=== PATIENT | female | born 1955 | race Hispanic/Latino ===

== ENCOUNTER 2018-10-22 00:22 | Emergency (ER) | payer OTHER ==
--- OUTSIDE RECORDS SUMMARY | 2018-10-22 00:24 | XMS REPORT ---
:1955 Author Organization e[employer] Care Team Providers Name Role Phone Mei, Na Provider Role Unavailable Allergies No Known Allergies Problems Problem Type Condition Code Onset Dates Condition Status Problem Benign essential HTN I10 Active Problem Diverticulosis large intestine w/o K57.30 Active perforation or abscess w/o bleeding Problem Diabetes E11.9 Active Problem Chronic fatigue R53.82 Active Problem Exposure to TB Z20.1 Active Problem Proteinuria, unspecified R80.9 Active Problem Pericardial effusion I31.3 Active Problem Seborrheic dermatitis, unspecified L21.9 Active Problem Insomnia, unspecified type G47.00 Active Problem 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 Problem Type 2 diabetes mellitus with other E11.29 Active diabetic kidney complication Problem Ventral hernia K43.9 Active Problem Reactive depression F32.9 Active Problem Gastroesophageal reflux disease K21.9 Active without esophagitis Problem Poison kayode L23.7 Active Problem HTN (hypertension) I10 Active Problem Hyperlipidemia, mixed E78.2 Active Problem Fatty liver K76.0 Active Problem Endometrial cancer C54.1 Active Problem GERD (gastroesophageal reflux K21.9 Active disease) Medications Medication Code Code Instructions Start End Status Dosage System Date Date Triamcinolone [facility] 99881393193 0.1 % December Active 1 application Acetonide Externally 03, to affected Twice a day 2017 area Medrol [facility] 08843838176 4 MG Orally December Active as directed 2017 Results No Known Results Summary Purpose eClinicalWorks Submission
--- OUTSIDE RECORDS SUMMARY | 2018-10-22 00:25 | XMS REPORT ---
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 Problem Pericardial effusion I31.3 Active Problem Exposure to TB Z20.1 Active Problem Insomnia, unspecified type G47.00 Active Problem Endometrial cancer C54.1 Active Problem Poison kayode L23.7 Active Problem Gastroesophageal reflux disease K21.9 Active without esophagitis Problem Type 2 diabetes mellitus with other E11.29 Active diabetic kidney complication Problem GERD (gastroesophageal reflux K21.9 Active disease) Problem Benign essential HTN I10 Active Problem HTN (hypertension) I10 Active Problem Diabetes E11.9 Active Problem Fatty liver K76.0 Active Problem Ventral hernia K43.9 Active Medications No Known Medications Results No Known Results Summary Purpose eClinicalWorks Submission
--- OUTSIDE RECORDS SUMMARY | 2018-10-22 00:25 | XMS REPORT ---
:1955 Author Organization [employer] Care Team Providers Name Role Phone Mei, Na Provider Role Unavailable Allergies, Adverse Reactions, Alerts Substance Reaction Event Type Lisinopril Info Not Available Drug Allergy Iodine Info Not Available Drug Allergy Problems Problem Type Condition Code Onset Dates Condition Status Assessment Chronic fatigue R53.82 Active Assessment Insomnia, unspecified type G47.00 Active Assessment Gastroesophageal reflux disease K21.9 Active without esophagitis Assessment Exposure to TB Z20.1 Active Assessment Reactive depression F32.9 Active Problem Fatty liver K76.0 Active Assessment Hyperlipidemia, mixed E78.2 Active Problem GERD (gastroesophageal reflux K21.9 Active disease) Assessment Benign essential HTN I10 Active Problem Benign essential HTN I10 Active Problem Diverticulosis large intestine w/o K57.30 Active perforation or abscess w/o bleeding Problem Diabetes E11.9 Active Problem Chronic fatigue R53.82 Active Problem Exposure to TB Z20.1 Active Assessment Type 2 diabetes mellitus with other E11.29 Active diabetic kidney complication Problem Proteinuria, unspecified R80.9 Active Assessment Proteinuria, unspecified R80.9 Active Problem Pericardial effusion [...] Active Problem Hyperlipidemia, mixed E78.2 Active Problem Endometrial cancer C54.1 Active Medications Medication Code Code Instructions Start End Status Dosage System Date Date HydrALAZINE HCl ND 26262149053 50 MG Orally Active 1 tablet with Three times a food day Crestor ND 83516822710 10 MG Active 1 tab(s) once a day (at bedtime) orally Medrol ND 65045218344 4 MG Orally Aug 21, Active as directed 2018 Coreg ND 28397025730 25 MG Orally Active not defined Cymbalta [facility] 51400998258 30 MG Orally Active 1 capsule once a day Metformin HCl [facility] 26494439165 1000 MG Active 1 each 2 times a day orally Cymbalta [facility] 72312769964 30 MG Orally Active 1 capsule once a day Clotrimazole [facility] 01663213023 1 % Externally Active 1 application Twice a day to affected area Vitamin B12 [facility] 60373080245 1000 MCG Orally Active 1 tablet Once a day Diflucan [facility] 56762791861 150 MG Orally Active 1 tablet Prilosec [facility] 67783017737 20 MG Orally Active 1 capsule Once a day Losartan [facility] 45392719396 100 MG Orally Active 1 tablet Potassium Once a day Trazodone HCl [facility] 37712599362 50 MG Orally December 25, Active 1 tablet at Once a day 2018 bedtime as needed Invokana [facility] 22647131421 300 MG Active 1 tab(s) once a day orally Cozaar [facility] 82591086094 100 MG Active 1 each once a day orally Toupetrao RandiMayraar [facility] 65558096512 300 UNIT/ML December 25, Active 10 units Subcutaneous 2018 daily and daily titrate up by 2 units every 3 days until fasting glucose less 130 ( max of 30 units daily) Results No Known Results Summary Purpose eClinicalWorks Submission
--- OUTSIDE RECORDS SUMMARY | 2018-10-22 00:25 | XMS REPORT ---
[...] GERD (gastroesophageal reflux K21.9 Active disease) Medications No Known Medications Results No Known Results Summary Purpose eClinicalWorks Submission
--- OUTSIDE RECORDS SUMMARY | 2018-10-22 00:25 | XMS REPORT ---
:1955 Author Organization [employer]Works Care Team Providers Name Role Phone Mei, Na Provider Role Unavailable Allergies, Adverse Reactions, Alerts Substance Reaction Event Type Lisinopril Info Not Available Drug Allergy Iodine Info Not Available Drug Allergy Problems Problem Type Condition Code Onset Dates Condition Status Assessment Tinea pedis of right foot B35.3 Active Assessment Yeast vaginitis B37.3 Active Assessment Other chronic pain G89.29 Active Assessment Pain in thoracic spine M54.6 Active Assessment Chronic fatigue R53.82 Active Assessment Insomnia, unspecified type G47.00 Active Assessment Gastroesophageal reflux disease K21.9 Active without esophagitis Assessment Reactive depression F32.9 Active Assessment Hyperlipidemia, mixed E78.2 Active Problem Diabetes E11.9 Active Assessment Benign essential HTN I10 Active Problem Ventral hernia K43.9 Active Assessment Proteinuria, unspecified R80.9 Active Problem Hyperlipidemia, mixed E78.2 Active Problem Seborrheic dermatitis, unspecified L21.9 Active Problem Diverticulosis large intestine w/o K57.30 Active perforation or abscess w/o bleeding Problem Proteinuria, unspecified R80.9 Active Problem Chronic fatigue R53.82 Active Problem Reactive depression F32.9 Active Problem Other chronic pain G89.29 Active Assessment Type 2 diabetes mellitus with other E11.29 Active diabetic kidney complication Problem 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 Active [...] Active Problem HTN (hypertension) I10 Active Problem Fatty liver K76.0 Active Medications Medication Code Code Instructions Start End Status Dosage System Date Date Vitamin B12 [facility] 04024666052 1000 MCG Active 1 tablet Orally Once a day Medrol [facility] 88561340255 4 MG Orally Feb Active as directed 2017 Crestor [facility] 42147064058 10 MG Active 1 tab(s) once a day (at bedtime) orally Medrol ND 70951526030 4 MG Orally December Active as directed 2017 Cymbalta [facility] 69179813509 60 MG Orally Active 1 capsule once a day Hydrochlorothiazide ND 86225399914 25 MG Orally Nov Active 1 tablet in Once a day , the morning 2017 HydrALAZINE HCl [facility] 17117945734 50 MG Orally Active 1 tablet Three times a with food day Diflucan ND 01373702205 150 MG Orally Active 1 tablet Cymbalta [facility] 38515064879 30 MG Orally Active 1 capsule once a day Invokana [facility] 46658404838 300 MG Jan Active 1 tab(s) 20, once a day 2018 orally NovoFine Plus [facility] 99271960241 32G X 4 MM Nov Active as directed 2017 Trazodone HCl [facility] 91565911491 50 MG Orally Active 1 tablet at Once a day bedtime as needed Losartan Potassium ND 20284430951 100 MG Orally Active 1 tablet Once a day HydrALAZINE HCl [facility] 80999809188 50 MG Orally Active 1 tablet Three times a with food day Clotrimazole [facility] 41823649936 1 % Externally Active 1 Twice a day application to affected area Coreg ND 57488748232 25 MG Orally Active not defined Prilosec [facility] 88164207225 20 MG Orally Active 1 capsule Once a day Cozaar [facility] 91333003519 100 MG Active 1 each once a day orally Triamcinolone [facility] 02891494792 0.1 % December Active 1 Acetonide Externally , application Twice a day 2017 to affected area Toujeo SoloStar [facility] 18981110709 300 UNIT/ML Active 32 units and Subcutaneous increase by daily 2 units every 3 days until fbg less 120 FreeStyle Chaz [facility] 04102558059 - [place] dailyk Active as directed [place] Prilosec [facility] 93658023921 20 MG Orally Active 1 capsule Once a day Fluconazole ND 57925750756 150 MG Orally Feb Active 1 tablet one tab a week , and 2018 may repeat one tab in 1 week if no improvement Metformin HCl [facility] 98870257981 1000 MG Active 1 each 2 times a day orally FreeStyle Chaz [facility] 64855639671 - Active as directed Sensor System Amlodipine Besylate [facility] 73436888994 5 MG Orally Fe Active 1 tablet Once a day 2018 Results No Known Results Summary Purpose eClinicalWorks Submission
--- OUTSIDE RECORDS SUMMARY | 2018-10-22 00:25 | XMS REPORT ---
:1955 Author Organization eClinicalWorks Care Team Providers Name Role Phone Mei, Na Provider Role Unavailable Allergies, Adverse Reactions, Alerts Substance Reaction Event Type Lisinopril Info Not Available Drug Allergy Iodine Info Not Available Drug Allergy Problems Problem Type Condition Code Onset Dates Condition Status Assessment Tinea pedis of right foot B35.3 Active Assessment Other chronic pain G89.29 Active [...] Start End Status Dosage System Date Date Losartan Potassium [facility] 08415854346 100 MG Orally Active 1 tablet Once a day Metformin HCl [facility] 62602231303 1000 MG Active 1 each 2 times a day orally Invokana [facility] 10766038205 300 MG Active 1 tab(s) once a day orally Prilosec [facility] 52005040108 20 MG Orally Active 1 capsule Once a day FreeStyle Chaz [facility] 70650934866 - Active as directed Sensor System Diflucan [facility] 83253807104 150 MG Orally Active 1 tablet Vitamin B12 [facility] 47870483615 1000 MCG Active 1 tablet Orally Once a day NovoFine Plus [facility] 76785371879 32G X 4 MM Nov Active as directed 2017 Crestor [facility] 61731987266 10 MG Active 1 tab(s) once a day (at bedtime) orally Trazodone HCl [facility] 02028369752 50 MG Orally Active 1 tablet at Once a day bedtime as needed Toujeo SoloStar [facility] 37504126869 300 UNIT/ML Active 22 units Subcutaneous daily daily tittrate up 2 units every 3 days max of 30 units daily. Cymbalta [facility] 04555309452 30 MG Orally Active 1 capsule once a day Medrol [facility] 09870971502 4 MG Orally Aug Active as directed 2017 Coreg [facility] 46580021159 25 MG Orally Active not defined Cozaar [facility] 12614190354 100 MG Active 1 each once a day orally Hydrochlorothiazide ND 46363797343 25 MG Orally Nov Active 1 tablet in Once a day , the morning 2017 Clotrimazole [facility] 73527897813 1 % Externally Active 1 Twice a day application to affected area Medrol [facility] 33430551624 4 MG Orally December Active as directed 2017 Prilosec [facility] 15115759725 20 MG Orally Active 1 capsule Once a day Cymbalta [facility] 93664580267 30 MG Orally Active 1 capsule once a day HydrALAZINE HCl [facility] 58434275130 50 MG Orally Active 1 tablet two times a with food day FreeStyle Chaz [facility] 44747586989 - [place] daily Active as directed [place] Triamcinolone [facility] 75918738191 0.1 % December Active 1 Acetonide Externally , application Twice a day 2017 to affected area Results No Known Results Summary Purpose eClinicalWorks Submission
--- OUTSIDE RECORDS SUMMARY | 2018-10-22 00:25 | XMS REPORT ---
:1955 Author Organization eClinicalWorks Care Team Providers Name Role Phone Mei, Na Provider Role Unavailable Allergies, Adverse Reactions, Alerts Substance Reaction Event Type Lisinopril Info Not Available Drug Allergy Iodine Info Not Available Drug Allergy Problems Problem Type Condition Code Onset Dates Condition Status Assessment Insomnia, unspecified type G47.00 Active Assessment Yeast vaginitis B37.3 Active Assessment Reactive depression F32.9 Active Assessment Paronychia of great toe of right L03.031 Active foot Assessment Hyperlipidemia, mixed E78.2 Active Problem Diabetes [...] Start End Status Dosage System Date Date Cymbalta [facility] 67175192745 60 MG Orally Active 1 capsule once a day HydrALAZINE HCl ND 75189689996 50 MG Orally Active 1 tablet Three times a with food day Crestor ND 86284795462 10 MG Active 1 tab(s) once a day (at bedtime) orally Diflucan ND 89612517435 150 MG Orally Active 1 tablet Hydrochlorothiazide ND 43636774924 25 MG Orally Nov Active 1 tablet in Once a day , the morning 2017 Cymbalta [facility] 42211306422 30 MG Orally Active 1 capsule once a day Prilosec [facility] 02224161744 20 MG Orally Active 1 capsule Once a day Prilosec [facility] 96879277902 20 MG Orally Active 1 capsule Once a day Fluconazole ND 08869952471 150 MG Orally Active 1 tablet one tab a today and week may repeat one tab in 1 week if no improvement Toujeo SoloStar [facility] 69441503486 300 UNIT/ML Active 32 units and Subcutaneous increase by daily 2 units every 3 days until fbg less 120 Bactrim DS [facility] 67227815648 800-160 MG August Active 1 tablet Orally Twice , , a day 2018 2018 HydrALAZINE HCl [facility] 52668901246 50 MG Orally Active 1 tablet Three times a with food day Cozaar [facility] 84351427484 100 MG Active 1 each once a day orally Medrol [facility] 07353540634 4 MG Orally December Active as directed 2017 Invokana [facility] 30006338100 300 MG Active 1 tab(s) once a day orally Metformin HCl [facility] 67812012781 1000 MG Active 1 each 2 times a day orally Vitamin B12 ND 15677213136 1000 MCG Active 1 tablet Orally Once a day Triamcinolone ND 02979292238 0.1 % December Active 1 Acetonide Externally , application Twice a day 2017 to affected area Trazodone HCl ND 12704088362 50 MG Orally Active 1 tablet at Once a day bedtime as needed Medrol [facility] 28653974850 4 MG Orally Aug Active as directed 2017 Amlodipine Besylate ND 42381576038 10 MG Orally Active 1 tablet Once a day Clotrimazole ND 90672012980 1 % Active 1 Externally application Twice a day to affected area Coreg ND 93499751232 25 MG Orally Active not defined NovoFine Plus [facility] 15632356677 32G X 4 MM May Active as directed 2017 Losartan Potassium ND 07883250897 100 MG Orally Active 1 tablet Once a day FreeStyle Chaz [facility] 02162622056 - [place] dailyk Active as directed [place] [facility] 50548728870 - Active as directed Sensor System Results No Known Results Summary Purpose eClinicalWorks Submission
--- NOTE | 2018-10-22 01:00 | EDPHYS ---
Physician Documentation [facility] Name: Jo Hagan Age: 63 yrs Sex: Female : 1955 Arrival Date: 10/22/2018 Time: 00:24 Bed 19 Private MD: Kenyatta Mei ED Physician Jack Javier HPI: 10/22 01:03 This 63 yrs old Female presents to ER via Ambulatory with complaints of Rash, snw Allergic Reaction. 01:03 The patient's rash thought to be caused by Dermatitis Contact allergy. The rash is snw located on the left arm and left hand and right hand and palmar aspect of left forearm and dorsal aspect of left forearm and left cheek and right cheek. The rash can be described as erythematous, patchy, vesicular. Onset: The symptoms/episode began/occurred suddenly, 2 day(s) ago, and became worse and became persistent. Severity of symptoms: At their worst the symptoms were moderate in the emergency department the symptoms are unchanged. The patient has experienced similar episodes in the past. It is unknown whether or not the patient has recently seen a physician. cleaning out her gardens and mulch. Historical: - Allergies: 00:41 Iodine; ak1 - Home Meds: 00:41 carvedilol 25 mg oral tab 1 tab 2 times per day [Active]; hydralazine 50 mg Oral tab 1 ak1 tab 3 times daily [Active]; metformin 1,000 mg Oral tab 1 tab 2 times per day [Active]; Invokana 300 mg oral tab 1 tab once daily [Active]; Crestor 10 mg oral tab 1 tab once daily [Active]; amlodipine 5 mg tab 1 tab once daily [Active]; omeprazole 20 mg Oral cpDR 1 cap once daily [Active]; insulin SQ 42 units daily [Active]; - PMHx: 00:41 Diabetes - IDDM; Hypertension; ak1 - PSHx: 00:41 Hysterectomy; Tubal ligation; Cholecystectomy; Hernia repair; ak1 - Immunization history:: Adult Immunizations unknown. - Social history:: Smoking status: Patient/guardian denies using tobacco. - Ebola Screening: : No symptoms or risks identified at this time. ROS: 01:03 Constitutional: Negative for fever, chills, and weight loss, Eyes: Negative for injury, snw pain, redness, and discharge, ENT: Negative for injury, pain, and discharge, Neck: Negative for injury, pain, and swelling, Cardiovascular: Negative for chest pain, palpitations, and edema, Respiratory: Negative for shortness of breath, cough, wheezing, and pleuritic chest pain, Abdomen/GI: Negative for abdominal pain, nausea, vomiting, diarrhea, and constipation, Back: Negative for injury and pain, : Negative for injury, bleeding, discharge, and swelling, MS/Extremity: Negative for injury and deformity, Neuro: Negative for headache, weakness, numbness, tingling, and seizure, Psych: Negative for depression, anxiety, suicide ideation, homicidal ideation, and hallucinations. 01:03 Skin: Positive for rash, swelling, of the left arm and left hand and right hand and palmar aspect of left forearm and dorsal aspect of left forearm and left cheek and right cheek. Exam: : Constitutional: This is a well developed, well nourished patient who is awake, alert, snw and in no acute distress. Eyes: Pupils equal round and reactive to light, extra-ocular motions intact. Lids and lashes normal. Conjunctiva and sclera are non-icteric and not injected. Cornea within normal limits. Periorbital areas with no swelling, redness, or edema. Neck: Trachea midline, no thyromegaly or masses palpated, and no cervical lymphadenopathy. Supple, full range of motion without nuchal rigidity, or vertebral point tenderness. No Meningismus. Chest/axilla: Normal chest wall appearance and motion. Nontender with no deformity. No lesions are appreciated. Cardiovascular: Regular rate and rhythm with a normal S1 and S2. No gallops, murmurs, or rubs. Normal PMI, no JVD. No pulse deficits. Respiratory: Lungs have equal breath sounds bilaterally, clear to auscultation and percussion. No rales, rhonchi or wheezes noted. No increased work of breathing, no retractions or nasal flaring. Abdomen/GI: Soft, non-tender, with normal bowel sounds. No distension or tympany. No guarding or rebound. No evidence of tenderness throughout. Back: No spinal tenderness. No costovertebral tenderness. Full range of motion. MS/ Extremity: Pulses equal, no cyanosis. Neurovascular intact. Full, normal range of motion. Neuro: Awake and alert, GCS 15, oriented to person, place, time, and situation. Cranial nerves II-XII grossly intact. Motor strength 5/5 in all extremities. Sensory grossly intact. Cerebellar exam normal. Normal gait. 01:01 Head/face: Noted is erythema, that is moderate, of the right cheek and left cheek, swelling. 01:01 ENT: TM's: are normal, Nose: is normal, Mouth: Tongue: is swollen, mildly, no airway compromise, Voice: is normal. 01:01 Skin: Appearance: Color: normal in color, contact dermatitis, on the right hand, left hand, dorsal aspect of left forearm and palmar aspect of left forearm. Vital Signs: 00:36 BP 176 / 91; Pulse 71; Resp 16; Temp 98.1(O); Pulse Ox 97% on R/A; Weight 90.72 kg (R); ak1 Height 5 ft. 4 in. (162.56 cm) (R); Pain 5/10; 01:15 BP 156 / 74; Pulse 72; Resp 17; Pulse Ox 99% on R/A; Pain 5/10; ed1 00:36 Body Mass Index 34.33 (90.72 kg, 162.56 cm) ak1 MDM: 00:36 Patient medically screened. snw 01:02 Data reviewed: vital signs, nurses notes. Data interpreted: Pulse oximetry: on room air snw is 97 %. Interpretation: normal. Counseling: I had a detailed discussion with the patient and/or guardian regarding: the historical points, exam findings, and any diagnostic results supporting the discharge/admit diagnosis, the presence of at least one elevated blood pressure reading (>120/80) during this emergency department visit, the need for outpatient follow up, to return to the emergency department if symptoms worsen or persist or if there are any questions or concerns that arise at home. Special discussion: I have referred the patient to see his PCP for further evaluation of high blood pressure. I discussed in detail with the patient the higher chance of wound infection based on his presenting history. Based on the history and exam findings, there is no indication for further emergent testing or inpatient evaluation. I discussed with the patient/guardian the need to see the merchandising execution associate for further evaluation of the symptoms. I discussed with the patient/guardian the need to see the primary care provider for further evaluation of the symptoms. Administered Medications: 01:19 Drug: predniSONE 40 mg Route: PO; ed1 01:20 Follow up: Response: Medication administered at discharge. ed1 :19 Drug: Pepcid 20 mg Route: PO; ed1 :20 Follow up: Response: Medication administered at discharge. ed1 :20 Drug: Atarax 50 mg Route: PO; ed1 01:21 Follow up: Response: Medication administered at discharge. ed1 Disposition: 02:47 Co-signature as Attending Physician, Jack Javier MD. rn Disposition: 10/22/18 00:59 Discharged to Home. Impression: Irritant contact dermatitis. - Condition is Stable. - Discharge Instructions: Contact Dermatitis, Diabetes and Sick Day Management, Hypertension, Rehydration, Elderly. - Prescriptions for Pepcid 20 mg Oral Tablet - take 1 tablet by ORAL route every 12 hours for 10 days; 20 tablet. Zyrtec 10 mg Oral Tablet - take 1 tablet by ORAL route once daily As needed; 20 tablet. Prednisone 20 mg Oral Tablet - take 2 tablet by ORAL route once daily for 5 days; 10 tablet. - Medication Reconciliation Form, Thank You Letter, Antibiotic Education, Prescription Opioid Use form. - Follow up: Kenyatta Mei MD; When: 2 - 3 days; Reason: Recheck today's complaints, Continuance of care, Re-evaluation by your physician. Follow up: Emergency Department; When: As needed; Reason: Worsening of condition. - Problem is an acute exacerbation. - Symptoms have worsened. Signatures: Dennise Ivey, [employer]Cs[employer] Jack Javier MD MD rn Riggs, Erika, RN RN ed1 Denise Estrada RN RN ak1 Corrections: (The following items were deleted from the chart) 01: 00:59 10/22/2018 00:59 Discharged to Home. Impression: Irritant contact dermatitis. ed1 Condition is Stable. Forms are Medication Reconciliation Form, Thank You Letter, Antibiotic Education, Prescription Opioid Use. Follow up: Kenyatta Mei; When: 2 - 3 days; Reason: Recheck today's complaints, Continuance of care, Re-evaluation by your physician. Follow up: Emergency Department; When: As needed; Reason: Worsening of condition. Problem is an acute exacerbation. Symptoms have worsened. snw
--- NOTE | 2018-10-22 01:00 | ER ---
Nurse's Notes [facility] Name: Jo Hagan Age: 63 yrs Sex: Female : 1955 Arrival Date: 10/22/2018 Time: 00:24 Bed 19 Private MD: Kenyatta Mei Diagnosis: Irritant contact dermatitis Presentation: 10/22 00:28 Initial Sepsis Screen: Does the patient meet any 2 criteria? No. Patient's initial ed1 sepsis screen is negative. Does the patient have a suspected source of infection? No. Patient's initial sepsis screen is negative. 00:37 Presenting complaint: Patient states: got into poison [place] Saturday. pt c/o swelling to ak1 bilateral hands with increased pain. pt stated last time she had to have steroid "shot" for swelling. Transition of care: patient was not received from another setting of care. Onset: The symptoms/episode began/occurred 4 day(s) ago. Anaphylaxis evaluation, no signs or symptoms of anaphylaxis were noted. Onset of symptoms was October 17, 2018. Risk Assessment: Do you want to hurt yourself or someone else? Patient reports no desire to harm self or others. Care prior to arrival: None. 00:37 Method Of Arrival: Ambulatory ak1 00:37 Acuity: OLGA 4 ak1 Triage Assessment: 00:28 General: Appears in no apparent distress. Behavior is calm, cooperative. ed1 Historical: - Allergies: 00:41 Iodine; ak1 - Home Meds: 00:41 carvedilol 25 mg oral tab 1 tab 2 times per day [Active]; hydralazine 50 mg Oral tab 1 ak1 tab 3 times daily [Active]; metformin 1,000 mg Oral tab 1 tab 2 times per day [Active]; Invokana 300 mg oral tab 1 tab once daily [Active]; Crestor 10 mg oral tab 1 tab once daily [Active]; amlodipine 5 mg tab 1 tab once daily [Active]; omeprazole 20 mg Oral cpDR 1 cap once daily [Active]; insulin SQ 42 units daily [Active]; - PMHx: 00:41 Diabetes - IDDM; Hypertension; ak1 - PSHx: 00:41 Hysterectomy; Tubal ligation; Cholecystectomy; Hernia repair; ak1 - Immunization history:: Adult Immunizations unknown. - Social history:: Smoking status: Patient/guardian denies using tobacco. - Ebola Screening: : No symptoms or risks identified at this time. Screenin:28 Abuse screen: Denies threats or abuse. Denies injuries from another. Nutritional ed1 screening: No deficits noted. Tuberculosis screening: No symptoms or risk factors identified. Fall Risk None identified. Assessment: 00:28 General: Appears uncomfortable, Behavior is calm, cooperative. Pain: Complains of pain ed1 in right hand and left hand Pain currently is 5 out of 10 on a pain scale. Quality of pain is described as burning, aching, Pain began 1 day ago. Is continuous. Neuro: Level of Consciousness is awake, alert, obeys commands, Oriented to person, place, time, situation. Cardiovascular: Denies chest pain, Heart tones S1 S2 present. Respiratory: Airway is patent Respiratory effort is even, unlabored, Respiratory pattern is regular, symmetrical, Breath sounds are clear bilaterally. Denies cough, shortness of breath. GI: Abdomen is non-distended, Bowel sounds present X 4 quads. Abd is soft and non tender X 4 quads. Patient currently denies diarrhea, nausea, vomiting. : No signs and/or symptoms were reported regarding the genitourinary system. EENT: No signs and/or symptoms were reported regarding the EENT system. Derm: Skin is healthy with good turgor, Skin is dry, Skin is normal, Skin temperature is warm Rash noted that is itchy, red, on right hand, left hand, right arm and left arm Reports itching. Musculoskeletal: Circulation, motion, and sensation intact. Range of motion: intact in all extremities, Swelling present in right hand and left hand. 01:15 Reassessment: Patient appears in no apparent distress at this time. No changes from ed1 previously documented assessment. Patient and/or family updated on plan of care and expected duration. Pain level reassessed. Patient is alert, oriented x 3, equal unlabored respirations, skin warm/dry/pink. Patient states symptoms have not improved. Vital Signs: 00:36 BP 176 / 91; Pulse 71; Resp 16; Temp 98.1(O); Pulse Ox 97% on R/A; Weight 90.72 kg (R); ak1 Height 5 ft. 4 in. (162.56 cm) (R); Pain 5/10; 01:15 BP 156 / 74; Pulse 72; Resp 17; Pulse Ox 99% on R/A; Pain 5/10; ed1 00:36 Body Mass Index 34.33 (90.72 kg, 162.56 cm) ak1 ED Course: 00:24 Patient arrived in ED. am2 00:25 Kenyatta Mei MD is Private Physician. am2 00:26 Dennise Ivey FNP-C is [facility]. snw 00:26 Jack Javier MD is Attending Physician. snw 00:28 Patient has correct armband on for positive identification. Bed in low position. Call ed1 light in reach. Adult w/ patient. Pulse ox on. NIBP on. 00:38 Triage completed. ak1 00:41 Arm band placed on Patient placed in an exam room, Patient notified of wait time. ak1 00:59 Kenyatta Mei MD is Referral Physician. snw 01:16 Carmela Sullivan, RN is Primary Nurse. ed1 01:17 No provider procedures requiring assistance completed. Patient did not have IV access ed1 during this emergency room visit. Administered Medications: 01:19 Drug: predniSONE 40 mg Route: PO; ed1 01:20 Follow up: Response: Medication administered at discharge. ed1 01:19 Drug: Pepcid 20 mg Route: PO; ed1 01:20 Follow up: Response: Medication administered at discharge. ed1 01:20 Drug: Atarax 50 mg Route: PO; ed1 01:21 Follow up: Response: Medication administered at discharge. ed1 Outcome: 00:59 Discharge ordered by MD. snw 01:17 Discharged to home ambulatory, with family. ed1 01:17 Condition: good 01:17 Discharge instructions given to patient, family, Instructed on discharge instructions, follow up and referral plans. medication usage, Demonstrated understanding of instructions, follow-up care, medications, Prescriptions given X 3. 01:21 Patient left the ED. ed1 Signatures: Dennise Ivey FNP-C FNP-Csnw Carmela Sullivan, RN RN ed1 Denise Estrada RN RN ak1 Libby Armas am2
[2018-10-22] MEDS ORDERED: predniSONE 20 MG TAB ONE (01:23)
[2018-10-22] MEDS ORDERED: hydrOXYzine HCl 25 MG TAB ONE (01:23)
[2018-10-22] MEDS ORDERED: FAMOTIDINE 20 MG TAB ONE (01:23)
[2018-10-22 02:06] VITALS: BP 176/91; TEMP 98.1; O2SAT 97
== END 2018-10-22 01:21 | disposition home or self-care (01) ==
LOC: ER 00:22
DX: L24.9 Irritant contact dermatitis, unspecified cause (principal); E11.9 Type 2 diabetes mellitus without complications; I10 Essential (primary) hypertension; Z91.09 Other allergy status, other than to drugs and biological substances
CPT/HCPCS: 99283; J7512

== ENCOUNTER 2021-04-24 14:23 | Observation (INO) | payer OTHER ==
[2021-04-24 15:37] LABS: ALT/SGPT 21 U/L (12-78); AST/SGOT 18 U/L (15-37); Albumin 3.5 g/dL (3.4-5.0); Alkaline Phosphatase 76 U/L (45-117); BUN Blood Urea Nitrogen 16 mg/dL (7-18); Bicarbonate 26 mmol/L (21-32); Bilirubin Direct 0.2 mg/dL (0-0.2); Bilirubin Total 0.6 mg/dL (0.2-1.0); Glucose Level 296 mg/dL (74-106); Magnesium 2.4 mg/dL (1.8-2.4); NT PRO-BNP 216 pg/mL (<125); Potassium 3.8 mmol/L (3.5-5.1); Protein, Total 7.4 g/dL (6.4-8.2); Sodium Level 139 mmol/L (136-145); Troponin (Emerg Dept Use Only) < 0.02 ng/mL (0.0-0.045)
[2021-04-24 15:54] LABS: Absolute Lymphocytes (CBC) 1.7 K/uL (0.7-4.9); Basophils % 0.6 % (0-1.3); Hematocrit 44.3 % (36.0-45.0); Lymphocytes % 30.6 % (15.3-44.8); MPV 7.6 fL (7.6-11.3); RBC Red Blood Cell Count 5.19 M/uL (3.86-4.86)
[2021-04-24 16:00] LABS: Protime INR 0.97
--- NOTE | 2021-04-24 16:27 | RAD REPORT ---
EXAM DESCRIPTION: [facility] Single View04/24/2021 3:26 pm CLINICAL HISTORY: Chest pain COMPARISON: 2015 FINDINGS: The lungs appear clear of acute infiltrate. The heart is normal size IMPRESSION: No acute abnormalities displayed
--- NOTE | 2021-04-24 17:07 | EDPHYS ---
Physician Documentation [facility] Name: Jo Hagan Age: 66 yrs Sex: Female : 1955 Arrival Date: 04/24/2021 Time: 14:26 Bed 7 Private MD: ED Physician Eb Guillaume HPI: 04/24 15:30 This 66 yrs old Female presents to ER via Ambulatory with complaints of chest jm pain. 15:30 The patient or guardian reports chest pain that is located primarily in the substernal [facility] area. Onset: gradually, 1 week(s) ago. The pain radiates to left back. Associated signs and symptoms: Pertinent negatives: cough, shortness of breath. The chest pain is described as a pressure. Duration: The patient or guardian reports multiple episodes, that wax and wane. Modifying factors: The symptoms are alleviated by nothing. the symptoms are aggravated by nothing. Historical: - Allergies: 14:33 Iodine; aa5 - Home Meds: 19:53 losartan 100 mg oral tab 1 tab once daily [Active]; metformin 1,000 mg Oral tab 1 tab 2 df1 times per day [Active]; rosuvastatin 10 mg oral cpSP 1 cap once daily [Active]; omeprazole 20 mg Oral cpDR 1 cap once daily [Active]; Invokana 300 mg Oral tab 1 tab once daily [Active]; hydralazine 50 mg Oral tab 1 tab 3 times daily [Active]; - PMHx: 14:33 Diabetes - IDDM; Hypertension; aa5 19:53 gerd; TIA; df1 - PSHx: 14:33 hysterectomy; Cholecystectomy; hernia; aa5 - Immunization history:: Client reports having NOT received the Covid vaccine. - Social history:: Smoking status: Patient denies any tobacco usage or history of. ROS: 16:01 Constitutional: Negative for fever, chills, and weight loss. jmm 16:01 Respiratory: Negative for shortness of breath, cough, wheezing, and pleuritic chest pain. 16:01 Cardiovascular: Positive for chest pain. 16:01 All other systems are negative. Exam: 16:01 Constitutional: This is a well developed, well nourished patient who is awake, alert, jmm and in no acute distress. Head/Face: atraumatic. Eyes: EOMI, no conjunctival erythema appreciated ENT: Moist Mucus Membranes Neck: Trachea midline, Supple Chest/axilla: Normal chest wall appearance and motion. Cardiovascular: Regular rate and rhythm. No edema appreciated Respiratory: Normal respirations, no respiratory distress appreciated Abdomen/GI: Non distended, soft Back: Normal ROM Skin: General appearance color normal MS/ Extremity: Moves all extremities, no obvious deformities appreciated, no edema noted to the lower extremities Neuro: Awake and alert, normal gait Psych: Behavior is normal, Mood is normal, Patient is cooperative and pleasant Vital Signs: 14:32 BP 164 / 95; Pulse 91; Resp 16 S; Temp 97.3(TE); Pulse Ox 98% on R/A; Weight 72.57 kg aa5 (R); Height 5 ft. 4 in. (162.56 cm) (R); 14:59 BP 178 / 75; Pulse 85; Resp 17; Pulse Ox 97% ; bp 16:00 BP 168 / 86; Pulse 78; Resp 16; Pulse Ox 98% ; bp 17:00 BP 159 / 76; Pulse 77; Resp 16; Pulse Ox 97% ; bp 19:37 BP 146 / 91; Pulse 75; Resp 18; Pulse Ox 98% on R/A; df1 14:32 Body Mass Index 27.46 (72.57 kg, 162.56 cm) aa5 MDM: 15:28 Patient medically screened. tania 17:06 Data reviewed: vital signs, nurses notes. Counseling: I had a detailed discussion with tania the patient and/or guardian regarding: the historical points, exam findings, and any diagnostic results supporting the discharge/admit diagnosis, lab results, radiology results, the need for further work-up and treatment in the hospital. 04/24 14:49 Order name: Basic Metabolic Panel bp 04/24 14:49 Order name: CBC with Diff; Complete Time: 16:13 bp 04/24 14:49 Order name: LFT's bp 04/24 14:49 Order name: Magnesium bp 04/24 14:49 Order name: NT PRO-BNP; Complete Time: 15:58 bp 04/24 14:49 Order name: PT-INR; Complete Time: 16:13 bp 04/24 14:49 Order name: Troponin (emerg Dept Use Only); Complete Time: 15:58 bp 04/24 14:50 Order name: Basic Metabolic Panel; Complete Time: 15:58 EDMS 04/24 14:50 Order name: Liver (Hepatic) Function; Complete Time: 15:58 EDMS 04/24 14:50 Order name: Magnesium; Complete Time: 15:58 EDMS 04/24 17:57 Order name: COVID-19 (Coronavirus) Document "Date of Onset" if Symptomatic [facility] 04/24 18:25 Order name: CORONAVIRUS EDMS 04/24 19:28 Order name: SARS-COV-2 RT PCR; Complete Time: 19:34 EDMS 04/24 14:49 Order name: XRAY Chest (1 view); Complete Time: 16:33 bp 04/24 14:49 Order name: EKG; Complete Time: 14:50 bp 04/24 14:49 Order name: Cardiac monitoring; Complete Time: 14:57 bp 04/24 14:49 Order name: EKG - Nurse/Tech; Complete Time: 14:57 bp 04/24 14:49 Order name: IV Saline Lock; Complete Time: 14:57 bp 04/24 14:49 Order name: Labs collected and sent; Complete Time: 14:58 bp 04/24 14:49 Order name: O2 Per Protocol; Complete Time: 14:58 bp 04/24 14:49 Order name: O2 Sat Monitoring; Complete Time: 14:57 bp Administered Medications: 17:30 Drug: Aspirin Chewable Tablet 324 mg Route: PO; bp 17:41 Follow up: Response: No adverse reaction bp Disposition: 04/25 08:55 Co-signature as Attending Physician, Eb Guillaume MD I agree with the assessment and sp3 plan of care. Disposition Summary: 04/24/21 17:07 Hospitalization Ordered Hospitalization Status: Observation [facility] Provider: Alex Joseph Location: Telemetry/MedSurg (observation) [facility] Condition: Stable [facility] Problem: new jmm Symptoms: are unchanged [facility] Bed/Room Type: Standard [facility] Room Assignment: 206(04/24/21 19:44) mw Diagnosis - Chest pain, unspecified m Forms: - Medication Reconciliation Form m - SBAR form jmm Signatures: Dispatcher [employer] EDMS Jess Fishman RN RN Jayesh Watson PA PA Kiara Mukherjee RN RN aa5 Charlie Avila RN RN bp Eb Guillaume MD MD sp3 Elizabeth Tapia df1 Corrections: (The following items were deleted from the chart) 04/24 19:44 17:07 tania klein
--- NOTE | 2021-04-24 17:07 | ER ---
Nurse's Notes [facility] Name: Jo Hagan Age: 66 yrs Sex: Female : 1955 Arrival Date: 04/24/2021 Time: 14:26 Bed 7 Private MD: Diagnosis: Chest pain, unspecified Presentation: 04/24 14:32 Chief complaint: Patient states: chest pain radiating to left upper back and left side aa5 of neck that began 1 week ago, pt reports pain feels like "pressure". Pt denies denies nausea/vomiting, denies SOB. Pt reports headache. Coronavirus screen: headache. Ebola Screen: No symptoms or risks identified at this time. Onset of symptoms was March 2021. 14:32 Method Of Arrival: Ambulatory aa5 14:32 Acuity: OLGA 3 aa5 14:32 Initial Sepsis Screen: Does the patient meet any 2 criteria? HR > 90 bpm. Does the aa5 patient have a suspected source of infection? No. Patient's initial sepsis screen is negative. Risk Assessment: Do you want to hurt yourself or someone else? Patient reports no desire to harm self or others. Triage Assessment: 14:40 General: Appears in no apparent distress. uncomfortable, Behavior is cooperative, bp appropriate for age, anxious. Pain: Complains of pain in chest. EENT: No deficits noted. Neuro: No deficits noted. Cardiovascular: Reports chest pain, since 2 WEEKS AGO. Respiratory: No deficits noted. GI: No signs and/or symptoms were reported involving the gastrointestinal system. : No signs and/or symptoms were reported regarding the genitourinary system. Derm: No deficits noted. Musculoskeletal: No deficits noted. Historical: - Allergies: 14:33 Iodine; aa5 - Home Meds: 19:53 losartan 100 mg oral tab 1 tab once daily [Active]; metformin 1,000 mg Oral tab 1 tab 2 df1 times per day [Active]; rosuvastatin 10 mg oral cpSP 1 cap once daily [Active]; omeprazole 20 mg Oral cpDR 1 cap once daily [Active]; Invokana 300 mg Oral tab 1 tab once daily [Active]; hydralazine 50 mg Oral tab 1 tab 3 times daily [Active]; - PMHx: 14:33 Diabetes - IDDM; Hypertension; aa5 19:53 gerd; TIA; df1 - PSHx: 14:33 hysterectomy; Cholecystectomy; hernia; aa5 - Immunization history:: Client reports having NOT received the Covid vaccine. - Social history:: Smoking status: Patient denies any tobacco usage or history of. Screenin:40 Abuse screen: Denies threats or abuse. Denies injuries from another. Nutritional bp screening: No deficits noted. Tuberculosis screening: No symptoms or risk factors identified. Fall Risk None identified. Assessment: 14:40 General: SEE TRIAGE NOTE. bp 16:15 Reassessment: No changes from previously documented assessment. Patient and/or family bp updated on plan of care and expected duration. Pain level reassessed. ALL CURRENT ORDERS COMPLETED. 17:18 Reassessment: No changes from previously documented assessment. Patient and/or family bp updated on plan of care and expected duration. Pain level reassessed. ADMIT INITIATED FOR CHEST PAIN. 19:58 Pain: Pain began gradually. df1 19:59 Pain: Pain radiates to left low back and left mid back. df1 Vital Signs: 14:32 BP 164 / 95; Pulse 91; Resp 16 S; Temp 97.3(TE); Pulse Ox 98% on R/A; Weight 72.57 kg aa5 (R); Height 5 ft. 4 in. (162.56 cm) (R); 14:59 BP 178 / 75; Pulse 85; Resp 17; Pulse Ox 97% ; bp 16:00 BP 168 / 86; Pulse 78; Resp 16; Pulse Ox 98% ; bp 17:00 BP 159 / 76; Pulse 77; Resp 16; Pulse Ox 97% ; bp 19:37 BP 146 / 91; Pulse 75; Resp 18; Pulse Ox 98% on R/A; df1 14:32 Body Mass Index 27.46 (72.57 kg, 162.56 cm) aa5 ED Course: 14:26 Patient arrived in ED. as 14:32 Arm band placed on. aa5 14:33 Triage completed. aa5 14:40 Patient has correct armband on for positive identification. Bed in low position. Call bp light in reach. Side rails up X2. monitoring and evaluation advisor on. Pulse ox on. NIBP on. 14:47 Charlie Avila, RN is Primary Nurse. bp 14:58 Magnesium Sent. bp 14:58 LFT's Sent. bp 14:58 Basic Metabolic Panel Sent. bp 14:58 Inserted saline lock: 20 gauge in right antecubital area, using aseptic technique. bp Blood collected. 15:02 Eb Guillaume MD is Attending Physician. sp3 15:04 EKG done, by ED staff, reviewed by Eb Guillaume MD. em1 15:16 Jayesh Ashton PA is PHCP. jmm 15:26 XRAY Chest (1 view) In Process Unspecified. EDMS 17:06 Alex Joseph DO is Hospitalizing Provider. jmm 19:10 CORONAVIRUS Sent. df1 19:37 COVID-19 (Coronavirus) Document "Date of Onset" if Symptomatic Sent. df1 19:58 No provider procedures requiring assistance completed. Patient maintains SpO2 df1 saturation greater than 95% on room air. 20:03 Patient admitted, IV remains in place. df1 Administered Medications: 17:30 Drug: Aspirin Chewable Tablet 324 mg Route: PO; bp 17:41 Follow up: Response: No adverse reaction bp Outcome: 17:07 Decision to Hospitalize by Provider. jmm 20:03 Admitted to Tele accompanied by tech. df1 20:03 Condition: stable 20:03 Instructed on the need for admit. 20:43 Patient left the ED. df1 Signatures: Dispatcher [employer] EDMS Jayesh Ashton PA PA jmm Martinez, Amelia as Martinez, Eric em1 Kiara Wooten, RN RN aa5 Charlie Avila, AJITH RN bp Eb Guillaume MD MD sp3 Elizabeth Tapia df1
--- NOTE | 2021-04-24 17:34 | P.HP ---
Certification for Inpatient Patient admitted to: Observation With expected LOS: >2 Midnights Patient will require the following post-hospital care: None Practitioner: I am a practitioner with admitting privileges, knowledge of patient current condition, hospital course, and medical plan of care. Services: Services provided to patient in accordance with Admission requirements found in Title 42 Section 412.3 of the Code of Federal Regulations Patient History Date of Service: 04/24/21 Primary Care Provider: Dr Mei Reason for admission: Atypical Chest Pain History of Present Illness: Ameenat Single View04/24/2021 3:26 pm CLINICAL HISTORY: Chest pain COMPARISON: 2016 FINDINGS: The lungs appear clear of acute infiltrate. The heart is normal size IMPRESSION: No acute abnormalities displayed Chemistry and hematology are both negative. BNP is 216, troponin is less than 0.02. The patient has been having discomfort for approximately 7 days. The first 5 days were tolerable, but the last 2 days have not been so tolerable. While the pain is described as chest pain on the left side, the pain actually runs from the back of her neck down across and over her shoulder, down her left rib cage and into her left hip. The pain is worsened movement (and is reproducible) and is described as sharp lasting approximately 5 minutes each episode. The episodes of pain occur at least once every 1/2 hour and interfere with her sleep. She states she feels pressure in both her back and her neck. Patient has no pain at this time but rates the pain at 5/10 when she experiences it Allergies Iodinated Contrast Media [Iodinated Contrast Media - IV Dye] Allergy (Unverified 09/24/16 15:38) Unknown iodine Allergy (Unverified 09/24/16 15:38) Unknown Home Medications: Canagliflozin [Invokana] 300 mg PO DAILY 09/24/16 Hydralazine [Apresoline] 25 mg PO BID 09/24/16 Losartan Potassium 100 mg PO DAILY 09/24/16 Metformin HCl [Glucophage] 1,000 mg PO BID 09/24/16 Omeprazole 20 mg PO DAILY 09/24/16 carvediloL [Coreg] 25 mg PO BID 09/24/16 - Past Medical/Surgical History Diabetic: Yes -: HTN -: Diabetes type 2 -: Uterine CA -: Cholecystectomy -: Hysterectomy -: Hernia Surgery Psychosocial/ Personal History: Disabled Pt lives at home with family - Family History Father -: Other (see notes) (High Cholesterol) Mother -: Cancer (Lung CA) Brother -: Hypertension, Diabetes Sister -: Hypertension, Diabetes, Other (see notes) (thyroid dz) - Social History Smoking Status: Never smoker Alcohol use: No CD- Drugs: No Caffeine use: Yes Place of Residence: Home Review of Systems 10-point ROS is otherwise unremarkable General: As per HPI, Unremarkable Eyes: Unremarkable ENT: Other (Allergy like symptoms (itching throat, mucous in throat)) Respiratory: Unremarkable Cardiovascular: Chest Pain (Non cardiac) Gastrointestinal: Diarrhea (IBS?), Constipation Genitourinary: Unremarkable Musculoskeletal: Pedal edema Integumentary: Unremarkable Neurological: Unremarkable Lymphatics: Unremarkable Physical Examination - Physical Exam General: Alert, In no apparent distress, Oriented x3, Cooperative HEENT: Atraumatic, Normocephalic Neck: Supple, JVD not distended Respiratory: Clear to auscultation bilaterally, Normal air movement Cardiovascular: No edema, Regular rate/rhythm, Normal S1 S2 Capillary refill: <2 Seconds Gastrointestinal: Soft and benign, Non-distended Musculoskeletal: No clubbing, No swelling, No contractures Integumentary: No rashes, No breakdown, No significant lesion Neurological: Normal speech, Normal tone, Sensation intact External genitalia: Deferred Rectal: Deferred - Studies Laboratory Data (last 24 hrs) 04/24/21 15:00: PT 11.1, INR 0.97 04/24/21 15:00: WBC 5.60, Hgb 15.0, Hct 44.3, Plt Count 233 04/24/21 15:00: Sodium 139, Potassium 3.8, BUN 16, Creatinine 0.70, Glucose 296 H, Magnesium 2.4, Total Bilirubin 0.6, AST 18, ALT 21, Alkaline Phosphatase 76 Assessment and Plan - Plan Assessment: Atypical Chest Pain Diabetes HTN Plan: Atypical Chest Pain: Monitor, O2 if necessary, Cardiac consult, Cardiac labs, Pain medication Diabetes: Continue diabetic medications. Hemoglobin A1C, encourage monitoring her sugar HTN: Continue home medications. DVT PPX: Lovenox 40mg Subcutaneous Code status: Full Code Discharge Plan: Home Plan to discharge in: 24 Hours - Advance Directives Does patient have a Living Will: No Does patient have a Durable POA for Healthcare: No - Code Status/Comfort Care Code Status Assessed: Yes Code Status: Full Code Critical Care: No Time Spent Managing Pts Care (In Minutes): 70
[2021-04-24] MEDS ORDERED: ASPIRIN 81 MG CHEWABLE TABLET ONE (18:04)
[2021-04-24] MEDS ORDERED: NA CHLORIDE 0.9% 1,000 ML IV SCH (21:28)
[2021-04-24] MEDS ORDERED: TRAMADOL HCL 50 MG TAB PO PRN (21:28)
[2021-04-24] MEDS ORDERED: ONDANSETRON 4 MG/2 ML VIAL IV PRN (21:28)
[2021-04-24] MEDS ORDERED: ACETAMINOPHEN 500 MG TAB PO PRN (21:28)
[2021-04-24] MEDS ORDERED: ROSUVASTATIN 10 MG TAB PO SCH (21:28)
[2021-04-24 21:38] VITALS: BMI 28.8
[2021-04-24] MEDS: HYDRALAZINE HCL 25 MG TABLET PO SCH (22:33)
[2021-04-24] MEDS: INSULIN -REGULAR HUMAN 50 UNIT/0.5 ML ML SQ SCH (22:35)
[2021-04-24 23:22] LABS: Troponin I < 0.02 ng/mL (0.0-0.045)
[2021-04-25 04:14] LABS: Urine Appearance CLEAR (Clear); Urine Bilirubin NEGATIVE (Negative); Urine Blood NEGATIVE (Negative); Urine Color YELLOW (Yellow); Urine Glucose 3+ (Negative); Urine Protein NEGATIVE (Negative); Urine Specific Gravity >=1.030 (1.005-1.030); Urine Urobilinogen 0.2 mg/dL (0.2-1.0)
[2021-04-25 04:18] LABS: Urine Microscopic Reflex NO UMIC
[2021-04-25 06:02] LABS: Absolute Lymphocytes (CBC) 1.7 K/uL (0.7-4.9); Basophils % 0.8 % (0-1.3); Hematocrit 43.2 % (36.0-45.0); Lymphocytes % 31.9 % (15.3-44.8); MPV 7.1 fL (7.6-11.3); RBC Red Blood Cell Count 5.08 M/uL (3.86-4.86)
[2021-04-25 06:15] LABS: ALT/SGPT 19 U/L (12-78); AST/SGOT 17 U/L (15-37); Albumin 3.1 g/dL (3.4-5.0); Alkaline Phosphatase 65 U/L (45-117); BUN Blood Urea Nitrogen 17 mg/dL (7-18); Bicarbonate 27 mmol/L (21-32); Bilirubin Total 0.6 mg/dL (0.2-1.0); Glucose Level 167 mg/dL (74-106); HDL Cholesterol 40 mg/dL (40-60); LDL Cholesterol, Calculated 54 (<130); Magnesium 2.4 mg/dL (1.8-2.4); NT PRO-BNP 237 pg/mL (<125); Potassium 3.5 mmol/L (3.5-5.1); Protein, Total 6.6 g/dL (6.4-8.2); Sodium Level 143 mmol/L (136-145)
--- NOTE | 2021-04-25 06:27 | P.DS ---
Admission Date: 04/24/21 Discharge Date: 04/25/21 Primary Care Provider: Dr. Mei Disposition: ROUTINE DISCHARGE Discharge Condition: GOOD Reason for Admission: Atypical Chest Pain Consultations: Cardiology-Dr. Garcia Procedures: COVID: Negative CXR: COMPARISON: 2016 FINDINGS: The lungs appear clear of acute infiltrate. The heart is normal size IMPRESSION: No acute abnormalities displayed Medical Problem List: Atypical Chest Pain Diabetes mellitus type 2 Hypertension Hyperlipidemia GERD Brief History of Present Illness: 66-year-old female with history of diabetes mellitus type 2, hypertension presented with chest pain. Chest pain mainly to the left side. It radiated to the neck and shoulder. It was worse with movement and reproducible. Patient came to the ER for further evaluation. Patient admitted for o bservation. Hospital Course: Patient presented with chest pain. Patient with history of diabetes, hypertension, hyperlipidemia and GERD. Patient was hospitalized for further evaluation. Patient seen and evaluated by cardiology. No intervention was required at this time. Echocardiogram obtained. Cardiac enzymes unremarkable. No further chest pain noted. At discharge she is without significant chest pain. Blood pressures were mildly elevated. Additional medication carvedilol was added. At discharge patient will continue with carvedilol 3.125 mg 1 pill twice daily, hydralazine 50 mg 1 pill 3 times a day, losartan 100 mg daily and Crestor 10 mg daily. Recommend follow-up with cardiology in 1 to 2 weeks to follow-up his hospitalization. Patient can have outpatient cardiac stress test due to her risk factors with cardiology. Recommend follow-up with PCP within 1 week to further monitor her care. Patient with hypertension. As mentioned above blood pressures were elevated. Additional medication carvedilol was added. At discharge she will continue with carvedilol 3.125 mg 1 pill twice daily, hydralazine 50 mg 1 pill 3 times a day, and losartan 100 mg daily. Recommend to monitor blood pressure daily. Recommend to maintain blood pressure less than 130/80. Further adjustment in medication can be done by her PCP. Patient with hyperlipidemia. At discharge patient will continue with Crestor 10 mg daily. LDL well controlled. Patient with diabetes mellitus type 2. This appears well controlled. Hemoglobin A1c pending at discharge. Recommend to maintain blood sugars less than 140 fasting and less than 200 after meals. Patient will continue with her medications including Invokana 300 mg daily and Metformin 1000 mg 1 pill twice daily. Recommend to follow-up with her PCP to further monitor her care. Recommend to recheck hemoglobin A1c every 3 to 6 months to monitor her progress. Patient with GERD. At discharge patient will continue with Prilosec 20 mg daily. Vital Signs/Physical Exam: Temp Pulse Resp BP Pulse Ox 97.6 F 87 16 149/77 H 96 04/25/21 04:00 04/25/21 04:00 04/25/21 04:00 04/25/21 04:00 04/25/21 04:00 General: Alert, In no apparent distress, Oriented x3, Cooperative HEENT: Atraumatic Neck: Supple Respiratory: Clear to auscultation bilaterally, Normal air movement Cardiovascular: Normal pulses, Regular rate/rhythm Gastrointestinal: Normal bowel sounds, Soft and benign, Non-distended, No ascites, No tenderness, No masses, No rebound, No guarding Musculoskeletal: No erythema, No tenderness, No warmth Integumentary: No tenderness/swelling Neurological: Normal speech, Normal strength at 5/5 x4 extr, Normal tone Laboratory Data at Discharge: WBC 5.30 K/uL (4.3-10.9) 04/25/21 05:45 Hgb 14.8 g/dL (12.0-15.0) 04/25/21 05:45 Hct 43.2 % (36.0-45.0) 04/25/21 05:45 Plt Count 235 K/uL (152-406) 04/25/21 05:45 PT 11.1 SECONDS (9.5-12.5) 04/24/21 15:00 INR 0.97 04/24/21 15:00 Sodium 143 mmol/L (136-145) 04/25/21 05:45 Potassium 3.5 mmol/L (3.5-5.1) 04/25/21 05:45 BUN 17 mg/dL (7-18) 04/25/21 05:45 Creatinine 0.61 mg/dL (0.55-1.3) 04/25/21 05:45 Glucose 167 mg/dL (74-106) H 04/25/21 05:45 Magnesium 2.4 mg/dL (1.8-2.4) 04/25/21 05:45 Total Bilirubin 0.6 mg/dL (0.2-1.0) 04/25/21 05:45 AST 17 U/L (15-37) 04/25/21 05:45 ALT 19 U/L (12-78) 04/25/21 05:45 Alkaline Phosphatase 65 U/L (45-117) 04/25/21 05:45 Troponin I < 0.02 ng/mL (0.0-0.045) 04/25/21 05:45 Triglycerides 156 mg/dL (<150) H 04/25/21 05:45 Cholesterol 125 mg/dL (<200) 04/25/21 05:45 HDL Cholesterol 40 mg/dL (40-60) 04/25/21 05:45 Cholesterol/HDL Ratio 3.13 04/25/21 05:45 Home Medications: Canagliflozin [Invokana] 300 mg PO DAILY 09/24/16 Hydralazine [Apresoline*] 50 mg PO TID 09/24/16 Losartan Potassium 100 mg PO DAILY 09/24/16 Metformin HCl [Glucophage] 1,000 mg PO BID 09/24/16 Omeprazole 20 mg PO DAILY 09/24/16 Rosuvastatin [Crestor*] 10 mg PO BEDTIME 04/24/21 carvediloL [Coreg*] 3.125 mg PO BID 6AM 6PM #60 tab 04/25/21 New Medications: carvediloL [Coreg*] 3.125 mg PO BID 6AM 6PM #60 tab Physician Discharge Instructions: Patient presented with chest pain. Patient with history of diabetes, hypertension, hyperlipidemia and GERD. Patient was hospitalized for further evaluation. Patient seen and evaluated by cardiology. No intervention was required at this time. Echocardiogram obtained. Cardiac enzymes unremarkable. No further chest pain noted. At discharge she is without significant chest pain. Blood pressures were mildly elevated. Additional medication carvedilol was added. At discharge patient will continue with carvedilol 3.125 mg 1 pill twice daily, hydralazine 50 mg 1 pill 3 times a day, losartan 100 mg daily and Crestor 10 mg daily. Recommend follow-up with cardiology in 1 to 2 weeks to fo llow-up his hospitalization. Patient can have outpatient cardiac stress test due to her risk factors with cardiology. Recommend follow-up with PCP within 1 week to further monitor her care. Patient with hypertension. As mentioned above blood pressures were elevated. Additional medication carvedilol was added. At discharge she will continue with carvedilol 3.125 mg 1 pill twice daily, hydralazine 50 mg 1 pill 3 times a day, and losartan 100 mg daily. Recommend to monitor blood pressure daily. Recommend to maintain blood pressure less than 130/80. Further adjustment in medication can be done by her PCP. Patient with hyperlipidemia. At discharge patient will continue with Crestor 10 mg daily. LDL well controlled. Patient with diabetes mellitus type 2. This appears well controlled. Hemoglobin A1c pending at discharge. Recommend to maintain blood sugars less than 140 fasting and less than 200 after meals. Patient will continue with her medications including Invokana 300 mg daily and Metformin 1000 mg 1 pill twice daily. Recommend to follow-up with her PCP to further monitor her care. Recommend to recheck hemoglobin A1c every 3 to 6 months to monitor her progress. Patient with GERD. At discharge patient will continue with Prilosec 20 mg daily. Diet: ADA Activity: Ad alethea Followup: Kenyatta Mei DO [Primary Care Provider] - Time spent managing pt's care (in minutes): 55
[2021-04-25] MEDS ORDERED: PANTOPRAZOLE 40MG TABLET PO SCH (06:30)
[2021-04-25] MEDS: INSULIN -REGULAR HUMAN 50 UNIT/0.5 ML ML SQ SCH (07:30)
[2021-04-25] MEDS ORDERED: METFORMIN HCL 500 MG TAB PO SCH (08:00)
[2021-04-25 09:00] VITALS: BP 127/56; TEMP 97.1
[2021-04-25] MEDS ORDERED: ENOXAPARIN 40 MG/0.4 ML SQ SCH (09:00)
[2021-04-25] MEDS: HYDRALAZINE HCL 25 MG TABLET PO SCH ×2 (09:00→10:06)
[2021-04-25] MEDS ORDERED: LOSARTAN POTASSIUM 50 MG TABLET PO SCH (09:00)
[2021-04-25 11:38] VITALS: O2SAT 97
--- NOTE | 2021-04-25 12:13 | EKG ---
Test Date: 2021-04-25 Test Time: 09:38:50 Appeals Board Referee: MONSTER MEASUREMENT RESULTS: Intervals: Rate: 84 NE: 156 QRSD: 80 QT: 392 QTc: 463 [place]: P: 38 NE: 156 QRS: 10 T: 106 INTERPRETIVE STATEMENTS: Normal sinus rhythm Possible Anterior infarct, age undetermined Abnormal ECG Compared to ECG 04/24/2021 15:02:53 Myocardial infarct finding now present T-wave abnormality no longer present Electronically Signed On 04-25-21 12:12:03 CDT by Benito Garcia
--- NOTE | 2021-04-25 12:15 | EKG ---
Test Date: 2021-04-24 Test Time: 15:02:53 Security Incident Handler: FABIANO MEASUREMENT RESULTS: Intervals: Rate: 84 DC: 154 QRSD: 78 QT: 386 QTc: 456 [place]: P: 45 DC: 154 QRS: 23 T: 16 INTERPRETIVE STATEMENTS: Normal sinus rhythm Nonspecific T wave abnormality Abnormal ECG Compared to ECG 10/21/2015 17:08:05 T-wave abnormality now present Electronically Signed On 04-25-21 12:12:57 CDT by Benito Garcia
[2021-04-25] MEDS ORDERED: carvediloL 3.125 MG TAB PO SCH (18:00)
== END 2021-04-25 10:38 | disposition home or self-care (01) ==
LOC: ER 14:23 → ERHOLD 17:10 → 2ND 20:00
PROVIDERS: ADMIT Family Medicine; ATTEND Family Medicine
DX: R07.89 Other chest pain (principal); I10 Essential (primary) hypertension; E11.9 Type 2 diabetes mellitus without complications; E78.5 Hyperlipidemia, unspecified; K21.9 Gastro-esophageal reflux disease without esophagitis; Z20.822 Contact with and (suspected) exposure to COVID-19; Z91.041 Radiographic dye allergy status; Z86.73 Personal history of transient ischemic attack (TIA), and cerebral infarction without residual deficits; Z85.42 Personal history of malignant neoplasm of other parts of uterus; Z90.710 Acquired absence of both cervix and uterus; Z90.49 Acquired absence of other specified parts of digestive tract; Z82.49 Family history of ischemic heart disease and other diseases of the circulatory system; Z83.3 Family history of diabetes mellitus; Z80.1 Family history of malignant neoplasm of trachea, bronchus and lung
CPT/HCPCS: 93005 ×2; 85025 ×2; 80048; 36415; 83735 ×2; 85610; 80061; 82947 ×2; 80076; 84443; 81003; 83036; 84484 ×3; 84439; 80053; 83880 ×2; 71045; 94760 ×2; 99285; U0003; J1650; J7030; G0378 ×3

== ENCOUNTER 2022-05-14 14:27 | Emergency (ER) | payer OTHER ==
--- OUTSIDE RECORDS SUMMARY | 2022-05-14 14:42 | XMS REPORT | Continuity of Care Document ---
:1955 Author Organization [facility] t Address [address] [place] [address] [address] [place] [address] Care Team Providers Name Role Phone Mei, Kenyatta Johns Attending Clinician Unavailable Payers Payer Name Policy Type Policy Number Effective Date Expiration Date S ource HUMANA C1 [id number] Common [facility] HUMANA C[id number] [facility] HUMANA C[address] [id number] [facility] HUMANA C1 [id number] [facility] Problems Condition Condition Condition Status Onset Resolution Last Treating Co mments Source Name Details Category Date Date Treatment Clinician Date Fatty Fatty Problem Active Common liver liver [facility] Hypertensi HTN Problem Active Commo n on (hypertens Spirit ion) [facility] Essential Benign Problem Active Common hypertensi essential Spi rit on HTN [facility] Gastroesop GERD Problem Active Commo n hageal (gastroeso Spirit reflux phageal - [facility] disease reflux St disease) [facility] Mixed Hyperlipid Problem Active Commo n hyperlipid emia, Spirit emia mixed [facility] Ventral Ventral Problem Active Common hernia hernia [facility] Diabetes Diabetes Problem Active Commo n mellitus Spirit without - [facility] complicati [facility] Gastroesop Gastroesop Problem Active C ommon hageal hageal Spirit reflux reflux - [facility] disease disease [facility]ophag[facility] dical [facility] Seborrheic Seborrheic Problem Active C ommon dermatitis dermatitis Sp deepthi , - [facility]I unspecifie [facility] Reactive Reactive Problem Active Commo n depression depression Sp deepthi [facility] Diabetic Secondary Problem Active Comm on polyneurop diabetes Spir it athy with - [facility] peripheral [facility] [id number] Insomnia, Problem Active Com mon unspecifie Spirit d type [facility] [id number] Exposure Problem Active Comm on to TB Spirit [facility] Candidal Yeast Problem Active Common vulvovagin vaginitis Spi rit itis - [facility] Diverticul Diverticul Problem Active C ommon ar disease osis large Sp deepthi of colon intestine - [facility] w/o [facility] Medical abscess Center w/o bleeding Primary Endometria Problem Active Comm on malignant l cancer Spiri t neoplasm - [facility] Palpit[facility] Palpitatio Problem Active C ommon ns ns Spirit [facility] Pericardia Pericardia Problem Active C ommon l effusion l effusion Sp deepthi [facility] [id number] 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[facility] mellitus [facility] with other [facility] kidney Medical complicati Center on Poison kayode Poison kayode Problem Active C ommon [facility] Chronic Chronic Problem Active Common fatigue fatigue [facility] syndrome [facility] [id number] Proteinuri Problem Active Com mon a, Spirit unspecifie - [facility] Chronic Other Problem Active Common pain chronic [facility] pain [facility] [id number] Uncontroll Problem Active Co mmon ed type 2 Spirit diabetes - [facility] mellitus [facility] hyperglyce [facility] Allergies, Adverse Reactions, Alerts Allergy Allergy Status Severity Reaction(s) Onset Inactive Treating Comm ents Source Name Type Date Date Clinician lisinopr lisinopr Active Unknown Commo n il il [facility] 463 Drug Active Unknown Common allergy [facility] Social History Social Habit Start Date Stop Date Quantity Comments Source History of Tobacco Use Co mmon [facility] Sex Assigned At Com mon [facility] Smoking Status Start Date Stop Date Source Never Smoker Common [facility] Medications Ordered Filled Start Stop Current Ordering Indication Dosage Frequency Signature Comments Components Source Medication Medication Date Date Medication? Clinician (SIG) Name Name Rody Fine 2021- No 1{table TID valACYclov r HCl 1 GM r HCl 1 GM 6-03 06-13 t} ir HCl 1 00:00: 00:00 GM 00 :00 Rody Fine 2021- No 1{table TID radamesACYclov r HCl 1 GM r HCl 1 GM 6-03 06-13 t} ir HCl 1 00:00: 00:00 GM 00 :00 Gabapentin Gabapentin No 1{capsu TID Gabapentin 300 MG 300 MG 07-12 le} 300 MG 00:00: 00 Gabapentin Gabapentin No TID Gabapentin 300 MG 300 MG 07-12 300 MG 00:00: 00 Benzonatate Benzonatate 2020-07- No 1{capsu Benzonatat 100 MG 100 MG 08-01 le_as_n e 100 MG 00:00: 00:00 eeded} 00 :00 Benzonatate Benzonatate 2020-07- No 1{capsu Benzonatat 100 MG 100 MG 08-01 le_as_n e 100 MG 00:00: 00:00 eeded} 00 :00 predniSONE predniSONE 2020-07- No QD predniSONE 10 MG 10 MG 08-01 10 MG 00:00: 00:00 00 :00 predniSONE predniSONE 2020-07- No QD predniSONE 10 MG 10 MG 08-01 10 MG 00:00: 00:00 00 :00 Azithromyci Azithromyci 2020-07- No QD Azithromyc n 250 MG n 250 MG 08-01 in 250 MG 00:00: 00:00 00 :00 Azithromyci Azithromyci 2020-07- No QD Azithromyc n 250 MG n 250 MG 08-01 in 250 MG 00:00: 00:00 00 :00 Triamcinolo Triamcinolo 0 No 1{appli BID Triamcinol ne ne 10-04 cation_ one Acetonide Acetonide 00:00: to_affe Acetonide 0.1 % 0.1 % 00 cted_ar 0.1 % ea} Triamcinolo Triamcinolo 2020-0 No 1{appli BID Triamcinol ne ne 4-06 cation_ one Acetonide Acetonide 00:00: to_affe Acetonide 0.1 % 0.1 % 00 cted_ar 0.1 % ea} Triamcinolo Triamcinolo 2020-0 No 1{appli BID Triamcinol ne ne 4-06 cation_ one Acetonide Acetonide 00:00: to_affe Acetonide 0.1 % 0.1 % 00 cted_ar 0.1 % ea} Triamcinolo Triamcinolo 2020-0 No 1{appli BID Triamcinol ne ne 4-06 cation_ one Acetonide Acetonide 00:00: to_affe Acetonide 0.1 % 0.1 % 00 cted_ar 0.1 % ea} Triamcinolo Triamcinolo 2020-0 No 1{appli BID Triamcinol ne ne 4-06 cation_ one Acetonide Acetonide 00:00: to_affe Acetonide 0.1 % 0.1 % 00 cted_ar 0.1 % ea} Triamcinolo Triamcinolo 2020-0 No 1{appli BID Triamcinol ne ne 4-06 cation_ one Acetonide Acetonide 00:00: to_affe Acetonide 0.1 % 0.1 % 00 cted_ar 0.1 % ea} Triamcinolo Triamcinolo 2020-0 No 1{appli BID Triamcinol ne ne 4-06 cation_ one Acetonide Acetonide 00:00: to_affe Acetonide 0.1 % 0.1 % 00 cted_ar 0.1 % ea} Triamcinolo Triamcinolo 2020-0 No 1{appli BID Triamcinol ne ne 4-06 cation_ one Acetonide Acetonide 00:00: to_affe Acetonide 0.1 % 0.1 % 00 cted_ar 0.1 % ea} Victoza Victoza 2018-0 2019- No Na Mei inject 1.8 Common 7-12 10-10 mg Spirit 00:00: 00:00 - [facility] 00 :00 [facility] Fluconazole Fluconazole 2018- Yes Na Mei 1 tablet Common 2-21 today and Spirit 00:00: may repeat - [facility]I one tab in St 1 week [facility] t Hydrochloro Hydrochloro 2017-07 Yes Na Mei 1 tablet Common thiazide thiazide 1-21 in the Spiri t 00:00: morning - [facility] 00 [facility] hydroCHLORO hydroCHLORO 2017-07 No 1{table QD hydroCHLOR thiazide 25 thiazide 25 1-21 t_in_th Othiazide MG MG 00:00: e_morni 25 MG 00 ng} hydroCHLORO hydroCHLORO 2017-07 No 1{table QD hydroCHLOR thiazide 25 thiazide 25 1-21 t_in_th Othiazide MG MG 00:00: e_morni 25 MG 00 ng} hydroCHLORO hydroCHLORO 2017-07 No 1{table QD hydroCHLOR thiazide 25 thiazide 25 1-21 t_in_th Othiazide MG MG 00:00: e_morni 25 MG 00 ng} hydroCHLORO hydroCHLORO 2017-07 No 1{table QD hydroCHLOR thiazide 25 thiazide 25 1-21 t_in_th Othiazide MG MG 00:00: e_morni 25 MG 00 ng} hydroCHLORO hydroCHLORO 2018 No 1{table QD hydroCHLOR thiazide 25 thiazide 25 1-21 t_in_th Othiazide MG MG 00:00: e_morni 25 MG 00 ng} hydroCHLORO hydroCHLORO 2018 No 1{table QD hydroCHLOR thiazide 25 thiazide 25 1-21 t_in_th Othiazide MG MG 00:00: e_morni 25 MG 00 ng} hydroCHLORO hydroCHLORO 2017-07 No 1{table QD hydroCHLOR thiazide 25 thiazide 25 1-21 t_in_th Othiazide MG MG 00:00: e_morni 25 MG 00 ng} hydroCHLORO hydroCHLORO 2018 No 1{table QD hydroCHLOR thiazide 25 thiazide 25 1-21 t_in_th Othiazide MG MG 00:00: e_morni 25 MG 00 ng} NovoFine NovoFine 2017-07 Yes Na Mei as Co mmon Plus Plus 1-06 directed Spirit 00:00: - [facility] NovoFine NovoFine 2017-07 No NovoFine Plus 32G X Plus 32G X 1-06 Plus 32G X 4 MM 4 MM 00:00: 4 MM 00 NovoFine NovoFine 2017- No NovoFine Plus 32G X Plus 32G X 1-06 Plus 32G X 4 MM 4 MM 00:00: 4 MM 00 NovoFine NovoFine 2017-1 No NovoFine Plus 32G X Plus 32G X 1-06 Plus 32G X 4 MM 4 MM 00:00: 4 MM 00 NovoFine NovoFine 2017- No NovoFine Plus 32G X Plus 32G X 1-06 Plus 32G X 4 MM 4 MM 00:00: 4 MM 00 NovoFine NovoFine 2017- No NovoFine Plus 32G X Plus 32G X 1-06 Plus 32G X 4 MM 4 MM 00:00: 4 MM 00 NovoFine NovoFine 2017- No NovoFine Plus 32G X Plus 32G X 1-06 Plus 32G X 4 MM 4 MM 00:00: 4 MM 00 NovoFine NovoFine 2017- No NovoFine Plus 32G X Plus 32G X 1-06 Plus 32G X 4 MM 4 MM 00:00: 4 MM 00 NovoFine NovoFine 2017-07 No NovoFine Plus 32G X Plus 32G X 1-06 Plus 32G X 4 MM 4 MM 00:00: 4 MM 00 Medrol Medrol 2017-0 Yes Kenyatta Mei as Common 12-31 directed Spirit 00:00: - [facility] 00 [facility] 2017-0 Yes Kenyatta Mei 1 Common ne ne 12-31 applicatio Spirit Acetonide Acetonide 00:00: n to - C HI 00 affected [facility] 2017-0 No 1{appli BID Triamcinol ne ne 12-31 cation_ one Acetonide Acetonide 00:00: to_affe Acetonide 0.1 % 0.1 % 00 cted_ar 0.1 % ea} Medrol 4 MG Medrol 4 MG 2017-0 No Medrol 4 - MG 00:00: 00 [facility] 2018-0 No 1{appli BID Triamcinol ne ne 12-31 cation_ one Acetonide Acetonide 00:00: to_affe Acetonide 0.1 % 0.1 % 00 cted_ar 0.1 % ea} Triamcinolo Triamcinolo 2018-0 No 1{appli BID Triamcinol ne ne 7- cation_ one Acetonide Acetonide 00:00: to_affe Acetonide 0.1 % 0.1 % 00 cted_ar 0.1 % ea} Medrol 4 MG Medrol 4 MG 2018-0 No Medrol 4 7-03 MG 00:00: 00 Triamcinolo Triamcinolo 2018-0 No 1{appli BID Triamcinol ne ne 7- cation_ one Acetonide Acetonide 00:00: to_affe Acetonide 0.1 % 0.1 % 00 cted_ar 0.1 % ea} Medrol 4 MG Medrol 4 MG 2017-0 No Medrol 4 7-03 MG 00:00: 00 Medrol 4 MG Medrol 4 MG 2017-0 No Medrol 4 7-03 MG 00:00: 00 Triamcinolo Triamcinolo 2018-0 No 1{appli BID Triamcinol ne ne 7- cation_ one Acetonide Acetonide 00:00: to_affe Acetonide 0.1 % 0.1 % 00 cted_ar 0.1 % ea} Medrol 4 MG Medrol 4 MG 2017-0 No Medrol 4 7-03 MG 00:00: 00 Triamcinolo Triamcinolo 2018-0 No 1{appli BID Triamcinol ne ne 7- cation_ one Acetonide Acetonide 00:00: to_affe Acetonide 0.1 % 0.1 % 00 cted_ar 0.1 % ea} Medrol 4 MG Medrol 4 MG 2017-0 No Medrol 4 7-03 MG 00:00: 00 Triamcinolo Triamcinolo 2018-0 No 1{appli BID Triamcinol ne ne 7- cation_ one Acetonide Acetonide 00:00: to_affe Acetonide 0.1 % 0.1 % 00 cted_ar 0.1 % ea} Medrol 4 MG Medrol 4 MG 2017-0 No Medrol 4 7-03 MG 00:00: 00 Triamcinolo Triamcinolo 2018-0 No 1{appli BID Triamcinol ne ne 7-03 cation_ one Acetonide Acetonide 00:00: to_affe Acetonide 0.1 % 0.1 % 00 cted_ar 0.1 % ea} Medrol 4 MG Medrol 4 MG No Medrol 4 7-03 MG 00:00: 00 Trazodone Trazodone Yes Na Mei 1 tablet Common HCl HCl 6-27 at bedtime Spirit 00:00: as needed - [facility] 00 [facility] Toujeo Toujeo Yes Na Mei 32 units Co mmon SoloStar SoloStar 6 and Spirit 00:00: increase - [facility] [address] [facility] until [facility] 120 [facility] No 40mg Common (Triamcinol (Triamcinol 2-21 S pirit one) one) 00:00: - [facility]I 00 [facility] Kenalog Kenalog No 40mg Common (Triamcinol (Triamcinol 2-21 S pirit one) one) 00:00: - [facility]I 00 [facility] Crestor Crestor Yes Na Mei 1 tab(s) Co mmon once a day Spirit (at - CHI bedtime) [facility] Coreg Coreg Yes Na Mei not Common defined Spirit [facility] Metformin Metformin Yes Na Mei 1 each 2 Common HCl HCl times a Spirit day orally - [facility] Yes Na Mei 1 capsule Common Spirit [facility] Clotrimazol Clotrimazol Yes Na Mei 1 Common e e applicatio Spirit n to - [facility] affected [facility] Vitamin B12 Vitamin B12 Yes Na Mei 1 tablet Common [facility] - [facility] Diflucan Diflucan Yes Na Mei 1 tablet Common [facility] - [facility] Cozaar Cozaar Yes Na Mei 1 each Common once a day Spirit orally - [facility] FreeStyle FreeStyle Yes Na Mei as Co mmon Chaz Chaz directed Spirit Sensor Sensor - [facility] System System [facility] FreeStyle FreeStyle Yes Na Mei as Co mmon Chaz Chaz directed Spirit [place] [facility] Cymbalta Cymbalta Yes Na Mei 1 capsule Common [facility] Amlodipine Amlodipine Yes Na Mei 1 tablet Common Besylate Besylate [facility] HydrALAZINE HydrALAZINE Yes Na Mei 1 tablet Common HCl HCl with food [facility] Prilosec Prilosec Yes Na Mei 1 capsule Common [facility] Omeprazole Omeprazole Yes Na Mei TAKE 1 Common CAPSULE BY [facility] EVERY DAY [facility] Amlodipine Amlodipine Yes Na Mei 1 tablet Common Besylate Besylate [facility] Losartan Losartan Yes Na Mei 1 tablet Common Potassium Potassium Spiri [facility] Omeprazole Omeprazole No QD Omeprazole 20 MG 20 MG 20 MG Cymbalta 30 Cymbalta 30 No 1{capsu QD Cymbalta MG MG le} 30 MG Victoza 18 Victoza 18 No QD Victoza 18 MG/3ML MG/3ML MG/3ML metroNIDAZO metroNIDAZO No 1{table TID metroNIDAZ LE 500 MG LE 500 MG t} OLE 500 MG FreeStyle FreeStyle No FreeStyle Chaz Chaz Chaz Sensor Sensor Sensor System - System - System - FreeStyle FreeStyle No FreeStyle Chaz Chaz Chaz [place] - Nystatin Nystatin No Nystatin Fluconazole Fluconazole No 1{table Fluconazol 150 MG 150 MG t} e 150 MG Cymbalta 60 Cymbalta 60 No Cymbalta MG MG 60 MG Medrol 4 MG Medrol 4 MG No Medrol 4 MG Fluconazole Fluconazole No Fluconazol 150 MG 150 MG e 150 MG Invokana Invokana No Invokana 300 MG 300 MG 300 MG amLODIPine amLODIPine No 1{table QD amLODIPine Besylate 10 Besylate 10 t} Besylate MG MG 10 MG metFORMIN metFORMIN No metFORMIN HCl 1000 MG HCl 1000 MG HCl 1000 MG PriLOSEC 20 PriLOSEC 20 No 1{capsu QD PriLOSEC MG MG le} 20 MG Cozaar 100 Cozaar 100 No Cozaar 100 MG MG MG Toujeo Toujeo No QD Toujeo SoloStar SoloStar SoloStar 300 UNIT/ML 300 UNIT/ML 300 UNIT/ML Diflucan Diflucan No 1{table Diflucan 150 MG 150 MG t} 150 MG Coreg 25 MG Coreg 25 MG No Coreg 25 MG hydrALAZINE hydrALAZINE No 1{table TID hydrALAZIN HCl 50 MG HCl 50 MG t_with_ E HCl 50 food} MG Vitamin B12 Vitamin B12 No 1{table QD Vitamin 1000 MCG 1000 MCG t} B12 1000 MCG Toujeo Toujeo No QD Toujeo SoloStar SoloStar SoloStar 300 UNIT/ML 300 UNIT/ML 300 UNIT/ML amLODIPine amLODIPine No 1{table QD amLODIPine Besylate 5 Besylate 5 t} Besylate 5 MG MG MG hydrALAZINE hydrALAZINE No hydrALAZIN HCl 50 MG HCl 50 MG E HCl 50 MG Carvedilol Carvedilol No Carvedilol Clotrimazol Clotrimazol No 1{appli BID Clotrimazo e 1 % e 1 % cation_ le 1 % to_affe cted_ar ea} Cymbalta 60 Cymbalta 60 No 1{capsu QD Cymbalta MG MG le} 60 MG Rosuvastati Rosuvastati No 1{table QD Rosuvastat n Calcium n Calcium t} in Calcium 10 MG 10 MG 10 MG traZODone traZODone No traZODone HCl 50 MG HCl 50 MG HCl 50 MG Losartan Losartan No 1{table QD Losartan Potassium Potassium t} Potassium 100 MG 100 MG 100 MG Crestor 10 Crestor 10 No Crestor 10 MG MG MG Omeprazole Omeprazole No QD Omeprazole 20 MG 20 MG 20 MG Cymbalta 30 Cymbalta 30 No 1{capsu QD Cymbalta MG MG le} 30 MG Victoza 18 Victoza 18 No QD Victoza 18 MG/3ML MG/3ML MG/3ML metroNIDAZO metroNIDAZO No 1{table TID metroNIDAZ LE 500 MG LE 500 MG t} OLE 500 MG FreeStyle FreeStyle No FreeStyle Chaz Chaz Chaz Sensor Sensor Sensor System - System - System - FreeStyle FreeStyle No FreeStyle Chaz Chaz Chaz [place] - Nystatin Nystatin No Nystatin Fluconazole Fluconazole No 1{table Fluconazol 150 MG 150 MG t} e 150 MG FreeStyle FreeStyle No FreeStyle Chaz Chaz Chaz [place] - [place] - Fluconazole Fluconazole No Fluconazol 150 MG 150 MG e 150 MG Cymbalta 60 Cymbalta 60 No Cymbalta MG MG 60 MG Toujeo Toujeo No QD Toujeo SoloStar SoloStar SoloStar 300 UNIT/ML 300 UNIT/ML 300 UNIT/ML traZODone traZODone No traZODone HCl 50 MG HCl 50 MG HCl 50 MG metroNIDAZO metroNIDAZO No 1{table TID metroNIDAZ LE 500 MG LE 500 MG t} OLE 500 MG Diflucan Diflucan No 1{table Diflucan 150 MG 150 MG t} 150 MG Omeprazole Omeprazole No QD Omeprazole 20 MG 20 MG 20 MG Nystatin Nystatin No Nystatin Vitamin B12 Vitamin B12 No 1{table QD Vitamin 1000 MCG 1000 MCG t} B12 1000 MCG Fluconazole Fluconazole No 1{table Fluconazol 150 MG 150 MG t} e 150 MG Medrol 4 MG Medrol 4 MG No Medrol 4 MG PriLOSEC 20 PriLOSEC 20 No 1{capsu QD PriLOSEC MG MG le} 20 MG FreeStyle FreeStyle No FreeStyle Chaz Chaz Chaz Sensor Sensor Sensor System - System - System - Carvedilol Carvedilol No Carvedilol hydrALAZINE hydrALAZINE No 1{table TID hydrALAZIN HCl 50 MG HCl 50 MG t_with_ E HCl 50 food} MG Rosuvastati Rosuvastati No 1{table QD Rosuvastat n Calcium n Calcium t} in Calcium 10 MG 10 MG 10 MG Losartan Losartan No 1{table QD Losartan Potassium Potassium t} Potassium 100 MG 100 MG 100 MG amLODIPine amLODIPine No 1{table QD amLODIPine Besylate 10 Besylate 10 t} Besylate MG MG 10 MG metFORMIN metFORMIN No metFORMIN HCl 1000 MG HCl 1000 MG HCl 1000 MG amLODIPine amLODIPine No 1{table QD amLODIPine Besylate 5 Besylate 5 t} Besylate 5 MG MG MG Coreg 25 MG Coreg 25 MG No Coreg 25 MG hydrALAZINE hydrALAZINE No hydrALAZIN HCl 50 MG HCl 50 MG E HCl 50 MG Cymbalta 30 Cymbalta 30 No 1{capsu QD Cymbalta MG MG le} 30 MG Cozaar 100 Cozaar 100 No Cozaar 100 MG MG MG Crestor 10 Crestor 10 No Crestor 10 MG MG MG Victoza 18 Victoza 18 No QD Victoza 18 MG/3ML MG/3ML MG/3ML Invokana Invokana No Invokana 300 MG 300 MG 300 MG Toupetrao Toupetrao No QD T[place]una SoloStar SoloStar SoloStar 300 UNIT/ML 300 UNIT/ML 300 UNIT/ML Cymbalta 60 Cymbalta 60 No 1{capsu QD Cymbalta MG MG le} 60 MG Clotrimazol Clotrimazol No 1{appli BID Clotrimazo e 1 % e 1 % cation_ le 1 % to_affe cted_ar ea} FreeStyle FreeStyle No FreeStyle Chaz Chaz Chaz [place] - Fluconazole Fluconazole No Fluconazol 150 MG 150 MG e 150 MG Cymbalta 60 Cymbalta 60 No Cymbalta MG MG 60 MG Touluna Toluna No QD [place] SoloStar SoloStar SoloStar 300 UNIT/ML 300 UNIT/ML 300 UNIT/ML traZODone traZODone No traZODone HCl 50 MG HCl 50 MG HCl 50 MG metroNIDAZO metroNIDAZO No 1{table TID metroNIDAZ LE 500 MG LE 500 MG t} OLE 500 MG Diflucan Diflucan No 1{table Diflucan 150 MG 150 MG t} 150 MG Omeprazole Omeprazole No QD Omeprazole 20 MG 20 MG 20 MG Nystatin Nystatin No Nystatin Vitamin B12 Vitamin B12 No 1{table QD Vitamin 1000 MCG 1000 MCG t} B12 1000 MCG Fluconazole Fluconazole No 1{table Fluconazol 150 MG 150 MG t} e 150 MG Medrol 4 MG Medrol 4 MG No Medrol 4 MG PriLOSEC 20 PriLOSEC 20 No 1{capsu QD PriLOSEC MG MG le} 20 MG FreeStyle FreeStyle No FreeStyle Chaz Chaz Chaz Sensor Sensor Sensor System - System - System - Carvedilol Carvedilol No Carvedilol hydrALAZINE hydrALAZINE No 1{table TID hydrALAZIN HCl 50 MG HCl 50 MG t_with_ E HCl 50 food} MG Rosuvastati Rosuvastati No 1{table QD Rosuvastat n Calcium n Calcium t} in Calcium 10 MG 10 MG 10 MG Losartan Losartan No 1{table QD Losartan Potassium Potassium t} Potassium 100 MG 100 MG 100 MG amLODIPine amLODIPine No 1{table QD amLODIPine Besylate 10 Besylate 10 t} Besylate MG MG 10 MG metFORMIN metFORMIN No metFORMIN HCl 1000 MG HCl 1000 MG HCl 1000 MG amLODIPine amLODIPine No 1{table QD amLODIPine Besylate 5 Besylate 5 t} Besylate 5 MG MG MG Coreg 25 MG Coreg 25 MG No Coreg 25 MG hydrALAZINE hydrALAZINE No hydrALAZIN HCl 50 MG HCl 50 MG E HCl 50 MG Cymbalta 30 Cymbalta 30 No 1{capsu QD Cymbalta MG MG le} 30 MG Cozaar 100 Cozaar 100 No Cozaar 100 MG MG MG Crestor 10 Crestor 10 No Crestor 10 MG MG MG Victoza 18 Victoza 18 No QD Victoza 18 MG/3ML MG/3ML MG/3ML Invokana Invokana No Invokana 300 MG 300 MG 300 MG Toujeo Toujeo No QD Toujeo SoloStar SoloStar SoloStar 300 UNIT/ML 300 UNIT/ML 300 UNIT/ML Cymbalta 60 Cymbalta 60 No 1{capsu QD Cymbalta MG MG le} 60 MG Clotrimazol Clotrimazol No 1{appli BID Clotrimazo e 1 % e 1 % cation_ le 1 % to_affe cted_ar ea} Nystatin Nystatin No Nystatin Clotrimazol Clotrimazol No 1{appli BID Clotrimazo e 1 % e 1 % cation_ le 1 % to_affe cted_ar ea} amLODIPine amLODIPine No 1{table QD amLODIPine Besylate 10 Besylate 10 t} Besylate MG MG 10 MG PriLOSEC 20 PriLOSEC 20 No 1{capsu QD PriLOSEC MG MG le} 20 MG Fluconazole Fluconazole No Fluconazol 150 MG 150 MG e 150 MG Invokana Invokana No Invokana 300 MG 300 MG 300 MG Diflucan Diflucan No 1{table Diflucan 150 MG 150 MG t} 150 MG FreeStyle FreeStyle No FreeStyle Chaz Chaz Chaz [place] - amLODIPine amLODIPine No 1{table QD amLODIPine Besylate 5 Besylate 5 t} Besylate 5 MG MG MG Cozaar 100 Cozaar 100 No Cozaar 100 MG MG MG Cymbalta 60 Cymbalta 60 No 1{capsu QD Cymbalta MG MG le} 60 MG Vitamin B12 Vitamin B12 No 1{table QD Vitamin 1000 MCG 1000 MCG t} B12 1000 MCG Toujeo Toujeo No QD Toujeo SoloStar SoloStar SoloStar 300 UNIT/ML 300 UNIT/ML 300 UNIT/ML Coreg 25 MG Coreg 25 MG No Coreg 25 MG metFORMIN metFORMIN No metFORMIN HCl 1000 MG HCl 1000 MG HCl 1000 MG Medrol 4 MG Medrol 4 MG No Medrol 4 MG Carvedilol Carvedilol No Carvedilol Fluconazole Fluconazole No 1{table Fluconazol 150 MG 150 MG t} e 150 MG Cymbalta 60 Cymbalta 60 No Cymbalta MG MG 60 MG Rosuvastati Rosuvastati No 1{table QD Rosuvastat n Calcium n Calcium t} in Calcium 10 MG 10 MG 10 MG metroNIDAZO metroNIDAZO No 1{table TID metroNIDAZ LE 500 MG LE 500 MG t} OLE 500 MG Losartan Losartan No 1{table QD Losartan Potassium Potassium t} Potassium 100 MG 100 MG 100 MG hydrALAZINE hydrALAZINE No 1{table TID hydrALAZIN HCl 50 MG HCl 50 MG t_with_ E HCl 50 food} MG Crestor 10 Crestor 10 No Crestor 10 MG MG MG Toujeo Toujeo No QD Toujeo SoloStar SoloStar SoloStar 300 UNIT/ML 300 UNIT/ML 300 UNIT/ML Victoza 18 Victoza 18 No QD Victoza 18 MG/3ML MG/3ML MG/3ML Omeprazole Omeprazole No QD Omeprazole 20 MG 20 MG 20 MG hydrALAZINE hydrALAZINE No hydrALAZIN HCl 50 MG HCl 50 MG E HCl 50 MG FreeStyle FreeStyle No FreeStyle Chaz Chaz Chaz Sensor Sensor Sensor System - System - System - traZODone traZODone No traZODone HCl 50 MG HCl 50 MG HCl 50 MG Cymbalta 30 Cymbalta 30 No 1{capsu QD Cymbalta MG MG le} 30 MG Nystatin Nystatin No Nystatin PriLOSEC 20 PriLOSEC 20 No 1{capsu QD PriLOSEC MG MG le} 20 MG hydrALAZINE hydrALAZINE No 1{table TID hydrALAZIN HCl 50 MG HCl 50 MG t_with_ E HCl 50 food} MG Crestor 10 Crestor 10 No Crestor 10 MG MG MG FreeStyle FreeStyle No FreeStyle Chaz Chaz Chaz [place] - amLODIPine amLODIPine No 1{table QD amLODIPine Besylate 5 Besylate 5 t} Besylate 5 MG MG MG Cozaar 100 Cozaar 100 No Cozaar 100 MG MG MG Clotrimazol Clotrimazol No 1{appli BID Clotrimazo e 1 % e 1 % cation_ le 1 % to_affe cted_ar ea} amLODIPine amLODIPine No 1{table QD amLODIPine Besylate 10 Besylate 10 t} Besylate MG MG 10 MG Coreg 25 MG Coreg 25 MG No Coreg 25 MG metFORMIN metFORMIN No metFORMIN HCl 1000 MG HCl 1000 MG HCl 1000 MG Fluconazole Fluconazole No Fluconazol 150 MG 150 MG e 150 MG Invokana Invokana No Invokana 300 MG 300 MG 300 MG Diflucan Diflucan No 1{table Diflucan 150 MG 150 MG t} 150 MG Cymbalta 60 Cymbalta 60 No 1{capsu QD Cymbalta MG MG le} 60 MG Vitamin B12 Vitamin B12 No 1{table QD Vitamin 1000 MCG 1000 MCG t} B12 1000 MCG Medrol 4 MG Medrol 4 MG No Medrol 4 MG Carvedilol Carvedilol No Carvedilol Fluconazole Fluconazole No 1{table Fluconazol 150 MG 150 MG t} e 150 MG Cymbalta 60 Cymbalta 60 No Cymbalta MG MG 60 MG Losartan Losartan No 1{table QD Losartan Potassium Potassium t} Potassium 100 MG 100 MG 100 MG Rosuvastati Rosuvastati No 1{table QD Rosuvastat n Calcium n Calcium t} in Calcium 10 MG 10 MG 10 MG metroNIDAZO metroNIDAZO No 1{table TID metroNIDAZ LE 500 MG LE 500 MG t} OLE 500 MG Toujeo Toujeo No QD Toujeo SoloStar SoloStar SoloStar 300 UNIT/ML 300 UNIT/ML 300 UNIT/ML Toujeo Toujeo No QD Toujeo SoloStar SoloStar SoloStar 300 UNIT/ML 300 UNIT/ML 300 UNIT/ML Victoza 18 Victoza 18 No QD Victoza 18 MG/3ML MG/3ML MG/3ML Omeprazole Omeprazole No QD Omeprazole 20 MG 20 MG 20 MG hydrALAZINE hydrALAZINE No hydrALAZIN HCl 50 MG HCl 50 MG E HCl 50 MG FreeStyle FreeStyle No FreeStyle Chaz Chaz Chaz Sensor Sensor Sensor System - System - System - traZODone traZODone No traZODone HCl 50 MG HCl 50 MG HCl 50 MG Cymbalta 30 Cymbalta 30 No 1{capsu QD Cymbalta MG MG le} 30 MG Clotrimazol Clotrimazol No 1{appli BID Clotrimazo e 1 % e 1 % cation_ le 1 % to_affe cted_ar ea} Fluconazole Fluconazole No 1{table Fluconazol 150 MG 150 MG t} e 150 MG Medrol 4 MG Medrol 4 MG No Medrol 4 MG Omeprazole Omeprazole No Omeprazole 20 MG 20 MG 20 MG Vitamin B12 Vitamin B12 No 1{table QD Vitamin 1000 MCG 1000 MCG t} B12 1000 MCG FreeStyle FreeStyle No FreeStyle Chaz Chaz Chaz Sensor Sensor Sensor System - System - System - Carvedilol Carvedilol No Carvedilol Cymbalta 30 Cymbalta 30 No 1{capsu QD Cymbalta MG MG le} 30 MG amLODIPine amLODIPine No 1{table QD amLODIPine Besylate 5 Besylate 5 t} Besylate 5 MG MG MG hydrALAZINE hydrALAZINE No hydrALAZIN HCl 50 MG HCl 50 MG E HCl 50 MG Cymbalta 60 Cymbalta 60 No Cymbalta MG MG 60 MG metroNIDAZO metroNIDAZO No 1{table TID metroNIDAZ LE 500 MG LE 500 MG t} OLE 500 MG Fluconazole Fluconazole No Fluconazol 150 MG 150 MG e 150 MG Victoza 18 Victoza 18 No QD Victoza 18 MG/3ML MG/3ML MG/3ML Invokana Invokana No Invokana 300 MG 300 MG 300 MG traZODone traZODone No traZODone HCl 50 MG HCl 50 MG HCl 50 MG Losartan Losartan No 1{table QD Losartan Potassium Potassium t} Potassium 100 MG 100 MG 100 MG Coreg 25 MG Coreg 25 MG No Coreg 25 MG Rosuvastati Rosuvastati No Rosuvastat n Calcium n Calcium in Calcium 10 MG 10 MG 10 MG Cozaar 100 Cozaar 100 No Cozaar 100 MG MG MG Gabapentin Gabapentin No TID Gabapentin 300 MG 300 MG 300 MG metFORMIN metFORMIN No metFORMIN HCl 1000 MG HCl 1000 MG HCl 1000 MG Diflucan Diflucan No 1{table Diflucan 150 MG 150 MG t} 150 MG FreeStyle FreeStyle No FreeStyle Chaz Chaz Chaz [place] - Broken Arrow - [place] - Nystatin Nystatin No Nystatin Toujeo Toujeo No QD Toujeo SoloStar SoloStar SoloStar 300 UNIT/ML 300 UNIT/ML 300 UNIT/ML DULoxetine DULoxetine No DULoxetine HCl 60 MG HCl 60 MG HCl 60 MG amLODIPine amLODIPine No 1{table QD amLODIPine Besylate 10 Besylate 10 t} Besylate MG MG 10 MG Crestor 10 Crestor 10 No Crestor 10 MG MG MG Toujeo Toujeo No QD Toujeo SoloStar SoloStar SoloStar 300 UNIT/ML 300 UNIT/ML 300 UNIT/ML PriLOSEC 20 PriLOSEC 20 No 1{capsu QD PriLOSEC MG MG le} 20 MG Clotrimazol Clotrimazol No 1{appli BID Clotrimazo e 1 % e 1 % cation_ le 1 % to_affe cted_ar ea} Fluconazole Fluconazole No 1{table Fluconazol 150 MG 150 MG t} e 150 MG Medrol 4 MG Medrol 4 MG No Medrol 4 MG Omeprazole Omeprazole No Omeprazole 20 MG 20 MG 20 MG Vitamin B12 Vitamin B12 No 1{table QD Vitamin 1000 MCG 1000 MCG t} B12 1000 MCG FreeStyle FreeStyle No FreeStyle Chaz Chaz Chaz Sensor Sensor Sensor System - System - System - Carvedilol Carvedilol No Carvedilol Cymbalta 30 Cymbalta 30 No 1{capsu QD Cymbalta MG MG le} 30 MG amLODIPine amLODIPine No 1{table QD amLODIPine Besylate 5 Besylate 5 t} Besylate 5 MG MG MG hydrALAZINE hydrALAZINE No hydrALAZIN HCl 50 MG HCl 50 MG E HCl 50 MG Cymbalta 60 Cymbalta 60 No Cymbalta MG MG 60 MG metroNIDAZO metroNIDAZO No 1{table TID metroNIDAZ LE 500 MG LE 500 MG t} OLE 500 MG Fluconazole Fluconazole No Fluconazol 150 MG 150 MG e 150 MG Victoza 18 Victoza 18 No QD Victoza 18 MG/3ML MG/3ML MG/3ML Invokana Invokana No Invokana 300 MG 300 MG 300 MG traZODone traZODone No traZODone HCl 50 MG HCl 50 MG HCl 50 MG Losartan Losartan No 1{table QD Losartan Potassium Potassium t} Potassium 100 MG 100 MG 100 MG Coreg 25 MG Coreg 25 MG No Coreg 25 MG Rosuvastati Rosuvastati No Rosuvastat n Calcium n Calcium in Calcium 10 MG 10 MG 10 MG Cozaar 100 Cozaar 100 No Cozaar 100 MG MG MG Gabapentin Gabapentin No TID Gabapentin 300 MG 300 MG 300 MG metFORMIN metFORMIN No metFORMIN HCl 1000 MG HCl 1000 MG HCl 1000 MG Diflucan Diflucan No 1{table Diflucan 150 MG 150 MG t} 150 MG FreeStyle FreeStyle No FreeStyle Chaz Chaz Chaz [place] - [place] - [place] - Nystatin Nystatin No Nystatin Toujeo Toujeo No QD Toujeo SoloStar SoloStar SoloStar 300 UNIT/ML 300 UNIT/ML 300 UNIT/ML DULoxetine DULoxetine No DULoxetine HCl 60 MG HCl 60 MG HCl 60 MG amLODIPine amLODIPine No 1{table QD amLODIPine Besylate 10 Besylate 10 t} Besylate MG MG 10 MG Crestor 10 Crestor 10 No Crestor 10 MG MG MG Toujeo Toujeo No QD Toujeo SoloStar SoloStar SoloStar 300 UNIT/ML 300 UNIT/ML 300 UNIT/ML PriLOSEC 20 PriLOSEC 20 No 1{capsu QD PriLOSEC MG MG le} 20 MG Cymbalta 60 Cymbalta 60 No Cymbalta MG MG 60 MG Medrol 4 MG Medrol 4 MG No Medrol 4 MG Fluconazole Fluconazole No Fluconazol 150 MG 150 MG e 150 MG Invokana Invokana No Invokana 300 MG 300 MG 300 MG amLODIPine amLODIPine No 1{table QD amLODIPine Besylate 10 Besylate 10 t} Besylate MG MG 10 MG metFORMIN metFORMIN No metFORMIN HCl 1000 MG HCl 1000 MG HCl 1000 MG PriLOSEC 20 PriLOSEC 20 No 1{capsu QD PriLOSEC MG MG le} 20 MG Cozaar 100 Cozaar 100 No Cozaar 100 MG MG MG Toujeo Toujeo No QD Toujeo SoloStar SoloStar SoloStar 300 UNIT/ML 300 UNIT/ML 300 UNIT/ML Diflucan Diflucan No 1{table Diflucan 150 MG 150 MG t} 150 MG Coreg 25 MG Coreg 25 MG No Coreg 25 MG hydrALAZINE hydrALAZINE No 1{table TID hydrALAZIN HCl 50 MG HCl 50 MG t_with_ E HCl 50 food} MG Vitamin B12 Vitamin B12 No 1{table QD Vitamin 1000 MCG 1000 MCG t} B12 1000 MCG Toujeo Toujeo No QD Toujeo SoloStar SoloStar SoloStar 300 UNIT/ML 300 UNIT/ML 300 UNIT/ML amLODIPine amLODIPine No 1{table QD amLODIPine Besylate 5 Besylate 5 t} Besylate 5 MG MG MG hydrALAZINE hydrALAZINE No hydrALAZIN HCl 50 MG HCl 50 MG E HCl 50 MG Carvedilol Carvedilol No Carvedilol Clotrimazol Clotrimazol No 1{appli BID Clotrimazo e 1 % e 1 % cation_ le 1 % to_affe cted_ar ea} Cymbalta 60 Cymbalta 60 No 1{capsu QD Cymbalta MG MG le} 60 MG Rosuvastati Rosuvastati No 1{table QD Rosuvastat n Calcium n Calcium t} in Calcium 10 MG 10 MG 10 MG traZODone traZODone No traZODone HCl 50 MG HCl 50 MG HCl 50 MG Losartan Losartan No 1{table QD Losartan Potassium Potassium t} Potassium 100 MG 100 MG 100 MG Crestor 10 Crestor 10 No Crestor 10 MG MG MG Invokana Invokana 2019- No Na Mei 1 tab(s) Common - once a day [facility] 00:00 orally - CHI :00 [facility] Vital Signs Vital Name Observation Time Observation Value Comments Source height 2021-05-15 14:40:00 63.00 [in_i] [facility] weight 2021-05-15 14:40:00 167.8 [lb_av] [facility] temperature 2021-05-15 14:40:00 97.5 [degF] [facility] bmi 2021-05-15 14:40:00 29.72 kg/m2 [facility] oximetry 2021-05-15 14:40:00 97 % [facility] respiratory rate 2021-05-15 14:40:00 18 /min Comm on [facility] blood pressure 2021-05-15 14:40:00 137 mm[Hg] [facility] systolic [facility] blood pressure 2021-05-15 14:40:00 69 mm[Hg] [facility] diastolic [facility] Procedures This patient has no known procedures. Encounters Start End Encounter Admission Attending Care Care Encounter Source Date/Time Date/Time Type Type Clinicians Facility Department ID 2022-02-06 Outpatient Mei, Na STLMLC STLMLC [id number] 2 Common 13:39:00 [id number] [facility] 2021-07-26 Outpatient Emi, Na STLMLC STLMLC [id number] 2 Common 14:26:18 [id number] [facility] 2021-07-26 Outpatient Mei, Na STLMLC STLMLC [id number] 2 Common 13:23:02 [id number] [facility] 2021-07-26 Outpatient Mei, Na STLMLC STLMLC [id number] 2 Common 12:59:06 [id number] [facility] 2021-07-26 Outpatient Mei, Na STLMLC STLMLC [id number] 2 Common 12:47:29 [id number] [facility] 2021-07-26 Outpatient Mei, Na STLMLC STLMLC [id number] 2 Common 12:43:47 [id number] [facility] 2021-07-26 Outpatient Mei, Na STLMLC STLMLC [id number] 2 Common 12:43:08 [id number] [facility] 2021-07-26 Outpatient Mei, Na STLMLC STLMLC [id number] 2 Common 12:39:17 [id number] [facility] 2021-07-26 Outpatient Mei, Na STLMLC STLMLC [id number] 2 Common 12:12:21 [id number] [facility] 2021-07-26 Outpatient Mei, Na STLMLC STLMLC [id number] 2 Common 12:11:22 [id number] [facility] 2021-07-26 Outpatient Mei, Na STLMLC STLMLC [id number] 2 Common 12:10:21 [id number] [facility] 2021-07-26 Outpatient Mei, Na STLMLC STLMLC [id number] 2 Common 12:04:30 [id number] [facility] 2021-07-26 Outpatient Mei, Na STLMLC STLMLC [id number] 2 Common 12:03:17 [id number] [facility] 2021-07-26 Outpatient Mei, Na STLMLC STLMLC [id number] 2 Common 12:02:43 [id number] [facility] 2021-07-26 Outpatient Mei, Na STLMLC STLMLC [id number] 2 Common 11:24:44 [id number] [facility] 2021-07-26 Outpatient Mei, Na STLMLC STLMLC [id number] 2 Common 11:16:55 [id number] [facility] 2021-12-01 2021-12-01 OFFICE STLMLC STLMLC [id number] Co mmon 00:00:00 00:00:00 VISIT EST Spir it PT LEVEL 3 [facility] 2021-12-01 2021-12-01 (TEL) STLMLC STLMLC [id number] Co mmon 00:00:00 00:00:00 [facility] 2021-08-032021-08-03 (TEL) STLMLC STLMLC [id number] Co mmon 00:00:00 00:00:00 [facility] 2021-07-12 2021-07-12 OFFICE STLMLC STLMLC [id number] Co mmon 00:00:00 00:00:00 VISIT [facility] PT - CHI LEVEL 4 [facility] 2021-05-31 2021-05-31 OFFICE STLMLC STLMLC [id number] Co mmon 00:00:00 00:00:00 VISIT EST Spir it PT LEVEL 3 - [facility] 2021-05-31 2021-05-31 (TEL) STLMLC STLMLC [id number] Co mmon 00:00:00 00:00:00 [facility] 2021-05-30 2021-05-30 (TEL) STLMLC STLMLC [id number] Co mmon 00:00:00 00:00:00 [facility] 2021-05-15 2021-05-15 OFFICE STLMLC STLMLC [id number] Co mmon 00:00:00 00:00:00 VISIT [facility] PT - CHI LEVEL 4 [facility] 2020-09-23 2020-09-23 Outpatient STLMLC STLMLC [id number] Common 00:00:00 00:00:00 [facility] 2020-09-21 2020-09-21 Outpatient STLMLC STLMLC [id number] Common 00:00:00 00:00:00 [facility] 2020-07-26 2020-07-26 Outpatient STLMLC STLMLC [id number] Common 00:00:00 00:00:00 [facility] 2020-05-12 2020-05-12 Outpatient STLMLC STLMLC [id number] Common 00:00:00 00:00:00 [facility] 2020-05-10 2020-05-10 Outpatient STLMLC STLMLC [id number] Common 00:00:00 00:00:00 [facility] 2019-10-05 2019-10-05 [facility] [id number] Common 15:20:00 15:20:[address] [facility] 2019-01-09 2019-01-09 [facility] [id number] Common 15:40:00 15:40:[address] [facility] 2019-01-05 2019-01-05 [facility] [id number] Common 10:55:00 10:55:00 t Specialty/U Sp deepthi Specialty rology [facility] /Urology Clinic [facility] 2019-01-05 2019-01-05 [facility] [id number] Common 10:30:00 10:30:00 t Specialty/U Sp deepthi Specialty rology - [facility] /Urology Clinic [facility] 2018-10-14 2018-10-14 [facility] [id number] Common 16:02:00 16:02:[address] [facility] 2018-10-10 2018-10-10 [facility] [id number] Common 16:03:00 16:03:[address] [facility] 2018-09-18 2018-09-18 [facility] [id number] Common 10:00:00 10:00:[address] [facility] 2018-08-21 2018-08-21 [facility] [id number] Common 09:15:00 09:15:[address] [facility] 2018-05-21 2018-05-21 [facility] [id number] Common 10:15:00 10:15:[address] [facility] 2017-12-31 2017-12-31 [facility] [id number] Common 12:04:00 12:04:[address] [facility] 2017-12-30 2017-12-30 [facility] [id number] Common 14:08:00 14:08:[address] [facility] 2017-12-25 2017-12-25 [facility] [id number] Common 14:30:00 14:30:00 [employer] [facility] Results Test Description Test Time Test Comments Results Result Comments Source SARS-COV 2 Antigen SARS-COV 2 Antigen
--- NOTE | 2022-05-14 15:38 | RAD REPORT ---
EXAM DESCRIPTION: CT - Head C Spine Cap Wo Con - 05/14/2022 3:20 pm CLINICAL HISTORY: Trauma, head and neck injury. Chest, abdomen and pelvis pain. fall COMPARISON: No comparisons TECHNIQUE: CT head without contrast. CT cervical spine without contrast with coronal and sagittal reformatted images. CT chest, abdomen and pelvis without contrast with coronal and sagittal reformatted images of the [facility] ne. All CT scans are performed using dose optimization technique as appropriate and may include automated exposure control or mA/KV adjustment according to patient size. FINDINGS: CT HEAD WITHOUT CONTRAST: No intracranial hemorrhage, hydrocephalus or extra-axial fluid collection. No areas of brain edema o r midline shift. Mild to moderate polypoid mucosal thickening inferior left maxillary antrum. The paranasal sinuses an d mastoids are otherwise clear. The calvarium is intact. CT CERVICAL SPINE WITHOUT CONTRAST: No fracture or subluxation. The prevertebral soft tissues are normal in thickness. CT CHEST, ABDOMEN, PELVIS WITHOUT CONTRAST: NOTE: Lack of contrast is a significant limitation in the assessment of trauma related findings. Spec ifically, solid organ, vascular and bowel evaluation is significantly limited. The lungs are clear.No pneumothorax or pericardial/pleural fluid. No evidence of intra-abdominal visceral injury, free fluid or free air is seen within the above detai led limitations. Large midline lower abdominal ventral hernia containing unobstructed bowel. No pelvic hematoma or mass. No acute fracture demonstrated. IMPRESSION: Negative for acute traumatic findings within the above detailed limitations.
--- NOTE | 2022-05-14 15:44 | RAD REPORT ---
EXAM DESCRIPTION: RAD - Knee Left 3 View - 05/14/2022 3:38 pm CLINICAL HISTORY: PAIN COMPARISON: No comparisons FINDINGS: Diffuse osteopenia is seen. Tricompartmental osteoarthritis is present. No acute fracture evident. Small joint effusion suprapatellar region.
--- NOTE | 2022-05-14 15:45 | RAD REPORT ---
EXAM DESCRIPTION: RAD - Knee Right 3 View - 05/14/2022 3:37 pm CLINICAL HISTORY: PAIN COMPARISON: No comparisons FINDINGS: Mild osteopenia. Significant tricompartmental osteoarthritis, greatest the medial compartm ent. No acute fracture. A small suprapatellar joint effusion.
[2022-05-14] MEDS ORDERED: NA CHLORIDE 0.9% 500 ML ONE (16:09)
[2022-05-14 16:33] LABS: Urine Blood Negative (Negative); Urine Glucose 3+ (Negative); Urine Protein Negative (Negative); Urine Specific Gravity <=1.005 (1.005-1.030)
[2022-05-14 16:38] LABS: Absolute Lymphocytes (CBC) 2.6 K/uL (0.7-4.9); Hematocrit 41.6 % (36.0-45.0); Lymphocytes % 30.3 % (15.3-44.8); MPV 7.5 fL (7.6-11.3)
[2022-05-14 16:53] LABS: Potassium 3.9 mmol/L (3.5-5.1)
[2022-05-14 17:03] LABS: Urine Mucus Slight /HPF (None Seen); Urine RBC <5 /HPF (None Seen)
--- NOTE | 2022-05-14 17:07 | EDPHYS ---
Physician Documentation [facility] Name: Jo Hagan Age: 67 yrs Sex: Female : 1955 Arrival Date: 05/14/2022 Time: 14:31 Bed 17 Private MD: ED Physician Jack Javier HPI: 05/14 16:01 This 67 yrs old Female presents to ER via Ambulatory with complaints of Fall rn Injury, Head Injury Without LOC-Adult. 16:01 Details of fall: The patient fell from an upright position, while walking. Onset: The rn symptoms/episode began/occurred just prior to arrival. Associated injuries: The patient sustained injury to the head, neck injury, knees. Severity of symptoms: At their worst the symptoms were mild, in the emergency department the symptoms are unchanged. The patient has experienced similar episodes in the past. The patient has not recently seen a physician. Pt reports weeks to months of intermittent dizzy spells, fell today, not sure how she fell, no LOC, face/head hit concrete. No recent illness. Reports dizziness worse after hitting her head. No vomiting. No focal weakness. No seizure. Remembers all events. Does not take blood thinners. . Historical: - Allergies: 14:37 Iodine; ld1 - PMHx: 14:37 TIA; Hypertension; GERD; Diabetes - IDDM; ld1 - PSHx: 14:37 Cholecystectomy; hernia; hysterectomy; ld1 - Immunization history:: Adult Immunizations up to date, Client reports receiving the 2nd dose of the Covid vaccine. - Social history:: Smoking status: Patient denies any tobacco usage or history of. Patient/guardian denies using alcohol. - Immunization history: Last tetanus immunization: unknown. - Family history:: not pertinent. - Hospitalizations: : No recent hospitalization is reported. ROS: 16:01 Constitutional: Negative for fever, chills, and weight loss, Eyes: Negative for injury, rn pain, redness, and discharge, ENT: + facial bruising Neck: Negative for injury, pain, and swelling, Cardiovascular: Negative for chest pain, palpitations, and edema, Respiratory: Negative for shortness of breath, cough, wheezing, and pleuritic chest pain, Abdomen/GI: Negative for abdominal pain, nausea, vomiting, diarrhea, and constipation, Back: Negative for injury and pain, MS/Extremity: + pain to both knees Skin: Negative for injury, rash, and discoloration, Neuro: + headache and dizziness Exam: 16:01 Constitutional: This is a well developed, well nourished patient who is awake, alert, rn and in no acute distress. Head/Face: + left cheek and periorbital areas with slight ecchymosis Eyes: Pupils equal round and reactive to light, extra-ocular motions intact. Neck: NO midline cervical tenderness Cardiovascular: Regular rate and rhythm. No pulse deficits. Respiratory: No increased work of breathing, no retractions or nasal flaring. Abdomen/GI: Soft, non-tender Back: No spinal tenderness. No costovertebral tenderness. Full range of motion. Skin: Warm, dry MS/ Extremity: Pulses equal, no cyanosis. Neuro: Awake and alert, GCS 15, oriented to person, place, time, and situation. Cranial nerves II-XII grossly intact. Motor strength 4/5 in all extremities. Sensory grossly intact. Cerebellar exam normal Vital Signs: 14:37 BP 201 / 102; Pulse 84; Resp 18; Temp 97.7(O); Pulse Ox 97% on R/A; Weight 76.66 kg; ld1 Height 5 ft. 6 in. (167.64 cm); Pain 8/10; 15:46 BP 185 / 99; Pulse 82; Resp 18; Pulse Ox 97% on R/A; db 16:30 BP 194 / 93; Pulse 77; Resp 18; Pulse Ox 96% on R/A; db 14:37 Body Mass Index 27.28 (76.66 kg, 167.64 cm) ld1 Daniele Coma Score: 16:38 Eye Response: spontaneous(4). Verbal Response: oriented(5). Motor Response: obeys db commands(6). Total: 15. Trauma Score (Adult): 16:38 Eye Response: spontaneous(1); Verbal Response: oriented(1); Motor Response: obeys db commands(2); Systolic BP: > 89 mm Hg(4); Respiratory Rate: 10 to 29 per min(4); [place] Score: 15; Trauma Score: 12 MDM: 14:50 Patient medically screened. rn 17:05 Differential diagnosis: closed head injury, contusion, fracture, multiple trauma, rn sprain, strain. Data reviewed: vital signs, nurses notes, lab test result(s), radiologic studies, and as a result, I will discharge patient. Counseling: I had a detailed discussion with the patient and/or guardian regarding: the historical points, exam findings, and any diagnostic results supporting the discharge/admit diagnosis, lab results, radiology results, the need for outpatient follow up, to return to the emergency department if symptoms worsen or persist or if there are any questions or concerns that arise at home. Response to treatment: the patient's symptoms have mildly improved after treatment, and as a result, I will discharge patient. Special discussion: I discussed with the patient/guardian in detail that at this point there is no indication for admission to the hospital. It is understood, however, that if the symptoms persist or worsen the patient needs to return immediately for re-evaluation. Based on the history and exam findings, there is no indication for further emergent testing or inpatient evaluation. I discussed with the patient/guardian the need to see the primary care provider for further evaluation of the symptoms. 05/14 15:00 Order name: CBC with Diff; Complete Time: 16:45 rn 05/14 15:00 Order name: Basic Metabolic Panel; Complete Time: 17:05 rn 05/14 15:00 Order name: XRAY Knee RIGHT 3 view; Complete Time: 15:50 rn 05/14 15:00 Order name: Urine Microscopic Only; Complete Time: 17:05 rn 05/14 16:33 Order name: Urine Dipstick-Ancillary; Complete Time: 16:45 EDMS 05/14 15:00 Order name: XRAY Knee LEFT 3 view; Complete Time: 15:50 rn 05/14 15:00 Order name: IV Start; Complete Time: 16:35 rn 05/14 15:00 Order name: Urine Dipstick-Ancillary (obtain specimen); Complete Time: 16:35 rn 05/14 15:00 Order name: CT Traumagram (Head C Spine CAP wo con); Complete Time: 15:50 rn Administered Medications: 16:28 Drug: NS 0.9% 500 ml Route: IV; Rate: bolus; Site: right antecubital; db Disposition Summary: 05/14/22 17:06 Discharge Ordered Location: Home rn Problem: new rn Symptoms: have improved rn Condition: Stable rn Diagnosis - Contusion of unspecified part of head, initial encounter rn - Hyperglycemia, unspecified rn - Dehydration rn - Contusion of left knee rn - Contusion of right knee rn - Dizziness and giddiness rn Followup: rn - With: Private Physician - When: As needed - Reason: Recheck today's complaints, Re-evaluation by your physician Discharge Instructions: - Discharge Summary Sheet rn - Contusion rn - Dehydration, Elderly rn - Hyperglycemia rn - Blood Glucose Monitoring, Adult rn Forms: - Medication Reconciliation Form rn - Thank You Letter rn - Antibiotic financial intern - Prescription Opioid Use rn Signatures: Dispatcher [employer] EDMS Jack Javier MD MD rn Dibbern, Lauren RN RN ld1 Marcy Raymundo RN RN db Corrections: (The following items were deleted from the chart) 15:10 15:04 Head C Spine CAP W Con+CT.RAD.BRZ ordered. EDNE EDMS
--- NOTE | 2022-05-14 17:07 | ER ---
Nurse's Notes [facility] Name: Jo Hagan Age: 67 yrs Sex: Female : 1955 Arrival Date: 05/14/2022 Time: 14:31 Bed 17 Private MD: Diagnosis: Contusion of unspecified part of head, initial encounter;Hyperglycemia, unspecified;Dehydration;Contusion of left knee;Contusion of right knee;Dizziness and giddiness Presentation: 05/14 14:37 Chief complaint: Patient states: Pt reports feeling dizzy, fell and hit left side of ld1 face on ground 2 hours ago. C/O pain to left side of face. Reports "it is harder to walk now, I am dizzy and weak." Denies LOC. Pt is not on blood thinners. Coronavirus screen: At this time, the client does not indicate any symptoms associated with coronavirus-19. Ebola Screen: No symptoms or risks identified at this time. Initial Sepsis Screen: Does the patient meet any 2 criteria? No. Patient's initial sepsis screen is negative. Does the patient have a suspected source of infection? No. Patient's initial sepsis screen is negative. Risk Assessment: Do you want to hurt yourself or someone else? Patient reports no desire to harm self or others. Onset of symptoms was May 14, 2022. 14:37 Method Of Arrival: Ambulatory ld1 14:37 Acuity: OLGA 3 ld1 16:38 Care prior to arrival: None. Mechanism of Injury: Fall ground level fall. Trauma event db details: Injury occurred in the [facility]. Triage Assessment: 14:37 General: Appears in no apparent distress. comfortable, Behavior is calm, cooperative, ld1 appropriate for age. Pain: Complains of pain in face Pain does not radiate. Pain currently is 8 out of 10 on a pain scale. Quality of pain is described as throbbing, Pain began suddenly, Is continuous. EENT: No signs and/or symptoms were reported regarding the EENT system. Neuro: Level of Consciousness is awake, alert, obeys commands, Oriented to person, place, time, situation. Neuro: Reports dizziness, headache. Cardiovascular: Capillary refill < 3 seconds Patient's skin is warm and dry. Respiratory: Airway is patent Respiratory effort is even, unlabored. GI:. GI: Abdomen is flat, non-distended. : No signs and/or symptoms were reported regarding the genitourinary system. Derm: No signs and/or symptoms reported regarding the dermatologic system. Musculoskeletal: No signs and/or symptoms reported regarding the musculoskeletal system. Trauma Activation: Not Applicable Physician: ED Physician; Name: ; Notified At: ; Arrived At: Physician: General Surgeon; Name: ; Notified At: ; Arrived At: Physician: Radiology; Name: ; Notified At: ; Arrived At: Physician: Respiratory; Name: ; Notified At: ; Arrived At: Physician: Lab; Name: ; Notified At: ; Arrived At: Historical: - Allergies: 14:37 Iodine; ld1 - PMHx: 14:37 TIA; Hypertension; GERD; Diabetes - IDDM; ld1 - PSHx: 14:37 Cholecystectomy; hernia; hysterectomy; ld1 - Immunization history:: Adult Immunizations up to date, Client reports receiving the 2nd dose of the Covid vaccine. - Social history:: Smoking status: Patient denies any tobacco usage or history of. Patient/guardian denies using alcohol. - Immunization history: Last tetanus immunization: unknown. - Family history:: not pertinent. - Hospitalizations: : No recent hospitalization is reported. Screenin:38 Abuse screen: Denies threats or abuse. Denies injuries from another. Tuberculosis db screening: No symptoms or risk factors identified. Fall risk. 16:41 Nutritional screening: No deficits noted. Fall Risk Fall in past 12 months (25 points). db No secondary diagnosis (0 pts). IV access (20 points). Ambulatory Aid- None/Bed Rest/Nurse Assist (0 pts). Gait- Normal/Bed Rest/Wheelchair (0 pts) Mental Status- Oriented to own ability (0 pts). Total Magallon Fall Scale indicates Low Risk Score (25-44 pts). Fall prevention measures have been instituted. Side Rails Up X 2 Family Present and informed to notify staff if they need to leave bedside. Primary Survey: 16:38 NO uncontrolled hemorrhage observed. Breathing/Chest: Spontaneous respiratory effort, db equal unlabored respirations, breath sounds clear bilaterally, regular pattern, symmetrical chest rise and fall. Respiratory effort: spontaneous, unlabored, Breath sounds: clear, bilaterally. Respiratory pattern: regular, Chest inspection: symmetrical rise and fall of the chest. Circulation: No external hemorrhage present. Regular and strong central pulse, skin warm/dry/normal color. Circulation: Skin color: pink. Disability Disability Pupils are equal, round, reactive to light and accommodation. Exposure/Environment: A warming method has been applied: A warm blanket has been provided to the patient. Reassessment Breathing: Spontaneous respiratory effort, equal unlabored respirations, breath sounds clear bilaterally, regular pattern with symmetrical chest rise and fall. Respiratory effort Spontaneous Unlabored Breath sounds Clear Respiratory pattern Regular Chest inspection Symmetrical Circulation: No external hemorrhage noted. Regular and strong central pulse, skin warm/dry/normal color. Disability: Pupils Pupils are equal, round, reactive to light and accomodation. Alert. Assessment: 16:35 Reassessment: Patient appears in no apparent distress at this time. patient complains db of dizziness prior to fall. 16:38 General: Appears in no apparent distress. comfortable, Behavior is calm, cooperative, db appropriate for age, quiet. Neuro: No deficits noted. Level of Consciousness is awake, alert, obeys commands, Oriented to person, place, time, situation, Appropriate for age Speech is normal, Facial symmetry appears normal, Reports dizziness. 16:41 Reassessment: Patient appears in no apparent distress at this time. No changes from db previously documented assessment. Patient and/or family updated on plan of care and expected duration. Pain level reassessed. Patient is alert, oriented x 3, equal unlabored respirations, skin warm/dry/pink. Vital Signs: 14:37 BP 201 / 102; Pulse 84; Resp 18; Temp 97.7(O); Pulse Ox 97% on R/A; Weight 76.66 kg; ld1 Height 5 ft. 6 in. (167.64 cm); Pain 8/10; 15:46 BP 185 / 99; Pulse 82; Resp 18; Pulse Ox 97% on R/A; db 16:30 BP 194 / 93; Pulse 77; Resp 18; Pulse Ox 96% on R/A; db 14:37 Body Mass Index 27.28 (76.66 kg, 167.64 cm) ld1 Allred Coma Score: 16:38 Eye Response: spontaneous(4). Verbal Response: oriented(5). Motor Response: obeys db commands(6). Total: 15. Trauma Score (Adult): 16:38 Eye Response: spontaneous(1); Verbal Response: oriented(1); Motor Response: obeys db commands(2); Systolic BP: > 89 mm Hg(4); Respiratory Rate: 10 to 29 per min(4); Daniele Score: 15; Trauma Score: 12 ED Course: 14:31 Patient arrived in ED. rg4 14:37 Arm band placed on right wrist. ld1 14:41 Triage completed. ld1 14:50 Jack Javier MD is Attending Physician. rn 15:21 CT Traumagram (Head C Spine CAP wo con) In Process Unspecified. EDMS 15:33 XRAY Knee RIGHT 3 view In Process Unspecified. EDMS 15:33 XRAY Knee LEFT 3 view In Process Unspecified. EDMS 15:52 Marcy Raymundo, RN is Primary Nurse. db 16:25 Inserted saline lock: 20 gauge in right antecubital area, using aseptic technique. db Blood collected. 16:38 Patient has correct armband on for positive identification. Bed in low position. Call db light in reach. Side rails up X 1. 16:38 Patient maintains SpO2 saturation greater than 95% on room air. db Administered Medications: 16:28 Drug: NS 0.9% 500 ml Route: IV; Rate: bolus; Site: right antecubital; db Intake: 16:38 PO: 0ml; Total: 0ml. db Outcome: 17:06 Discharge ordered by . rn 19:58 Patient left the ED. [id number] Signatures: Dispatcher [employer] EDMS Jack Javier MD MD rn Garcia, Rubi rg4 Fausto Morales RN RN jb4 Michaela Silva RN RN ld1 Marcy Raymundo, AJITH RN db Corrections: (The following items were deleted from the chart) 14:43 14:37 Chief complaint: Patient states: Walk trying to feed dogs, slipped due to water ld1 on floor - hit left side of face on ground. C/O pain to left side of face. Reports "it is harder to walk now, I am dizzy and weak." Denies LOC. ld1 14:46 14:37 Chief complaint: Patient states: Pt reports feeling dizzy, fell and hit left side ld1 of face on ground. C/O pain to left side of face. Reports "it is harder to walk now, I am dizzy and weak." Denies LOC. Pt is on blood thinners - refill was out - has not taken blood thinners for three weeks. ld1 14:46 14:37 Acuity: OLGA 2 ld1 ld1 14:54 14:37 Chief complaint: Patient states: Pt reports feeling dizzy, fell and hit left side ld1 of face on ground. C/O pain to left side of face. Reports "it is harder to walk now, I am dizzy and weak." Denies LOC. Pt is not on blood thinners. ld1
[2022-05-15 01:09] VITALS: TEMP 97.7
[2022-05-15 01:20] VITALS: BP 194/93; O2SAT 96
--- NOTE | 2022-05-15 08:21 | EKG ---
Test Date: 2022-05-14 Test Time: 16:18:49 Cat Hooker: SID MEASUREMENT RESULTS: Intervals: Rate: 79 CT: 156 QRSD: 84 QT: 390 QTc: 447 [place]: P: 38 CT: 156 QRS: 12 T: 88 INTERPRETIVE STATEMENTS: Normal sinus rhythm Nonspecific T wave abnormality Abnormal ECG Compared to ECG 04/25/2021 09:38:50 T-wave abnormality now present Myocardial infarct finding no longer present Electronically Signed On 05-15-22 08:19:46 FIELD TRAINING MANAGER by Benito Garcia
== END 2022-05-14 19:58 | disposition home or self-care (01) ==
LOC: ER 14:27
DX: S00.83XA Contusion of other part of head, initial encounter (principal); S80.02XA Contusion of left knee, initial encounter; S80.01XA Contusion of right knee, initial encounter; E86.0 Dehydration; E11.65 Type 2 diabetes mellitus with hyperglycemia; R42 Dizziness and giddiness; I10 Essential (primary) hypertension; Z91.048 Other nonmedicinal substance allergy status
CPT/HCPCS: 93005; 85025; 80048; 36415; 70450; 71250; 72125; 73562 ×2; 99284; J7040; 81003; 81015

== ENCOUNTER 2023-05-16 18:03 | Inpatient (IN) | payer OTHER ==
--- OUTSIDE RECORDS SUMMARY | 2023-05-16 18:10 | XMS REPORT | Continuity of Care Document ---
:1955 Author Organization [facility] t Address [address] [facility]. [address] [place] [address] Care Team Providers Name Role Phone TASHA MACIEL Primary Care Physician Unavailable Kenyatta Mei Attending Clinician Unavailable FRANCOIS VANN Attending Clinician Unavailable FRANCOIS VANN Attending Clinician Unavailable ALISSON WINN Attending Clinician Unavailable ALISSON WINN Attending Clinician Unavailable PRIETO ZIMMERMAN Attending Clinician Unavailable MARILIN ALVARADO Attending Clinician Unavailable MARILIN ALVARADO Attending Clinician Unavailable STEVE YIN Attending Clinician Unavailable [email or web address] Attending Clinician Unavailable Prieto Zimmerman MD Attending Clinician Doctor Unassigned, [place] Attending Clinician Unavailable ERWIN BIRMINGHAM Attending Clinician Unavailable Erwin [place] MD Attending Clinician [email or web address] Admitting Clinician Unavailable ALISSON WINN Admitting Clinician Unavailable ERWIN BIRMINGHAM Admitting Clinician Unavailable Payers Payer Name Policy Type Policy Number Effective Date Expiration Date Rachael NICHOLSON PLS [id number] 2019 [place] 00:00:00 [place] [id number] 2014 [place] 00:[place]:00 HUMANA C1 [id number] [facility] HUMANA C1 [id number] [facility] HUMANA C1 [id number] [facility] HUMANA C1 [id number] [facility] Problems Condition Condition Condition Status Onset Resolution Last Treating Co mments Source Name Details Category Date Date Treatment Clinician Date Routine Routine Disease Active Univers gynecologi gynecologi 11-18 it y of asad asad 00:00: [place] examinatio examinatio 00 Me dical n n Branch Bilateral Bilateral Disease Active Uni vers lower lower 11-18 ity of quadrant quadrant 00:00: [place] abdominal abdominal 00 Medi asad mass mass Branch History of History of Disease Active U nivers endometria endometria 11-18 it y of l cancer l cancer 00:00: [place] [facility] S/P S/P Disease Active Univers hysterecto hysterecto 11-18 it y of my my 00:00: Medical Branch BMI BMI Disease Active Univers 30.0-30.9, 30.0-30.9, 5- it y of adult adult 00:00: [place] [facility] Other Other Disease Active Univers screening screening 10-07 [place] of mammogram mammogram [place] Endometria Endometria Disease Active U nivers l cancer l cancer 03-26 ity of 00:00: [place] [facility] Type II or Type II or Disease Active U nivers unspecifie unspecifie 11-20 it y of d type d type 00:00: [place] diabetes diabetes 00 Medica l mellitus mellitus Branch with other with other specified specified manifestat manifestat ions, not ions, not stated as stated as uncontroll uncontroll ed ed Essential Essential Disease Active Overview: Univers hypertensi hypertensi 5-23 Formattin ity of on on 00:00: g of this 00 note Medical might be Branch different from the original. ICD10 Diagnosis Term Hot Punch [employer] Utility Fatty Fatty Problem Common liver liver [facility] Hypertensi HTN Problem Commo n on (hypertens Spirit ion) - [facility] Gastroesop GERD Problem Commo n hageal (gastroeso Spirit reflux phageal - [facility]I disease reflux St disease) [facility] Mixed Hyperlipid Problem Commo n hyperlipid emia, Spirit emia mixed [facility] Ventral Ventral Problem Common hernia hernia [facility] Diabetes Diabetes Problem Commo n mellitus DMII Spirit without without - CHI complicati complicati St on ons [facility] Gastroesop Gastroesop Problem C ommon hageal hageal Spirit reflux reflux - [facility]I disease disease [facility] esophag[facility]ophagiti [facility] Seborrheic Seborrheic Problem C ommon dermatitis dermatitis Sp deepthi , - CHI unspecifie [facility] Reactive Reactive Problem Commo n depression depression Sp deepthi - [facility] Diabetic Secondary Problem Comm on polyneurop diabetes Spir it athy with - [facility] peripheral neuropathy [facility] [id number] Insomnia, Problem Com mon unspecifie Spirit d type - [facility] [id number] Exposure Problem Comm on to TB Spirit [facility] Candidal +5th digit Problem Com mon vulvovagin eff [facility] itis 03/31/22*Ye - CHI ast vaginitis [facility] Diverticul Diverticul Problem C ommon ar disease osis large Sp deepthi of colon intestine - CHI w/o perforatio [facility] or Medical abscess Center w/o bleeding Primary Endometria Problem Comm on malignant l cancer Spiri t [facility] Palpitatio Palpitatio Problem C ommon ns ns Spirit [facility] Pericardia +5th digit Problem C ommon l effusion eff Spirit 03/31/22*Pe - [facility]I ricardial [facility] (noninflam Medica l matory) [place] [id number] Type 2 Problem Common diabetes Spirit mellitus - [facility] with other diabetic [facility] kidney Medical complicati Center on Poison kayode Poison kayode Problem C ommon Spirit - [facility] Chronic Chronic Problem Common fatigue fatigue Spirit syndrome - [facility] [id number] Proteinuri Problem Com mon a, Spirit unspecifie - [facility] d [facility] Chronic Other Problem Common pain chronic [facility] pain - [facility] [id number] Uncontroll Problem Co mmon ed type 2 Spirit diabetes - [facility] mellitus [facility] hyperglyce [facility] Allergies, Adverse Reactions, Alerts Allergy Allergy Status Severity Reaction(s) Onset Inactive Treating Comm ents Source Name Type Date Date Clinician Iodine Propensi Active Rash 2013-07 Univers And ty to 0-17 ity of Iodide adverse 00:00: [place] Containi reaction 00 Medica l ng s to Branch Products drug Gadolini Propensi Active Hives 2013-07 Univer s um-Conta ty to 0-17 ity of ining adverse 00:00: [place] Contrast reaction 00 Medica l Media s Branch IODINE Drug Active Low Rash 2013-07 Univers AND Class 0-17 ity of IODIDE 00:00: [place] CONTAINI 00 Medical NG Branch PRODUCTS GADOLINI Drug Active Low Hives 2013-07 Univers UM-CONTA Class 0-17 ity of INING 00:00: [place] CONTRAST 00 Medical MEDIA Branch 463 Drug Active Unknown Common allergy [facility] 8102 Drug Active Unknown Common allergy [facility] Social History Social Habit Start Date Stop Date Quantity Comments Source Gender identity Universit y [facility] Sexual orientation Univer sity [facility] History of Tobacco Common Spirit - Use [facility] Alcohol intake 2023-04-09 2023-04-09 Current University of 00:00:00 00:00:00 non-drinker of [facility] [place] [facility] alcohol [place] (finding) History of Social 2023-04-09 2023-04-09 Univers ity of function 00:00:00 00:00:00 [facility] Exposure to 2022-12-15 2022-12-25 Not sure University SARS-CoV-2 (event) 00:00:00 15:44:00 [facility] Sex [birth year] Universit y of 00:00:00 00:00:00 [facility] Smoking Status Start Date Stop Date Source Never smoked tobacco [facility] Medications Ordered Filled Start Stop Current Ordering Indication Dosage Frequency Signature Comments Components Source Medication Medication Date Date Medication? Clinician (SIG) Name Name metFORMIN 2022-0 Yes 1000mg Take 1 Univ ers (GLUCOPHAGE 5-18 tablet by ity of ) 1,000 mg 09:54: [place] 30 (two) Medical times Branch daily with meals. omeprazole 2022-0 Yes 20mg Take 1 Unive rs (PRILOSEC) 5-18 capsule by ity of 20 mg 09:54: mouth [place] capsule 30 daily. Medical Branch carvedilol 2022-0 Yes 25mg Take 1 Unive rs (COREG) 25 5-18 tablet by ity of mg tablet 09:54: mouth 2 [place] 30 (two) Medical times Branch daily with meals. hydralAZINE 2022-0 Yes 100mg Take 2 Uni vers (APRESOLINE 5-18 tablets by it y of ) 50 mg 09:54: mouth 2 [place] tablet 30 (two) Medical times Branch daily. canaglifloz 2022-0 Yes Take by Uni vers in 100 mg 5-18 mouth. ity of tablet 09:54: [place] 30 Medical Branch metoclopram 2022-0 Yes 10mg Take 1 Univ ers mathew HCl 10 5-18 tablet by ity of mg tablet 09:54: [place] 30 needed. Medical Branch glimepiride 2022-0 Yes 4mg Take 1 Univ ers (AMARYL) 4 5-18 tablet by ity of mg tablet 09:54: mouth 2 [place] 30 (two) Medical times Branch daily. metFORMIN 2022-0 Yes 1000mg Take 1 Univ ers (GLUCOPHAGE 5-18 tablet by ity of ) 1,000 mg 09:54: mouth [place] 30 (two) Medical times Branch daily with meals. omeprazole 2022-0 Yes 20mg Take 1 Unive rs (PRILOSEC) 5-18 capsule by ity of 20 mg 09:54: mouth [place] capsule 30 daily. Medical Branch carvedilol 2022-0 Yes 25mg Take 1 Unive rs (COREG) 25 5-18 tablet by ity of mg tablet 09:54: mouth 2 [place] 30 (two) Medical times Branch daily with meals. hydralAZINE 2023-0 Yes 100mg Take 2 Uni vers (APRESOLINE 5-18 tablets by it y of ) 50 mg 09:54: mouth 2 [place] tablet 30 (two) Medical times Branch daily. canaglifloz 2023-0 Yes Take by Uni vers in 100 mg 5-18 mouth. ity of tablet 09:54: [place] 30 Medical Branch metoclopram 2023-0 Yes 10mg Take 1 Univ ers matehw HCl 10 5-18 tablet by ity of mg tablet 09:54: mouth [place] 30 needed. Medical Branch glimepiride 2023-0 Yes 4mg Take 1 Univ ers (AMARYL) 4 5-18 tablet by ity of mg tablet 09:54: mouth 2 [place] 30 (two) Medical times Branch daily. metFORMIN 2023-0 Yes 1000mg Take 1 Univ ers (GLUCOPHAGE 5-18 tablet by ity of ) 1,000 mg 09:54: mouth 2 [place] 30 (two) Medical times Branch daily with meals. omeprazole 2023-0 Yes 20mg Take 1 Unive rs (PRILOSEC) 5-18 capsule by ity of 20 mg 09:54: mouth [place] capsule 30 daily. Medical Branch carvedilol 2023-0 Yes 25mg Take 1 Unive rs (COREG) 25 5-18 tablet by ity of mg tablet 09:54: mouth 2 [place] 30 (two) Medical times Branch daily with meals. hydralAZINE 2023-0 Yes 100mg Take 2 Uni vers (APRESOLINE 5-18 tablets by it y of ) 50 mg 09:54: mouth 2 [place] tablet 30 (two) Medical times Branch daily. canaglifloz 2023-0 Yes Take by Uni vers in 100 mg 5-18 mouth. ity of tablet 09:54: [place] 30 Medical Branch metoclopram 2023-0 Yes 10mg Take 1 Univ ers mathew HCl 10 5-18 tablet by ity of mg tablet 09:54: mouth [place] 30 needed. Medical Branch glimepiride 2023-0 Yes 4mg Take 1 Univ ers (AMARYL) 4 5-18 tablet by ity of mg tablet 09:54: mouth 2 [place] 30 (two) Medical times Branch daily. metFORMIN 2023-0 Yes 1000mg Take 1 Univ ers (GLUCOPHAGE 5-18 tablet by ity of ) 1,000 mg 09:54: mouth 2 [place] 30 (two) Medical times Branch daily with meals. omeprazole 2023-0 Yes 20mg Take 1 Unive rs (PRILOSEC) 5-18 capsule by ity of 20 mg 09:54: mouth [place] capsule 30 daily. Medical Branch carvedilol 2023-0 Yes 25mg Take 1 Unive rs (COREG) 25 5-18 tablet by ity of mg tablet 09:54: mouth 2 [place] 30 (two) Medical times Branch daily with meals. hydralAZINE 2023-0 Yes 100mg Take 2 Uni vers (APRESOLINE 5-18 tablets by it y of ) 50 mg 09:54: mouth 2 [place] tablet 30 (two) Medical times Branch daily. canaglifloz 2023-0 Yes Take by Uni vers in 100 mg 5-18 mouth. ity of tablet 09:54: [place] 30 Medical Branch metoclopram 2023-0 Yes 10mg Take 1 Univ ers mathew HCl 10 5-18 tablet by ity of mg tablet 09:54: mouth [place] 30 needed. Medical Branch glimepiride 2023-0 Yes 4mg Take 1 Univ ers (AMARYL) 4 5-18 tablet by ity of mg tablet 09:54: mouth 2 [place] 30 (two) Medical times Branch daily. metFORMIN 2023-0 Yes 1000mg Take 1 Univ ers (GLUCOPHAGE 5-18 tablet by ity of ) 1,000 mg 09:54: mouth 2 [place] 30 (two) Medical times Branch daily with meals. omeprazole 2023-0 Yes 20mg Take 1 Unive rs (PRILOSEC) 5-18 capsule by ity of 20 mg 09:54: mouth [place] capsule 30 daily. Medical Branch carvedilol 2023-0 Yes 25mg Take 1 Unive rs (COREG) 25 5-18 tablet by ity of mg tablet 09:54: mouth 2 [place] 30 (two) Medical times Branch daily with meals. hydralAZINE 2023-0 Yes 100mg Take 2 Uni vers (APRESOLINE 5-18 tablets by it y of ) 50 mg 09:54: mouth 2 [place] tablet 30 (two) Medical times Branch daily. canaglifloz 2023-0 Yes Take by Uni vers in 100 mg 5-18 mouth. ity of tablet 09:54: [place] 30 Medical Branch metoclopram 2023-0 Yes 10mg Take 1 Univ ers mathew HCl 10 5-18 tablet by ity of mg tablet 09:54: mouth as [place] 30 needed. Medical Branch glimepiride 2023-0 Yes 4mg Take 1 Univ ers (AMARYL) 4 5-18 tablet by ity of mg tablet 09:54: mouth 2 [place] 30 (two) Medical times Branch daily. metFORMIN 2023-0 Yes 1000mg Take 1 Univ ers (GLUCOPHAGE 5-18 tablet by ity of ) 1,000 mg 09:54: mouth 2 [place] tablet 30 (two) Medical times Branch daily with meals. omeprazole 2023-0 Yes 20mg Take 1 Unive rs (PRILOSEC) 5-18 capsule by ity of 20 mg 09:54: mouth [place] capsule 30 daily. Medical Branch carvedilol 2023-0 Yes 25mg Take 1 Unive rs (COREG) 25 5-18 tablet by ity of mg tablet 09:54: mouth 2 [place] 30 (two) Medical times Branch daily with meals. hydralAZINE 2023-0 Yes 100mg Take 2 Uni vers (APRESOLINE 5-18 tablets by it y of ) 50 mg 09:54: mouth 2 [place] tablet 30 (two) Medical times Branch daily. canaglifloz 2023-0 Yes Take by Uni vers in 100 mg 5-18 mouth. ity of tablet 09:54: [place] 30 Medical Branch metoclopram 2023-0 Yes 10mg Take 1 Univ ers mathew HCl 10 5-18 tablet by ity of mg tablet 09:54: mouth as [place] 30 needed. Medical Branch glimepiride 2023-0 Yes 4mg Take 1 Univ ers (AMARYL) 4 5-18 tablet by ity of mg tablet 09:54: mouth 2 [place] 30 (two) Medical times Branch daily. metFORMIN 2023-0 Yes 1000mg Take 1 Univ ers (GLUCOPHAGE 5-18 tablet by ity of ) 1,000 mg 09:54: mouth 2 [place] tablet 30 (two) Medical times Branch daily with meals. omeprazole 2023-0 Yes 20mg Take 1 Unive rs (PRILOSEC) 5-18 capsule by ity of 20 mg 09:54: mouth [place] capsule 30 daily. Medical Branch carvedilol 2023-0 Yes 25mg Take 1 Unive rs (COREG) 25 5-18 tablet by ity of mg tablet 09:54: mouth 2 [place] 30 (two) Medical times Branch daily with meals. hydralAZINE 2023-0 Yes 100mg Take 2 Uni vers (APRESOLINE 5-18 tablets by it y of ) 50 mg 09:54: mouth 2 [place] tablet 30 (two) Medical times Branch daily. canaglifloz 2023-0 Yes Take by Uni vers in 100 mg 5-18 mouth. ity of tablet 09:54: 30 Medical Branch metoclopram 2023-0 Yes 10mg Take 1 Univ ers mathew HCl 10 5-18 tablet by ity of mg tablet 09:54: mouth as [place] 30 needed. Medical Branch glimepiride 2023-0 Yes 4mg Take 1 Univ ers (AMARYL) 4 5-18 tablet by ity of mg tablet 09:54: mouth 2 [place] 30 (two) Medical times Branch daily. metFORMIN 2023-0 Yes 1000mg Take 1 Univ ers (GLUCOPHAGE 5-18 tablet by ity of ) 1,000 mg 09:54: mouth 2 [place] tablet 30 (two) Medical times Branch daily with meals. omeprazole 2023-0 Yes 20mg Take 1 Unive rs (PRILOSEC) 5-18 capsule by ity of 20 mg 09:54: mouth [place] capsule 30 daily. Medical Branch carvedilol 2023-0 Yes 25mg Take 1 Unive rs (COREG) 25 5-18 tablet by ity of mg tablet 09:54: mouth 2 [place] 30 (two) Medical times Branch daily with meals. hydralAZINE 2023-0 Yes 100mg Take 2 Uni vers (APRESOLINE 5-18 tablets by it y of ) 50 mg 09:54: mouth 2 [place] tablet 30 (two) Medical times Branch daily. canaglifloz 2023-0 Yes Take by Uni vers in 100 mg 5-18 mouth. ity of tablet 09:54: 30 Medical Branch metoclopram 2023-0 Yes 10mg Take 1 Univ ers mathew HCl 10 5-18 tablet by ity of mg tablet 09:54: mouth as [place] 30 needed. Medical Branch glimepiride 2023-0 Yes 4mg Take 1 Univ ers (AMARYL) 4 5-18 tablet by ity of mg tablet 09:54: mouth 2 [place] 30 (two) Medical times Branch daily. metFORMIN 2023-0 Yes 1000mg Take 1 Univ ers (GLUCOPHAGE 5-18 tablet by ity of ) 1,000 mg 09:54: mouth 2 [place] tablet 30 (two) Medical times Branch daily with meals. omeprazole 2023-0 Yes 20mg Take 1 Unive rs (PRILOSEC) 5-18 capsule by ity of 20 mg 09:54: mouth [place] capsule 30 daily. Medical Branch carvedilol 2023-0 Yes 25mg Take 1 Unive rs (COREG) 25 5-18 tablet by ity of mg tablet 09:54: mouth 2 [place] 30 (two) Medical times Branch daily with meals. hydralAZINE 2023-0 Yes 100mg Take 2 Uni vers (APRESOLINE 5-18 tablets by it y of ) 50 mg 09:54: mouth 2 [place] tablet 30 (two) Medical times Branch daily. canaglifloz 2023-0 Yes Take by Uni vers in 100 mg 5-18 mouth. ity of tablet 09:54: [place] 30 Medical Branch metoclopram 2023-0 Yes 10mg Take 1 Univ ers mathew HCl 10 5-18 tablet by ity of mg tablet 09:54: mouth as [place] 30 needed. Medical Branch glimepiride 2023-0 Yes 4mg Take 1 Univ ers (AMARYL) 4 5-18 tablet by ity of mg tablet 09:54: mouth 2 [place] 30 (two) Medical times Branch daily. metFORMIN 2023-0 Yes 1000mg Take 1 Univ ers (GLUCOPHAGE 5-18 tablet by ity of ) 1,000 mg 09:54: mouth 2 [place] tablet 30 (two) Medical times Branch daily with meals. omeprazole 2023-0 Yes 20mg Take 1 Unive rs (PRILOSEC) 5-18 capsule by ity of 20 mg 09:54: mouth [place] capsule 30 daily. Medical Branch carvedilol 2023-0 Yes 25mg Take 1 Unive rs (COREG) 25 5-18 tablet by ity of mg tablet 09:54: mouth 2 [place] 30 (two) Medical times Branch daily with meals. hydralAZINE 2023-0 Yes 100mg Take 2 Uni vers (APRESOLINE 5-18 tablets by it y of ) 50 mg 09:54: mouth 2 [place] tablet 30 (two) Medical times Branch daily. canaglifloz 2023-0 Yes Take by Uni vers in 100 mg 5-18 mouth. ity of tablet 09:54: [place] 30 Medical Branch metoclopram 2023-0 Yes 10mg Take 1 Univ ers mathew HCl 10 5-18 tablet by ity of mg tablet 09:54: mouth as [place] 30 needed. Medical Branch glimepiride 2023-0 Yes 4mg Take 1 Univ ers (AMARYL) 4 5-18 tablet by ity of mg tablet 09:54: mouth 2 [place] 30 (two) Medical times Branch daily. metFORMIN 2023-0 Yes 1000mg Take 1 Univ ers (GLUCOPHAGE 5-18 tablet by ity of ) 1,000 mg 09:54: mouth 2 [place] tablet 30 (two) Medical times Branch daily with meals. omeprazole 2023-0 Yes 20mg Take 1 Unive rs (PRILOSEC) 5-18 capsule by ity of 20 mg 09:54: mouth [place] capsule 30 daily. Medical Branch carvedilol 2023-0 Yes 25mg Take 1 Unive rs (COREG) 25 5-18 tablet by ity of mg tablet 09:54: mouth 2 [place] 30 (two) Medical times Branch daily with meals. hydralAZINE 2023-0 Yes 100mg Take 2 Uni vers (APRESOLINE 5-18 tablets by it y of ) 50 mg 09:54: mouth 2 [place] tablet 30 (two) Medical times Branch daily. canaglifloz 2023-0 Yes Take by Uni vers in 100 mg 5-18 mouth. ity of tablet 09:54: [place] 30 Medical Branch metoclopram 2023-0 Yes 10mg Take 1 Univ ers mathew HCl 10 5-18 tablet by ity of mg tablet 09:54: mouth as [place] 30 needed. Medical Branch glimepiride 2023-0 Yes 4mg Take 1 Univ ers (AMARYL) 4 5-18 tablet by ity of mg tablet 09:54: mouth 2 [place] 30 (two) Medical times Branch daily. metFORMIN 2023-0 Yes 1000mg Take 1 Univ ers (GLUCOPHAGE 5-18 tablet by ity of ) 1,000 mg 09:54: mouth 2 [place] tablet 30 (two) Medical times Branch daily with meals. omeprazole 2023-0 Yes 20mg Take 1 Unive rs (PRILOSEC) 5-18 capsule by ity of 20 mg 09:54: mouth [place] capsule 30 daily. Medical Branch carvedilol 2023-0 Yes 25mg Take 1 Unive rs (COREG) 25 5-18 tablet by ity of mg tablet 09:54: mouth 2 [place] 30 (two) Medical times Branch daily with meals. hydralAZINE 2023-0 Yes 100mg Take 2 Uni vers (APRESOLINE 5-18 tablets by it y of ) 50 mg 09:54: mouth 2 [place] tablet 30 (two) Medical times Branch daily. canaglifloz 2023-0 Yes Take by Uni vers in 100 mg 5-18 mouth. ity of tablet 09:54: [place] 30 Medical Branch metoclopram 2023-0 Yes 10mg Take 1 Univ ers mathew HCl 10 5-18 tablet by ity of mg tablet 09:54: mouth as [place] 30 needed. Medical Branch glimepiride 2023-0 Yes 4mg Take 1 Univ ers (AMARYL) 4 5-18 tablet by ity of mg tablet 09:54: mouth 2 [place] 30 (two) Medical times Branch daily. metFORMIN 2023-0 Yes 1000mg Take 1 Univ ers (GLUCOPHAGE 5-18 tablet by ity of ) 1,000 mg 09:54: mouth 2 [place] tablet 30 (two) Medical times Branch daily with meals. omeprazole 2023-0 Yes 20mg Take 1 Unive rs (PRILOSEC) 5-18 capsule by ity of 20 mg 09:54: mouth [place] capsule 30 daily. Medical Branch carvedilol 2023-0 Yes 25mg Take 1 Unive rs (COREG) 25 5-18 tablet by ity of mg tablet 09:54: mouth 2 [place] 30 (two) Medical times Branch daily with meals. hydralAZINE 2023-0 Yes 100mg Take 2 Uni vers (APRESOLINE 5-18 tablets by it y of ) 50 mg 09:54: mouth 2 [place] tablet 30 (two) Medical times Branch daily. canaglifloz 2023-0 Yes Take by Uni vers in 100 mg 5-18 mouth. ity of tablet 09:54: 30 Medical Branch metoclopram 2023-0 Yes 10mg Take 1 Univ ers mathew HCl 10 5-18 tablet by ity of mg tablet 09:54: mouth as [place] 30 needed. Medical Branch glimepiride 2023-0 Yes 4mg Take 1 Univ ers (AMARYL) 4 5-18 tablet by ity of mg tablet 09:54: mouth 2 [place] 30 (two) Medical times Branch daily. metFORMIN 2022-0 Yes 1000mg Take 1 Univ ers (GLUCOPHAGE 5-18 tablet by ity of ) 1,000 mg 09:54: mouth 2 [place] tablet 30 (two) Medical times Branch daily with meals. omeprazole 2022-0 Yes 20mg Take 1 Unive rs (PRILOSEC) 5-18 capsule by ity of 20 mg 09:54: mouth [place] capsule 30 daily. Medical Branch carvedilol 2022-0 Yes 25mg Take 1 Unive rs (COREG) 25 5-18 tablet by ity of mg tablet 09:54: mouth 2 [place] 30 (two) Medical times Branch daily with meals. hydralAZINE 2022-0 Yes 100mg Take 2 Uni vers (APRESOLINE 5-18 tablets by it y of ) 50 mg 09:54: mouth 2 [place] tablet 30 (two) Medical times Branch daily. canaglifloz 2022-0 Yes Take by Uni vers in 100 mg 5-18 mouth. ity of tablet 09:54: [place] 30 Medical Branch metoclopram 2022-0 Yes 10mg Take 1 Univ ers mathew HCl 10 5-18 tablet by ity of mg tablet 09:54: mouth as [place] 30 needed. Medical Branch glimepiride 2022-0 Yes 4mg Take 1 Univ ers (AMARYL) 4 5-18 tablet by ity of mg tablet 09:54: mouth 2 [place] 30 (two) Medical times Branch daily. amLODIPine 2022-0 Yes TAKE 1 Unive rs 10 mg 5-09 TABLET BY ity of tablet 00:00: MOUTH [place] 00 EVERY DAY Medical FOR 90 Branch DAYS. FARXIGA 10 2022-0 Yes TAKE 1 Unive rs mg tablet 5-09 TABLET BY ity o f 00:00: MOUTH [place] 00 EVERY DAY Medical FOR 90 Branch DAYS. losartan 2022-0 Yes TAKE 1 Univers 100 mg 5-09 TABLET BY ity of tablet 00:00: MOUTH [place] 00 EVERY DAY Medical FOR 90 Branch DAYS. rosuvastati 2022-0 Yes TAKE 1 Univ ers n 10 mg 5-09 TABLET BY ity of tablet 00:00: MOUTH [place] 00 EVERY DAY Medical AT BEDTIME Branch FOR 90 DAYS. TOUJEO 2022-0 Yes INJECT 62 Univer s SOLOSTAR 5-09 UNITS AND ity of U-300 00:00: INCREASE [place] INSULIN 300 00 BY 2 UNITS Me dical unit/mL EVERY 3 Branch (1.5 mL) DAYS UNTIL InPn FASTING BLOOD SUGAR IS LESS 120 MAX 80 UNITS DAILY SUBCUTANEO US amLODIPine Yes TAKE 1 Unive rs 10 mg 5-09 TABLET BY ity of tablet 00:00: MOUTH [place] 00 EVERY DAY Medical FOR 90 Branch DAYS. FARXIGA 10 Yes TAKE 1 Unive rs mg tablet 5-09 TABLET BY ity o f 00:00: MOUTH [place] 00 EVERY DAY Medical FOR 90 Branch DAYS. losartan Yes TAKE 1 Univers 100 mg 5-09 TABLET BY ity of tablet 00:00: MOUTH [place] 00 EVERY DAY Medical FOR 90 Branch DAYS. rosuvastati Yes TAKE 1 Univ ers n 10 mg 5-09 TABLET BY ity of tablet 00:00: MOUTH [place] 00 EVERY DAY Medical AT BEDTIME Branch FOR 90 DAYS. TOUJEO Yes INJECT 62 Univer s SOLOSTAR 5-09 UNITS AND ity of U-300 00:00: INCREASE [place] INSULIN 300 00 BY 2 UNITS Me dical unit/mL EVERY 3 Branch (1.5 mL) DAYS UNTIL InPn FASTING BLOOD SUGAR IS LESS 120 MAX 80 UNITS DAILY [facility] amLODIPine Yes TAKE 1 Unive rs 10 mg 5-09 TABLET BY ity of tablet 00:00: MOUTH [place] 00 EVERY DAY Medical FOR 90 Branch DAYS. FARXIGA 10 Yes TAKE 1 Unive rs mg tablet 5-09 TABLET BY ity o f 00:00: MOUTH [place] 00 EVERY DAY Medical FOR 90 Branch DAYS. losartan Yes TAKE 1 Univers 100 mg 5-09 TABLET BY ity of tablet 00:00: MOUTH [place] 00 EVERY DAY Medical FOR 90 Branch DAYS. rosuvastati Yes TAKE 1 Univ ers n 10 mg 5-09 TABLET BY ity of tablet 00:00: MOUTH [place] 00 EVERY DAY Medical AT BEDTIME Branch FOR 90 DAYS. TOUJEO Yes INJECT 62 Univer s SOLOSTAR 5-09 UNITS AND ity of U-300 00:00: INCREASE [place] INSULIN 300 00 BY 2 UNITS Me dical unit/mL EVERY 3 Branch (1.5 mL) DAYS UNTIL InPn FASTING BLOOD SUGAR IS LESS 120 MAX 80 UNITS DAILY SUBCUTANEO US amLODIPine Yes TAKE 1 Unive rs 10 mg 5-09 TABLET BY ity of tablet 00:00: MOUTH [place] 00 EVERY DAY Medical FOR 90 Branch DAYS. FARXIGA 10 Yes TAKE 1 Unive rs mg tablet 5-09 TABLET BY ity o f 00:00: MOUTH [place] 00 EVERY DAY Medical FOR 90 Branch DAYS. losartan Yes TAKE 1 [facility] 100 mg 5-09 TABLET BY ity of tablet 00:00: MOUTH [place] 00 EVERY DAY Medical FOR 90 Branch DAYS. rosuvastati Yes TAKE 1 Univ ers n 10 mg 5-09 TABLET BY ity of tablet 00:00: MOUTH [place] 00 EVERY DAY Medical AT BEDTIME Branch FOR 90 DAYS. TOUJEO Yes INJECT 62 Univer s SOLOSTAR 5-09 UNITS AND ity of U-300 00:00: INCREASE [place] INSULIN 300 00 BY 2 UNITS Me dical unit/mL EVERY 3 Branch (1.5 mL) DAYS UNTIL InPn FASTING BLOOD SUGAR IS LESS 120 MAX 80 UNITS DAILY SUBCUTANEO US amLODIPine Yes TAKE 1 Unive rs 10 mg 5-09 TABLET BY ity of tablet 00:00: MOUTH [place] 00 EVERY DAY Medical FOR 90 Branch DAYS. FARXIGA 10 Yes TAKE 1 Unive rs mg tablet 5-09 TABLET BY ity o f 00:00: MOUTH [place] 00 EVERY DAY Medical FOR 90 Branch DAYS. losartan Yes TAKE 1 [facility] 100 mg 5-09 TABLET BY ity of tablet 00:00: MOUTH [place] 00 EVERY DAY Medical FOR 90 Branch DAYS. rosuvastati Yes TAKE 1 Univ ers n 10 mg 5-09 TABLET BY ity of tablet 00:00: MOUTH [place] 00 EVERY DAY Medical AT BEDTIME Branch FOR 90 DAYS. TOUJEO Yes INJECT 62 Univer s SOLOSTAR 5-09 UNITS AND ity of U-300 00:00: INCREASE [place] INSULIN 300 00 BY 2 UNITS Me dical unit/mL EVERY 3 Branch (1.5 mL) DAYS UNTIL InPn FASTING BLOOD SUGAR IS LESS 120 MAX 80 UNITS DAILY SUBCUTANEO US amLODIPine Yes TAKE 1 Unive rs 10 mg 5-09 TABLET BY ity of tablet 00:00: MOUTH [place] 00 EVERY DAY Medical FOR 90 Branch DAYS. FARXIGA 10 Yes TAKE 1 Unive rs mg tablet 5-09 TABLET BY ity o f 00:00: MOUTH [place] 00 EVERY DAY Medical FOR 90 Branch DAYS. losartan Yes TAKE 1 [facility] 100 mg 5-09 TABLET BY ity of tablet 00:00: MOUTH [place] 00 EVERY DAY Medical FOR 90 Branch DAYS. rosuvastati Yes TAKE 1 Univ ers n 10 mg 5-09 TABLET BY ity of tablet 00:00: MOUTH [place] 00 EVERY DAY Medical AT BEDTIME Branch FOR 90 DAYS. TOUJEO Yes INJECT 62 Univer s SOLOSTAR 5-09 UNITS AND ity of U-300 00:00: INCREASE [place] INSULIN 300 00 BY 2 UNITS Me dical unit/mL EVERY 3 Branch (1.5 mL) DAYS UNTIL InPn FASTING BLOOD SUGAR IS LESS 120 MAX 80 UNITS DAILY SUBCUTANEO US amLODIPine Yes TAKE 1 Unive rs 10 mg 5-09 TABLET BY ity of tablet 00:00: MOUTH [place] 00 EVERY DAY Medical FOR 90 Branch DAYS. FARXIGA 10 Yes TAKE 1 Unive rs mg tablet 5-09 TABLET BY ity o f 00:00: MOUTH [place] 00 EVERY DAY Medical FOR 90 Branch DAYS. losartan Yes TAKE 1 [facility] 100 mg 5-09 TABLET BY ity of tablet 00:00: MOUTH [place] 00 EVERY DAY Medical FOR 90 Branch DAYS. rosuvastati Yes TAKE 1 Univ ers n 10 mg 5-09 TABLET BY ity of tablet 00:00: MOUTH [place] 00 EVERY DAY Medical AT BEDTIME Branch FOR 90 DAYS. TOUJEO Yes INJECT 62 Univer s SOLOSTAR 5-09 UNITS AND ity of U-300 00:00: INCREASE [place] INSULIN 300 00 BY 2 UNITS Me dical unit/mL EVERY 3 Branch (1.5 mL) DAYS UNTIL InPn FASTING BLOOD SUGAR IS LESS 120 MAX 80 UNITS DAILY SUBCUTANEO US amLODIPine Yes TAKE 1 Unive rs 10 mg 5-09 TABLET BY ity of tablet 00:00: MOUTH [place] 00 EVERY DAY Medical FOR 90 Branch DAYS. FARXIGA 10 Yes TAKE 1 Unive rs mg tablet 5-09 TABLET BY ity o f 00:00: MOUTH [place] 00 EVERY DAY Medical FOR 90 Branch DAYS. losartan Yes TAKE 1 [facility] 100 mg 5-09 TABLET BY ity of tablet 00:00: MOUTH [place] 00 EVERY DAY Medical FOR 90 Branch DAYS. rosuvastati Yes TAKE 1 Univ ers n 10 mg 5-09 TABLET BY ity of tablet 00:00: MOUTH [place] 00 EVERY DAY Medical AT BEDTIME Branch FOR 90 DAYS. TOUJEO Yes INJECT 62 Univer s SOLOSTAR 5-09 UNITS AND ity of U-300 00:00: INCREASE [place] INSULIN 300 00 BY 2 UNITS Me dical unit/mL EVERY 3 Branch (1.5 mL) DAYS UNTIL InPn FASTING BLOOD SUGAR IS LESS 120 MAX 80 UNITS DAILY SUBCUTANEO US amLODIPine Yes TAKE 1 Unive rs 10 mg 5-09 TABLET BY ity of tablet 00:00: MOUTH [place] 00 EVERY DAY Medical FOR 90 Branch DAYS. FARXIGA 10 Yes TAKE 1 Unive rs mg tablet 5-09 TABLET BY ity o f 00:00: MOUTH [place] 00 EVERY DAY Medical FOR 90 Branch DAYS. losartan Yes TAKE 1 [facility] 100 mg 5-09 TABLET BY ity of tablet 00:00: MOUTH [place] 00 EVERY DAY Medical FOR 90 Branch DAYS. rosuvastati Yes TAKE 1 Univ ers n 10 mg 5-09 TABLET BY ity of tablet 00:00: MOUTH [place] 00 EVERY DAY Medical AT BEDTIME Branch FOR 90 DAYS. TOUJEO Yes INJECT 62 Univer s SOLOSTAR 5-09 UNITS AND ity of U-300 00:00: INCREASE [place] INSULIN 300 00 BY 2 UNITS Me dical unit/mL EVERY 3 Branch (1.5 mL) DAYS UNTIL InPn FASTING BLOOD SUGAR IS LESS 120 MAX 80 UNITS DAILY SUBCUTANEO US amLODIPine Yes TAKE 1 Unive rs 10 mg 5-09 TABLET BY ity of tablet 00:00: MOUTH [place] 00 EVERY DAY Medical FOR 90 Branch DAYS. FARXIGA 10 Yes TAKE 1 Unive rs mg tablet 5-09 TABLET BY ity o f 00:00: MOUTH [place] 00 EVERY DAY Medical FOR 90 Branch DAYS. losartan Yes TAKE 1 [facility] 100 mg 5-09 TABLET BY ity of tablet 00:00: MOUTH [place] 00 EVERY DAY Medical FOR 90 Branch DAYS. rosuvastati Yes TAKE 1 Univ ers n 10 mg 5-09 TABLET BY ity of tablet 00:00: MOUTH [place] 00 EVERY DAY Medical AT BEDTIME Branch FOR 90 DAYS. TOUJEO Yes INJECT 62 Univer s SOLOSTAR 5-09 UNITS AND ity of U-300 00:00: INCREASE [place] INSULIN 300 00 BY 2 UNITS Me dical unit/mL EVERY 3 Branch (1.5 mL) DAYS UNTIL InPn FASTING BLOOD SUGAR IS LESS 120 MAX 80 UNITS DAILY SUBCUTANEO US amLODIPine Yes TAKE 1 Unive rs 10 mg 5-09 TABLET BY ity of tablet 00:00: MOUTH [place] 00 EVERY DAY Medical FOR 90 Branch DAYS. FARXIGA 10 Yes TAKE 1 Unive rs mg tablet 5-09 TABLET BY ity o f 00:00: MOUTH [place] 00 EVERY DAY Medical FOR 90 Branch DAYS. losartan Yes TAKE 1 [facility] 100 mg 5-09 TABLET BY ity of tablet 00:00: MOUTH [place] 00 EVERY DAY Medical FOR 90 Branch DAYS. rosuvastati Yes TAKE 1 Univ ers n 10 mg 5-09 TABLET BY ity of tablet 00:00: MOUTH [place] 00 EVERY DAY Medical AT BEDTIME Branch FOR 90 DAYS. TOUJEO Yes INJECT 62 Univer s SOLOSTAR 5-09 UNITS AND ity of U-300 00:00: INCREASE [place] INSULIN 300 00 BY 2 UNITS Me dical unit/mL EVERY 3 Branch (1.5 mL) DAYS UNTIL InPn FASTING BLOOD SUGAR IS LESS 120 MAX 80 UNITS DAILY SUBCUTANEO US amLODIPine Yes TAKE 1 Unive rs 10 mg 5-09 TABLET BY ity of tablet 00:00: MOUTH [place] 00 EVERY DAY Medical FOR 90 Branch DAYS. FARXIGA 10 Yes TAKE 1 Unive rs mg tablet 5-09 TABLET BY ity o f 00:00: MOUTH [place] 00 EVERY DAY Medical FOR 90 Branch DAYS. losartan Yes TAKE 1 [facility] 100 mg 5-09 TABLET BY ity of tablet 00:00: MOUTH [place] 00 EVERY DAY Medical FOR 90 Branch DAYS. rosuvastati Yes TAKE 1 Univ ers n 10 mg 5-09 TABLET BY ity of tablet 00:00: MOUTH [place] 00 [facility] TOUJEO Yes INJECT 62 Univer s SOLOSTAR 5-09 UNITS AND ity of U-300 00:00: INCREASE [place] INSULIN 300 00 BY 2 UNITS Me dical unit/mL EVERY 3 Branch (1.5 mL) DAYS UNTIL InPn FASTING BLOOD SUGAR IS LESS 120 MAX 80 UNITS DAILY SUBCUTANEO US amLODIPine Yes TAKE 1 Unive rs 10 mg 5-09 TABLET BY ity of tablet 00:00: MOUTH [place] 00 EVERY DAY Medical FOR 90 Branch DAYS. FARXIGA 10 Yes TAKE 1 Unive rs mg tablet 5-09 TABLET BY ity o f 00:00: MOUTH [place] 00 EVERY DAY Medical FOR 90 Branch DAYS. losartan Yes TAKE 1 [facility] 100 mg 5-09 TABLET BY ity of tablet 00:00: MOUTH [place] 00 EVERY DAY Medical FOR 90 Branch DAYS. rosuvastati Yes TAKE 1 Univ ers n 10 mg 5-09 TABLET BY ity of tablet 00:00: MOUTH [place] 00 EVERY DAY Medical AT [facility] FOR 90 DAYS. TOUJEO Yes INJECT 62 Univer s SOLOSTAR 5-09 UNITS AND ity of U-300 00:00: INCREASE [place] INSULIN 300 00 BY 2 UNITS Me dical unit/mL EVERY 3 Branch (1.5 mL) DAYS UNTIL InPn FASTING BLOOD SUGAR IS LESS 120 MAX 80 UNITS DAILY [facility] valACYclovi valACYclovi 2021- No 1{table TID valACYclov r HCl 1 GM r HCl 1 GM 12-01-13 t} ir HCl 1 00:00: 00:00 GM 00 :00 valACYclovi valACYclovi 2021- No 1{table TID valACYclov r HCl 1 GM r HCl 1 GM 6-13 t} ir HCl 1 00:00: 00:00 GM 00 :00 Gabapentin Gabapentin No 1{capsu TID Gabapentin 300 MG 300 MG 1-12 le} 300 MG 00:00: 00 Gabapentin Gabapentin No TID Gabapentin 300 MG 300 MG 1-12 300 MG 00:00: 00 Benzonatate Benzonatate 2020-07- No 1{capsu Benzonatat 100 MG 100 MG 2-01 12-31 le_as_n e 100 MG 00:00: 00:00 eeded} [...] MG 00:00: 00:00 00 :00 Triamcinolo Triamcinolo 2020-0 No 1{appli BID Triamcinol [...] 00 cted_ar 0.1 % ea} Victoza Victoza 0 2019- No [facility] inject 1.8 Common 7-12 10-10 mg Spirit 00:00: 00:00 - [facility] 00 :00 [facility] Fluconazole Fluconazole 2018-0 Yes Na Mei 1 tablet Common - today and Spirit 00:00: may repeat - [facility] 00 one tab in 1 week [facility] no [facility] t Hydrochloro Hydrochloro 2017-07 Yes Na Mei 1 tablet Common thiazide thiazide 1-21 in the Spiri t 00:00: morning - [facility] hydroCHLORO hydroCHLORO 2017-07 No 1{table QD hydroCHLOR [...] Plus 1-06 directed Spirit 00:00: - [facility] 00 [facility] NovoFine NovoFine 2017-07 No NovoFine Plus 32G [...] 4 MM 4 MM 00:00: 4 MM NovoFine NovoFine 2017-07 No NovoFine Plus 32G X Plus 32G X 1-06 Plus 32G X 4 MM 4 MM 00:00: 4 MM 00 Medrol Medrol Yes Na [facility]i as Common 12-31 directed Spirit 00:00: - [facility] 00 [facility] Tricinolo Yes Na [facility]i 1 Common ne ne 12-31 applicatio Spirit Acetonide Acetonide 00:00: n to - C [place] 00 affected [facility] T[facility] No 1{appli BID Triamcinol ne ne 12-31 cation_ one Acetonide Acetonide 00:00: to_affe Acetonide 0.1 % 0.1 % 00 cted_ar 0.1 % ea} Medrol 4 MG Medrol 4 MG No Medrol 4 7-03 MG 00:00: [facility] T[facility] No 1{appli BID Triamcinol ne ne 12-31 cation_ one Acetonide Acetonide 00:00: to_affe Acetonide 0.1 % 0.1 % 00 cted_ar 0.1 % ea} Triamcinolo Tricinolo No 1{appli BID Triamcinol ne ne 12-31 cation_ one Acetonide Acetonide 00:00: to_affe Acetonide 0.1 % 0.1 % 00 cted_ar 0.1 % ea} Medrol 4 MG Medrol 4 MG No Medrol 4 7-03 MG 00:00: [facility] T[facility] No 1{appli BID Triamcinol ne ne 12-31 cation_ one Acetonide Acetonide 00:00: to_affe Acetonide 0.1 % 0.1 % 00 cted_ar 0.1 % ea} Medrol 4 MG Medrol 4 MG No Medrol 4 7-03 MG 00:00: 00 Medrol 4 MG Medrol 4 MG No Medrol 4 7-03 MG 00:00: 00 Triamcinolo Tricinolo No 1{appli BID Triamcinol ne ne 12-31 cation_ one Acetonide Acetonide 00:00: to_affe Acetonide 0.1 % 0.1 % 00 cted_ar 0.1 % ea} Medrol 4 MG Medrol 4 MG 2017- No Medrol 4 7-03 MG 00:00: 00 Triamcinolo Triamcinolo No 1{appli BID Triamcinol ne ne 7- cation_ one Acetonide Acetonide 00:00: to_affe Acetonide 0.1 % 0.1 % 00 cted_ar 0.1 % ea} Medrol 4 MG Medrol 4 MG No Medrol 4 7-03 MG 00:00: 00 Triamcinolo Triamcinolo No 1{appli BID Triamcinol ne ne 7- cation_ one Acetonide Acetonide 00:00: to_affe Acetonide 0.1 % 0.1 % 00 cted_ar 0.1 % ea} Medrol 4 MG Medrol 4 MG No Medrol 4 7-03 MG 00:00: 00 Triamcinolo Triamcinolo No 1{appli BID Triamcinol ne ne 7- cation_ one Acetonide Acetonide 00:00: to_affe Acetonide 0.1 % 0.1 % 00 cted_ar 0.1 % ea} Medrol 4 MG Medrol 4 MG No Medrol 4 7-03 MG 00:00: 00 Triamcinolo Triamcinolo No 1{appli BID Triamcinol ne ne 7-03 cation_ one Acetonide Acetonide 00:00: to_affe Acetonide 0.1 % 0.1 % 00 cted_ar 0.1 % ea} Triamcinolo Triamcinolo No 1{appli BID Triamcinol ne ne 7- cation_ one Acetonide Acetonide 00:00: to_affe Acetonide 0.1 % 0.1 % 00 cted_ar 0.1 % ea} Medrol 4 MG Medrol 4 MG No Medrol 4 7-03 MG 00:00: 00 Triamcinolo Triamcinolo No 1{appli BID Triamcinol ne ne 7-03 cation_ one Acetonide Acetonide 00:00: to_affe Acetonide 0.1 % 0.1 % 00 cted_ar 0.1 % ea} Medrol 4 MG Medrol 4 MG No Medrol 4 7-03 MG 00:00: 00 Medrol 4 MG Medrol 4 MG No Medrol 4 7-03 MG 00:00: 00 Trazodone Trazodone Yes Na Mei 1 tablet Common HCl HCl 12-25 at bedtime Spirit 00:00: as needed - [facility] 00 [facility] Toujeo Toujeo Yes Na [facility]i 32 units Co mmon [facility]Star SoloStar 12-25 and Spirit 00:00: increase - [facility] [address] [facility] until [facility] 120 [place] No 40mg Common (Triamcinol (Triamcinol 2-21 S pirit one) one) 00:00: - [facility] 00 [facility] Igor No 40mg Common (Triamcinol (Triamcinol 2-21 S pirit one) one) 00:00: - [facility] 00 [facility] Igor No 40mg Common (Triamcinol (Triamcinol 2-21 S pirit one) one) 00:00: - [facility] 00 [facility] [place] 0 No 40mg Common (Triamcinol (Triamcinol 2-21 S pirit one) one) 00:00: - [facility] 00 [facility] [place] No 40mg Common (Triamcinol (Triamcinol 2-21 S pirit one) one) 00:00: - CHI [facility] glimepiride Yes 4mg Take 4 mg U nivers (AMARYL) 4 4-09 by mouth 2 ity of mg tablet 13:36: (two) [place] 11 times Medical daily. Branch metFORMIN Yes 1000mg Take 1,000 Univers (GLUCOPHAGE 4-09 mg by ity of ) 1,000 mg 13:36: mouth 2 [place] tablet 11 (two) Medical times Branch daily with meals. omeprazole Yes 20mg Take 20 mg U nivers (PRILOSEC) 4-09 by mouth ity o f 20 mg 13:36: daily. [place] capsule 11 Medical Branch hydralAZINE Yes 100mg Take 100 U nivers (APRESOLINE -09 mg by ity of ) 50 mg 13:36: mouth 2 [place] tablet 11 (two) Medical times Branch daily. metoclopram Yes 10mg Take 10 mg Univers mathew HCl 10-07 by mouth ity of (REGLAN) 10 13:36: as needed. [place] mg tablet 11 Medical Branch carvedilol Yes 25mg Take 25 mg U nivers (COREG) 25 10-07 by mouth 2 ity of mg tablet 13:32: (two) [place] 20 times Medical daily with Branch meals. canaglifloz Yes Take by Uni vers in 10-07 mouth. ity of (INVOKANA) 13:32: [place] 100 mg Tab 20 Medical Branch acetaminoph 2013-07 Yes [id number] 1{tbl} Take 1 Tab Univers en-codeine 2-16 by mouth ity o f (TYLENOL-CO 00:00: every 6 Asif as DEINE #3) 00 (six) Medical 300-30 mg hours as Branch tablet needed for Pain (scale 4-6). acetaminoph 2013-07 Yes [id number] 1{tbl} Take 1 Tab Univers en-codeine 2-16 by mouth ity o f (TYLENOL-CO 00:00: every 6 [place] as DEINE #3) 00 (six) Medical 300-30 mg hours as Branch tablet needed for Pain (scale 4-6). acetaminoph 2013-07 Yes [id number] 1{tbl} Take 1 Tab Univers en-codeine 2-16 by mouth ity o f (TYLENOL-CO 00:00: every 6 [place] as DEINE #3) 00 (six) Medical 300-30 mg hours as Branch tablet needed for Pain (scale 4-6). acetaminoph 2013-07 Yes [id number] 1{tbl} Take 1 Tab Univers en-codeine 2-16 by mouth ity o f (TYLENOL-CO 00:00: every 6 Asif as DEINE #3) 00 (six) Medical 300-30 mg hours as Branch tablet needed for Pain (scale 4-6). acetaminoph 2013-07 Yes [id number] 1{tbl} Take 1 Tab Univers en-codeine 2-16 by mouth ity o f (TYLENOL-CO 00:00: every 6 Asif as DEINE #3) 00 (six) Medical 300-30 mg hours as Branch tablet needed for Pain (scale 4-6). [facility] Yes [id number] 1{tbl} Take 1 Tab Univers en-codeine 2-16 by mouth ity o f (TYLENOL-CO 00:00: every 6 Asif as DEINE #3) 00 (six) Medical 300-30 mg hours as Branch tablet needed for Pain (scale 4-6). [facility] 2013-07 Yes [id number] 1{tbl} Take 1 Tab Univers en-codeine 2-16 by mouth ity o f (TYLENOL-CO 00:00: every 6 Asif as DEINE #3) 00 (six) Medical 300-30 mg hours as Branch tablet needed for Pain (scale 4-6). acetamino 2013-07 Yes [id number] 1{tbl} Take 1 Tab Univers en-codeine 2-16 by mouth ity o f (TYLENOL-CO 00:00: every 6 Asif as DEINE #3) 00 (six) Medical 300-30 mg hours as Branch tablet needed for Pain (scale 4-6). [facility]07 Yes [id number] 1{tbl} Take 1 Tab Univers en-codeine 2-16 by mouth ity o f (TYLENOL-CO 00:00: every 6 Asif as DEINE #3) 00 (six) Medical 300-30 mg hours as Branch tablet needed for Pain (scale 4-6). [facility]07 Yes [id number] 1{tbl} Take 1 Tab Univers en-codeine 2-16 by mouth ity o f (TYLENOL-CO 00:00: every 6 Asif as DEINE #3) 00 (six) Medical 300-30 mg hours as Branch tablet needed for Pain (scale 4-6). [facility] 2013[facility]07 Yes [id number] 1{tbl} Take 1 Tab Univers en-codeine 2-16 by mouth ity o f (TYLENOL-CO 00:00: every 6 Asif as DEINE #3) 00 (six) Medical 300-30 mg hours as Branch tablet needed for Pain (scale 4-6). acetamino 2013-07 Yes [id number] 1{tbl} Take 1 Tab Univers en-codeine 2-16 by mouth ity o f (TYLENOL-CO 00:00: every 6 Asif as DEINE #3) 00 (six) Medical 300-30 mg hours as Branch tablet needed for Pain (scale 4-6). acetaminoph 2013-07 Yes [id number] 1{tbl} Take 1 Tab Univers en-codeine 2-16 by mouth ity o f (TYLENOL-CO 00:00: every 6 As[place] as DEINE #3) 00 (six) Medical 300-30 mg hours as Branch tablet needed for Pain (scale 4-6). acetaminoph 2013-07 Yes [id number] 1{tbl} Take 1 Tab Univers en-codeine 2-16 by mouth ity o f (TYLENOL-CO 00:00: every 6 Asif as DEINE #3) 00 (six) Medical 300-30 mg hours as Branch tablet needed for Pain (scale 4-6). acetaminoph 2013-07 Yes [id number] 1{tbl} Take 1 Tab Univers en-codeine 2-16 by mouth ity o f (TYLENOL-CO 00:00: every 6 Asif as DEINE #3) 00 (six) Medical 300-30 mg hours as Branch tablet needed for Pain (scale 4-6). naproxen 2013-07 Yes 500mg Take 1 Tab Un keiko (NAPROSYN) 2-12 by mouth 2 ity of 500 mg 00:00: (two) [place] tablet 00 times Medical daily with Branch meals. naproxen 2013-07 Yes 500mg Take 1 Tab Un keiko (NAPROSYN) 2-12 by mouth 2 ity of 500 mg 00:00: (two) [place] tablet 00 times Medical daily with Branch meals. naproxen 2013-07 Yes 500mg Take 1 Tab Un keiko (NAPROSYN) 2-12 by mouth 2 ity of 500 mg 00:00: (two) [place] tablet 00 times Medical daily with Branch meals. naproxen 2013-07 Yes 500mg Take 1 Tab Un keiko (NAPROSYN) 2-12 by mouth 2 ity of 500 mg 00:00: (two) [place] tablet 00 times Medical daily with Branch meals. naproxen 2013-07 Yes 500mg Take 1 Tab Un keiko (NAPROSYN) 2-12 by mouth 2 ity of 500 mg 00:00: (two) [place] tablet 00 times Medical daily with Branch meals. naproxen 2013-07 Yes 500mg Take 1 Tab Un [place] (NAPROSYN) 2-12 by mouth 2 ity of 500 mg 00:00: (two) [place] tablet 00 times Medical daily with Branch meals. naproxen 2013-07 Yes 500mg Take 1 Tab Un keiko (NAPROSYN) 2-12 by mouth 2 ity of 500 mg 00:00: (two) [place] tablet 00 times Medical daily with Branch meals. naproxen 2013-07 Yes 500mg Take 1 Tab Un [place] (NAPROSYN) 2-12 by mouth 2 ity of 500 mg 00:00: (two) [place] tablet 00 times Medical daily with Branch meals. naproxen 2013-07 Yes 500mg Take 1 Tab Un keiko (NAPROSYN) 2-12 by mouth 2 ity of 500 mg 00:00: (two) [place] tablet 00 times Medical daily with Branch meals. naproxen 2013-07 Yes 500mg Take 1 Tab Un [facility] (NAPROSYN) 2-12 by mouth 2 ity of 500 mg 00:00: (two) [place] tablet 00 times Medical daily with Branch meals. naproxen 2013-07 Yes 500mg Take 1 Tab Un [facility] (NAPROSYN) 2-12 by mouth 2 ity of 500 mg 00:00: (two) [place] tablet 00 times Medical daily with Branch meals. naproxen 2013-07 Yes 500mg Take 1 Tab Un keiko (NAPROSYN) 2-12 by mouth 2 ity of 500 mg 00:00: (two) [place] tablet 00 times Medical daily with Branch meals. naproxen 2013-07 Yes 500mg Take 1 Tab Un keiko (NAPROSYN) 2-12 by mouth 2 ity of 500 mg 00:00: (two) [place] tablet 00 times Medical daily with Branch meals. naproxen 2013-07 Yes 500mg Take 1 Tab Un keiko (NAPROSYN) 2-12 by mouth 2 ity of 500 mg 00:00: (two) [place] tablet 00 times Medical daily with Branch meals. naproxen 2013-07 Yes 500mg Take 1 Tab Un keiko (NAPROSYN) 2-12 by mouth 2 ity of 500 mg 00:00: (two) [place] tablet 00 times Medical daily with Branch meals. NASONEX 50 Yes Univers mcg/actuati 9-18 ity of on nasal 00:00: [place] spray 00 Medical Branch LYRICA 50 0 Yes 50mg Take 1 Univer s mg capsule 9-18 capsule by ity of 00:00: mouth 2 [place] 00 (two) Medical times Branch daily as needed. NASONEX 50 Yes Univers mcg/actuati 9-18 ity of on nasal 00:00: [place] spray 00 Medical Branch LYRICA 50 0 Yes 50mg Take 1 Univer s mg capsule 9-18 capsule by ity of 00:00: mouth 2 [place] 00 (two) Medical times Branch daily as needed. NASONEX 50 Yes Univers mcg/actuati 9-18 ity of on nasal 00:00: [place] spray 00 Medical Branch LYRICA 50 0 Yes 50mg Take 1 Univer s mg capsule 9-18 capsule by ity of 00:00: mouth 2 [place] (two) Medical times Branch daily as needed. NASONEX 50 Yes Univers mcg/actuati 9-18 ity of on nasal 00:00: [place] spray 00 Medical Branch LYRICA 50 Yes 50mg Take 1 Univer s mg capsule 9-18 capsule by ity of 00:00: mouth 2 [place] (two) Medical times Branch daily as needed. NASONEX 50 Yes Univers mcg/actuati 9-18 ity of on nasal 00:00: [place] spray 00 Medical Branch LYRICA 50 0 Yes 50mg Take 1 Univer s mg capsule 9-18 capsule by ity of 00:00: mouth 2 [place] 00 (two) Medical times Branch daily as needed. NASONEX 50 Yes Univers mcg/actuati 9-18 ity of on nasal 00:00: [place] spray 00 Medical Branch LYRICA 50 0 Yes 50mg Take 1 Univer s mg capsule 9-18 capsule by ity of 00:00: mouth 2 [place] 00 (two) Medical times Branch daily as needed. NASONEX 50 Yes Univers mcg/actuati 9-18 ity of on nasal 00:00: [place] spray 00 Medical Branch LYRICA 50 0 Yes 50mg Take 1 Univer s mg capsule 9-18 capsule by ity of 00:00: mouth 2 [place] 00 (two) Medical times Branch daily as needed. NASONEX 50 Yes Univers mcg/actuati 9-18 ity of on nasal 00:00: [place] spray 00 Medical Branch NASONEX 50 Yes Univers mcg/actuati 9-18 ity of on nasal 00:00: [place] spray 00 Medical Branch LYRICA 50 0 Yes 50mg Take 50 mg Un keiko mg capsule 9-18 by mouth 2 ity of 00:00: (two) [place] 00 times Medical daily as Branch needed. LYRICA 50 Yes 50mg Take 1 Univer s mg capsule 9-18 capsule by ity of 00:00: mouth 2 [place] 00 (two) Medical times Branch daily as needed. NASONEX 50 Yes Univers mcg/actuati 9-18 ity of on nasal 00:00: [place] spray 00 Medical Branch LYRICA 50 0 Yes 50mg Take 1 Univer s mg capsule 9-18 capsule by ity of 00:00: mouth 2 [place] (two) Medical times Branch daily as needed. NASONEX 50 Yes Univers mcg/actuati 9-18 ity of on nasal 00:00: [place] spray 00 Medical Branch LYRICA 50 0 Yes 50mg Take 1 Univer s mg capsule 9-18 capsule by ity of 00:00: mouth 2 [place] 00 (two) Medical times Branch daily as needed. NASONEX 50 Yes Univers mcg/actuati 9-18 ity of on nasal 00:00: [place] spray 00 Medical Branch LYRICA 50 0 Yes 50mg Take 1 Univer s mg capsule 9-18 capsule by ity of 00:00: mouth 2 [place] 00 (two) Medical times Branch daily as needed. NASONEX 50 Yes Univers mcg/actuati 9-18 ity of on nasal 00:00: [place] spray 00 Medical Branch LYRICA 50 0 Yes 50mg Take 1 Univer s mg capsule 9-18 capsule by ity of 00:00: mouth 2 [place] 00 (two) Medical times Branch daily as needed. NASONEX 50 Yes Univers mcg/actuati 9-18 ity of on nasal 00:00: [place] spray 00 Medical Branch LYRICA 50 0 Yes 50mg Take 1 Univer s mg capsule 9-18 capsule by ity of 00:00: mouth 2 [place] 00 (two) Medical times Branch daily as needed. NASONEX 50 Yes Univers mcg/actuati 18 ity of on nasal 00:00: [place] spray 00 Medical Branch LYRICA 50 Yes 50mg Take 1 Univer s mg capsule 03-18 capsule by ity of 00:00: mouth 2 [place] (two) Medical times Branch daily as needed. Crestor Crestor Yes Na Mei 1 tab(s) Co mmon once a day Spirit (at - [facility] bedtime) [facility] Coreg Coreg Yes Na Mei not Common defined Spirit [facility] Metformin Metformin Yes Na Mei 1 each 2 Common HCl HCl times a Spirit day orally - [facility] Yes Na Mei 1 capsule Common [facility] Clotrimazol Clotrimazol Yes Na Mei 1 Common e e applicatio Spirit n to - [facility] affected [facility] Vitamin B12 Vitamin B12 Yes Na Mei 1 tablet Common [facility] Diflucan Diflucan Yes Na Mei 1 tablet Common [facility] Cozaar Cozaar Yes Na Mei 1 each Common once a day Spirit orally [facility] FreeStyle FreeStyle Yes Na Mei as Co mmon Chaz Chaz directed [facility] Sensor Sensor - [facility] System System [facility] FreeStyle FreeStyle Yes Na Mei as Co mmon Chaz Chaz directed [facility] Hazlet Hazlet [facility] [place] [facility] Yes Na Mei 1 capsule Common [facility] Amlodipine Amlodipine Yes Na Mei 1 tablet Common Besylate Besylate [facility] HydrALAZINE HydrALAZINE Yes Na Mei 1 tablet Common HCl HCl with food [facility] Prilosec Prilosec Yes Na Mei 1 capsule Common [facility] Omeprazole Omeprazole Yes Na Mei TAKE 1 Common CAPSULE BY Spirit MOUTH - [facility] EVERY DAY [facility] Amlodipine Amlodipine Yes Na Mei 1 tablet Common Besylate Besylate [facility] Losartan Losartan Yes Na Mei 1 tablet Common Potassium Potassium Spiri t - [facility] Omeprazole Omeprazole No QD Omeprazole 20 MG [...] FreeStyle FreeStyle No FreeStyle Chaz Chaz Chaz [place] - Nystatin Nystatin No Nystatin Fluconazole Fluconazole [...] FreeStyle FreeStyle No FreeStyle Chaz Chaz [place]az [place] - Nystatin Nystatin No Nystatin Fluconazole Fluconazole No 1{table Fluconazol 150 MG 150 MG t} e 150 MG FreeStyle FreeStyle No FreeStyle Chaz Chaz Chaz [place] - Fluconazole Fluconazole No Fluconazol 150 MG [...] FreeStyle FreeStyle No FreeStyle Chaz Chaz [place]az [place] - Fluconazole Fluconazole No Fluconazol 150 MG [...] FreeStyle FreeStyle No FreeStyle Chaz Chaz Chaz [place] - amLODIPine amLODIPine No 1{table QD amLODIPine [...] FreeStyle FreeStyle No FreeStyle Chaz Chaz Chaz [place] - amLODIPine amLODIPine No 1{table QD amLODIPine [...] FreeStyle FreeStyle No FreeStyle Chaz Chaz Chaz [place] - Nystatin Nystatin No Nystatin Toujeo Toujeo [...] FreeStyle FreeStyle No FreeStyle Chaz Chaz Chaz [place] - Nystatin Nystatin No Nystatin Toujeo Toujeo [...] QD PriLOSEC MG MG le} 20 MG Victoza 18 Victoza 18 No QD Victoza 18 MG/3ML MG/3ML MG/3ML Fluconazole Fluconazole No 1{table Fluconazol 150 MG 150 MG t} e 150 MG Omeprazole Omeprazole No QD Omeprazole 20 MG 20 MG 20 MG FreeStyle FreeStyle No FreeStyle Chaz Chaz Chaz Sensor Sensor Sensor System - System - System - Vitamin B12 Vitamin B12 No 1{table QD Vitamin 1000 MCG 1000 MCG t} B12 1000 MCG Cymbalta 60 Cymbalta 60 No Cymbalta MG MG 60 MG Invokana Invokana No QD Invokana 300 MG 300 MG 300 MG metroNIDAZO metroNIDAZO No 1{table TID metroNIDAZ LE 500 MG LE 500 MG t} OLE 500 MG traZODone traZODone No traZODone HCl 50 MG HCl 50 MG HCl 50 MG FreeStyle FreeStyle No FreeStyle Chaz Chaz Chaz [place] - valACYclovi valACYclovi No valACYclov r HCl 1 GM r HCl 1 GM ir HCl 1 GM Cymbalta 30 Cymbalta 30 No 1{capsu QD Cymbalta MG MG le} 30 MG Toujeo Toujeo No QD Toujeo SoloStar SoloStar SoloStar 300 UNIT/ML 300 UNIT/ML 300 UNIT/ML metFORMIN metFORMIN No metFORMIN HCl 1000 MG HCl 1000 MG HCl 1000 MG hydrALAZINE hydrALAZINE No hydrALAZIN HCl 50 MG HCl 50 MG E HCl 50 MG Losartan Losartan No 1{table QD Losartan Potassium Potassium t} Potassium 100 MG 100 MG 100 MG Fluconazole Fluconazole No Fluconazol 150 MG 150 MG e 150 MG Coreg 25 MG Coreg 25 MG No 1{table BID Coreg 25 t_with_ MG food} Rosuvastati Rosuvastati No Rosuvastat n Calcium n Calcium in Calcium 10 MG 10 MG 10 MG Clotrimazol Clotrimazol No 1{appli BID Clotrimazo e 1 % e 1 % cation_ le 1 % to_affe cted_ar ea} Diflucan Diflucan No 1{table Diflucan 150 MG 150 MG t} 150 MG DULoxetine DULoxetine No DULoxetine HCl 60 MG HCl 60 MG HCl 60 MG Nystatin Nystatin No Nystatin Medrol 4 MG Medrol 4 MG No Medrol 4 MG amLODIPine amLODIPine No 1{table QD amLODIPine Besylate 5 Besylate 5 t} Besylate 5 MG MG MG Cozaar 100 Cozaar 100 No Cozaar 100 MG MG MG amLODIPine amLODIPine No 1{table QD amLODIPine Besylate 10 Besylate 10 t} Besylate MG MG 10 MG Crestor 10 Crestor 10 No Crestor 10 MG MG MG Gabapentin Gabapentin No Gabapentin 300 MG 300 MG 300 MG Toujeo Toujeo No QD Toujeo SoloStar SoloStar SoloStar 300 UNIT/ML 300 UNIT/ML 300 UNIT/ML PriLOSEC 20 PriLOSEC 20 No 1{capsu QD PriLOSEC MG MG le} 20 MG metroNIDAZO metroNIDAZO No 1{table TID metroNIDAZ LE 500 MG LE 500 MG t} OLE 500 MG Toujeo Toujeo No QD Toujeo SoloStar SoloStar SoloStar 300 UNIT/ML 300 UNIT/ML 300 UNIT/ML Coreg 25 MG Coreg 25 MG No 1{table BID Coreg 25 t_with_ MG food} hydrALAZINE hydrALAZINE No 1{table TID hydrALAZIN HCl 50 MG HCl 50 MG t_with_ E HCl 50 food} MG Cymbalta 60 Cymbalta 60 No 1{capsu QD Cymbalta MG MG le} 60 MG traZODone traZODone No traZODone HCl 50 MG HCl 50 MG HCl 50 MG Crestor 10 Crestor 10 No Crestor 10 MG MG MG metFORMIN metFORMIN No metFORMIN HCl 1000 MG HCl 1000 MG HCl 1000 MG Fluconazole Fluconazole No Fluconazol 150 MG 150 MG e 150 MG FreeStyle FreeStyle No FreeStyle Chaz Chaz Chaz [place] - Invokana Invokana No Invokana 300 MG 300 MG 300 MG Cymbalta 60 Cymbalta 60 No Cymbalta MG MG 60 MG amLODIPine amLODIPine No 1{table QD amLODIPine Besylate 10 Besylate 10 t} Besylate MG MG 10 MG Diflucan Diflucan No 1{table Diflucan 150 MG 150 MG t} 150 MG Omeprazole Omeprazole No QD Omeprazole 20 MG 20 MG 20 MG Cymbalta 30 Cymbalta 30 No 1{capsu QD Cymbalta MG MG le} 30 MG Vitamin B12 Vitamin B12 No 1{table QD Vitamin 1000 MCG 1000 MCG t} B12 1000 MCG Invokana Invokana No QD Invokana 300 MG 300 MG 300 MG Clotrimazol Clotrimazol No 1{appli BID Clotrimazo e 1 % e 1 % cation_ le 1 % to_affe cted_ar ea} PriLOSEC 20 PriLOSEC 20 No 1{capsu QD PriLOSEC MG MG le} 20 MG metFORMIN metFORMIN No metFORMIN HCl 1000 MG HCl 1000 MG HCl 1000 MG Losartan Losartan No 1{table QD Losartan Potassium Potassium t} Potassium 100 MG 100 MG 100 MG Cozaar 100 Cozaar 100 No Cozaar 100 MG MG MG hydrALAZINE hydrALAZINE No hydrALAZIN HCl 50 MG HCl 50 MG E HCl 50 MG amLODIPine amLODIPine No 1{table QD amLODIPine Besylate 5 Besylate 5 t} Besylate 5 MG MG MG Nystatin Nystatin No Nystatin FreeStyle FreeStyle No FreeStyle Chaz Chaz Chaz Sensor Sensor Sensor System - System - System - DULoxetine DULoxetine No DULoxetine HCl 60 MG HCl 60 MG HCl 60 MG Fluconazole Fluconazole No 1{table Fluconazol 150 MG 150 MG t} e 150 MG Victoza 18 Victoza 18 No QD Victoza 18 MG/3ML MG/3ML MG/3ML Rosuvastati Rosuvastati No Rosuvastat n Calcium n Calcium in Calcium 10 MG 10 MG 10 MG Toujeo Toujeo No QD Toujeo SoloStar SoloStar SoloStar 300 UNIT/ML 300 UNIT/ML 300 UNIT/ML Gabapentin Gabapentin No Gabapentin 300 MG 300 MG 300 MG valACYclovi valACYclovi No valACYclov r HCl 1 GM r HCl 1 GM ir HCl 1 GM Medrol 4 MG Medrol 4 MG No Medrol 4 MG metroNIDAZO metroNIDAZO No 1{table TID metroNIDAZ LE 500 MG LE 500 MG t} OLE 500 MG Toujeo Toujeo No QD Toujeo SoloStar SoloStar SoloStar 300 UNIT/ML 300 UNIT/ML 300 UNIT/ML Omeprazole Omeprazole No QD Omeprazole 20 MG 20 MG 20 MG hydrALAZINE hydrALAZINE No 1{table TID hydrALAZIN HCl 50 MG HCl 50 MG t_with_ E HCl 50 food} MG Cymbalta 60 Cymbalta 60 No 1{capsu QD Cymbalta MG MG le} 60 MG traZODone traZODone No traZODone HCl 50 MG HCl 50 MG HCl 50 MG Crestor 10 Crestor 10 No Crestor 10 MG MG MG metFORMIN metFORMIN No metFORMIN HCl 1000 MG HCl 1000 MG HCl 1000 MG Fluconazole Fluconazole No Fluconazol 150 MG 150 MG e 150 MG FreeStyle FreeStyle No FreeStyle Chaz Chaz Chaz [place] - Invokana Invokana No Invokana 300 MG 300 MG 300 MG Invokana Invokana No QD Invokana 300 MG 300 MG 300 MG amLODIPine amLODIPine No 1{table QD amLODIPine Besylate 10 Besylate 10 t} Besylate MG MG 10 MG Diflucan Diflucan No 1{table Diflucan 150 MG 150 MG t} 150 MG Cymbalta 60 Cymbalta 60 No Cymbalta MG MG 60 MG Gabapentin Gabapentin No Gabapentin 300 MG 300 MG 300 MG Vitamin B12 Vitamin B12 No 1{table QD Vitamin 1000 MCG 1000 MCG t} B12 1000 MCG Cymbalta 30 Cymbalta 30 No 1{capsu QD Cymbalta MG MG le} 30 MG Clotrimazol Clotrimazol No 1{appli BID Clotrimazo e 1 % e 1 % cation_ le 1 % to_affe cted_ar ea} PriLOSEC 20 PriLOSEC 20 No 1{capsu QD PriLOSEC MG MG le} 20 MG metFORMIN metFORMIN No metFORMIN HCl 1000 MG HCl 1000 MG HCl 1000 MG Losartan Losartan No 1{table QD Losartan Potassium Potassium t} Potassium 100 MG 100 MG 100 MG Cozaar 100 Cozaar 100 No Cozaar 100 MG MG MG hydrALAZINE hydrALAZINE No hydrALAZIN HCl 50 MG HCl 50 MG E HCl 50 MG amLODIPine amLODIPine No 1{table QD amLODIPine Besylate 5 Besylate 5 t} Besylate 5 MG MG MG Nystatin Nystatin No Nystatin FreeStyle FreeStyle No FreeStyle Chaz Chaz Chaz Sensor Sensor Sensor System - System - System - DULoxetine DULoxetine No DULoxetine HCl 60 MG HCl 60 MG HCl 60 MG Fluconazole Fluconazole No 1{table Fluconazol 150 MG 150 MG t} e 150 MG Victoza 18 Victoza 18 No QD Victoza 18 MG/3ML MG/3ML MG/3ML Rosuvastati Rosuvastati No Rosuvastat n Calcium n Calcium in Calcium 10 MG 10 MG 10 MG Toujeo Toujeo No QD Toujeo SoloStar SoloStar SoloStar 300 UNIT/ML 300 UNIT/ML 300 UNIT/ML Coreg 25 MG Coreg 25 MG No 1{table BID Coreg 25 t_with_ MG food} valACYclovi valACYclovi No valACYclov r HCl 1 GM r HCl 1 GM ir HCl 1 GM Medrol 4 MG Medrol 4 MG No Medrol 4 MG Cymbalta 60 Cymbalta 60 No Cymbalta [...] 2019- No Na Mei 1 tab(s) Common -20 once a day Spirit 00:00 orally - CHI :00 [facility] Vital Signs Vital Name Observation Time Observation Value Comments Source Systolic blood 2023-04-09 16:27:00 121 mm[Hg] Univer [facility]ity [facility] Diastolic blood 2023-04-09 16:27:00 71 mm[Hg] Unive rsity of pressure [facility] Heart rate 2023-04-09 16:27:00 69 /min [facility] Body temperature 2023-04-09 16:27:00 36.39 Hailey Univ ers[facility] Respiratory rate 2023-04-09 16:27:00 16 /min Univ [facility] Body height 2023-04-09 16:27:00 162.6 cm [facility] Body weight 2023-04-09 16:27:00 76.658 kg [facility] BMI 2023-04-09 16:27:00 29.01 kg/m2 [facility] Oxygen saturation in 2023-04-09 16:27:00 98 /min University of Arterial blood by [facility] Pulse oximetry Branch Systolic blood 2022-12-25 20:56:00 134 mm[Hg] Univer sity of pressure [facility] Diastolic blood 2022-12-25 20:56:00 73 mm[Hg] Unive rsity of pressure [facility] Heart rate 2022-12-25 20:56:00 98 /min [facility] Body temperature 2022-12-25 20:56:00 36.11 Hailey [facility] Respiratory rate 2022-12-25 20:56:00 20 /min Univ [facility] Body height 2022-12-25 20:56:00 152.4 cm [facility] Body weight 2022-12-25 20:56:00 78.926 kg [facility] BMI 2022-12-25 20:56:00 33.98 kg/m2 [facility] Oxygen saturation in 2022-12-25 20:56:00 97 /min University of Arterial blood by [facility] Pulse oximetry Branch Systolic blood 2022-12-20 19:23:00 158 mm[Hg] Univer sity of [facility] Diastolic blood 2022-12-20 19:23:00 84 mm[Hg] Unive rsity of pressure [facility] Heart rate 2022-12-20 19:23:00 87 /min Universi ty of [facility] Body temperature 2022-12-20 19:18:00 36.39 Hailey Univ ersity of [facility] Branch Respiratory rate 2022-12-20 19:18:00 18 /min Univ ersity of [facility] Body height 2022-12-20 19:18:00 160 cm [facility] [place] [facility] [place] Body weight 2022-12-20 19:18:00 79.742 kg [facility] [place] [facility] [place] BMI 2022-12-20 19:18:00 31.14 kg/m2 Universi ty of [facility] Oxygen saturation in 2022-12-20 19:18:00 97 /min [facility] Arterial blood by [facility] Pulse oximetry Branch Systolic blood 2022-11-15 14:53:00 148 mm[Hg] Univer sity of [facility] Diastolic blood 2022-11-15 14:53:00 73 mm[Hg] [facility] Heart rate 2022-11-15 14:53:00 87 /min Universi ty of [facility] Respiratory rate 2022-11-15 14:53:00 18 /min Univ ersity of [facility] Body height 2022-11-15 14:53:00 160 cm [facility] [place] Body weight 2022-11-15 14:53:00 78.926 kg [facility] [place] BMI 2022-11-15 14:53:00 30.82 kg/m2 [facility]i [facility] of [facility] height 2022-06-12 15:20:00 63.00 [in_i] Common [facility] weight 2022-06-12 15:20:00 162.8 [lb_av] Common [facility] temperature 2022-06-12 15:20:00 96.8 [degF] Common [facility] bmi 2022-06-12 15:20:00 28.84 kg/m2 [facility] oximetry 2022-06-12 15:20:00 97 % [facility] respiratory rate 2022-06-12 15:20:00 18 /min Comm on [facility] blood pressure 2022-06-12 15:20:00 134 mm[Hg] Common [facility] - systolic [facility] blood pressure 2022-06-12 15:20:00 72 mm[Hg] [facility] - diastolic [facility] height 2021-05-15 14:40:00 63.00 [in_i] [facility] weight 2021-05-15 14:40:00 167.8 [lb_av] [facility] temperature 2021-05-15 14:40:00 97.5 [degF] [facility] bmi 2021-05-15 14:40:00 29.72 kg/m2 [facility] oximetry 2021-05-15 14:40:00 97 % [facility] respiratory rate 2021-05-15 14:40:00 18 /min Comm on [facility] blood pressure 2021-05-15 14:40:00 137 mm[Hg] Common [facility] - systolic [facility] blood pressure 2021-05-15 14:40:00 69 mm[Hg] [facility] diastolic [facility] Procedures Procedure Date / Time Performed Performing Clinician [facility] e EXTERNAL PROVIDER 2023-01-25 05:01:00 Doctor Unassigned, No [facility] RECORDS Name Medical Branch ASSIGNMENT OF BENEFITS 2023-01-15 19:24:56 Doctor Unassigned, No [facility] Branch CONSENT/REFUSAL FOR 2023-01-15 19:24:30 Doctor Unassigned, No [facility] DIAGNOSIS AND [facility] [place] TREATMENT CT ABDOMEN PELVIS WO 2022-12-24 17:04:53 Erwin [place] [facility] CONTRAST Medical Branch US ABDOMEN LIMITED 2022-11-20 18:37:09 Alisson Winn [facility] [place] ASSIGNMENT OF BENEFITS 2022-11-15 14:26:38 Doctor Unassigned, No [facility] Name Medical Branch REFERRAL- 2022-10-29 05:01:00 Doctor Unassigned, No [facility] REQUEST/RESPONSE Name Medical Branch Encounters Start End Encounter Admission Attending Care Care Encounter Source Date/Time Date/Time Type Type Clinicians Facility Department ID 2022-06-08 Outpatient Mei, Na STLMLC STLMLC [id number] 2 Common 09:15:00 [id number] [facility] 2022-05-22 Outpatient Mei, Na STLMLC STLMLC [id number] 2 Common 09:49:01 [facility] 2022-02-06 Outpatient Mei, Na STLMLC STLMLC [id number] 2 Common 13:39:00 [id number] [facility] 2021-07-26 Outpatient Mei, Na STLMLC STLMLC [id number] 2 Common 14:26:18 [id number] [facility] 2021-07-26 Outpatient Mei, Na STLMLC STLMLC [id number] 2 Common 13:23:02 [id number] [facility] 2021-07-26 Outpatient Mei, Na STLMLC STLMLC [id number] 2 Common 12:59:06 [id number] [facility] 2021-07-26 Outpatient Mei, Na STLMLC STLMLC [id number] 2 Common 12:47:29 [id number] [facility] 2021-07-26 Outpatient Mei, Na STLMLC STLMLC [id number] 2 Common 12:43:47 [id number] [facility] 2021-07-26 Outpatient Mei, Na STLMLC STLMLC [id number] 2 Common 12:43:08 [id number] [facility] 2021-07-26 Outpatient Mei, Na STLMLC STLMLC [id number] 2 Common 12:39:17 [id number] [facility] 2021-07-26 Outpatient Mei, Na STLMLC STLMLC [id number] 2 Common 12:12:21 [id number] [facility] 2021-07-26 Outpatient Mei, Na STLMLC STLMLC [id number] 2 Common 12:11:22 [id number] [facility] 2021-07-26 Outpatient Mei, Na STLMLC STLMLC [id number] 2 Common 12:10:21 [id number] [facility] 2021-07-26 Outpatient Mei, Na STLMLC STLMLC [id number] 2 Common 12:04:30 [id number] [facility] 2021-07-26 Outpatient Mei, Na STLMLC STLMLC [id number] 2 Common 12:03:17 [id number] [facility] 2021-07-26 Outpatient Mei, Na STLMLC STLMLC [id number] 2 Common 12:02:43 [id number] [facility] 2021-07-26 Outpatient Mei, Na STLMLC STLMLC [id number] 2 Common 11:24:44 [id number] [facility] 2021-07-26 Outpatient Mei, Na STLMLC STLMLC [id number] 2 Common 11:16:55 [id number] [facility] 2023-11-21 2023-11-21 Outpatient R FRANCOIS VANN [facility] U TMB [id number] Univers 09:30:00 09:30:00 EDWAR FRANCOIS [facility] 2023-11-18 2023-11-18 Outpatient R ALISSON WINN [facility] B [id number] Univers 13:00:00 13:00:00 ALISSON WINN [facility] 2023-07-16 2023-07-16 Outpatient PRIETO RAY [facility] [id number] Univers 11:15:00 11:15:00 [facility] 2023-04-27 2023-04-27 Outpatient [id number] PRIV PRIV [id number] [facility] 00:00:00 00:00:00 Natalie [id number] [facility] al 2023-04-23 2023-04-23 Outpatient PRIETO RAY [facility] [id number] Univers 16:00:00 16:00:00 [facility] 2023-04-09 2023-04-09 Office Prieto Zimmerman [facility] [id number] Univers 11:30:00 11:45:00 Visit HEALTH [id number] [id number] [id number] [address] OFFICE BUILDING 2023-04-09 2023-04-09 Outpatient R PRIETO ZIMMERMAN [facility] [id number] Univers 11:30:00 11:30:00 ity of [facility] 2023-01-25 2023-01-25 Orders Doctor SCOTT [id number] Univers 00:00:00 00:00:00 Only Unassigned, MAURISIO [id number] ity of [place] [facility] [id number] [place] [id number] [place] [address] Branch 2023-01-15 2023-01-15 Outpatient R TATUMKELLIEKRISTAN [facility] B [id number] Univers 14:24:29 23:59:00 ALISSON WINN ity [facility] 2023-01-15 2023-01-15 [facility] [id number] Univers 14:24:29 23:59:00 Encounter Alisson WEEKSMARIA M [id number] ity of [place] [id number] [facility] [id number] [place] [address] Branch 2022-12-25 2022-12-25 Outpatient R ELSIEPRIETO [facility] [id number] Univers 16:00:00 16:54:14 ity of [facility] 2022-12-25 2022-12-25 Office Prieto Zimmerman [facility] [id number] Univers 16:00:00 16:54:14 Visit HEALTH [id number] it y of [place] [id number] [facility] [place] [id number] [address] OFFICE BUILDING 2022-12-24 2022-12-24 Outpatient R SHAHRIAR [facility] [id number] Univers 11:38:40 23:59:00 ERWIN ity [facility] 2022-12-24 2022-12-24 [facility] [id number] Univers 11:38:40 23:59:00 Encounter Erwin GRAF [id number] [id number] [facility] [id number] [facility] 801 Branch 2022-12-20 2022-12-20 Outpatient R [facility] [id number] Univers 14:30:00 15:10:00 ERWIN bullocky [facility] 2022-12-20 2022-12-20 Office [facility] [id number] Univers 14:30:00 15:10:00 Visit Erwin GRAF [id number] i [id number] [id number] Tx dical [facility] 188 [facility] 2022-11-21 2022-11-21 [facility] 1.2.840.11 [id number] Univers 00:00:00 00:00:00 Kelliekristan LANDRY [id number] it y [id number] [id number] [facility] 134 Branch 2022-11-20 2022-11-20 [facility] [id number] Univers 13:02:13 23:59:00 Encounter Kelliekristan Tien COTA 350.1.13.10 ity of [facility] [id number] [place] [id number] [facility] [address] [place] 2022-11-20 2022-11-20 Outpatient R ALISSON WINN [facility] B [id number] Univers 13:02:13 23:59:00 ALISSON WINN [facility] 2022-11-15 2022-11-15 Outpatient R ALISSON WINN [facility] B [id number] Univers 09:00:00 10:18:23 ALISSON WINN [facility] 2022-11-15 2022-11-15 Office [facility] 1.2.840.114 [id number] Univers 09:00:00 10:18:23 Visit Alisson LANDRY 350.1.13.10 it [id number] [id number] [facility] 134 Branch 2022-11-15 2022-11-15 Orders Doctor SCOTT [id number] Univers 00:00:00 00:00:00 Only Unassigned, MAURISIO 350.1.13.10 ity of [place] [facility] [id number] [facility] 009 Branch 2022-10-29 2022-10-29 Orders Doctor SCOTT [id number] Univers 00:00:00 00:00:00 Only Unassigned, MAURISIO 350.1.13.10 ity of [place] [facility] [id number] [facility] 009 Branch 2022-07-20 2022-07-20 (TEL) STLMLC STLMLC [id number] Co mmon 00:00:00 00:00:00 [facility] 2022-06-12 2022-06-12 OFFICE STLMLC STLMLC [id number] Co mmon 00:00:00 00:00:00 VISIT Spirit ESTAB PT - CHI LEVEL 4 [facility] 2022-05-15 2022-05-15 (TEL) STLMLC STLMLC [id number] Co mmon 00:00:00 00:00:00 [facility] 2021-12-01 2021-12-01 OFFICE STLMLC STLMLC [id number] Co mmon 00:00:00 00:00:00 VISIT EST Spir it PT LEVEL 3 - CHI [facility] 2021-12-01 2021-12-01 (TEL) STLMLC STLMLC [id number] Co mmon 00:00:00 00:00:00 [facility] 2021-08-03 2021-08-03 (TEL) STLMLC STLMLC [id number] Co mmon 00:00:00 00:00:00 [facility] 2021-07-12 2021-07-12 OFFICE STLMLC STLMLC [id number] Co mmon 00:00:00 00:00:00 VISIT Willi ESTAB PT - CHI LEVEL 4 [facility] 2021-05-31 2021-05-31 OFFICE STLMLC STLMLC [id number] Co mmon 00:00:00 00:00:00 VISIT EST Spir it PT LEVEL 3 - [facility] 2021-05-31 2021-05-31 (TEL) STLMLC STLMLC [id number] Co mmon 00:00:00 00:00:00 [facility] 2021-05-30 2021-05-30 (TEL) STLMLC STLMLC [id number] Co mmon 00:00:00 00:00:00 [facility] 2021-05-15 2021-05-15 OFFICE STLMLC STLMLC [id number] Co mmon 00:00:00 00:00:00 VISIT Willi ESTAB PT - CHI LEVEL 4 [facility] 2020-09-23 2020-09-23 Outpatient STLMLC STLMLC [id number] Common 00:00:00 00:00:00 [facility] 2020-09-21 2020-09-21 Outpatient STLMLC STLMLC [id number] Common 00:00:00 00:00:00 [facility] 2020-07-26 2020-07-26 Outpatient STLMLC STLMLC [id number] Common 00:00:00 00:00:00 [facility] 2020-05-12 2020-05-12 Outpatient STLMLC STLMLC [id number] Common 00:00:00 00:00:00 [facility] 2020-05-10 2020-05-10 Outpatient STLMLC STLMLC [id number] Common 00:00:00 00:00:00 [facility] 2019-10-05 2019-10-05 [facility] [id number] Common 15:20:00 15:20:00 [facility] it Drive [facility] 2019-01-09 2019-01-09 [facility] [id number] Common 15:40:00 15:40:[address] Sp[address] [facility] 2019-01-05 2019-01-05 [facility] [id number] Common 10:55:00 10:55:00 t Specialty/U Sp deepthi Specialty rology [facility] 2019-01-05 2019-01-05 [facility] [id number] Common 10:30:00 10:30:00 t Specialty/U Sp deepthi Specialty rology [facility] 2018-10-14 2018-10-14 [facility] [id number] Common 16:02:00 16:02:[address] Sp[address] [facility] 2018-10-10 2018-10-10 [facility] [id number] Common 16:03:00 16:03:[address] Sp[address] [facility] 2018-09-18 2018-09-18 [facility] [id number] Common 10:00:00 10:00:[address] Sp[address] [facility] 2018-08-21 2018-08-21 [facility] [id number] Common 09:15:00 09:15:[address] [facility] 2018-05-21 2018-05-21 Out[facility] [id number] Common 10:15:00 10:15:[address] [facility] 2017-12-31 2017-12-31 [facility] [id number] Common 12:04:00 12:04:[address] [facility] 2017-12-30 2017-12-30 [facility] [id number] Common 14:08:00 14:08:[address] [facility] 2017-12-25 2017-12-25 [facility] [id number] Common 14:30:00 14:30:00 t [employer] [facility] [employer] [facility] Results Test Description Test Time Test Comments Results Result Comments Source SARS-COV 2 Antigen SARS-COV 2 Antigen
[2023-05-16 19:00] LABS: Lymphocytes % 11.1 % (15.3-44.8); MPV 7.1 fL (7.6-11.3); Platelets 283 thou/uL (152-406); RBC Red Blood Cell Count 5.75 M/uL (3.86-4.86)
[2023-05-16] MEDS ORDERED: NA CHLORIDE 0.9% 1,000 ML ONE ×2 (19:00→21:11)
[2023-05-16] MEDS ORDERED: ONDANSETRON 4 MG/2 ML VIAL ONE ×2 (19:00→21:11)
[2023-05-16] MEDS ORDERED: MAGNES/ALUMIN/SIMET 30ML UCUP ONE (19:00)
[2023-05-16 19:14] LABS: Specific Gravity 1.028 (1.005-1.030); Urine Bacteria <20 /HPF (<20); Urine Bilirubin NEGATIVE (Negative); Urine Blood Trace (Negative); Urine Clarity Clear (Clear); Urine Color Light-Yellow (Yellow); Urine Glucose 4+ (Over) (Negative); Urine Mucus Slight /HPF (None Seen); Urine Protein 1+ (Negative); Urine Urobilinogen Normal (Normal); Urine pH 5.5 (5.0-7.0)
[2023-05-16 19:24] LABS: Albumin 3.9 g/dL (3.4-5.0); Bilirubin Total 0.9 mg/dL (0.2-1.0); Potassium 3.5 mEq/L (3.5-5.1); Protein, Total 8.4 g/dL (6.4-8.2)
[2023-05-16 19:37] LABS: Troponin High Sensitivity 775.6 pg/mL (<58.9)
--- NOTE | 2023-05-16 20:11 | RAD REPORT ---
EXAM DESCRIPTION: CT - Abdomen Pelvis Wo Contrast - 05/16/2023 7:19 pm CLINICAL HISTORY: ABD PAIN COMPARISON: 01/16/2019 and 08/29/2017 CTs of the abdomen and pelvis TECHNIQUE: Thin cut axial CT imaging of the abdomen and pelvis was performed without IV contrast. Mu ltiplanar reformats were generated and reviewed. All CT scans are performed using dose optimization technique as appropriate and may include automated exposure control or mA/KV adjustment according to patient size. FINDINGS: No suspicious findings in the lung bases. The liver, spleen, adrenal glands, and pancreas show no suspicious findings. Gallbladder was surgical ly removed. Symmetric renal contour, without suspicious parenchymal findings within limits of noncontrast techniq ue. Stable density cortical lesions, largest at the right interpolar to lower pole region measuring 2 .4 cm. No evidence of radiopaque calculi or hydroureteronephrosis. No dilated bowel loops or bowel wall thickening. No free air, free fluid or inflammatory stranding. L arge lower abdominal ventral hernia containing nondistended small bowel. No suspicious mass or bulky lymphadenopathy. The urinary bladder is without significant finding. No suspicious bony findings. IMPRESSION: No acute intra-abdominal process. Stable findings as above
[2023-05-16 20:12] LABS: Arterial Blood Carboxyhemoglob 1.3 % (0-1.5); Blood Gas Oxyhemoglobin 71.1 % (94-97); Blood O2 Saturation 73.5 % (92-98.5)
--- NOTE | 2023-05-16 20:45 | EDPHYS ---
Physician Documentation [facility] Name: Jo Hagan Age: 68 yrs Sex: Female : 1955 Arrival Date: 05/16/2023 Time: 18:03 Bed 6 Private MD: ED Physician Ben Barron HPI: 05/16 21:56 This 68 yrs old Female presents to ER via Wheelchair with complaints of rt Vomiting. 21:56 Patient presents to the ED with nausea, vomiting for the past 3 days. Patient has not rt been able to keep anything down by mouth. Does report a burning sensation to the throat, chest which he associates with the acid. Denies any abdominal pain. She does states that she has a known ventral hernia, was getting evaluated for that out of town. Denies other acute complaints, symptoms are moderate severity, no other aggravating elevating factors.. Historical: - Allergies: 18:25 Iodine; ph - PMHx: 18:25 Diabetes - IDDM; GERD; Hypertension; TIA; ph - PSHx: 18:25 Cholecystectomy; hernia; hysterectomy; ph - Immunization history:: Adult Immunizations unknown. - Social history:: Smoking status: Patient denies any tobacco usage or history of. - Family history:: not pertinent. ROS: 21:56 Constitutional: Negative for fever, chills, and weight loss, Respiratory: Negative for rt shortness of breath, cough, wheezing, and pleuritic chest pain, : Negative for injury, bleeding, discharge, and swelling, MS/Extremity: Negative for injury and deformity, Skin: Negative for injury, rash, and discoloration, Neuro: Negative for headache, weakness, numbness, tingling, and seizure, Psych: Negative for depression, anxiety, suicide ideation, homicidal ideation, and hallucinations, 21:56 Cardiovascular: Positive for chest pain, Negative for edema, 21:56 Abdomen/GI: Positive for nausea and vomiting, Negative for abdominal pain, Exam: 21:56 Constitutional: This is a well developed, well nourished patient who is awake, alert, rt and in no acute distress. Head/Face: Normocephalic, atraumatic. Chest/axilla: Normal chest wall appearance and motion. Nontender with no deformity. No lesions are appreciated. Cardiovascular: Regular rate and rhythm with a normal S1 and S2. No gallops, murmurs, or rubs. Normal PMI, no JVD. No pulse deficits. Respiratory: Lungs have equal breath sounds bilaterally, clear to auscultation and percussion. No rales, rhonchi or wheezes noted. No increased work of breathing, no retractions or nasal flaring. Skin: Warm, dry with normal turgor. Normal color with no rashes, no lesions, and no evidence of cellulitis. MS/ Extremity: Pulses equal, no cyanosis. Neurovascular intact. Full, normal range of motion. Neuro: Awake and alert, GCS 15, oriented to person, place, time, and situation. Cranial nerves II-XII grossly intact. Motor strength 5/5 in all extremities. Sensory grossly intact. Cerebellar exam normal. Normal gait. Psych: Awake, alert, with orientation to person, place and time. Behavior, mood, and affect are within normal limits. 21:56 ECG was reviewed by the Attending Physician. 21:56 Abdomen/GI: Large reducible ventral hernia present, no abdominal tenderness or distention, Vital Signs: 18:22 BP 174 / 99; Pulse 105; Resp 18; Temp 97.5; Pulse Ox 100% on R/A; Weight 74.84 kg; ph Height 5 ft. 3 in. ; 18:22 ph 20:13 BP 107 / 59; Pulse 107; Resp 17; Pulse Ox 99% ; nj1 20:54 BP 156 / 75; Pulse 111; Resp 18; Pulse Ox 100% ; nj1 22:30 BP 132 / 71; Pulse 111; Resp 19; Pulse Ox 98% ; jw7 18:22 Body Mass Index 29.23 (74.84 kg, 160.02 cm) ph 18:22 has not kept down BP meds ph MDM: 18:31 Patient medically screened. rt 21:56 Differential diagnosis: Bowel obstruction, gastroenteritis, nausea, vomiting, acute rt coronary syndrome. Data reviewed: vital signs, nurses notes, lab test result(s), EKG, radiologic studies. Consideration of Admission/Observation Patient was admitted/placed on observation. Management of patient was discussed with the following: Hospitalist: Agrees to admit. I considered the following discharge prescriptions or medication management in the emergency department Medications were administered in the Emergency Department. See MAR. Independent interpretation of the following test(s) in the Emergency Department CT Scan: My interpretation is Hernia seen on interpretation of CT scan images. Care significantly affected by the following chronic conditions: Diabetes, Hypertension. Counseling: I had a detailed discussion with the patient and/or guardian regarding the historical points, exam findings, and any diagnostic results supporting the discharge/admit diagnosis, lab results, radiology results, the need for further work-up and treatment in the hospital. Response to treatment: the patient's symptoms have markedly improved after treatment. 05/16 18:39 Order name: CBC with Diff; Complete Time: 19:38 rt 05/16 18:39 Order name: CMP; Complete Time: 19:38 rt 05/16 18:39 Order name: Lipase; Complete Time: 19:38 rt 05/16 18:39 Order name: Urinalysis w/ reflexes; Complete Time: 19:38 rt 05/16 18:39 Order name: Troponin High Sensitivity; Complete Time: 19:38 rt 05/16 19:39 Order name: ABG: vbg only rt 05/16 21:48 Order name: CBC with Automated Diff EDMS 05/16 21:48 Order name: CBC with Automated Diff EDWI 05/16 21:48 Order name: Comprehensive Metabolic Panel EDMS 05/16 21:48 Order name: Comprehensive Metabolic Panel EDMS 05/16 21:48 Order name: Hemoglobin A1c EDMS 05/16 21:48 Order name: Hemoglobin A1c EDWI 05/16 21:48 Order name: Lipid Profile EDMS 05/16 21:48 Order name: Lipid Profile EDMS 05/16 21:48 Order name: Magnesium EDMS 05/16 21:48 Order name: Magnesium EDMS 05/16 21:48 Order name: NT PRO-BNP EDMS 05/16 21:48 Order name: NT PRO-BNP EDMS 05/16 21:48 Order name: Phosphorus EDMS 05/16 21:48 Order name: Phosphorus EDMS 05/16 21:48 Order name: Protime (+INR) EDMS 05/16 21:48 Order name: Protime (+INR) EDMS 05/16 21:48 Order name: PTT, Activated Partial Thromb EDMS 05/16 21:48 Order name: PTT, Activated Partial Thromb EDMS 05/16 21:48 Order name: Troponin High Sensitivity EDMS 05/16 21:48 Order name: Troponin High Sensitivity EDMS 05/16 21:48 Order name: Troponin High Sensitivity EDMS 05/16 19:19 Order name: Abdomen ; Complete Time: 20:22 EDMS 05/16 21:48 Order name: Echo with Doppler EDMS 05/16 21:48 Order name: Echo with Doppler EDWI 05/16 18:39 Order name: EKG; Complete Time: 18:40 rt 05/16 21:48 Order name: CONS Physician Consult EDWI 05/16 18:39 Order name: IV Saline Lock; Complete Time: 18:50 rt 05/16 18:39 Order name: Labs collected and sent; Complete Time: 18:50 rt 05/16 18:39 Order name: EKG - Nurse/Tech; Complete Time: 18:50 rt EC:56 Rate is 104 beats/min. Rhythm is regular, Normal Sinus Rhythm with No ectopy. QRS [place] rt is Normal. MT interval is normal. QRS interval is normal. QT interval is normal. No Q waves. T waves are Normal. No ST changes noted. Administered Medications: 18:50 Drug: NS 0.9% IV 1000 ml IV at 1 bolus Per protocol; 1000 mL bolus Route: IV; Rate: 1 nj1 bolus; Site: right antecubital; 20:14 Follow up: IV Status: Completed infusion; IV Intake: 1000ml nj1 18:51 Drug: Ondansetron IVP 4 mg IVP once; over 2 minutes Route: IVP; Site: right antecubital;nj1 20:14 Follow up: Response: No adverse reaction; Nausea is decreased nj1 18:52 Drug: Alum-Mag Hydroxide-Simeth PO Suspension (200 mg-200 mg-20 mg/5 mL) 30 ml PO once nj1 Route: PO; 20:14 Follow up: Response: No adverse reaction nj1 20:52 Drug: Aspirin PO 325 mg PO once Route: PO; nj1 21:01 Follow up: Response: No adverse reaction nj1 21:00 Drug: Ondansetron IVP 4 mg IVP once; over 2 minutes Route: IVP; Site: right antecubital;nj1 21:25 Follow up: Response: No adverse reaction; Nausea unchanged nj1 21:00 Drug: NS 0.9% IV 1000 ml IV at 1 bolus Per protocol; 1000 mL bolus Route: IV; Rate: 1 nj1 bolus; Site: right antecubital; 23:13 Follow up: Response: No adverse reaction; IV Status: Completed infusion; IV Intake: jw7 1000ml 21:25 Drug: metoCLOPramide IVP 10 mg IVP once; over 1 to 2 minutes Route: IVP; Site: right nj1 antecubital; 23:13 Follow up: Response: No adverse reaction; Marked relief of symptoms jw7 Disposition Summary: 05/16/23 20:45 Hospitalization Ordered Notes: Hospitalization Status: Inpatient Admission rt Provider: aSl Andrews rt Location: Telemetry/[facility] (Inpatient) rt Condition: Stable rt Problem: new rt Symptoms: have improved rt Bed/Room Type: Standard rt Room Assignment: 405(05/16/23 21:50) jr12 Diagnosis - Subsequent non-ST elevation (NSTEMI) myocardial infarction rt Forms: - Medication Reconciliation Form rt - SBAR form rt - Leadership Thank You Letter rt Critical care time excluding procedures: 21:56 Critical care time: Bedside Care: 30 minutes, Consultation: 5 minutes. Total time: 35 rt minutes Signatures: Dispatcher [employer] EDPerla Ibrahim, RN RN Ben Barron MD MD rt Yamilex Ag RN RN nj1 Nancy Madera jr12 Cecy Benton RN jw7 Corrections: (The following items were deleted from the chart) 19:19 18:40 Abdomen Pelvis W Con+CT.RAD.BRZ ordered. EDWI EDMS 21:50 20:45 rt jr12
--- NOTE | 2023-05-16 20:45 | ER ---
Nurse's Notes [facility] Name: Jo Hagan Age: 68 yrs Sex: Female : 1955 Arrival Date: 05/16/2023 Time: 18:03 Bed 6 Private MD: Diagnosis: Subsequent non-ST elevation (NSTEMI) myocardial infarction Presentation: 05/16 18:22 Chief complaint: Patient's son or daughter states: Daughter reports that she just got ph home from visiting the [place], has had N/V x 2 days, also reports generalized abdominal pain and pain in throat d/t vomiting, also c/o dizziness, denies fever or diarrhea. Coronavirus screen: Vaccine status: Patient reports receiving the 2nd dose of the covid vaccine. Ebola Screen: No symptoms or risks identified at this time. Initial Sepsis Screen: Does the patient meet any 2 criteria? No. Patient's initial sepsis screen is negative. Does the patient have a suspected source of infection? No. Patient's initial sepsis screen is negative. Risk Assessment: Do you want to hurt yourself or someone else? Patient reports no desire to harm self or others. Onset of symptoms was May 16, 2023. 18:22 Method Of Arrival: Wheelchair ph 18:22 Acuity: OLGA 3 ph Historical: - Allergies: 18:25 Iodine; ph - PMHx: 18:25 Diabetes - IDDM; GERD; Hypertension; TIA; ph - PSHx: 18:25 Cholecystectomy; hernia; hysterectomy; ph - Immunization history:: Adult Immunizations unknown. - Social history:: Smoking status: Patient denies any tobacco usage or history of. - Family history:: not pertinent. Screenin:56 [facility] ED Fall Risk Assessment (Adult) Score/Fall Risk Level 0 - 2 = Low Risk nj1 Oriented to surroundings, Maintained a safe environment, Hourly rounding (assess needs \T\ fall precautionary measures) done. Abuse screen: Denies threats or abuse. Denies injuries from another. Nutritional screening: No deficits noted. Tuberculosis screening: No symptoms or risk factors identified. Assessment: 18:50 General: Appears in no apparent distress. uncomfortable, Behavior is calm, cooperative, nj1 appropriate for age. Pain: Complains of pain in abdomen Quality of pain is described as burning. Neuro: Level of Consciousness is awake, alert, obeys commands, Oriented to person, place, time, situation. Cardiovascular: Patient's skin is warm and dry. Respiratory: Airway is patent Respiratory effort is even, unlabored. GI: Reports nausea, vomiting, Abdominal pain Patient currently denies diarrhea. 20:10 Reassessment: Patient appears in no apparent distress at this time. Patient and/or nj1 family updated on plan of care and expected duration. Pain level reassessed. Patient is alert, oriented x 3, equal unlabored respirations, skin warm/dry/pink. Patient states symptoms have improved. 20:54 Reassessment: Patient appears in no apparent distress at this time. Patient and/or nj1 family updated on plan of care and expected duration. Pain level reassessed. Patient is alert, oriented x 3, equal unlabored respirations, skin warm/dry/pink. Patient denies pain at this time. GI: Reports nausea. 22:00 Reassessment: Patient appears in no apparent distress at this time. Patient and/or jw7 family updated on plan of care and expected duration. Pain level reassessed. Patient is alert, oriented x 3, equal unlabored respirations, skin warm/dry/pink. Patient states symptoms have improved. 23:02 Reassessment: Patient appears in no apparent distress at this time. No changes from [facility] previously documented assessment. Patient and/or family updated on plan of care and expected duration. Pain level reassessed. Patient is alert, oriented x 3, equal unlabored respirations, skin warm/dry/pink. 23:10 General: Report given to AJITH Alcantara. jw7 Vital Signs: 18:22 BP 174 / 99; Pulse 105; Resp 18; Temp 97.5; Pulse Ox 100% on R/A; Weight 74.84 kg; ph Height 5 ft. 3 in. ; 18:22 ph 20:13 BP 107 / 59; Pulse 107; Resp 17; Pulse Ox 99% ; nj1 20:54 BP 156 / 75; Pulse 111; Resp 18; Pulse Ox 100% ; nj1 22:30 BP 132 / 71; Pulse 111; Resp 19; Pulse Ox 98% ; jw7 18:22 Body Mass Index 29.23 (74.84 kg, 160.02 cm) ph 18:22 has not kept down BP meds ph ED Course: 18:06 Patient arrived in ED. mg5 18:19 Ben Barron MD is Attending Physician. rt 18:25 Triage completed. ph 18:25 Arm band placed on Patient placed in an exam room. ph 18:33 Yamilex Ag, AJITH is Primary Nurse. nj1 18:50 Troponin High Sensitivity Sent. bc6 18:50 CBC with Diff Sent. bc6 18:50 CMP Sent. bc6 18:50 Lipase Sent. bc6 18:50 Urinalysis w/ reflexes Sent. bc6 18:51 Inserted saline lock: 20 gauge in right antecubital area, using aseptic technique. bc6 Blood collected. 18:58 Patient has correct armband on for positive identification. Bed in low position. Call nj1 light in reach. Adult w/ patient. Provided Education on: call light, fall precautions. 19:19 Abdomen In Process Unspecified. EDMS 20:44 Sal Andrews MD is Hospitalizing Provider. rt 23:10 No provider procedures requiring assistance completed. Patient admitted, IV remains in jw7 place. Administered Medications: 18:50 Drug: NS 0.9% IV 1000 ml IV at 1 bolus Per protocol; 1000 mL bolus Route: IV; Rate: 1 nj1 bolus; Site: right antecubital; 20:14 Follow up: IV Status: Completed infusion; IV Intake: 1000ml nj1 18:51 Drug: Ondansetron IVP 4 mg IVP once; over 2 minutes Route: IVP; Site: right antecubital;nj1 20:14 Follow up: Response: No adverse reaction; Nausea is decreased nj1 18:52 Drug: Alum-Mag Hydroxide-Simeth PO Suspension (200 mg-200 mg-20 mg/5 mL) 30 ml PO once nj1 Route: PO; 20:14 Follow up: Response: No adverse reaction nj1 20:52 Drug: Aspirin PO 325 mg PO once Route: PO; nj1 21:01 Follow up: Response: No adverse reaction nj1 21:00 Drug: Ondansetron IVP 4 mg IVP once; over 2 minutes Route: IVP; Site: right antecubital;nj1 21:25 Follow up: Response: No adverse reaction; Nausea unchanged nj1 21:00 Drug: NS 0.9% IV 1000 ml IV at 1 bolus Per protocol; 1000 mL bolus Route: IV; Rate: 1 nj1 bolus; Site: right antecubital; 23:13 Follow up: Response: No adverse reaction; IV Status: Completed infusion; IV Intake: jw7 1000ml 21:25 Drug: metoCLOPramide IVP 10 mg IVP once; over 1 to 2 minutes Route: IVP; Site: right nj1 antecubital; 23:13 Follow up: Response: No adverse reaction; Marked relief of symptoms jw7 Medication: 23:11 VIS not applicable for this client. jw7 Intake: 20:14 IV: 1000ml; Total: 1000ml. nj1 23:13 IV: 1000ml; Total: 2000ml. jw7 Outcome: 20:45 Decision to Hospitalize by Provider. rt 23:10 Admitted to Tele accompanied by nurse, via wheelchair, room 407, Report called to lydia Alcantara RN 23:10 Condition: stable 23:10 Instructed on the need for admit, Demonstrated understanding of instructions, 23:14 Patient left the ED. jw7 Signatures: Dispatcher [employer] EDPerla Ibrahim RN RN Cecy Benton RN RN jw7 Ben Barron MD MD rt Anamaria Mohan 6 Yamilex Ag RN RN nj1 Pema Villegas mg5 Corrections: (The following items were deleted from the chart) 23:04 23:03 BP 132 / 71; Pulse 111bpm; Resp 19bpm; Pulse Ox 98%; jw7 jwSarah Beth
[2023-05-16] MEDS ORDERED: ASPIRIN 325 MG TAB ONE (21:04)
[2023-05-16] MEDS ORDERED: METOCLOPRAMIDE 10 MG/2mL INJ ONE (21:37)
[2023-05-16] MEDS ORDERED: METOPROLOL TARTRATE 5 MG/5 ML INJ IV PRN (21:40)
[2023-05-16] MEDS ORDERED: ACETAMINOPHEN 500 MG TAB PO PRN (21:40)
--- NOTE | 2023-05-16 21:40 | P.HP ---
Certification for Inpatient Patient admitted to: Inpatient With expected LOS: >2 Midnights Patient will require the following post-hospital care: None Practitioner: I am a practitioner with admitting privileges, knowledge of patient current condition, hospital course, and medical plan of care. Services: Services provided to patient in accordance with Admission requirements found in Title 42 Section 412.3 of the Code of Federal Regulations Patient History Date of Service: 05/16/23 Reason for admission: Intractable nausea and vomiting History of Present Illness: Patient is a 68-year-old female who presents to the emergency room with intractable nausea and vomiting. She patient has history of diabetes and hyperlipidemia. According to the family her A1c has been significantly elevated. She has been a diabetic for over 10 years. She has been in pretty good health. She had ovarian cancer and had a hysterectomy with oophorectomy. She is also had an umbilical hernia that was repaired but it pushed out again. She occasionally has some discomfort there but today she is not having any issues. She recently went to [place] where she was given some medications for nausea. Patient had a CT of the abdomen and pelvis which did not reveal any acute findings. Patient recently started Ozempic. She takes it once a week. She is on 0.25 mg. Thus only new medicine she recently started. She is coming to the emergency room because she was unable to get control of her nausea and vomiting. Patient initial troponin is elevated in the 700s. Patient will be admitted to the hospital for further evaluation. Allergies Iodinated Contrast Media [Iodinated Contrast Media - IV Dye] Allergy (Unverified 09/24/16 15:38) Unknown iodine Allergy (Unverified 09/24/16 15:38) Unknown Home Medications: Canagliflozin [Invokana] 300 mg PO DAILY 09/24/16 Hydralazine [Apresoline*] 50 mg PO TID 09/24/16 Losartan Potassium 100 mg PO DAILY 09/24/16 Metformin HCl [Glucophage] 1,000 mg PO BID 09/24/16 Omeprazole 20 mg PO DAILY 09/24/16 Rosuvastatin [Crestor*] 10 mg PO BEDTIME 04/24/21 carvediloL [Coreg*] 3.125 mg PO BID 6AM 6PM #60 tab 04/25/21 - Past Medical/Surgical History Diabetic: Yes -: HTN -: Diabetes type 2 -: Uterine CA -: Cholecystectomy -: Hysterectomy -: Hernia Surgery Psychosocial/ Personal History: Disabled Pt lives at home with family - Family History Father Medical History: Other (see notes) Mother Medical History: Cancer Brother Medical History: Hypertension, Diabetes Sister Medical History: Hypertension, Diabetes, Other (see notes) - Social History Smoking Status: Former smoker Alcohol use: No CD- Drugs: No Caffeine use: No Review of Systems 10-point ROS is otherwise unremarkable Physical Examination - Vital Signs Temperature: 98 F Blood Pressure: 160/80 Pulse: 80 Respirations: 18 Pulse Ox (%): 98 - Physical Exam General: Alert, In no apparent distress, Oriented x3 HEENT: Atraumatic, PERRLA, Mucous membr. moist/pink, EOMI, Sclerae nonicteric Neck: Supple, 2+ carotid pulse no bruit, No LAD, Without JVD or thyroid abnormality Respiratory: Clear to auscultation bilaterally, Normal air movement Cardiovascular: Regular rate/rhythm, Normal S1 S2 Gastrointestinal: Hypoactive, Soft and benign, Non-distended, No tenderness Musculoskeletal: No tenderness Integumentary: No rashes Neurological: Normal gait, Normal speech, Normal strength at 5/5 x4 extr, Normal tone, Sensation intact, Cranial nerves 3-12 intact, Normal affect Lymphatics: No axilla or inguinal lymphadenopathy - Studies Laboratory Data (last 24 hrs) 05/16/23 05/16/23 18:45 18:45 WBC 9.20 Hgb 16.7 H Hct 50.0 H Plt Count 283 Sodium 133 L Potassium 3.5 BUN 40 H Creatinine 1.14 H Glucose 275 H Total Bilirubin 0.9 AST 16 ALT 23 Alkaline Phosphatase 77 Lipase 40 Assessment & Plan - Problems (Diagnosis) (1) Intractable vomiting with nausea Current Visit: Yes Status: Acute (2) Diabetes Current Visit: Yes Status: Acute (3) Gastroparesis Current Visit: Yes Status: Acute (4) Hyperlipidemia Current Visit: Yes Status: Acute (5) NSTEMI (non-ST elevated myocardial infarction) Current Visit: Yes Status: Acute - Plan Plan: 1. Intractable nausea and vomiting; continue with IV fluids and antiemetics. Most likely related to gastroparesis which may be exacerbated with Ozempic. Patient will be given Reglan. Will check lipase and LFTs. If patient's symptoms are persistent we will get surgery consultation. Otherwise, we will continue monitoring closely and will treat with IV fluids and antiemetics. 2. Non-STEMI; troponin is greater than 700. Patient denies any chest pain at this point. No acute EKG findings noted. We will do an echocardiogram and cardiology consultation with serial troponins. Continue with anticoagulation, antiplatelet therapy, statin therapy, and strict blood pressure and heart rate control 3. History of diabetes; patient's been a diabetic for greater than 10 years. Patient probably has multiple comorbidities related to her diabetes which have not completely presented themselves. She may have a component of gastroparesis that she has had some nausea and vomiting for on and off for a while. We will start her on Reglan x1. We will see how she does with that. I will probably need to hold off on Ozempic for the time being. Her A1c is elevated and she will need tighter blood sugar control going forward 4. Hypertension; patient not able to keep her oral antihypertensives down. We will go ahead and do IV antihypertensives for the time being. We will probably do a beta-carson for heart rate will tolerate it in the setting of a non-STEMI 5. GI DVT prophylaxis Discharge Plan: Home Plan to discharge in: Greater than 2 days - Advance Directives Does patient have a Living Will: No Does patient have a Durable POA for Healthcare: No - Code Status/Comfort Care Code Status Assessed: Yes Code Status: Full Code Critical Care: No Time Spent Managing PTS Care (In Minutes): 45
[2023-05-16] MEDS ORDERED: ENOXAPARIN 80 MG/0.8 ML SQ SCH (22:00)
[2023-05-17] MEDS: NA CHLORIDE 0.9% 1,000 ML IV SCH ×2 (00:19→12:04)
[2023-05-17 03:36] LABS: Protime INR 1.03
[2023-05-17 04:11] LABS: Absolute Lymphocytes (CBC) 1.1 K/uL (0.7-4.9); Hematocrit 43.2 % (36.0-45.0); Lymphocytes % 12.6 % (15.3-44.8); MCV 86.5 fL (80-100); MPV 7.3 fL (7.6-11.3); Platelets 245 thou/uL (152-406); RBC Red Blood Cell Count 4.99 M/uL (3.86-4.86)
[2023-05-17 04:56] LABS: Albumin 3.2 g/dL (3.4-5.0); Bilirubin Total 0.7 mg/dL (0.2-1.0); Magnesium 2.7 mg/dL (1.6-2.4); Phosphorus 2.1 mg/dL (2.5-4.9); Potassium 3.3 mEq/L (3.5-5.1); Protein, Total 6.7 g/dL (6.4-8.2)
[2023-05-17] MEDS: ASPIRIN EC 81 MG TAB PO SCH (08:31)
[2023-05-17] MEDS: POTASS/SODIUM PHOSPHATE 1 PKT POWD.PACK PO SCH ×3 (08:31→09:53)
[2023-05-17] MEDS: METOPROLOL TAR 50 MG TAB PO SCH ×2 (08:31→19:33)
[2023-05-17] MEDS: ONDANSETRON 4 MG/2 ML VIAL IV PRN (08:44)
[2023-05-17] MEDS ORDERED: POTASSIUM CL SA 10 MEQ TAB PO ONE (09:00)
[2023-05-17] MEDS ORDERED: HYDRALAZINE HCL 20 MG/ML VIAL IV ONE (10:21)
[2023-05-17] MEDS ORDERED: ENALAPRILAT 1.25 MG/ML VIAL IV ONE ×2 (10:59→12:00)
[2023-05-17] MEDS: METOCLOPRAMIDE 10 MG/2mL INJ IV PRN ×2 (13:31→19:35)
--- NOTE | 2023-05-17 14:24 | EKG ---
Test Date: 2023-05-16 Test Time: 18:52:48 Hydraulic Bull Riveter Operator: RITA MEASUREMENT RESULTS: Intervals: Rate: 104 FL: 158 QRSD: 82 QT: 352 QTc: 462 [place]: P: 51 FL: 158 QRS: 42 T: 44 INTERPRETIVE STATEMENTS: Sinus tachycardia Otherwise normal ECG Compared to ECG 05/14/2022 16:18:49 Sinus rhythm no longer present T-wave abnormality no longer present Electronically Signed On 05-17-23 14:22:08 TRAVEL ASSISTANT by Bandar Johnson
[2023-05-17] MEDS: HYDRALAZINE HCL 20 MG/ML VIAL IV PRN (19:32)
[2023-05-17] MEDS: ATORVASTATIN 80 MG TAB PO SCH (19:33)
[2023-05-18] MEDS: NA CHLORIDE 0.9% 1,000 ML IV SCH ×3 (01:27→19:56)
[2023-05-18 06:40] LABS: Magnesium 2.3 mg/dL (1.6-2.4); Potassium 3.8 mEq/L (3.5-5.1)
[2023-05-18 06:45] LABS: Phosphorus 1.5 mg/dL (2.5-4.9)
[2023-05-18] MEDS ORDERED: POTASSIUM CL SA 10 MEQ TAB PO ONE (07:02)
[2023-05-18 07:32] VITALS: BMI 29.2
[2023-05-18] MEDS ORDERED: POTASS/SODIUM PHOSPHATE 1 PKT POWD.PACK PO SCH (08:00)
[2023-05-18] MEDS: POTASS/SODIUM PHOSPHATE 1 PKT POWD.PACK PO SCH ×2 (09:46→09:47)
[2023-05-18] MEDS: METOCLOPRAMIDE 10 MG/2mL INJ IV PRN ×2 (09:46→19:55)
[2023-05-18] MEDS: METOPROLOL TAR 50 MG TAB PO SCH ×2 (09:47→19:51)
[2023-05-18] MEDS: ASPIRIN EC 81 MG TAB PO SCH (09:47)
[2023-05-18] MEDS: HYDRALAZINE HCL 20 MG/ML VIAL IV PRN ×2 (13:05→19:50)
[2023-05-18] MEDS: ATORVASTATIN 80 MG TAB PO SCH (19:51)
[2023-05-19 06:46] LABS: Magnesium 2.2 mg/dL (1.6-2.4); Potassium 3.6 mEq/L (3.5-5.1)
[2023-05-19 06:54] LABS: Phosphorus 1.4 mg/dL (2.5-4.9)
[2023-05-19] MEDS ORDERED: POTASS/SODIUM PHOSPHATE 1 PKT POWD.PACK PO SCH (08:00)
[2023-05-19] MEDS ORDERED: POTASSIUM PHOS IN 0.9 % NACL 15 MMOL/250 ML BAG IV ONE (09:00)
[2023-05-19] MEDS ORDERED: POTASSIUM CL SA 10 MEQ TAB PO ONE (09:00)
[2023-05-19] MEDS: ASPIRIN EC 81 MG TAB PO SCH (09:07)
[2023-05-19] MEDS: METOCLOPRAMIDE 10 MG/2mL INJ IV PRN ×2 (09:07→20:42)
[2023-05-19] MEDS: METOPROLOL TAR 50 MG TAB PO SCH ×2 (09:07→20:43)
[2023-05-19] MEDS: HYDRALAZINE HCL 20 MG/ML VIAL IV PRN (14:07)
[2023-05-19] MEDS: NA CHLORIDE 0.9% 1,000 ML IV SCH (15:57)
[2023-05-19] MEDS: ATORVASTATIN 80 MG TAB PO SCH (20:42)
[2023-05-20] MEDS: ONDANSETRON 4 MG/2 ML VIAL IV PRN ×2 (01:45→19:59)
--- NOTE | 2023-05-20 02:57 | P.PN ---
Subjective Date of Service: 05/17/23 Subjective: Improving Patient's clinical symptoms are improving. Patient's nausea and vomiting has improved. However, she still nauseated. Spoke with cardiology and possible cardiac catheterization or stress test once her nausea and vomiting has improved. Review of Systems 10-point ROS is otherwise unremarkable Physical Examination - Vital Signs Temperature: 97.5 F Blood Pressure: 151/74 Pulse: 86 Respirations: 16 Pulse Ox (%): 99 - Physical Exam General: Alert, In no apparent distress, Oriented x3 HEENT: Atraumatic, PERRLA, EOMI Neck: Supple, JVD not distended Respiratory: Clear to auscultation bilaterally, Normal air movement Cardiovascular: Regular rate/rhythm, Normal S1 S2, Systolic murmur Gastrointestinal: Normal bowel sounds, Soft and benign, Non-distended, No tenderness Musculoskeletal: No clubbing, No swelling, No tenderness Neurological: Sensation intact, Cranial nerves 3-12 intact - Studies Medications List Reviewed: Yes Assessment & Plan - Problems (Diagnosis) (1) Intractable vomiting with nausea Current Visit: Yes Status: Acute (2) Diabetes Current Visit: Yes Status: Acute (3) Gastroparesis Current Visit: Yes Status: Acute (4) Hyperlipidemia Current Visit: Yes Status: Acute (5) NSTEMI (non-ST elevated myocardial infarction) Current Visit: Yes Status: Acute - Plan Plan: 1. Intractable nausea and vomiting; continue with IV fluids and antiemetics. Most likely related to gastroparesis which may be exacerbated with Ozempic. Patient will be given Reglan. Will check lipase and LFTs. If patient's symptoms are persistent we will get surgery consultation. Otherwise, we will continue monitoring closely and will treat with IV fluids and antiemetics. Patient clinical symptoms have improved. We will start her on a clear liquid diet and advance as tolerated point. 2. Non-STEMI; troponin is greater than 700. Patient denies any chest pain at this point. No acute EKG findings noted. We will do an echocardiogram and cardiology consultation with serial troponins. Continue with anticoagulation, antiplatelet therapy, statin therapy, and strict blood pressure and heart rate control. Appreciate cardiology recommendation. Stress test versus cardiac catheterization on Saturday. 3. History of diabetes; patient's been a diabetic for greater than 10 years. Patient probably has multiple comorbidities related to her diabetes which have not completely presented themselves. She may have a component of gastroparesis that she has had some nausea and vomiting for on and off for a while. We will start her on Reglan x1. We will see how she does with that. I will probably need to hold off on Ozempic for the time being. Her A1c is elevated and she will need tighter blood sugar control going forward. Blood sugars are stable. 4. Hypertension; patient not able to keep her oral antihypertensives down. We will go ahead and do IV antihypertensives for the time being. We will probably do a beta-carson for heart rate will tolerate it in the setting of a non-STEMI. Blood pressure stable. 5. GI DVT prophylaxis Discharge Plan: Home Plan to discharge in: Greater than 2 days - Advance Directives Does patient have a Living Will: No Does patient have a Durable POA for Healthcare: No - Code Status/Comfort Care Code Status: Full Code Critical Care: No Time Spent Managing PTS Care (In Minutes): 35
--- NOTE | 2023-05-20 03:03 | P.PN ---
Date of Service: 05/18/23 Subjective Patient is doing well with no new complaints. Nausea vomiting have improved. We started on clear liquid diet and patient is tolerating some of it. No nausea or vomiting. Chest pain is nonexistent. Gastroparesis/nausea vomiting symptoms improved. Will DC Ozempic going forward. Continue with strict blood sugar control. Review of Systems 10-point ROS is otherwise unremarkable Physical Examination - Vital Signs Reviewed - Physical Exam General: Alert, In no apparent distress, Oriented x3 Respiratory: Clear to auscultation bilaterally, Normal air movement Cardiovascular: Regular rate/rhythm, Normal S1 S2, Systolic murmur Gastrointestinal: Normal bowel sounds, Soft and benign, Non-distended, No tenderness Musculoskeletal: No clubbing, No swelling, No tenderness Neurological: No focal deficits - Studies Medications List Reviewed: Yes Assessment & Plan - Problems (Diagnosis) (1) Intractable vomiting with nausea Current Visit: Yes Status: Acute (2) Diabetes Current Visit: Yes Status: Acute (3) Gastroparesis Current Visit: Yes Status: Acute (4) Hyperlipidemia Current Visit: Yes Status: Acute (5) NSTEMI (non-ST elevated myocardial infarction) Current Visit: Yes Status: Acute - Plan Plan: 1. Intractable nausea and vomiting; continue with IV fluids and antiemetics. Advance diet as tolerated. N.p.o. after midnight for cardiac catheterization. 2. Non-STEMI; troponin is decreasing. Cardiac work-up pending. Patient to get cardiac catheterization or stress test. Appreciate cardiology consultation. 3. History of diabetes; patient's been a diabetic for greater than 10 years. Patient probably has multiple comorbidities related to her diabetes which have not completely presented themselves. She may have a component of gastroparesis that she has had some nausea and vomiting for on and off for a while. We will start her on Reglan x1. We will see how she does with that. I will probably need to hold off on Ozempic for the time being. Her A1c is elevated and she will need tighter blood sugar control going forward. Blood sugars are stable. 4. Hypertension; patient not able to keep her oral antihypertensives down. We will go ahead and do IV antihypertensives for the time being. We will probably do a beta-carson for heart rate will tolerate it in the setting of a non-STEMI. Blood pressure stable. 5. GI DVT prophylaxis Discharge Plan: Home Plan to discharge in: Greater than 2 days - Advance Directives Does patient have a Living Will: No Does patient have a Durable POA for Healthcare: No - Code Status/Comfort Care Code Status: Full Code Critical Care: No Time Spent Managing PTS Care (In Minutes): 35
--- NOTE | 2023-05-20 03:05 | P.PN ---
Date of Service: 05/19/23 Subjective Patient is doing well and advancing diet from full liquid soft cardiac diet. Planning for stress test versus cardiac catheterization in a.m. Review of Systems 10-point ROS is otherwise unremarkable Physical Examination - Vital Signs Reviewed - Physical Exam General: Alert, In no apparent distress, Oriented x3 Respiratory: Clear to auscultation bilaterally, Normal air movement Cardiovascular: Regular rate/rhythm, Normal S1 S2, Systolic murmur Gastrointestinal: Normal bowel sounds, Soft and benign, Non-distended, No tenderness Musculoskeletal: No clubbing, No swelling, No tenderness Neurological: No focal deficits Assessment & Plan - Problems (Diagnosis) (1) Intractable vomiting with nausea Current Visit: Yes Status: Acute (2) Diabetes Current Visit: Yes Status: Acute (3) Gastroparesis Current Visit: Yes Status: Acute (4) Hyperlipidemia Current Visit: Yes Status: Acute (5) NSTEMI (non-ST elevated myocardial infarction) Current Visit: Yes Status: Acute - Plan Continue with plan of care as mentioned below: 1. Intractable nausea and vomiting; continue with IV fluids and antiemetics. Advance diet as tolerated. N.p.o. after midnight for cardiac catheterization.vs stress test 2. Non-STEMI; troponin is decreasing. Cardiac work-up pending. Patient to get cardiac catheterization or stress test. Awaiting cardiology's recommendation. Appreciate cardiology consultation. 3. History of diabetes; patient's been a diabetic for greater than 10 years. Patient probably has multiple comorbidities related to her diabetes which have not completely presented themselves. She may have a component of gastroparesis that she has had some nausea and vomiting for on and off for a while. We will start her on Reglan x1. We will see how she does with that. I will probably need to hold off on Ozempic for the time being. Her A1c is elevated and she will need tighter blood sugar control going forward. Blood sugars are stable. 4. Hypertension; patient not able to keep her oral antihypertensives down. We will go ahead and do IV antihypertensives for the time being. We will probably do a beta-carson for heart rate will tolerate it in the setting of a non-STEMI. Blood pressure stable. 5. GI DVT prophylaxis Discharge Plan: Home Plan to discharge in: Greater than 2 days - Advance Directives Does patient have a Living Will: No Does patient have a Durable POA for Healthcare: No - Code Status/Comfort Care Code Status: Full Code Critical Care: No Time Spent Managing PTS Care (In Minutes): 35
[2023-05-20] MEDS: NA CHLORIDE 0.9% 1,000 ML IV SCH ×2 (05:36→19:58)
[2023-05-20 06:32] LABS: Hematocrit 44.1 % (36.0-45.0); Lymphocytes % 34.1 % (15.3-44.8); MCV 85.8 fL (80-100); MPV 7.4 fL (7.6-11.3); Platelets 196 thou/uL (152-406); RBC Red Blood Cell Count 5.14 M/uL (3.86-4.86)
[2023-05-20 06:43] LABS: Potassium 3.3 mEq/L (3.5-5.1)
--- NOTE | 2023-05-20 06:55 | ECHO ---
HEIGHT: 5 ft 3 in WEIGHT: 165 lb 0 oz DATE OF STUDY: 05/17/[address]: Sal Andrews MD 2-DIMENSIONAL: YES M.MODE: YES DOPPLER: YES COLOR FLOW: YES TDS: PORTABLE: YES DEFINITY: BUBBLE STUDY: DIAGNOSIS: CONGESTIVE HEART FAILURE CARDIAC HISTORY: CATHERIZATION: NO SURGERY: NO PROSTHETIC VALVE: NO PACEMAKER: NO MEASUREMENTS (cm) DIASTOLIC (NORMALS) SYSTOLIC (NORMALS) IVSd 1.1 (0.6-1.2) LA Diam 2.4 (1.9-4.0) LVEF 55% LVIDd 4.5 (3.5-5.7) LVIDs 3.4 (2.0-3.5) %FS 25% LVPWd 1.1 (0.6-1.2) Ao Diam 2.7 (2.0-3.7) 2 DIMENSIONAL ASSESSMENT: RIGHT ATRIUM: NORMAL LEFT ATRIUM: NORMAL RIGHT VENTRICLE: NORMAL LEFT VENTRICLE: NORMAL TRICUSPID VALVE: NORMAL MITRAL VALVE: 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 POOR WINDOWS AND STUDY 2. LEFT VENTRICULAR EJECTION FRACTION IS NORMAL 55-60% 3. SEVERE DISASTOLIC DYSFUNCTION 4. MODERATE CONCENTRIC LEFT VENTRICULAR HYPERTROPHY 5. MODERATE MITRAL ANNULAR CALCIFICATION WITH MILD MITRAL REGURGITATION TECHNOLOGIST: CALVIN RICE
[2023-05-20 07:06] LABS: Phosphorus 1.4 mg/dL (2.5-4.9)
[2023-05-20 07:07] LABS: Troponin High Sensitivity 254.7 pg/mL (<58.9)
[2023-05-20] MEDS: POTASS/SODIUM PHOSPHATE 1 PKT POWD.PACK PO SCH ×2 (09:00→10:00)
[2023-05-20] MEDS ORDERED: POTASSIUM PHOS IN 0.9 % NACL 15 MMOL/250 ML BAG IV ONE ×2 (09:00→17:30)
--- NOTE | 2023-05-20 09:55 | P.PN ---
Subjective Date of Service: 05/20/23 Chief Complaint: Intractable nausea and vomiting Subjective: No new changes, Improving Physical Examination - Vital Signs Temperature: 98.8 F Blood Pressure: 143/75 Pulse: 80 Respirations: 16 Pulse Ox (%): 96 - Physical Exam General: Alert, Oriented x3 HEENT: Atraumatic, Normocephalic Neck: Supple Respiratory: Normal air movement Cardiovascular: Regular rate/rhythm, Normal S1 S2 Gastrointestinal: Soft and benign Musculoskeletal: No swelling - Studies Medications List Reviewed: Yes Assessment And Plan - Plan Assessment & Plan - Problems (Diagnosis) (1) Intractable vomiting with nausea Current Visit: Yes Status: Acute (2) Diabetes Current Visit: Yes Status: Acute (3) Gastroparesis Current Visit: Yes Status: Acute (4) Hyperlipidemia Current Visit: Yes Status: Acute (5) NSTEMI (non-ST elevated myocardial infarction) Current Visit: Yes Status: Acute - Plan Continue with plan of care as mentioned below: 1. Intractable nausea and vomiting; continue with IV fluids and antiemetics. Advance diet as tolerated. 2. Non-STEMI; troponin is decreasing. Cardiac work-up pending. Patient to get cardiac catheterization or stress test today. Awaiting cardiology's recommendation post work up. 3. History of diabetes; patient's been a diabetic for greater than 10 years. No new development. Ozempic recommended to be on hold secondary to suspected gastroparesis/gastric slowing. We will follow symptomatology closely. 4. Hypertension; has a significant blood pressure control issues secondary to issues with vomiting and nausea. Continue with same management of blood pressure by monitoring vitals per unit protocol. We will continue oral antihypertensive medication and adjust as needed to achieve goal blood pressure of less than 130/80 mmHg. 5. GI DVT prophylaxis Discharge Plan: Home Plan to discharge in: next 24-48hrs. - Advance Directives Does patient have a Living Will: No Does patient have a Durable POA for Healthcare: No - Code Status/Comfort Care Code Status: Full Code Critical Care: No Time Spent Managing PTS Care (In Minutes): 30
[2023-05-20] MEDS ORDERED: HEPA 1000U/500MLS 2,000 UNIT/1,000 ML BAG IV ONE (10:33)
[2023-05-20] MEDS ORDERED: LIDOCAINE 1% 20 ML MDV ONE (10:33)
[2023-05-20] MEDS: ASPIRIN EC 81 MG TAB PO SCH (10:56)
[2023-05-20] MEDS: METOPROLOL TAR 50 MG TAB PO SCH ×2 (10:56→20:00)
[2023-05-20] MEDS ORDERED: MIDAZOLAM HCL 2 MG/2 ML INJ ONE (11:56)
[2023-05-20] MEDS ORDERED: HEPARIN 5000 UNIT/ML 1 ML VIAL ONE (11:56)
[2023-05-20] MEDS ORDERED: FENTANYL CITR 100 MCG/2 ML ONE (11:56)
[2023-05-20] MEDS ORDERED: NITROGLYCERIN/D5W 50 MG/250 ML BTL IV ONE (11:57)
[2023-05-20] MEDS ORDERED: VERAPAMIL HCL 10 MG/4 ML VIAL IV ONE (11:57)
[2023-05-20] MEDS ORDERED: HEPARIN 10,000 UNIT/10 ML VIAL IV ONE (11:57)
[2023-05-20] MEDS ORDERED: METHYLPREDNISOLONE 125 MG INJ ONE (11:58)
[2023-05-20] MEDS ORDERED: DIPHENHYDRAMINE 50 MG/ML VIAL ONE (11:58)
[2023-05-20] MEDS ORDERED: POTASSIUM CL SA 10 MEQ TAB PO ONE (12:00)
[2023-05-20] MEDS ORDERED: CLOPIDOGREL 75 MG TABLET ONE (12:42)
[2023-05-20] MEDS ORDERED: TICAGRELOR 90 MG TABLET PO ONE (12:43)
[2023-05-20] MEDS ORDERED: ASPIRIN 325 MG TAB ONE (12:43)
[2023-05-20] MEDS ORDERED: CLOPIDOGREL 75 MG TABLET PO ONE (12:45)
[2023-05-20] MEDS ORDERED: FAMOTIDINE 20 MG TAB ONE (12:48)
[2023-05-20] MEDS: HYDRALAZINE HCL 20 MG/ML VIAL IV PRN ×2 (13:57→21:25)
[2023-05-20] MEDS ORDERED: HYDRALAZINE HCL 20 MG/ML VIAL ONE (14:07)
[2023-05-20] MEDS ORDERED: POTASS/SODIUM PHOSPHATE 1 PKT POWD.PACK PO SCH (18:00)
[2023-05-20] MEDS: ATORVASTATIN 80 MG TAB PO SCH (20:00)
[2023-05-21 05:17] VITALS: O2SAT 96
[2023-05-21] MEDS: ASPIRIN EC 81 MG TAB PO SCH (08:07)
[2023-05-21] MEDS: METOPROLOL TAR 50 MG TAB PO SCH (08:08)
[2023-05-21] MEDS ORDERED: CLOPIDOGREL 75 MG TABLET PO SCH (09:00)
[2023-05-21 09:50] LABS: Potassium 3.5 mEq/L (3.5-5.1)
[2023-05-21] MEDS ORDERED: POTASSIUM CL SA 10 MEQ TAB PO ONE (10:12)
[2023-05-21] MEDS: NA CHLORIDE 0.9% 1,000 ML IV SCH (10:23)
[2023-05-21] MEDS: ONDANSETRON 4 MG/2 ML VIAL IV PRN ×2 (10:25→15:55)
--- NOTE | 2023-05-21 16:55 | P.PN ---
Subjective Date of Service: 05/21/23 Chief Complaint: Intractable nausea and vomiting Subjective: No new changes, Improving Physical Examination - Vital Signs Temperature: 97.7 F Blood Pressure: 128/63 Pulse: 74 Respirations: 16 Pulse Ox (%): 97 - Physical Exam General: Alert HEENT: Atraumatic, Normocephalic Neck: Supple Respiratory: Normal air movement Cardiovascular: Regular rate/rhythm, Normal S1 S2 Gastrointestinal: Soft and benign Musculoskeletal: No swelling - Studies Medications List Reviewed: Yes Assessment And Plan - Plan Assessment & Plan - Problems (Diagnosis) (1) Intractable vomiting with nausea Current Visit: Yes Status: Acute (2) Diabetes Current Visit: Yes Status: Acute (3) Gastroparesis Current Visit: Yes Status: Acute (4) Hyperlipidemia Current Visit: Yes Status: Acute (5) NSTEMI (non-ST elevated myocardial infarction) Current Visit: Yes Status: Acute - Plan Continue with plan of care as mentioned below: 1. Intractable nausea and vomiting; continue with IV fluids and antiemetics. Advance diet as tolerated. 2. Non-STEMI; troponin is decreasing. Cardiac work-up pending. Patient had cardiac catheterization Awaiting cardiology's recommendation post work up. 3. History of diabetes; patient's been a diabetic for greater than 10 years. No new development. Ozempic recommended to be on hold secondary to suspected gastroparesis/gastric slowing. We will follow symptomatology closely. 4. Hypertension; has a significant blood pressure control issues secondary to issues with vomiting and nausea. Continue with same management of blood pressure by monitoring vitals per unit protocol. We will continue oral antihypertensive medication and adjust as needed to achieve goal blood pressure of less than 130/80 mmHg. 5. GI DVT prophylaxis Discharge Plan: Home Plan to discharge in: next 24-48hrs. - Advance Directives Does patient have a Living Will: No Does patient have a Durable POA for Healthcare: No - Code Status/Comfort Care Code Status: Full Code Critical Care: No Time Spent Managing PTS Care (In Minutes): 30
--- NOTE | 2023-05-21 17:12 | P.DS ---
Admission Date: 05/16/23 Discharge Date: 05/21/23 Disposition: ROUTINE DISCHARGE Discharge Condition: GOOD Reason for Admission: Intractable nausea and vomiting Consultations: Cardiology, pulmonary physician. Brief History of Present Illness: Patient is a 68-year-old female who presents to the emergency room with intractable nausea and vomiting. She patient has history of diabetes and hyperlipidemia. According to the family her A1c has been significantly elevated. She has been a diabetic for over 10 years. She has been in pretty good health. She had ovarian cancer and had a hysterectomy with oophorectomy. She is also had an umbilical hernia that was repaired but it pushed out again. She occasionally has some discomfort there but today she is not having any issues. She recently went to [place] where she was given some medications for nausea. Patient had a CT of the abdomen and pelvis which did not reveal any acute findings. Patient recently started Ozempic. She takes it once a week. She is on 0.25 mg. Thus only new medicine she recently started. She is coming to the emergency room because she was unable to get control of her nausea and vomiting. Patient initial troponin is elevated in the 700s. Patient will be admitted to the hospital for further evaluation. Hospital Course: On initial evaluation but patient was found to have NSTEMI and also issues with suspected gastroenteritis. She was put on PPI therapy started empiric antibiotic therapy and pain control medication. She continues to have symptomatic issues and cardiology evaluated patient and was deemed she was deemed to be in need of left heart cath. She had a left heart cath with right coronary artery stent placement. She stabilized postprocedure and was deemed stable for discharge to continue dual antiplatelet therapy of Plavix and aspirin and to follow-up with hospitality ambassador in 2 weeks for post cardiac cath care. Vital Signs/Physical Exam: Temp Pulse Resp BP Pulse Ox 97.7 F 74 16 128/63 97 05/21/23 16:55 05/21/23 16:55 05/21/23 16:55 05/21/23 16:55 05/21/23 16:55 General: Alert, Oriented x3 HEENT: Atraumatic, Normocephalic Respiratory: Normal air movement Cardiovascular: Regular rate/rhythm, Normal S1 S2 Gastrointestinal: Soft and benign Musculoskeletal: No swelling Integumentary: No breakdown Neurological: Normal speech, Normal strength at 5/5 x4 extr Laboratory Data at Discharge: WBC 5.80 thou/uL (4.3-10.9) 05/20/23 05:49 Hgb 15.5 g/dL (12.0-15.0) H 05/20/23 05:49 Hct 44.1 % (36.0-45.0) 05/20/23 05:49 Plt Count 196 thou/uL (152-406) 05/20/23 05:49 PT 11.3 SECONDS (9.5-12.5) 05/17/23 03:01 INR 1.03 05/17/23 03:01 APTT 38.1 SECONDS (24.3-36.9) H 05/17/23 03:01 Sodium 133 mEq/L (136-145) L 05/21/23 09:14 Potassium 3.5 mEq/L (3.5-5.1) 05/21/23 09:14 BUN 22 mg/dL (7-18) H 05/21/23 09:14 Creatinine 0.71 mg/dL (0.55-1.02) 05/21/23 09:14 Glucose 194 mg/dL (74-106) H 05/21/23 09:14 Phosphorus 1.4 mg/dL (2.5-4.9) L* 05/20/23 05:49 Magnesium 2.2 mg/dL (1.6-2.4) 05/19/23 05:50 Total Bilirubin 0.7 mg/dL (0.2-1.0) 05/17/23 03:01 AST 14 U/L (15-37) L 05/17/23 03:01 ALT 19 U/L (13-56) 05/17/23 03:01 Alkaline Phosphatase 60 U/L (45-117) D 05/17/23 03:01 Triglycerides 97 mg/dL (<150) 05/17/23 03:01 Cholesterol 132 mg/dL (<200) 05/17/23 03:01 HDL Cholesterol 52 mg/dL (40-60) 05/17/23 03:01 Cholesterol/HDL Ratio 2.54 05/17/23 03:01 Lipase 40 U/L (13-75) 05/16/23 18:45 Home Medications: Canagliflozin [Invokana] 300 mg PO DAILY 09/24/16 Losartan Potassium 100 mg PO DAILY 09/24/16 Metformin HCl [Glucophage] 1,000 mg PO BID 09/24/16 Omeprazole 20 mg PO DAILY 09/24/16 Rosuvastatin [Crestor*] 10 mg PO BEDTIME 04/24/21 Amlodipine [Norvasc*] 10 mg PO DAILY 05/17/23 Dapagliflozin Propanediol [Farxiga] 10 mg PO DAILY 05/17/23 Semaglutide [Ozempic] 0.25 mg SQ SEECOM 05/17/23 carvediloL [Coreg*] 25 mg PO BID 05/17/23 Diet: ADA Followup: Tiffanie Duarte NP [Primary Care Provider] - Bandar Johnson MD [ACTIVE - CAN ADMIT] -
[2023-05-21 17:18] VITALS: BP 186/82; TEMP 97
== END 2023-05-21 18:01 | disposition home or self-care (01) | DRG 73 ==
LOC: ER 18:03 → 4TH 21:52
PROVIDERS: ADMIT Hospitalist; ATTEND Internal Medicine Nephrology
DX: E11.43 Type 2 diabetes mellitus with diabetic autonomic (poly)neuropathy (principal); I21.4 Non-ST elevation (NSTEMI) myocardial infarction; K31.84 Gastroparesis; I10 Essential (primary) hypertension; E78.5 Hyperlipidemia, unspecified; K42.9 Umbilical hernia without obstruction or gangrene; K21.9 Gastro-esophageal reflux disease without esophagitis; T50.995A Adverse effect of other drugs, medicaments and biological substances, initial encounter; Z86.73 Personal history of transient ischemic attack (TIA), and cerebral infarction without residual deficits; Z90.49 Acquired absence of other specified parts of digestive tract; Z79.02 Long term (current) use of antithrombotics/antiplatelets; Z85.43 Personal history of malignant neoplasm of ovary; Z79.84 Long term (current) use of oral hypoglycemic drugs; Z90.710 Acquired absence of both cervix and uterus; Z91.041 Radiographic dye allergy status; Z79.899 Other long term (current) drug therapy; Z91.048 Other nonmedicinal substance allergy status; Z87.891 Personal history of nicotine dependence
CPT/HCPCS: 36415; 74176; 76937; 80048; 80053; 80061; 81001; 82805; 82947; 83036; 83690; 83735; 83880; 84100; 84484; 85025; 85347; 85610; 85730; 93005; 93306; 93458; 96361; 96374; 96375; 99285; C1725; C1893; C9600; J0360; J1200; J1644; J2001; J2250; J2405; J2765; J2930; J3010; J7030; Q9967

== ENCOUNTER 2023-08-16 13:30 | Day surgery (SDC) | payer OTHER ==
[2023-08-13 12:34] LABS: Absolute Lymphocytes (CBC) 1.6 K/uL (0.7-4.9); Hematocrit 44.7 % (36.0-45.0); Lymphocytes % 28.9 % (15.3-44.8); MPV 7.3 fL (7.6-11.3); Platelets 221 thou/uL (152-406); RBC Red Blood Cell Count 5.26 M/uL (3.86-4.86)
[2023-08-13 12:39] LABS: Protime INR 1.06
--- NOTE | 2023-08-13 13:12 | RAD REPORT ---
EXAM DESCRIPTION: RAD - Chest Pa And Lat (2 Views) - 08/13/2023 12:45 pm CLINICAL HISTORY: pre op L heart cath, abd angio hypertension COMPARISON: Chest Single View dated 04/24/2021; Chest Pa And Lat (2 Views) dated 04/16/2016; Chest S david View dated 10/21/2015; CHEST SINGLE VIEW dated 06/01/2015 TECHNIQUE: PA and lateral views of the chest were obtained. FINDINGS: The lungs are clear. Heart size is normal and central vasculature is within normal limits. No pleural effusion or pneumothorax seen. No acute bony finding noted. IMPRESSION: No acute cardiopulmonary process.
--- NOTE | 2023-08-15 14:45 | EKG ---
Test Date: 2023-08-13 Test Time: 13:13:26 Junior Automation Engineer: DENNIS MEASUREMENT RESULTS: Intervals: Rate: 79 [place]: 164 QRSD: 74 QT: 386 QTc: 442 [place]: P: 69 [place]: 164 QRS: 22 T: 47 INTERPRETIVE STATEMENTS: Normal sinus rhythm Nonspecific T wave abnormality Abnormal ECG Compared to ECG 05/16/2023 18:52:48 T-wave abnormality now present Sinus tachycardia no longer present Electronically Signed On 08-15-23 14:41:54 AN/SYQ 13 NAV/C2 OPERATOR by Bandar Johnson
[2023-08-16] MEDS ORDERED: NA CHLORIDE 0.9% 500 ML ONE (13:34)
[2023-08-16] MEDS ORDERED: ATROPINE SULF 1 MG/10 ML SYR IV ONE (13:52)
[2023-08-16] MEDS ORDERED: HEPA 1000U/500MLS 2,000 UNIT/1,000 ML BAG IV ONE (13:52)
[2023-08-16] MEDS ORDERED: FENTANYL CITR 100 MCG/2 ML ONE (13:52)
[2023-08-16] MEDS ORDERED: LIDOCAINE 1% 20 ML MDV ONE (13:52)
[2023-08-16] MEDS ORDERED: HEPARIN 5000 UNIT/ML 1 ML VIAL ONE (13:52)
[2023-08-16] MEDS ORDERED: MIDAZOLAM HCL 2 MG/2 ML INJ ONE (13:52)
[2023-08-16] MEDS ORDERED: VERAPAMIL HCL 10 MG/4 ML VIAL IV ONE (13:52)
[2023-08-16] MEDS ORDERED: CLOPIDOGREL 75 MG TABLET ONE (13:53)
[2023-08-16] MEDS ORDERED: ASPIRIN 325 MG TAB ONE (13:53)
[2023-08-16] MEDS ORDERED: TICAGRELOR 90 MG TABLET PO ONE (13:53)
[2023-08-16] MEDS ORDERED: HEPARIN 10,000 UNIT/10 ML VIAL IV ONE (13:53)
[2023-08-16 13:56] VITALS: BP 172/88; TEMP 97.8; O2SAT 98
[2023-08-16] MEDS ORDERED: METHYLPREDNISOLONE 125 MG INJ ONE (14:11)
[2023-08-16] MEDS ORDERED: DIPHENHYDRAMINE 50 MG/ML VIAL ONE (14:11)
== END 2023-08-16 14:52 | disposition home or self-care (01) ==
LOC: CCL 13:30
PROVIDERS: ATTEND Internal Medicine
DX: I25.10 Atherosclerotic heart disease of native coronary artery without angina pectoris (principal); I70.223 Atherosclerosis of native arteries of extremities with rest pain, bilateral legs; Z53.8 Procedure and treatment not carried out for other reasons
CPT/HCPCS: 93005 ×2; 85025; 80048; 36415; 83721; 85610; 82947; 85730; 71046; J2001; J7040; J0461; J1200; J1644; J2250; J2930; J3010

== ENCOUNTER 2023-10-25 12:00 | Emergency (ER) | payer OTHER ==
--- OUTSIDE RECORDS SUMMARY | 2023-10-25 12:05 | XMS REPORT | Continuity of Care Document ---
Author Name Unknown Address [address] [facility] [place] [address] [facility] Address [address] [facility] [address] [place] [address] Care Team Providers Care Legal Intern Name Role Phone Tiffanie Duarte Primary Care Physician [phone] SAL OBRIEN Attending Clinician Kenyatta Hutchinson Attending Clinician CAROLINE Olvera Attending Clinician FRANCOIS Camejo Attending Clinician FRANCOIS Lo Attending Clinician HARIS Barragan Attending Clinician HARIS Fontanez Attending Clinician Jennifer de leon Pob, [facility] Main Attending Clinician Unavailabl e Nwajei AGPCNP, Caroline Attending Clinician [phone] DMITRIYKESHAWN SOUSAN Attending Clinician Unavailable SEEMA ZIMMERMAN Attending Clinician Unavailable Terri Guillaume RPH Attending Clinician Unavail able Doctor Unassigned, [place] Attending Clinician U navailable MARILIN ALVARADO Attending Clinician Unavailable MARILIN ALVARADO Attending Clinician Unavailable Odilon MOSLEYRebapatricia Attending Clinician [phone] MARZENA ROJO Attending Clinician Unavailable [email or web address] Attending Clinician UnavailSeema Callahan MD Attending Clinician [phone] OLIVIA BIRMINGHAM Attending Clinician Unavailable Olivia Birmingham MD Attending Clinician [phone] SAL OBRIEN Admitting Clinician Unavailab mati [email or web address]_S Admitting Clinician UnavailHARIS Genao Admitting Clinician Unavaila OLIVIA Walker Admitting Clinician Unavailable Payers Payer Name Policy Type Policy Number Effective Date Expirati on Date Source [facility] [id number] 2019 00:00:00 [place] [id number] 2014 00:00:00 HUMANA C1 [id number] [facility] HUMANA C1 [id number] [facility] HUMANA C1 [id number] [facility] HUMANA C1 [id number] [facility] Problems Condition Name Condition Details Condition Category Status Onset Date Resolution Date Last Treatment Date Treating Clinician Comments Source Candidal vulvovagin itis Candidal vulvovagin itis Disease Active 2022-07 00:00: 00 [facility] Chronic fatigue syndrome Chronic fatigue syndrome Disease Active 2022-07 00:00: 00 [facility] Chronic pain Chronic pain Disease Active 2022-07 00:00: 00 [facility] Diabetic polyneurop athy Diabetic polyneurop athy Disease Active 2022-07 00:00: 00 [facility] Diverticul ar disease of colon Diverticul ar disease of colon Disease Active 2022-07 00:00: 00 [facility] Exposure to TB Exposure to TB Disease Active 2022-07 00:00: 00 [facility] Fatty liver Fatty liver Disease Active 2022-07 00:00: 00 [facility] Insomnia, unspecifie d type Insomnia, unspecifie d type Disease Active 2022-07 00:00: 00 [facility] Mixed hyperlipid emia Mixed hyperlipid emia Disease Active 2022-07 00:00: 00 [facility] Palpitatio ns Palpitatio ns Disease Active 2022-07 00:00: 00 [facility] Pericardia l effusion Pericardia l effusion Disease Active 2022-07 00:00: 00 [facility] Poison kayode Poison kayode Disease Active 2022-07 00:00: 00 [facility] Proteinuri a, unspecifie d Proteinuri a, unspecifie d Disease Active 2022-07 00:00: 00 [facility] Reactive depression Reactive depression Disease Active 2022-07 00:00: 00 [facility] Seborrheic dermatitis Seborrheic dermatitis Disease Active 2022-07 00:00: 00 [facility] Combined 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 d cataract of both eyes Combined 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 d cataract of both eyes Disease Active 2022-07 00:00: 00 [facility] Optic neuropathy Optic neuropathy Disease Active 2022-07 00:00: 00 [facility] Gastroesop hageal reflux disease without esophagiti s Gastroesop hageal reflux disease without esophagiti s Disease Active 2022-07 00:00: 00 [facility] Uncontroll ed type 2 diabetes mellitus with hyperglyce jairo Uncontroll ed type 2 diabetes mellitus with hyperglyce jairo Disease Active 2022-07 00:00: 00 [facility] Ventral hernia Ventral hernia Disease Active 2022-07 00:00: [address] [facility] [address] elevation (STEMI) myocardial infarction of unspecifie d site ST elevation (STEMI) myocardial infarction of unspecifie d site Disease Active 2022-07 00:00: 00 [facility] Dyslipidem ia Dyslipidem ia Disease Active 2022-07 00:00: 00 [facility] Routine gynecologi asad examinatio n Routine gynecologi asad examinatio n Disease Active 11-18 00:00: 00 [facility] Bilateral lower quadrant abdominal mass Bilateral lower quadrant abdominal mass Disease Active 11-18 00:00: 00 [facility] History of endometria l cancer History of endometria l cancer Disease Active 11-18 00:00: 00 [facility] S/P hysterecto my S/P hysterecto my Disease Active 11-18 00:00: 00 [facility] BMI 30.0-30.9, adult BMI 30.0-30.9, adult Disease Active 11-18 00:00: 00 [facility] Other screening mammogram Other screening mammogram Disease Active 10-07 00:00: 00 [facility] Endometria l cancer Endometria l cancer Disease Active 03-26 00:00: 00 [facility] Primary malignant neoplasm of endometriu m Primary malignant neoplasm of endometriu m Disease Active 03-26 00:00: 00 [facility] Type II or unspecifie d type diabetes mellitus with other specified manifestat ions, not stated as uncontroll ed Type II or unspecifie d type diabetes mellitus with other specified manifestat ions, not stated as uncontroll ed Disease Active 11-20 00:00: 00 [facility] Essential hypertensi on Essential hypertensi on Disease Active 11-20 00:00: 00 Overview: Formattin g of this note might be different from the original. 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 ICD10 Diagnosis Term Diabetes Territory Manager Utility [facility] Gastroesop hageal reflux disease GERD (gastroeso phageal reflux disease) Problem [facility] Diabetes mellitus without complicati on Diabetes DMII without complicati ons Problem [facility] Diverticul ar disease of colon Diverticul osis large intestine w/o perforatio n or abscess w/o bleeding Problem [facility] Poison kayode Poison kayode Problem [facility] Allergies, Adverse Reactions, Alerts Allergy Name Allergy Type Status Severity Reaction(s) Onset Date Inactive Date Treating Clinician Comments Source LISINOPR IL DRUG INGREDI Active Hives 07-11 00:00: 00 [facility] Iodine And Iodide Containi ng Products Propensi ty to adverse reaction s to drug Active Rash 2013-07 00:00: 00 [facility] Gadolini um-Conta ining Contrast Media Propensi ty to adverse reaction s Active Hives 2013-07 00:00: 00 [facility] IODINE AND IODIDE CONTAINI NG PRODUCTS Drug Class Active Low Rash 2013-07 00:00: 00 [facility] GADOLINI UM-CONTA INING CONTRAST MEDIA Drug Class Active Low Hives 2013-07 00:00: 00 [facility] 463 Drug allergy Active Unknown [facility] lisinopr il lisinopr il Active Unknown [facility] Social History Social Habit Start Date Stop Date Quantity Comments Source History of Tobacco Use [facility] Gender identity [facility] Sexual orientation [facility] Alcohol intake 2023-09-27 00:00:00 2023-09-27 00:00:00 Current non-drinker of alcohol (finding) [facility] History of Social function 2023-09-27 00:00:00 2023-09-27 00:00:00 [facility] Exposure to SARS-CoV-2 (event) 2022-12-15 00:00:00 2022-12-25 15:44:00 Not sure [facility] Sex Assigned At 1955 00:00:00 1955 00:00:00 [facility] Smoking Status Start Date Stop Date Source Never smoked tobacco [facility] Medications Ordered Medication Name Filled Medication Name Start Date Stop Date Current Medication? Ordering Clinician Indication Dosage Frequency Signature (SIG) Comments Components Source gabapentin 300 mg capsule 09-26 15:42: 40 09-26 00:00 :00 No TAKE 2 CAPSULES BY MOUTH 3 TIMES DAILY NEEDED FOR NERVE PAIN (SHINGLES) FOR 30 DAY(S) for 30 [facility] valACYclovi r 1 gram tablet 09-26 15:41: 31 09-26 00:00 :00 No TAKE 1 TABLET BY MOUTH THREE TIMES A DAY FOR 10 DAY(S) for 10 [facility] traZODone 50 mg tablet 09-26 15:41: 31 09-26 00:00 :00 No TAKE 1 TABLET AT BEDTIME NEEDED ONCE A DAY for 30 [facility] clopidogreL 75 mg tablet 09-26 15:30: 33 Yes 75mg Take 1 tablet by mouth daily. [facility] semaglutide (OZEMPIC) 1 mg/dose (4 mg/3 mL) PnIj 09-26 00:00: 00 Yes [id number] 1mg inject 1 mg under the skin weekly. [facility] flash glucose scanning reader (FREESTYLE EMERSON 2 READER MISC) 07-11 16:04: 08 Yes as directed SC dailyk for 365 days [facility] amLODIPine 5 mg tablet 07-11 16:00: 00 Yes 1 tablet Orally Once a day for 90 [facility] carvedilol (COREG) 25 mg tablet 07-11 16:00: 00 Yes 25mg Take 1 tablet by mouth 2 (two) times daily with meals. [facility] hydralAZINE (APRESOLINE ) 50 mg tablet 07-11 16:00: 00 Yes 100mg Take 2 tablets by mouth 2 (two) times daily. [facility] Vitamin B-12 1,000 mcg tablet 07-11 16:00: 00 Yes 1 tablet Orally Once a day [facility] DULoxetine (CYMBALTA) 30 mg capsule 07-11 16:00: 00 Yes 30mg 1 capsule. [facility] DULoxetine (CYMBALTA) 60 mg capsule 07-11 16:00: 00 Yes 60mg 1 capsule. [facility] gabapentin 300 mg capsule 07-11 16:00: 00 Yes TAKE 2 CAPSULES BY MOUTH 3 TIMES DAILY NEEDED FOR NERVE PAIN (SHINGLES) FOR 30 DAY(S) for 30 [facility] omeprazole 20 mg capsule 07-11 16:00: 00 Yes TAKE 1 CAPSULE BY MOUTH EVERY DAY FOR 30 DAYS. [facility] rosuvastati n 10 mg tablet 07-11 16:00: 00 Yes TAKE 1 TABLET BY MOUTH EVERY DAY AT BEDTIME FOR 90 DAYS. [facility] traZODone 50 mg tablet 07-11 16:00: 00 Yes TAKE 1 TABLET AT BEDTIME NEEDED ONCE A DAY for 30 [facility] valACYclovi r 1 gram tablet 07-11 16:00: 00 Yes TAKE 1 TABLET BY MOUTH THREE TIMES A DAY FOR 10 DAY(S) for 10 [facility] amLODIPine 10 mg tablet 07-11 16:00: 00 Yes amlodipine 10 mg tablet Take 1 tablet every day by oral route for 90 days. [facility] amLODIPine 5 mg tablet 07-11 16:00: 00 Yes 1 tablet Orally Once a day for 90 [facility] hydralAZINE (APRESOLINE ) 50 mg tablet 07-11 16:00: 00 Yes 100mg Take 2 tablets by mouth 2 (two) times daily. [facility] DULoxetine (CYMBALTA) 60 mg capsule 07-11 16:00: 00 Yes 60mg 1 capsule. [facility] gabapentin 300 mg capsule 07-11 16:00: 00 Yes TAKE 2 CAPSULES BY MOUTH 3 TIMES DAILY NEEDED FOR NERVE PAIN (SHINGLES) FOR 30 DAY(S) for 30 [facility] omeprazole 20 mg capsule 07-11 16:00: 00 Yes TAKE 1 CAPSULE BY MOUTH EVERY DAY FOR 30 DAYS. [facility] rosuvastati n 10 mg tablet 07-11 16:00: 00 Yes TAKE 1 TABLET BY MOUTH EVERY DAY AT BEDTIME FOR 90 DAYS. [facility] traZODone 50 mg tablet 07-11 16:00: 00 Yes TAKE 1 TABLET AT BEDTIME NEEDED ONCE A DAY for 30 [facility] valACYclovi r 1 gram tablet 07-11 16:00: 00 Yes TAKE 1 TABLET BY MOUTH THREE TIMES A DAY FOR 10 DAY(S) for 10 [facility] amLODIPine 10 mg tablet 07-11 16:00: 00 Yes amlodipine 10 mg tablet Take 1 tablet every day by oral route for 90 days. [facility] amLODIPine 5 mg tablet 07-11 16:00: 00 Yes 1 tablet Orally Once a day for 90 [facility] DULoxetine (CYMBALTA) 60 mg capsule 07-11 16:00: 00 Yes 60mg 1 capsule. [facility] omeprazole 20 mg capsule 07-11 16:00: 00 Yes TAKE 1 CAPSULE BY MOUTH EVERY DAY FOR 30 DAYS. [facility] rosuvastati n 10 mg tablet 07-11 16:00: 00 Yes TAKE 1 TABLET BY MOUTH EVERY DAY AT BEDTIME FOR 90 DAYS. [facility] amLODIPine 10 mg tablet 07-11 16:00: 00 Yes amlodipine 10 mg tablet Take 1 tablet every day by oral route for 90 days. [facility] amLODIPine 5 mg tablet 07-11 16:00: 00 Yes 1 tablet Orally Once a day for 90 [facility] DULoxetine (CYMBALTA) 60 mg capsule 07-11 16:00: 00 Yes 60mg 1 capsule. [facility] omeprazole 20 mg capsule 07-11 16:00: 00 Yes TAKE 1 CAPSULE BY MOUTH EVERY DAY FOR 30 DAYS. [facility] rosuvastati n 10 mg tablet 07-11 16:00: 00 Yes TAKE 1 TABLET BY MOUTH EVERY DAY AT BEDTIME FOR 90 DAYS. [facility] amLODIPine 10 mg tablet 07-11 16:00: 00 Yes amlodipine 10 mg tablet Take 1 tablet every day by oral route for 90 days. [facility] amLODIPine 5 mg tablet 07-11 16:00: 00 Yes 1 tablet Orally Once a day for 90 [facility] omeprazole 20 mg capsule 07-11 16:00: 00 Yes TAKE 1 CAPSULE BY MOUTH EVERY DAY FOR 30 DAYS. [facility] rosuvastati n 10 mg tablet 07-11 16:00: 00 Yes TAKE 1 TABLET BY MOUTH EVERY DAY AT BEDTIME FOR 90 DAYS. [facility] clopidogreL 75 mg tablet 07-11 15:50: 13 Yes 75mg Take 1 tablet by mouth daily. [facility] liraglutide (VICTOZA 2-MARIELENA) 0.6 mg/0.1 mL (18 mg/3 mL) injection 07-02 15:01: 02 07-02 00:00 :00 No inject 1.8 mg Subcutaneo us once a day for 30 [facility] dapaglifloz in propanediol (FARXIGA) 10 mg tablet 07-02 15:00: 43 07-02 00:00 :00 No Farxiga 10 mg tablet Take 1 tablet every day by oral route for 90 days. [facility] dapaglifloz in propanediol (FARXIGA) 10 mg tablet 07-02 00:00: 00 Yes [id number] 10mg Take 1 tablet by mouth daily. [facility] metFORMIN 1,000 mg tablet 07-02 00:00: 00 Yes [id number] 1000mg Take 1 tablet by mouth 2 (two) times daily with meals. [facility] metFORMIN 1,000 mg tablet 07-02 00:00: 00 Yes [id number] 1000mg Take 1 tablet by mouth 2 (two) times daily with meals. [facility] metFORMIN 1,000 mg tablet 07-02 00:00: 00 Yes [id number] 1000mg Take 1 tablet by mouth 2 (two) times daily with meals. [facility] metFORMIN 1,000 mg tablet 07-02 00:00: 00 Yes [id number] 1000mg Take 1 tablet by mouth 2 (two) times daily with meals. [facility] metFORMIN 1,000 mg tablet 07-02 00:00: 00 Yes [id number] 1000mg Take 1 tablet by mouth 2 (two) times daily with meals. [facility] flash glucose scanning reader (FREESTYLE EMERSON 2 READER MIS) 2022-07 13:15: 38 Yes as directed SC dailyk for 365 days [facility] Vitamin B-12 1,000 mcg tablet 2022-07 13:15: 38 Yes 1 tablet Orally Once a day [facility] DULoxetine (CYMBALTA) 30 mg capsule 2022-07 13:15: 38 Yes 30mg 1 capsule. [facility] fluconazole 150 mg tablet 2022-07 13:15: 38 Yes 1 tablet Orally [facility] fluconazole 150 mg tablet 2022-07 13:15: 38 Yes 1 tablet today and may repeat one tab in 1 week if no improvemen t Orally one tab a week for 1 day(s) [facility] fluconazole (DIFLUCAN) 150 mg tablet 2022-07 13:15: 38 Yes 1 tablet Orally [facility] gabapentin 300 mg capsule 2022-07 13:15: 38 Yes TAKE 2 CAPSULES BY MOUTH 3 TIMES DAILY NEEDED FOR NERVE PAIN (SHINGLES) FOR 30 DAY(S) for 30 [facility] insulin glargine U-300 conc (TOUJEO SOLOSTAR U-300 INSULIN) 300 unit/mL (1.5 mL) InPn 2022-07 13:15: 38 Yes 62 units and increase by 2 units every 3 days until fbg less 120 max 80 units daily Subcutaneo us daily for 90 days [facility] lir[facility] (VICTOZA 2-MARIELENA) 0.6 mg/0.1 mL (18 mg/3 mL) injection 2022-07 13:15: 38 Yes inject 1.8 mg Subcutaneo us once a day for 30 [facility] methylPREDN ISolone (MEDROL, MARIELENA,) 4 mg tablets 2022-07 13:15: 38 Yes as directed with food Orally for 5 days [facility] metroNIDAZO LE 500 mg tablet 2022-07 13:15: 38 Yes 1 tablet Orally Three times a day [facility] omeprazole 20 mg capsule 2022-07 13:15: 38 Yes TAKE 1 CAPSULE BY MOUTH EVERY DAY FOR 30 DAYS. [facility] rosuvastati n 10 mg tablet 2022-07 13:15: 38 Yes TAKE 1 TABLET BY MOUTH EVERY DAY AT BEDTIME FOR 90 DAYS. [facility] traZODone 50 mg tablet 2022-07 13:15: 38 Yes TAKE 1 TABLET AT BEDTIME NEEDED ONCE A DAY for 30 [facility] amLODIPine 5 mg tablet 2022-07 13:15: 38 Yes 1 tablet Orally Once a day for 90 [facility] dapaglifloz in propanediol (FARXIGA) 10 mg tablet 2022-07 13:15: 38 Yes Farxiga 10 mg tablet Take 1 tablet every day by oral route for 90 days. [facility] fluconazole 150 mg tablet 2022-07 13:15: 38 Yes 1 tablet Orally [facility] fluconazole 150 mg tablet 2022-07 13:15: 38 Yes 1 tablet today and may repeat one tab in 1 week if no improvemen t Orally one tab a week for 1 day(s) [facility] fluconazole (DIFLUCAN) 150 mg tablet 2022-07 13:15: 38 Yes 1 tablet Orally [facility] insulin glargine U-300 conc (TOUJEO SOLOSTAR U-300 INSULIN) 300 unit/mL (1.5 mL) In 2022-07 13:15: 38 Yes 62 units and increase by 2 units every 3 days until fbg less 120 max 80 units daily Subcutaneo us daily for 90 days [facility] liraglutide (VICTOZA 2-MARIELENA) 0.6 mg/0.1 mL (18 mg/3 mL) injection 2022-07 13:15: 38 Yes inject 1.8 mg Subcutaneo us once a day for 30 [facility] metroNIDAZO LE 500 mg tablet 2022-07 13:15: 38 Yes 1 tablet Orally Three times a day [facility] traZODone 50 mg tablet 2022-07 13:15: 38 Yes TAKE 1 TABLET AT BEDTIME NEEDED ONCE A DAY for 30 [facility] insulin glargine U-300 conc (TOUJEO SOLOSTAR U-300 INSULIN) 300 unit/mL (1.5 mL) In 2022-07 13:15: 38 Yes 62 units and increase by 2 units every 3 days until fbg less 120 max 80 units daily Subcutaneo us daily for 90 days [facility] liraglutide (VICTOZA 2-MARIELENA) 0.6 mg/0.1 mL (18 mg/3 mL) injection 2022-07 13:15: 38 Yes inject 1.8 mg Subcutaneo us once a day for 30 [facility] metroNIDAZO LE 500 mg tablet 2022-07 13:15: 38 Yes 1 tablet Orally Three times a day [facility] traZODone 50 mg tablet 2022-07 13:15: 38 Yes TAKE 1 TABLET AT BEDTIME NEEDED ONCE A DAY for 30 [facility] insulin glargine U-300 conc (TOUJEO SOLOSTAR U-300 INSULIN) 300 unit/mL (1.5 mL) [facility] 2022-07 13:15: 38 Yes 62 units and increase by 2 units every 3 days until fbg less 120 max 80 units daily Subcutaneo us daily for 90 days [facility] liraglutide (VICTOZA 2-MARIELENA) 0.6 mg/0.1 mL (18 mg/3 mL) injection 2022-07 13:15: 38 Yes inject 1.8 mg Subcutaneo us once a day for 30 [facility] metroNIDAZO LE 500 mg tablet 2022-07 13:15: 38 Yes 1 tablet Orally Three times a day [facility] insulin glargine U-300 conc (TOUJEO SOLOSTAR U-300 INSULIN) 300 unit/mL (1.5 mL) [facility] 2022-07 13:15: 38 Yes 62 units and increase by 2 units every 3 days until fbg less 120 max 80 units daily Subcutaneo us daily for 90 days [facility] metroNIDAZO LE 500 mg tablet 2022-07 13:15: 38 Yes 1 tablet Orally Three times a day [facility] moxifloxaci n (VIGAMOX) 0.5 % ophthalmic drops 2022-07 00:00: 00 Yes [id number] 1[drp] Place 1 Drop in right eye 4 (four) times daily. To start after cataract surgery [facility] ketorolac 0.5 % ophthalmic solution 2022-07 00:00: 00 Yes [id number] 1[drp] Place 1 Drop in right eye 4 (four) times daily. To start after cataract surgery [facility] prednisoLON E acetate 1 % ophthalmic suspension drops 2022-07 00:00: 00 Yes [id number] 1[drp] Place 1 Drop in right eye 4 (four) times daily. To start after cataract surgery [facility] canaglifloz in 100 mg tablet 2022-07 15:20: 32 05-31 00:00 :00 No Take by mouth. [facility] metoclopram mathew HCl 10 mg tablet 2022-07 14:28: 39 05-31 00:00 :00 No 10mg Take 1 tablet by mouth as needed. [facility] glimepiride (AMARYL) 4 mg tablet 2022-07 14:27: 55 05-31 00:00 :00 No 4mg Take 1 tablet by mouth 2 (two) times daily. [facility] clopidogreL 75 mg tablet 2022-07 14:27: 51 Yes 75mg Take 1 tablet by mouth daily. [facility] blood sugar diagnostic (ACCU-CHEK GUIDE TEST STRIPS) strip 2022-07 00:00: 00 Yes Use as directed to check blood sugars once daily E11.51 [facility] Lancets (ACCU-CHEK SOFTCLIX LANCETS) Misc 2022-07 00:00: 00 Yes Use as directed to check blood sugars once daily E11.51 [facility] atorvastati n 80 mg tablet 2022-07 00:00: 00 10-12 00:00 :00 No [id number] 80mg Take 1 tablet by mouth at bedtime. [facility] semaglutide (OZEMPIC) 0.25 mg or 0.5 mg (2 mg/3 mL) Ij 2022-07 00:00: 00 09-26 00:00 :00 No [id number] .5mg inject 0.5 mg under the skin weekly. [facility] semaglutide (OZEMPIC) 1 mg/dose (4 mg/3 mL) Ij 2022-07 00:00: 00 09-26 00:00 :00 No [id number] 1mg inject 1 mg under the skin weekly. [facility] dapaglifloz in propanediol (FARXIGA) 10 mg tablet 2022-07 00:00: 00 07-02 00:00 :00 No [id number] TAKE 1 TABLET BY MOUTH EVERY DAY FOR 90 DAYS. [facility] aspirin 81 mg EC tablet 2022-07 00:00: 00 Yes 81mg Take 1 tablet by mouth daily. [facility] atorvastati n 80 mg tablet 2022-07 00:00: 00 05-31 00:00 :00 No 80mg Take 1 tablet by mouth at bedtime. [facility] OZEMPIC 0.25 mg or 0.5 mg (2 mg/3 mL) PnIj 2022-07-13 00:00: 00 07-02 00:00 :00 No .25mg inject 0.25 mg under the skin weekly. [facility] ergocalcife rol, vitamin d2, 1,250 mcg (50,000 unit) capsule 03-21 00:00: 00 Yes [id number] Take 1 capsule by mouth weekly. [facility] INVOKANA 300 mg tablet 01-14 00:00: 00 Yes 300mg Take 1 tablet by mouth daily. [facility] INVOKANA 300 mg tablet 01-14 00:00: 00 05-31 00:00 :00 No 300mg Take 1 tablet by mouth daily. [facility] INVOKANA 300 mg tablet 01-14 00:00: 00 05-31 00:00 :00 No 300mg Take 1 tablet by mouth daily. [facility] glimepiride (AMARYL) 4 mg tablet 11-15 09:54: 30 Yes 4mg Take 1 tablet by mouth 2 (two) times daily. [facility] carvedilol (COREG) 25 mg tablet 11-15 09:54: 30 Yes 25mg Take 1 tablet by mouth 2 (two) times daily with meals. [facility] hydralAZINE (APRESOLINE ) 50 mg tablet 11-15 09:54: 30 Yes 100mg Take 2 tablets by mouth 2 (two) times daily. [facility] canaglifloz in 100 mg tablet 11-15 09:54: 30 Yes Take by mouth. [facility] metoclopram mathew HCl 10 mg tablet 11-15 09:54: 30 Yes 10mg Take 1 tablet by mouth as needed. [facility] losartan 100 mg tablet 11-06 00:00: 00 Yes TAKE 1 TABLET BY MOUTH EVERY DAY FOR 90 DAYS. [facility] JANEY RINALDI U-300 INSULIN 300 unit/mL (1.5 mL) InPn 11-06 00:00: 00 Yes INJECT 62 UNITS AND INCREASE BY 2 UNITS EVERY 3 DAYS UNTIL FASTING BLOOD SUGAR IS LESS 120 MAX 80 UNITS DAILY SUBCUTANEO [facility] losartan 100 mg tablet 11-06 00:00: 00 Yes TAKE 1 TABLET BY MOUTH EVERY DAY FOR 90 DAYS. [facility] losartan 100 mg tablet 11-06 00:00: 00 Yes TAKE 1 TABLET BY MOUTH EVERY DAY FOR 90 DAYS. [facility] losartan 100 mg tablet 11-06 00:00: 00 Yes TAKE 1 TABLET BY MOUTH EVERY DAY FOR 90 DAYS. [facility] losartan 100 mg tablet 11-06 00:00: 00 Yes TAKE 1 TABLET BY MOUTH EVERY DAY FOR 90 DAYS. [facility] losartan 100 mg tablet 11-06 00:00: 00 Yes TAKE 1 TABLET BY MOUTH EVERY DAY FOR 90 DAYS. [facility] amLODIPine 10 mg tablet 11-06 00:00: 00 Yes TAKE 1 TABLET BY MOUTH EVERY DAY FOR 90 DAYS. [facility] FARXIGA 10 mg tablet 11-06 00:00: 00 05-31 00:00 :00 No TAKE 1 TABLET BY MOUTH EVERY DAY FOR 90 DAYS. [facility] valACYclovi r HCl 1 GM valACYclovi r HCl 1 GM 6-03 00:00: 00 12-11 00:00 :00 No 1{table t} TID valACYclov ir HCl 1 GM Gabapentin 300 MG Gabapentin 300 MG 1-12 00:00: 00 No 1{capsu le} TID Gabapentin 300 MG Benzonatate 100 MG Benzonatate 100 MG 2020-07 2- 00:00: 00 06-30 00:00 :00 No 1{capsu le_as_n eeded} Benzonatat e 100 MG predniSONE 10 MG predniSONE 10 MG 2020-07 00:00: 00 06-07 00:00 :00 No QD predniSONE 10 MG Azithromyci n 250 MG Azithromyci n 250 MG 2020-07 00:00: 00 06-05 00:00 :00 No QD Azithromyc in 250 MG Triamcinolo ne Acetonide 0.1 % Triamcinolo ne Acetonide 0.1 % 2019-0 10-04 00:00: 00 No 1{appli cation_ to_affe cted_ar ea} BID Triamcinol one Acetonide 0.1 % Triamcinolo ne Acetonide 0.1 % Triamcinolo ne Acetonide 0.1 % 2019-0 10-04 00:00: 00 No 1{appli cation_ to_affe cted_ar ea} BID Triamcinol one Acetonide 0.1 % Triamcinolo ne Acetonide 0.1 % Triamcinolo ne Acetonide 0.1 % 2019-0 10-04 00:00: 00 No 1{appli cation_ to_affe cted_ar ea} BID Triamcinol one Acetonide 0.1 % Triamcinolo ne Acetonide 0.1 % Triamcinolo ne Acetonide 0.1 % 2019-0 10-04 00:00: 00 No 1{appli cation_ to_affe cted_ar ea} BID Triamcinol one Acetonide 0.1 % Triamcinolo ne Acetonide 0.1 % Triamcinolo ne Acetonide 0.1 % 2019-0 10-04 00:00: 00 No 1{appli cation_ to_affe cted_ar ea} BID Triamcinol one Acetonide 0.1 % Triamcinolo ne Acetonide 0.1 % Triamcinolo ne Acetonide 0.1 % 2019-0 10-04 00:00: 00 No 1{appli cation_ to_affe cted_ar ea} BID Triamcinol one Acetonide 0.1 % Triamcinolo ne Acetonide 0.1 % Triamcinolo ne Acetonide 0.1 % 2019-0 10-04 00:00: 00 No 1{appli cation_ to_affe cted_ar ea} BID Triamcinol one Acetonide 0.1 % Victoza Victoza 12 00:00: 00 04-09 00:00 :00 No Na Mei inject 1.8 mg [facility] Fluconazole Fluconazole 08-21 00:00: 00 Yes Na Mei 1 tablet today and may repeat one tab in 1 week if no improvemen [facility] Hydrochloro thiazide Hydrochloro thiazide 2017-07 00:00: 00 Yes Na Mei 1 tablet in the morning [facility] hydroCHLORO thiazide 25 MG hydroCHLORO thiazide 25 MG 2017-07 00:00: 00 No 1{table t_in_th e_morni ng} QD hydroCHLOR Othiazide 25 MG hydroCHLORO thiazide 25 MG hydroCHLORO thiazide 25 MG 2017-07 00:00: 00 No 1{table t_in_th e_morni ng} QD hydroCHLOR Othiazide 25 MG hydroCHLORO thiazide 25 MG hydroCHLORO thiazide 25 MG 2017-07 00:00: 00 No 1{table t_in_th e_morni ng} QD hydroCHLOR Othiazide 25 MG hydroCHLORO thiazide 25 MG hydroCHLORO thiazide 25 MG 2017-07 00:00: 00 No 1{table t_in_th e_morni ng} QD hydroCHLOR Othiazide 25 MG hydroCHLORO thiazide 25 MG hydroCHLORO thiazide 25 MG 2017-07 00:00: 00 No 1{table t_in_th e_morni ng} QD hydroCHLOR Othiazide 25 MG hydroCHLORO thiazide 25 MG hydroCHLORO thiazide 25 MG 2017-07 00:00: 00 No 1{table t_in_th e_morni ng} QD hydroCHLOR Othiazide 25 MG hydroCHLORO thiazide 25 MG hydroCHLORO thiazide 25 MG 2017-07 00:00: 00 No 1{table t_in_th e_morni ng} QD hydroCHLOR Othiazide 25 MG NovoFine Plus NovoFine Plus 2017-07 00:00: 00 Yes Na Mei as directed [facility] NovoFine Plus 32G X 4 MM NovoFine Plus 32G X 4 MM 2017-07 00:00: 00 No NovoFine Plus 32G X 4 MM NovoFine Plus 32G X 4 MM NovoFine Plus 32G X 4 MM 2017-07 00:00: 00 No NovoFine Plus 32G X 4 MM NovoFine Plus 32G X 4 MM NovoFine Plus 32G X 4 MM 2017-07 00:00: 00 No NovoFine Plus 32G X 4 MM NovoFine Plus 32G X 4 MM NovoFine Plus 32G X 4 MM 2017-07 00:00: 00 No NovoFine Plus 32G X 4 MM NovoFine Plus 32G X 4 MM NovoFine Plus 32G X 4 MM 2017-07 00:00: 00 No NovoFine Plus 32G X 4 MM NovoFine Plus 32G X 4 MM NovoFine Plus 32G X 4 MM 2017-07 00:00: 00 No NovoFine Plus 32G X 4 MM NovoFine Plus 32G X 4 MM NovoFine Plus 32G X 4 MM 2017-07 00:00: 00 No NovoFine Plus 32G X 4 MM Medrol Medrol 12-31 00:00: 00 Yes Kenyatta Mei as directed [facility] Triamcinolo ne Acetonide Triamcinolo ne Acetonide 12-31 00:00: 00 Yes Kenyatta Mei 1 applicatio n to affected area [facility] Triamcinolo ne Acetonide 0.1 % Triamcinolo ne Acetonide 0.1 % 12-31 00:00: 00 No 1{appli cation_ to_affe cted_ar ea} BID Triamcinol one Acetonide 0.1 % Medrol 4 MG Medrol 4 MG 12-31 00:00: 00 No Medrol 4 MG Triamcinolo ne Acetonide 0.1 % Triamcinolo ne Acetonide 0.1 % 12-31 00:00: 00 No 1{appli cation_ to_affe cted_ar ea} BID Triamcinol one Acetonide 0.1 % Medrol 4 MG Medrol 4 MG 12-31 00:00: 00 No Medrol 4 MG Medrol 4 MG Medrol 4 MG 12-31 00:00: 00 No Medrol 4 MG Triamcinolo ne Acetonide 0.1 % Triamcinolo ne Acetonide 0.1 % 12-31 00:00: 00 No 1{appli cation_ to_affe cted_ar ea} BID Triamcinol one Acetonide 0.1 % Medrol 4 MG Medrol 4 MG 12-31 00:00: 00 No Medrol 4 MG Triamcinolo ne Acetonide 0.1 % Triamcinolo ne Acetonide 0.1 % 12-31 00:00: 00 No 1{appli cation_ to_affe cted_ar ea} BID Triamcinol one Acetonide 0.1 % Triamcinolo ne Acetonide 0.1 % Triamcinolo ne Acetonide 0.1 % 12-31 00:00: 00 No 1{appli cation_ to_affe cted_ar ea} BID Triamcinol one Acetonide 0.1 % Medrol 4 MG Medrol 4 MG 12-31 00:00: 00 No Medrol 4 MG Triamcinolo ne Acetonide 0.1 % Triamcinolo ne Acetonide 0.1 % 12-31 00:00: 00 No 1{appli cation_ to_affe cted_ar ea} BID Triamcinol one Acetonide 0.1 % Medrol 4 MG Medrol 4 MG 12-31 00:00: 00 No Medrol 4 MG Triamcinolo ne Acetonide 0.1 % Triamcinolo ne Acetonide 0.1 % 12-31 00:00: 00 No 1{appli cation_ to_affe cted_ar ea} BID Triamcinol one Acetonide 0.1 % Medrol 4 MG Medrol 4 MG 12-31 00:00: 00 No Medrol 4 MG Trazodone HCl Trazodone HCl 12-25 00:00: 00 Yes Na Mei 1 tablet at bedtime as needed [facility] Janey Rinaldi 12-25 00:00: 00 Yes Na Mei 32 units and increase by 2 units every 3 days until fbg less 120 [facility] Kenalog (Triamcinol one) Kenalog (Triamcinol one) 08-21 00:00: 00 No 40mg [facility] Kenalog (Triamcinol one) Kenalog (Triamcinol one) 08-21 00:00: 00 No 40mg [facility] Kenalog (Triamcinol one) Kenalog (Triamcinol one) 08-21 00:00: 00 No 40mg [facility] Kenalog (Triamcinol one) Kenalog (Triamcinol one) 08-21 00:00: 00 No 40mg [facility] Kenalog (Triamcinol one) Kenalog (Triamcinol one) 08-21 00:00: 00 No 40mg [facility] glimepiride (AMARYL) 4 mg tablet 10-07 13:36: 11 Yes 4mg Take 4 mg by mouth 2 (two) times daily. [facility] hydralAZINE (APRESOLINE ) 50 mg tablet 10-07 13:36: 11 Yes 100mg Take 100 mg by mouth 2 (two) times daily. [facility] metoclopram mathew HCl (REGLAN) 10 mg tablet 10-07 13:36: 11 Yes 10mg Take 10 mg by mouth as needed. [facility] carvedilol (COREG) 25 mg tablet 10-07 13:32: 20 Yes 25mg Take 25 mg by mouth 2 (two) times daily with meals. [facility] canaglifloz in (INVOKANA) 100 mg Tab 10-07 13:32: 20 Yes Take by mouth. [facility] acetaminoph en-codeine (TYLENOL-CO DEINE #3) 300-30 mg tablet 2013-07 00:00: 00 05-31 00:00 :00 No [id number] 1{tbl} Take 1 Tab by mouth every 6 (six) hours as needed for Pain (scale 4-6). [facility] naproxen (NAPROSYN) 500 mg tablet 2013-07 00:00: 00 05-31 00:00 :00 No 500mg Take 1 Tab by mouth 2 (two) times daily with meals. [facility] NASONEX 50 mcg/actuati on nasal spray 03-18 00:00: 05-31 00:00 :00 No [facility] LYRICA 50 mg capsule 03-18 00:00: 05-31 00:00 :00 No 50mg Take 1 capsule by mouth 2 (two) times daily as needed. [facility] Crestor Crestor Yes Na Mei 1 tab(s) once a day (at bedtime) orally [facility] Coreg Coreg Yes Na Mei not defined [facility] Metformin HCl Metformin HCl Yes Na Mei 1 each 2 times a day orally [facility] Yes Na Mei 1 capsule [facility] Clotrimazol e Clotrimazol e Yes Na Mei 1 applicatio n to affected area [facility] Vitamin B12 Vitamin B12 Yes Na Mei 1 tablet [facility] Diflucan Diflucan Yes Na Mei 1 tablet [facility] Cozaar Cozaar Yes Na Mei 1 each once a day orally [facility] FreeStyle [employer] FreeStyle [employer] Yes Na Mei as directed [facility] FreeStyle [place] FreeStyle [place] Yes Na Mei as directed [facility] Yes Na Mei 1 capsule [facility] Amlodipine Besylate Amlodipine Besylate Yes Na Mei 1 tablet [facility] HydrALAZINE HCl HydrALAZINE HCl Yes Na Mei 1 tablet with food [facility] Prilosec Prilosec Yes Na Mei 1 capsule [facility] Omeprazole Omeprazole Yes Na Mei TA KE 1 CAPSULE BY MOUTH EVERY DAY [facility] Amlodipine Besylate Amlodipine Besylate Yes Na Mei 1 tablet [facility] Losartan Potassium Losartan Potassium Yes Na Mei 1 tablet Commo n [facility] Cymbalta 30 MG Cymbalta 30 MG No 1{capsu le} QD Cymbalta 30 MG FreeStyle [place] - FreeStyle [place] - No FreeStyle [place] - Cymbalta 60 MG Cymbalta 60 MG No Cymbalta 60 MG PriLOSEC 20 MG PriLOSEC 20 MG No 1{capsu le} QD PriLOSEC 20 MG Cozaar 100 MG Cozaar 100 MG No Cozaar 100 MG Diflucan 150 MG Diflucan 150 MG No 1{table t} Diflucan 150 MG Coreg 25 MG Coreg 25 MG No Co reg 25 MG hydrALAZINE HCl 50 MG hydrALAZINE HCl 50 MG No 1{table t_with_ food} TID hydrALAZIN E HCl 50 MG Vitamin B12 1000 MCG Vitamin B12 1000 MCG No 1{table t} QD Vitamin B12 1000 MCG Clotrimazol e 1 % Clotrimazol e 1 % No 1{appli cation_ to_affe cted_ar ea} BID Clotrimazo le 1 % Crestor 10 MG Crestor 10 MG No Crestor 10 MG FreeStyle [place] - FreeStyle [place] - No FreeStyle [place] - Cymbalta 60 MG Cymbalta 60 MG No Cymbalta 60 MG Diflucan 150 MG Diflucan 150 MG No 1{table t} Diflucan 150 MG Vitamin B12 1000 MCG Vitamin B12 1000 MCG No 1{table t} QD Vitamin B12 1000 MCG PriLOSEC 20 MG PriLOSEC 20 MG No 1{capsu le} QD PriLOSEC 20 MG hydrALAZINE HCl 50 MG hydrALAZINE HCl 50 MG No 1{table t_with_ food} TID hydrALAZIN E HCl 50 MG Coreg 25 MG Coreg 25 MG No Co reg 25 MG Cymbalta 30 MG Cymbalta 30 MG No 1{capsu le} QD Cymbalta 30 MG Cozaar 100 MG Cozaar 100 MG No Cozaar 100 MG Crestor 10 MG Crestor 10 MG No Crestor 10 MG Clotrimazol e 1 % Clotrimazol e 1 % No 1{appli cation_ to_affe cted_ar ea} BID Clotrimazo le 1 % Clotrimazol e 1 % Clotrimazol e 1 % No 1{appli cation_ to_affe cted_ar ea} BID Clotrimazo le 1 % Vitamin B12 1000 MCG Vitamin B12 1000 MCG No 1{table t} QD Vitamin B12 1000 MCG Cymbalta 30 MG Cymbalta 30 MG No 1{capsu le} QD Cymbalta 30 MG Cymbalta 60 MG Cymbalta 60 MG No Cymbalta 60 MG Coreg 25 MG Coreg 25 MG No Co reg 25 MG Cozaar 100 MG Cozaar 100 MG No Cozaar 100 MG Diflucan 150 MG Diflucan 150 MG No 1{table t} Diflucan 150 MG FreeStyle [place] - FreeStyle [place] - No FreeStyle [place] - Crestor 10 MG Crestor 10 MG No Crestor 10 MG PriLOSEC 20 MG PriLOSEC 20 MG No 1{capsu le} QD PriLOSEC 20 MG Vitamin B12 1000 MCG Vitamin B12 1000 MCG No 1{table t} QD Vitamin B12 1000 MCG Cymbalta 60 MG Cymbalta 60 MG No Cymbalta 60 MG Invokana 300 MG Invokana 300 MG No QD Invokana 300 MG FreeStyle [place] - FreeStyle [place] - No FreeStyle [place] - Cymbalta 30 MG Cymbalta 30 MG No 1{capsu le} QD Cymbalta 30 MG Coreg 25 MG Coreg 25 MG No 1{table t_with_ food} BID Coreg 25 MG Clotrimazol e 1 % Clotrimazol e 1 % No 1{appli cation_ to_affe cted_ar ea} BID Clotrimazo le 1 % Diflucan 150 MG Diflucan 150 MG No 1{table t} Diflucan 150 MG Cozaar 100 MG Cozaar 100 MG No Cozaar 100 MG Crestor 10 MG Crestor 10 MG No Crestor 10 MG PriLOSEC 20 MG PriLOSEC 20 MG No 1{capsu le} QD PriLOSEC 20 MG Coreg 25 MG Coreg 25 MG No 1{table t_with_ food} BID Coreg 25 MG hydrALAZINE HCl 50 MG hydrALAZINE HCl 50 MG No 1{table t_with_ food} TID hydrALAZIN E HCl 50 MG Cymbalta 60 MG Cymbalta 60 MG No 1{capsu le} QD Cymbalta 60 MG Crestor 10 MG Crestor 10 MG No Crestor 10 MG FreeStyle [place] - FreeStyle Emreson [place] - No FreeStyle [place] - Invokana 300 MG Invokana 300 MG No Invokana 300 MG amLODIPine Besylate 10 MG amLODIPine Besylate 10 MG No 1{table t} QD amLODIPine Besylate 10 MG Diflucan 150 MG Diflucan 150 MG No 1{table t} Diflucan 150 MG Cymbalta 30 MG Cymbalta 30 MG No 1{capsu le} QD Cymbalta 30 MG Vitamin B12 1000 MCG Vitamin B12 1000 MCG No 1{table t} QD Vitamin B12 1000 MCG Clotrimazol e 1 % Clotrimazol e 1 % No 1{appli cation_ to_affe cted_ar ea} BID Clotrimazo le 1 % PriLOSEC 20 MG PriLOSEC 20 MG No 1{capsu le} QD PriLOSEC 20 MG Cozaar 100 MG Cozaar 100 MG No Cozaar 100 MG metroNIDAZO LE 500 MG metroNIDAZO LE 500 MG No 1{table t} TID metroNIDAZ OLE 500 MG hydrALAZINE HCl 50 MG hydrALAZINE HCl 50 MG No 1{table t_with_ food} TID hydrALAZIN E HCl 50 MG Cymbalta 60 MG Cymbalta 60 MG No 1{capsu le} QD Cymbalta 60 MG Crestor 10 MG Crestor 10 MG No Crestor 10 MG metFORMIN HCl 1000 MG metFORMIN HCl 1000 MG No metFORMIN HCl 1000 MG FreeStyle [place] - FreeStyle [place] - No FreeStyle [place] - Invokana 300 MG Invokana 300 MG No Invokana 300 MG amLODIPine Besylate 10 MG amLODIPine Besylate 10 MG No 1{table t} QD amLODIPine Besylate 10 MG Diflucan 150 MG Diflucan 150 MG No 1{table t} Diflucan 150 MG Vitamin B12 1000 MCG Vitamin B12 1000 MCG No 1{table t} QD Vitamin B12 1000 MCG Cymbalta 30 MG Cymbalta 30 MG No 1{capsu le} QD Cymbalta 30 MG Clotrimazol e 1 % Clotrimazol e 1 % No 1{appli cation_ to_affe cted_ar ea} BID Clotrimazo le 1 % PriLOSEC 20 MG PriLOSEC 20 MG No 1{capsu le} QD PriLOSEC 20 MG Cozaar 100 MG Cozaar 100 MG No Cozaar 100 MG Victoza 18 MG/3ML Victoza 18 MG/3ML No QD Victoza 18 MG/3ML Coreg 25 MG Coreg 25 MG No 1{table t_with_ food} BID Coreg 25 MG metroNIDAZO LE 500 MG metroNIDAZO LE 500 MG No 1{table t} TID metroNIDAZ OLE 500 MG Toujeo SoloStar 300 UNIT/ML Toujeo SoloStar 300 UNIT/ML No QD Toujeo SoloStar 300 UNIT/ML Omeprazole 20 MG Omeprazole 20 MG No QD Omeprazole 20 MG hydrALAZINE HCl 50 MG hydrALAZINE HCl 50 MG No 1{table t_with_ food} TID hydrALAZIN E HCl 50 MG Cymbalta 60 MG Cymbalta 60 MG No 1{capsu le} QD Cymbalta 60 MG traZODone HCl 50 MG traZODone HCl 50 MG No traZODone HCl 50 MG Crestor 10 MG Crestor 10 MG No Crestor 10 MG metFORMIN HCl 1000 MG metFORMIN HCl 1000 MG No metFORMIN HCl 1000 MG Fluconazole 150 MG Fluconazole 150 MG No Fluconazol e 150 MG FreeStyle [place] - FreeStyle [place] - No FreeStyle [place] - Invokana 300 MG Invokana 300 MG No Invokana 300 MG Diflucan 150 MG Diflucan 150 MG No 1{table t} Diflucan 150 MG Gabapentin 300 MG Gabapentin 300 MG No Gabapentin 300 MG Vitamin B12 1000 MCG Vitamin B12 1000 MCG No 1{table t} QD Vitamin B12 1000 MCG Cymbalta 30 MG Cymbalta 30 MG No 1{capsu le} QD Cymbalta 30 MG Clotrimazol e 1 % Clotrimazol e 1 % No 1{appli cation_ to_affe cted_ar ea} BID Clotrimazo le 1 % PriLOSEC 20 MG PriLOSEC 20 MG No 1{capsu le} QD PriLOSEC 20 MG Losartan Potassium 100 MG Losartan Potassium 100 MG No 1{table t} QD Losartan Potassium 100 MG Cozaar 100 MG Cozaar 100 MG No Cozaar 100 MG amLODIPine Besylate 5 MG amLODIPine Besylate 5 MG No 1{table t} QD amLODIPine Besylate 5 MG DULoxetine HCl 60 MG DULoxetine HCl 60 MG No DULoxetine HCl 60 MG Victoza 18 MG/3ML Victoza 18 MG/3ML No QD Victoza 18 MG/3ML Rosuvastati n Calcium 10 MG Rosuvastati n Calcium 10 MG No Rosuvastat in Calcium 10 MG Coreg 25 MG Coreg 25 MG No 1{table t_with_ food} BID Coreg 25 MG valACYclovi r HCl 1 GM valACYclovi r HCl 1 GM No valACYclov ir HCl 1 GM Invokana Invokana 02-17 00:00 :00 No Na Mei 1 tab(s) once a day orally [facility] Vital Signs Vital Name Observation Time Observation Value Comments S ource Systolic blood pressure 2023-09-27 20:27:00 174 mm[Hg] [facility] Diastolic blood pressure 2023-09-27 20:27:00 94 mm[Hg] [facility] Heart rate 2023-09-27 20:27:00 80 /min [facility] Body height 2023-09-27 20:27:00 162.6 cm [facility] Body weight 2023-09-27 20:27:00 77.066 kg [facility] BMI 2023-09-27 20:27:00 29.16 kg/m2 [facility] Oxygen saturation in Arterial blood by Pulse oximetry 2023-09-27 20:27:00 99 /min [facility] Body weight 2023-06-27 20:13:00 76.204 kg [facility] BMI 2023-06-27 20:13:00 28.84 kg[facility] Body height 2023-06-11 22:19:00 162.6 cm [facility] Body weight 2023-06-11 22:19:00 76.204 kg [facility] BMI 2023-06-11 22:19:00 28.84 kg/m2 [facility] Body weight 2023-06-11 16:18:00 75.751 kg [facility] BMI 2023-06-11 16:18:00 28.67 kg/m2 Univ [facility] Systolic blood pressure 2023-05-31 20:31:00 155 mm[Hg] [facility] Diastolic blood pressure 2023-05-31 20:31:00 87 mm[Hg] [facility] Heart rate 2023-05-31 20:28:00 85 /min [facility] Body height 2023-05-31 20:28:00 162.6 cm [facility] Body weight 2023-05-31 20:28:00 76.068 kg Univ [facility] BMI 2023-05-31 20:28:00 28.79 kg/m2 Univ [facility] Systolic blood pressure 2023-04-09 16:27:00 121 mm[Hg] [facility] Diastolic blood pressure 2023-04-09 16:27:00 71 mm[Hg] [facility] Heart rate 2023-04-09 16:27:00 69 /min Unive [facility] Body temperature 2023-04-09 16:27:00 36.39 [place]iley [facility] Respiratory rate 2023-04-09 16:27:00 16 /min [facility] Body height 2023-04-09 16:27:00 162.6 cm [facility] Body weight 2023-04-09 16:27:00 76.658 kg [facility] BMI 2023-04-09 16:27:00 29.01 kg/m2 [facility] Oxygen saturation in Arterial blood by Pulse oximetry 2023-04-09 16:27:00 98 /min [facility] Systolic blood pressure 2022-12-25 20:56:00 134 mm[Hg] [facility] Diastolic blood pressure 2022-12-25 20:56:00 73 mm[Hg] [facility] Heart rate 2022-12-25 20:56:00 98 /min Unive [facility] Body temperature 2022-12-25 20:56:00 36.11 [place] [facility] Respiratory rate 2022-12-25 20:56:00 20 /min [facility] Body height 2022-12-25 20:56:00 152.4 cm Univ [facility] Body weight 2022-12-25 20:56:00 78.926 kg [facility] BMI 2022-12-25 20:56:00 33.98 kg/m2 [facility] Oxygen saturation in Arterial blood by Pulse oximetry 2022-12-25 20:56:00 97 /min [facility] Systolic blood pressure 2022-12-20 19:23:00 158 mm[Hg] [facility] Diastolic blood pressure 2022-12-20 19:23:00 84 mm[Hg] [facility] Heart rate 2022-12-20 19:23:00 87 /min [facility] Body temperature 2022-12-20 19:18:00 36.39 [place] [facility] Respiratory rate 2022-12-20 19:18:00 18 /min [facility] Body height 2022-12-20 19:18:00 160 cm Univ [facility] Body weight 2022-12-20 19:18:00 79.742 kg [facility] BMI 2022-12-20 19:18:00 31.14 kg/m2 Univ [facility] Oxygen saturation in Arterial blood by Pulse oximetry 2022-12-20 19:18:00 97 /min [facility] Systolic blood pressure 2022-11-15 14:53:00 148 mm[Hg] [facility] Diastolic blood pressure 2022-11-15 14:53:00 73 mm[Hg] [facility] Heart rate 2022-11-15 14:53:00 87 /min [facility] Respiratory rate 2022-11-15 14:53:00 18 /min [facility] Body height 2022-11-15 14:53:00 160 cm [facility] Body weight 2022-11-15 14:53:00 78.926 kg [facility] BMI 2022-11-15 14:53:00 30.82 kg/m2 [facility] height 2022-06-12 15:20:00 63.00 [in_i] Com [facility] weight 2022-06-12 15:20:00 162.8 [lb_av] Co [facility] temperature 2022-06-12 15:20:00 96.8 [degF] Com [facility] bmi 2022-06-12 15:20:00 28.84 kg/m2 Comm on [facility] oximetry 2022-06-12 15:20:00 97 % Commo n [facility] respiratory rate 2022-06-12 15:20:00 18 /min [facility] blood pressure systolic 2022-06-12 15:20:00 134 mm[Hg] [facility] blood pressure diastolic 2022-06-12 15:20:00 72 mm[Hg] [facility] height 2021-05-15 14:40:00 63.00 [in_i] Com [facility] weight 2021-05-15 14:40:00 167.8 [lb_av] Co [facility] temperature 2021-05-15 14:40:00 97.5 [degF] Com [facility] bmi 2021-05-15 14:40:00 29.72 kg/m2 Comm on [facility] oximetry 2021-05-15 14:40:00 97 % Commo n [facility] respiratory rate 2021-05-15 14:40:00 18 /min [facility] blood pressure systolic 2021-05-15 14:40:00 137 mm[Hg] [facility] blood pressure diastolic 2021-05-15 14:40:00 69 mm[Hg] [facility] Procedures Procedure Date / Time Performed Performing Clinician Source POCT HEMOGLOBIN A1C TEST 2023-09-27 20:52:00 Chary Almaguer [facility] IOL BIOMETRY - OU - BOTH EYES 2023-06-27 22:47:01 Sal Obrien [facility] OCT, OPTIC NERVE - OU - BOTH EYES 2023-06-27 22:05:57 Sal Obrien [facility] OPHTHALMOLOGY DIAGNOSTIC TEST 2023-06-27 06:01:00 Doctor Unassigned, [place] [facility] FUNDUS PHOTOS - OU - BOTH EYES 2023-06-11 17:09:23 Marzena Rojo [facility] OCT, RETINA - OU - BOTH EYES 2023-06-11 17:08:50 Marzena Rojo [facility] REFERRAL- REQUEST/RESPONSE 2023-05-31 06:01:00 Doctor Unassigned, [place] [facility] EXTERNAL PROVIDER RECORDS 2023-01-25 05:01:00 Doctor Unassigned, [place] [facility] ASSIGNMENT OF BENEFITS 2023-01-15 19:24:56 Docto r Unassigned, [place] [facility] CONSENT/REFUSAL FOR DIAGNOSIS AND TREATMENT 2023-01-15 19:24:30 Doctor Unassigned, [place] [facility] CT ABDOMEN PELVIS WO CONTRAST 2022-12-24 17:04:53 Olivia Birmingham [facility] US ABDOMEN LIMITED 2022-11-20 18:37:09 Trixie Winn [facility] ASSIGNMENT OF BENEFITS 2022-11-15 14:26:38 Docto r Unassigned, [place] [facility] REFERRAL- REQUEST/RESPONSE 2022-10-29 05:01:00 Doctor Unassigned, [place] [facility] Encounters Start Date/Time End Date/Time Encounter Type Admission Type Attending [facility] Care Facility Care Department Encounter ID Source 2023-07-09 07:45:22 Outpatient Chary GUAJARDOKENSAL [facility] [id number] [facility] 2022-06-08 09:15:00 Outpatient Mei, Na STLMLC STLMLC [id number] [facility] 2022-05-22 09:49:01 Outpatient Mei, Na STLMLC STLMLC [id number] [facility] 2022-02-06 13:39:00 Outpatient Mei, Na STLMLC STLMLC [id number] [facility] 2021-07-26 14:26:18 Outpatient Mei, Na STLMLC STLMLC [id number] [facility] 2021-07-26 13:23:02 Outpatient Mei, Na STLMLC STLMLC [id number] [facility] 2021-07-26 12:59:06 Outpatient Mei, Na STLMLC STLMLC [id number] [facility] 2021-07-26 12:47:29 Outpatient Mei, Na STLMLC STLMLC [id number] [facility] 2021-07-26 12:43:47 Outpatient Mei, Na STLMLC STLMLC [id number] [facility] 2021-07-26 12:43:08 Outpatient Mei, Na STLMLC STLMLC [id number] [facility] 2021-07-26 12:39:17 Outpatient Mei, Na STLMLC STLMLC [id number] [facility] 2021-07-26 12:12:21 Outpatient Mei, Na STLMLC STLMLC [id number] [facility] 2021-07-26 12:11:22 Outpatient Mei, Na STLMLC STLMLC [id number] [facility] 2021-07-26 12:10:21 Outpatient Mei, Na STLMLC STLMLC [id number] [facility] 2021-07-26 12:04:30 Outpatient Mei, Na STLMLC STLMLC [id number] [facility] 2021-07-26 12:03:17 Outpatient Mei, Na STLMLC STLMLC [id number] [facility] 2021-07-26 12:02:43 Outpatient Mei, Na STLMLC STLMLC [id number] [facility] 2021-07-26 11:24:44 Outpatient Mei, Na STLMLC STLMLC [id number] [facility] 2021-07-26 11:16:55 Outpatient Mei, Na STLMLC STLMLC [id number] [facility] 2023-11-21 09:30:00 2023-11-21 09:30:00 Outpatient FRANCOIS NELSON MARISOL [facility] [id number] [facility] 2023-11-18 13:00:00 2023-11-18 13:00:00 Outpatient HARIS DUNN CHERYAL [facility] [id number] [facility] 2023-09-28 08:45:00 2023-09-28 09:00:00 Physician Liaison Visit Pob, Adc Lab Main Caroline Almaguer [facility] 1.2.840.114 350.1.13.10 4.2.7.2.686 [id number] [facility] 2023-09-28 08:45:00 2023-09-28 08:45:00 Outpatient CAROLINE RUVALCABA [facility] [id number] [facility] 2023-09-27 15:00:00 2023-09-27 16:03:49 Outpatient R CAROLINE ALMAGUER [facility] [id number] [facility] 2023-09-27 15:00:00 2023-09-27 16:03:49 Office Visit Annamaria [facility] 1.2.840.114 350.1.13.10 4.2.7.2.686 [id number] [facility] 2023-09-27 00:00:00 2023-09-27 00:00:00 Letter (Out) Annamaria [facility]EL [facility] 1..840.114 350.1.13.10 4.2.7.2.686 [id number] [facility] 2023-09-10 11:00:00 2023-09-10 11:00:00 Outpatient R BRODERICK [facility] [id number] [facility] 2023-08-06 00:00:00 2023-08-06 00:00:00 Telephone Terri Guillaume [facility] AND [facility] 1.2.840.114 350.1.13.10 4.2.7.2.686 [id number] [facility] 2023-07-18 08:30:00 2023-07-18 08:30:00 Outpatient R SAL OBRIEN [facility] [id number] [facility] 2023-07-16 11:15:00 2023-07-16 11:15:00 Outpatient R SEEMA ZIMMERMAN [facility] [id number] [facility] 2023-07-16 00:00:00 2023-07-16 00:00:00 Telephone Sal Obrien [facility] AND [facility] 1.2840.114 350.1.13.10 4.2.7.2.686 [id number] [facility] 2023-07-02 00:00:00 2023-07-02 00:00:00 Telephone Terri Guillaume [facility] 1.840.114 350.1.13.10 4.2.7.2.686 [id number] [facility] 2023-06-27 13:30:00 2023-06-27 16:54:11 Outpatient R KATYA OBRIENFREEDOMReal [facility] [id number] [facility] 2023-06-27 13:30:00 2023-06-27 16:54:11 Office Visit Katya Obriencromwellreal [facility] 1.0.114 350.1.13.10 4.2.7.2.686 [id number] [facility] 2023-06-27 00:00:00 2023-06-27 00:00:00 Orders Only Doctor Unassigned, Sublette [facility] 1.840.114 350.1.13.10 4.2.7.2.686 [id number] [facility] 2023-06-13 00:00:00 2023-06-13 00:00:00 Telephone Caroline Almaguer [facility]?KETURAHMarcelo [facility] 1..114 350.1.13.10 4.2.7.2.686 [id number] [facility] 2023-06-11 13:00:00 2023-06-11 14:04:46 Outpatient R [facility]ICK [facility] [id number] [facility] 2023-06-11 13:00:00 2023-06-11 14:04:46 Bundle Tier And Labeler Visit Broderick West [facility] 1.2840.114 350.1.13.10 4.2.7.2.686 [id number] [facility] 2023-06-11 09:45:00 2023-06-11 11:16:08 Office Visit Marzena Rojo [facility] 1.2840.114 350.1.13.10 4.2.7.2.686 [id number] [facility] 2023-05-31 14:00:00 2023-05-31 15:49:10 [facility] [id number] [facility] 2023-05-31 14:00:00 2023-05-31 15:49:10 Office Visit [facility] 1.2840.114 350.1.13.10 4.2.7.2.686 [id number] [facility] 2023-05-31 00:00:00 2023-05-31 00:00:00 Orders Only Doctor Unassigned, Sublette [facility] 1.2840.114 350.1.13.10 4.2.7.2.686 [id number] [facility] 2023-05-31 00:00:00 2023-05-31 00:00:00 Patient Secure Msg Doctor Unassigned, Sublette [facility] 1.2840.114 350.1.13.10 4.2.7.2.686 [id number] [facility] 2023-05-22 00:00:00 2023-05-22 00:00:00 (TEL) STLMLC STLMLC [id number] [facility] 2023-04-27 00:00:00 2023-04-27 00:00:00 Outpatient GC_GCBZW_Ka apurva_Rachael [facility] [id number] [facility] 2023-04-23 16:00:00 2023-04-23 16:00:00 Outpatient R SEEMA ZIMMERMAN [facility] [id number] [facility] 2023-04-09 11:30:00 2023-04-09 11:45:00 Office Visit Shira [facility] MEDICAL OFFICE BUILDING 1.840.114 350.1.13.10 4.2.7.2.686 [id number] [facility] 2023-04-09 11:30:00 2023-04-09 11:30:00 Outpatient R SEEMA ZIMMERMAN [facility] [id number] [facility] 2023-01-25 00:00:00 2023-01-25 00:00:00 Orders Only Doctor Unassigned, Sublette [facility] 1.840.114 350.1.13.10 4.2.7.2.686 [id number] [facility] 2023-01-15 14:24:29 2023-01-15 23:59:00 Outpatient R [facility] RACHELNYU [facility] [id number] [facility] 2023-01-15 14:24:29 2023-01-15 23:59:00 Hospital Encounter BowenjuarezHaris owen [facility] 1.840.114 350.1.13.10 4.2.7.2.686 [id number] [facility] 2022-12-25 16:00:00 2022-12-25 16:54:14 Outpatient R SEEMA ZIMMERMAN [facility] [id number] [facility] 2022-12-25 16:00:00 2022-12-25 16:54:14 Office Visit Shira [facility] MEDICAL OFFICE BUILDING 1.840.114 350.1.13.10 4.2.7.2.686 [id number] [facility] 2022-12-24 11:38:40 2022-12-24 23:59:00 Outpatient R OLIVIA BIRMINGHAM [facility] [id number] [facility] 2022-12-24 11:38:40 2022-12-24 23:59:00 Hospital Encounter Olivia Birmingham [facility] 1.2840.114 350.1.13.10 4.2.7.2.686 [id number] [facility] 2022-12-20 14:30:00 2022-12-20 15:10:00 Outpatient R OLIVIA BIRMINGHAM [facility] [id number] [facility] 2022-12-20 14:30:00 2022-12-20 15:10:00 Office Visit Olivia Birmingham [facility] 1.2840.114 350.1.13.10 4.2.7.2.686 [id number] [facility] 2022-11-21 00:00:00 2022-11-21 00:00:00 Telephone Haris Winn [facility] 1.2840.114 350.1.13.10 4.2.7.2.686 [id number] [facility] 2022-11-20 13:02:13 2022-11-20 23:59:00 [facility] 1.2840.114 350.1.13.10 4.2.7.2.686 [id number] [facility] 2022-11-20 13:02:13 2022-11-20 23:59:00 Outpatient R HARIS WINN CHERYAL [facility] [id number] [facility] 2022-11-15 09:00:00 2022-11-15 10:18:23 Outpatient R HARIS WINN [facility]ERY[facility] [id number] [facility] 2022-11-15 09:00:00 2022-11-15 10:18:23 Office Visit Haris Winn [facility] 1.2.840.114 350.1.13.10 4.2.7.2.686 [id number] [facility] 2022-11-15 00:00:00 2022-11-15 00:00:00 Orders Only Doctor Unassigned, Sublette [facility] 1.2.840.114 350.1.13.10 4.2.7.2.686 [id number] [facility] 2022-10-29 00:00:00 2022-10-29 00:00:00 Orders Only Doctor Unassigned, Sublette [facility] 1.2.840.114 350.1.13.10 4.2.7.2.686 [id number] [facility] 2022-07-20 00:00:00 2022-07-20 00:00:00 (TEL) STLMLC STLMLC [id number] [facility] 2022-06-12 00:00:00 2022-06-12 00:00:00 OFFICE VISIT ESTAB PT LEVEL 4 STLMLC STLMLC [id number] [facility] 2022-05-15 00:00:00 2022-05-15 00:00:00 (TEL) STLMLC STLMLC [id number] [facility] 2021-12-01 00:00:00 2021-12-01 00:00:00 OFFICE VISIT EST PT LEVEL 3 STLMLC STLMLC [id number] [facility] 2021-12-01 00:00:00 2021-12-01 00:00:00 (TEL) STLMLC STLMLC [id number] [facility] 2021-08-03 00:00:00 2021-08-03 00:00:00 (TEL) STLMLC STLMLC [id number] [facility] 2021-07-12 00:00:00 2021-07-12 00:00:00 OFFICE VISIT ESTAB PT LEVEL 4 STLMLC STLMLC [id number] [facility] 2021-05-31 00:00:00 2021-05-31 00:00:00 OFFICE VISIT EST PT LEVEL 3 STLMLC STLMLC [id number] [facility] 2021-05-31 00:00:00 2021-05-31 00:00:00 (TEL) STLMLC STLMLC [id number] [facility] 2021-05-30 00:00:00 2021-05-30 00:00:00 (TEL) STLMLC STLMLC [id number] [facility] 2021-05-15 00:00:00 2021-05-15 00:00:00 OFFICE VISIT ESTAB PT LEVEL 4 STLMLC STLMLC [id number] [facility] 2020-09-23 00:00:00 2020-09-23 00:00:00 Outpatient STLMLC STLMLC [id number] [facility] 2020-09-21 00:00:00 2020-09-21 00:00:00 Outpatient STLMLC STLMLC [id number] [facility] 2020-07-26 00:00:00 2020-07-26 00:00:00 Outpatient STLMLC STLMLC [id number] [facility] 2020-05-12 00:00:00 2020-05-12 00:00:00 Outpatient STLMLC STLMLC [id number] [facility] 2020-05-10 00:00:00 2020-05-10 00:00:00 Outpatient STLMLC STLMLC [id number] [facility] 2019-10-05 15:20:00 2019-10-05 15:20:00 [facility] [address] [facility] [id number] [facility] 2019-01-09 15:40:00 2019-01-09 15:40:[address] [facility] [address] [facility] [id number] [facility] 2019-01-05 10:55:00 2019-01-05 10:55:00 [facility] [id number] [facility] 2019-01-05 10:30:00 2019-01-05 10:30:00 [facility] [id number] [facility] 2018-10-14 16:02:00 2018-10-14 16:02:[address] [facility] [id number] [facility] 2018-10-10 16:03:00 2018-10-10 16:03:[address] [facility] [facility] [address] [facility] [id number] [facility] 2018-09-18 10:00:00 2018-09-18 10:00:00 [place] [facility] [address] [facility] [id number] [facility] 2018-08-21 09:15:00 2018-08-21 09:15:[address] [facility] [facility] [address] [facility] [address] [id number] [facility] 2018-05-21 10:15:00 2018-05-21 10:15:[address] [facility] [facility] [address] [facility] [id number] [facility] 2017-12-31 12:04:00 2017-12-31 12:04:[address] [facility] [address] [facility] [id number] [facility] 2017-12-30 14:08:00 2017-12-30 14:08:[address] [facility] [address] [facility] [address] [id number] [facility] 2017-12-25 14:30:00 2017-12-25 14:30:00 Outpatient [facility] [place] [facility] [id number] [facility] Results Test Description Test Time Test Comments Results Result Co mments Source [facility] Hem[facility] A1C [id number] 20:52:00* Test Item Value Reference Range Interpretation Comme nts POCT HBA1C (test code = 4548-4) 9.4 % 4-6 A Lab Interpretation (test cod e = 49155-4) Abnormal [facility] 2 AntigenSARS-COV 2 Antigen History and Physical Notes Date/Time Note Provider Source 2023-06-27 13:30:00 pJYOc6H61X0hq6obNZBA rSefs+bshn6Zb4Li86LQpG jb0MWsldggbeDxw0AWRSu58177-32-44B38:30:00F ormatting of this note is different from the original.Outpatient Surgery History & Jwepiild70/28/2023 3:[address] [facility]1955, 68 year old, /White, [id number] type: DSULocation: VLAttending Surgeon: Dr. Anders Complaint: Blurry vision: ODHistory of Present Illness: Causing difficulty Reading, Watching TVPast Medical History:Diagnosis DateAnxietyCancer 2014Endometrial cancerDiabetes mellitusDyslipidemia 05/31/2023Esophageal refluxHypertensionRoutine gynecological examination 11/18/2022S/P coronary artery stent placement 05/21/2023ST elevation (STEMI) myocardial infarction of unspecified site 05/16/2023StrokePast Surgical History:Procedure Laterality DateABDOMINAL SALPINGOOPHORECTOMY Bilateral 06/09/2014Surgeon: Marcia Copeland MD; [facility]2007COLONOSCOPY 2018CORONARY STENT 05/21/2023YTO PERITONEAL WASHING 06/09/2014LAP,HERNIA REPAIR PROC,UNLIST 2015Incisional hernia repair with mesh placement Dr. Chelsea Poole Jackson, [facility] DISSECTION 06/09/2014LYSIS OF ABDOMINAL ADHESIONS N/A 06/09/2014Surgeon: Marcia Copeland MD; [facility]O-OOPHORECTOMY 06/09/2014STAGING LAPAROTOMY N/A 06/09/2014Surgeon: Marcia Copeland MD; Location: [facility] LOCATIONTOTAL ABDOM HYSTERECTOMY 06/09/2014TOTAL ABDOMINAL HYSTERECTOMY N/A 06/09/2014Surgeon: Marcia Copeland MD; Location: [facility] LOCATIONTUBAL LIGATION 07/01/1989Current Outpatient MedicationsMedication Sig Dispense RefillamLODIPine 10 mg tablet amlodipine 10 mg tabletTake 1 tablet every day by oral route for 90 days.amLODIPine 5 mg tablet 1 tablet Orally Once a day for 90dapagliflozin propanediol (FARXIGA) 10 mg tablet Farxiga 10 mg tabletTake 1 tablet every day by oral route for 90 days.DULoxetine (CYMBALTA) 30 mg capsule 1 capsule.DULoxetine (CYMBALTA) 60 mg capsule 1 capsule.flash glucose scanning reader (FREESTYLE EMERSON 2 [facility]) as directed SC dailyk for 365 daysfluconazole (DIFLUCAN) 150 mg tablet 1 tablet Orallyfluconazole 150 mg tablet 1 tablet Orallyfluconazole 150 mg tablet 1 tablet today and may repeat one tab in 1 week if no improvement Orally one tab a week for 1 day(s)gabapentin 300 mg capsule TAKE 2 CAPSULES BY MOUTH 3 TIMES DAILY NEEDED FOR NERVE PAIN (SHINGLES) FOR 30 DAY(S) for 30insulin glargine U-300 conc (TOUJEO SOLOSTAR U-300 INSULIN) 300 unit/mL (1.5 mL) InPn 62 units and increase by 2 units every 3 days until fbg less 120 max 80 units daily Subcutaneous daily for 90 daysliraglutide (VICTOZA 2-MARIELENA) 0.6 mg/0.1 mL (18 mg/3 mL) injection inject 1.8 mg Subcutaneous once a day for 30methylPREDNISolone (MEDROL, MARIELENA,) 4 mg tablets as directed with food Orally for 5 daysmetroNIDAZOLE 500 mg tablet 1 tablet Orally Three times a dayomeprazole 20 mg capsule TAKE 1 CAPSULE BY MOUTH EVERY DAY FOR 30 DAYS.rosuvastatin 10 mg tablet TAKE 1 TABLET BY MOUTH EVERY DAY AT BEDTIME FOR 90 DAYS.traZODone 50 mg tablet TAKE 1 TABLET AT BEDTIME NEEDED ONCE A DAY for 30valACYclovir 1 gram tablet TAKE 1 TABLET BY MOUTH THREE TIMES A DAY FOR 10 DAY(S) for 10Vitamin B-12 1,000 mcg tablet 1 tablet Orally Once a dayaspirin 81 mg EC tablet Take 1 tablet by mouth daily.atorvastatin 80 mg tablet Take 1 tablet by mouth at bedtime. 90 tablet 1blood sugar diagnostic (ACCU-CHEK GUIDE TEST STRIPS) strip Use as directed to check blood sugars once daily E11.51 100 Each 2clopidogreL 75 mg tablet Take 1 tablet by mouth daily.dapagliflozin propanediol (FARXIGA) 10 mg tablet TAKE 1 TABLET BY MOUTH EVERY DAY FOR 90 DAYS.ergocalciferol, vitamin d2, 1,250 mcg (50,000 unit) capsule Take 1 capsule by mouth weekly.Lancets (ACCU-CHEK SOFTCLIX LANCETS) Misc Use as directed to check blood sugars once daily E11.51 100 Each 2metFORMIN 1,000 mg tablet Take 1 tablet by mouth 2 (two) times daily with meals.OZEMPIC 0.25 mg or 0.5 mg (2 mg/3 mL) PnIj inject 0.25 mg under the skin weekly.semaglutide (OZEMPIC) 0.25 mg or 0.5 mg (2 mg/3 mL) PnIj inject 0.5 mg under the skin weekly. 6 mL 0semaglutide (OZEMPIC) 1 mg/dose (4 mg/3 mL) PnIj inject 1 mg under the skin weekly. 9 mL 1amLODIPine 10 mg tablet TAKE 1 TABLET BY MOUTH EVERY DAY FOR 90 DAYS.losartan 100 mg tablet TAKE 1 TABLET BY MOUTH EVERY DAY FOR 90 DAYS.carvedilol (COREG) 25 mg tablet Take 1 tablet by mouth 2 (two) times daily with meals.hydralAZINE (APRESOLINE) 50 mg tablet Take 2 tablets by mouth 2 (two) times daily.No current facility-administered medications for this visit.Contrast [iodine and iodide containing products] and Gadolinium-containing contrast mediaHEENT: See progress note for full examHeart: WNLLungs: WNLAbdomen: WNLWeight 76.2 kg (168 lb), last menstrual period 07/01/1994.Impression/Diagnosis: Visually significant Nuclear sclerotic and Cortical cataract ODTreatment Plan/Procedure: Phacoemulsification with TBd IOLRisks, benefits, and alternatives discussed with patient who voices understanding and wishes to proceed.Written consent was obtained from patient.Amrita Jean MDOphthalmology CLF0Ozccjzxdqnjmbh signed by Amrita Jean MD at 06/27/2023 4:53 PM TQI02463-0Ghfjqau and physical smsfAG8654-67-96J76:53:41History and physical noteTXT1.2.840.117861.1.13.104.2.7.2.59847 9|[id number] for patient nunh80802-8Lsoeoqc and physical noteLNNARRATIVEFormatted C-CDA narrative text[address] OzwqRwvgwvkgzFiqvwbqcyEREE0272395335EVSBVN VTCGQPHXEJSRVFZJ1611-06-01F37:53:411.2.840 .211207.1.72.3.15|1.2.840.228603.1.13.104. 2.7.2.727879_[id number] [facility] Notes Date/Time Note Provider Source 2023-09-28 08:45:00 N4WmYmIdyvK2V39q29mn9uUUzyColGUJZ/oI V0a71tt2CFlbPyqN0nrScNsuUyyk2252-91- 30T08:45:00 Images from the original note were not included.Venipuncture collection performed by clean technique on the right anticubitus. Total of 1 attempts were made. Slight pressure and a bandage/dressing were applied to the site(s). The patient experienced no complications. The following specimens were processed according to instructions and sent to [facility] laboratories per lab order on 09/28/2023:LT BLUESST 1REDLAV 1PPTDK GREEN (LiHep)DK GREEN (SodH)GRAYDK BLUE (K2)DK BLUE (S)ACDBlood CultureNIPT/NTDPatient has been identified by and name and was provided with cup, antiseptic towelette, and clean catch instructions. 1 urine specimen(s) sent.Unpreserved 1Urine CultureAptima tubeOther urine 37183-0Rrgrq MfvaPU5583-61-85P62:50:10Nurse NoteTXT1.2.840.999197.1.13.104.2.7.2 .588048|[id number] for patient auwf99085-8Jeqjo NoteLNNARRATIVEFormatted C-CDA narrative text[id number] WIDCMZWGHOFRLSOTXVMSWP4777-81-61Z14: 50:101.2.840.987364.1.72.3.15|1.2.84 0.121758.1.13.104.2.7.2.727879_20617 67351 [facility] 2023-08-08 15:00:24 AcGZFdSxf7xG0qdPlNmg3XBWXnro6gVt60nq g70EUhCGx+NLo3We/HmDsfMEGk5U4927-71- 08T15:00:24 I was present with the resident at the time of this encounter on 08/08/23. I discussed the case with Shreya Guillaume PharmD (PGY1 Candy Attendant) and agree with the assessment and plan. I have reviewed the progress note and I agree to sign off due to multiple unsuccessful attempts to reach patient.Terri Guillaume PharmD, BCACPPharmacy Clinical Waiter Waitress- Endocrinology 80498-8Zpcifkpnr encounter AkmvJF6377-58-76E98:00:31Telephone encounter NoteTXT1.2.840.141824.1.13.104.2.7.2 .131684|[id number] for patient xdtg49488-6CutrNRPYCIUNBOBBfiejwozg C-CDA narrative tmmq211954631Cnrvbgd A Patel [id number] UDXDMCGSFDBEIIZNTSMYZQ2162-44-46Z64: 00:311.2.840.096944.1.72.3.15|1.2.84 0.135205.1.13.104.2.7.2.727879_20201 69455 eTrri Guillaume [facility] 2023-08-08 10:13:54 WpRqyTI8TC0Ca+vild+JaAjjyNjrPauh0Hun pDxMVxLZj0c4HJpLwU0ecQjNBmyg6554-73- 08T10:13:54 CLINICAL PHARMACY ENDOCRINOLOGY VISIT- 08/08/2023betty Cleary is a 68 year old female referred to PharmD by RODOLFO Bacon for medication management for type 2 diabetes.At last visit, patient was instructed to:Continue Ozempic 0.5 mg weekly x 2 more weeks, then increase to 1mg weekly on 07/21/23Continue metformin 1000 mg twice dailyContinue Farxiga 10 mg lcxrvh4808/08/2023: 08/08/23: Attempt #3 to reach patient. Unable to reach patient. Voicemail box not set up yet, therefore unable to leave callback number. Will sign off due to multiple unsuccessful attempts to reach patient. Please re-consult if PharmD services are required in the future. Thank you.Future AppointmentsProvider Department Dept Phone09/10/2023 11:[address] [facility], [facility] [phone]/ 3:00 PM Caroline Almaguer AGPCNP [facility], [facility] [phone] Patel, PharmDPGY1 Pharmacy Resident 25163-9Ohffqmfko encounter GkpuCX3293-33-72X02:15:41Telephone encounter NoteTXT1.2.840.452295.1.13.104.2.7.2 .825318|[id number] for patient cqlq07054-5CincEIHXMULSVEJSpqmvivqq C-CDA narrative [address] Ty[id number] ERZGCTZBYYZSDKFNZFTGSU8602-87-01L41: 15:411.2.840.533395.1.72.3.15|1.2.84 0.615517.1.13.104.2.7.2.727879_20197 [id number] [facility] 2023-08-06 09:47:31 DKnJa3EQSKLRc5NHdfO9zmAAyMN7j8Ko/C/0 hlcbsxExvFz7LGSoxgvfNNYAJnlp6364-40- 06T09:47:31 CLINICAL PHARMACY ENDOCRINOLOGY VISIT- 4Abetty Cleary is a 68 year old female referred to PharmD by RODOLFO Bacon for medication management for type 2 diabetes.At last visit, patient was instructed to:Continue Ozempic 0.5 mg weekly x 2 more weeks, then increase to 1mg weekly on 07/21/23Continue metformin 1000 mg twice dailyContinue Farxiga 10 mg oifkft3008/06/2023: Unable to reach patient (x2). Voicemail box not set up yet, therefore unable to leave callback number. Will try again later this week.Future AppointmentsProvider Department Dept Phone09/10/2023 11:[address] [facility] [place] [facility], [facility] [phone]/ 3:00 PM Caroline Almaguer AGPCNP [facility] Endocrinology, [facility] [phone] Patel, PharmDPGY1 Pharmacy Resident 73430-7Edvsckfoc encounter NtqeDS2293-49-11E73:26:05Telephone encounter [id number] .570092|[id number] for patient kntg45934-5SadsEDEJADRVBCALaogezvoj C-CDA narrative rochelle[address] Reyes [id number] WJNYCCPFWWSWLMJTAVDJFZ1331-59-46Q34: 26:051.2.840.249347.1.72.3.15|1.2.84 0.732830.1.13.104.2.7.2.727879_20174 [id number] [facility] 2023-07-16 11:56:35 iCR61KKkn6lC8x1OyQCU2bTNVtrtm2rAGLdd hlXt09HlQwf+4sKCDmlKXrCBiE0o5586-61- 16T11:56:35 Surgery & post op appointments have been cancelled. 57413-7Upmblupxg encounter CqvpVZ7139-78-70T82:57:07Telephone encounter NoteTXT1.2.840.261796.1.13.104.2.7.2 .086897|[id number] for patient tqpe12790-3WzxlYGXDHCRDDBCPtewqunfw C-CDA narrative [id number] Tres BondUT55 Hood [id number] HTFWZJFVCTQFKHRGSGLTRB9597-77-67I43: 57:071.2.840.773866.1.72.3.15|1.2.84 0.072484.1.13.104.2.7.2.727879_20000 [id number] Cara Perla [facility] 2023-07-16 11:14:44 6571b2cTo3rRjcxqT3N8oCBKC1Og4PTJodek uxxGc5LmNHnn3Cx4uNSv6uFQfxiz8294-82- 16T11:14:44 Tyshawn Cleary is a 68 year old -[phone] (home)DOP called to cancel eye surgery. The act english tutor will not clear the pt for surgery.Please call and advise 16374-7Kevwgtcqg encounter IavjSW9743-86-28B42:16:14Telephone encounter NoteTXT1.2.840.916565.1.13.104.2.7.2 .803062|[id number] for patient niqu31679-8CmkuKJIXRWBWQPAOzhckowkc C-CDA narrative text[address] Cm[id number] XIYYSFNEIOBIYUOOGSCMVR1401-68-07V52: 16:141.2.840.715215.1.72.3.15|1.2.84 0.189238.1.13.104.2.7.2.727879_20000 [id number] [facility] 2023-07-02 09:03:20 sTLrv92s+n3PQoy3NUlwrfoxHPJ7g8ixgCay ED+u+7dbT7tbwtHlrYclCsX9eiS01119-88- 02T09:03:20 CLINICAL PHARMACY ENDOCRINOLOGY VISIT- 07/02/23DATE: 07/02/23:Subjective:Tyshawn Cleary is a 68 year old female referred to PharmD by RODOLFO Bacon for medication management for type 2 diabetes.Reason for consult: "Please make sure she is taking her Farxiga, Metformin, and Ozempic. She had a recent AZ 2 weeks ago with one stent placed, she has another stent to be placed in 5 weeks. She does not check her BG, she only checked it twice in the last month per her glucometer. She was on Toujeo 62 units, please re- assess need for Toujeo post AZ. She was also taking Invokana and Farxiga together and was complaining about recurrent UTIs and yeast infections. I stopped the Invokana and kept her on the Farxiga. Her daughter is her caregiver and speaks [place], so she's the one you want to talk to."At last visit, patient was instructed to:Restart metformin 1000mg twice dailyRestart Farxiga 10mg dailyContinue Ozempic 0.25mg till you run out, then increase to 0.5mg weeklySpoke to patient's daughter who states that her mother has restarted all her diabetes medications. She is tolerating metformin well; denies diarrhea. Denies painful/burning urination with Farxiga. Patient is now taking Ozempic 0.5mg weekly. She has taken 2 doses so far, and will take dose #3 on Saturday. Patient is tolerating well. Denies hypoglycemia. Daughter is at work right now, so she does not have her mother's glucometer with her. She states that in the morning her mother's sugars are between 120-220 mg/dL, depending on what she eats the night before. She will start writing down her BGs for next visit.-SOCIAL HISTORY-Tobacco: noneAlcohol: noneExercise: wsyg-NZCX-Hxufs: varies; 2 eggs, 2 pieces of breadLunch: soupsSupper: soupsDrinks/caffeine: water; diluted juice1. 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 (last eye exam 05/2023)[-] Nephropathy[+] NeuropathyCurrent DM medication regimen:Metformin 1000mg twice dailyFarxiga 10mg dailyOzempic 0.5mg weeklyMed compliance [+]Previous treatment attempts/failures/adverse reactions:InvokanaTujeoSMBG readings:AM: 120-220 ; depending on what she eats the night beforeObjective:Past Medical History:Diagnosis DateAnxietyCancer 2014Endometrial cancerDiabetes mellitusDyslipidemia 05/31/2023Esophageal refluxHypertensionRoutine gynecological examination 11/18/2022S/P coronary artery stent placement 05/21/2023ST elevation (STEMI) myocardial infarction of unspecified site 05/16/2023StrokePrior to Admission medicationsMedication Sig Start Date Authorizing ProvideramLODIPine 10 mg tablet amlodipine 10 mg tabletTake 1 tablet every day by oral route for 90 days. Doctor Unassigned, No NameamLODIPine 5 mg tablet 1 tablet Orally Once a day for 90 Doctor Unassigned, No Namedapagliflozin propanediol (FARXIGA) 10 mg tablet Farxiga 10 mg tabletTake 1 tablet every day by oral route for 90 days. Doctor Unassigned, No NameDULoxetine (CYMBALTA) 30 mg capsule 1 capsule. Doctor Unassigned, No NameDULoxetine (CYMBALTA) 60 mg capsule 1 capsule. Doctor Unassigned, No Nameflash glucose scanning reader (FREESTYLE [employer] [facility] [employer] [facility]) as directed SC daily for 365 days Doctor Unassigned, No Namefluconazole (DIFLUCAN) 150 mg tablet 1 tablet Orally Doctor Unassigned, No Namefluconazole 150 mg tablet 1 tablet Orally Doctor Unassigned, No Namefluconazole 150 mg tablet 1 tablet today and may repeat one tab in 1 week if no improvement Orally one tab a week for 1 day(s) Doctor Unassigned, No Namegabapentin 300 mg capsule TAKE 2 CAPSULES BY MOUTH 3 TIMES DAILY NEEDED FOR NERVE PAIN (SHINGLES) FOR 30 DAY(S) for 30 Doctor Unassigned, No Nameinsulin glargine U-300 conc (TOUJEO SOLOSTAR U-300 INSULIN) 300 unit/mL (1.5 mL) InPn 62 units and increase by 2 units every 3 days until fbg less 120 max 80 units daily Subcutaneous daily for 90 days Doctor Unassigned, No Nameketorolac 0.5 % ophthalmic solution Place 1 Drop in right eye 4 (four) times daily. To start after cataract surgery 06/27/23 Sal Obrien MDliraglutide (VICTOZA 2-MARIELENA) 0.6 mg/0.1 mL (18 mg/3 mL) injection inject 1.8 mg Subcutaneous once a day for 30 Doctor Unassigned, No NamemethylPREDNISolone (MEDROL, MARIELENA,) 4 mg tablets as directed with food Orally for 5 days Doctor Unassigned, No NamemetroNIDAZOLE 500 mg tablet 1 tablet Orally Three times a day Doctor Unassigned, No Namemoxifloxacin (VIGAMOX) 0.5 % ophthalmic drops Place 1 Drop in right eye 4 (four) times daily. To start after cataract surgery 06/27/23 Sal Obrien MDomeprazole 20 mg capsule TAKE 1 CAPSULE BY MOUTH EVERY DAY FOR 30 DAYS. Doctor Unassigned, No NameprednisoLONE acetate 1 % ophthalmic suspension drops Place 1 Drop in right eye 4 (four) times daily. To start after cataract surgery 06/27/23 Sal Obrien MDrosuvastatin 10 mg tablet TAKE 1 TABLET BY MOUTH EVERY DAY AT BEDTIME FOR 90 DAYS. Doctor Unassigned, No NametraZODone 50 mg tablet TAKE 1 TABLET AT BEDTIME NEEDED ONCE A DAY for 30 Doctor Unassigned, No NamevalACYclovir 1 gram tablet TAKE 1 TABLET BY MOUTH THREE TIMES A DAY FOR 10 DAY(S) for 10 Doctor Unassigned, No NameVitamin B-12 1,000 mcg tablet 1 tablet Orally Once a day Doctor Unassigned, No Nameaspirin 81 mg EC tablet Take 1 tablet by mouth daily. 05/22/23 Doctor Unassigned, No Nameatorvastatin 80 mg tablet Take 1 tablet by mouth at bedtime. 05/31/23 Caroline Almaguer AGPCNPblood sugar diagnostic (ACCU-CHEK GUIDE TEST STRIPS) strip Use as directed to check blood sugars once daily E11.51 05/31/23 Caroline Almaguer AGPCNPclopidogreL 75 mg tablet Take 1 tablet by mouth daily. Doctor Unassigned, No Namedapagliflozin propanediol (FARXIGA) 10 mg tablet TAKE 1 TABLET BY MOUTH EVERY DAY FOR 90 DAYS. 05/31/23 Caroline Almaguer AGPCNPergocalciferol, vitamin d2, 1,250 mcg (50,000 unit) capsule Take 1 capsule by mouth weekly. 03/21/23 Doctor Unassigned, No NameLancets (ACCU-CHEK SOFTCLIX LANCETS) [facility] Use as directed to check blood sugars once daily E11.51 05/31/23 Caroline Almaguer, AGPCNPmetFORMIN 1,000 mg tablet Take 1 tablet by mouth 2 (two) times daily with meals. 05/31/23 Lisa Almaguera, AGPCNPOZEMPIC 0.25 mg or 0.5 mg (2 mg/3 mL) PnIj inject 0.25 mg under the skin weekly. 05/13/23 Doctor Unassigned, No Namesemaglutide (OZEMPIC) 0.25 mg or 0.5 mg (2 mg/3 mL) PnIj inject 0.5 mg under the skin weekly. 05/31/23 Caroline Almaguer, AGPCNPsemaglutide (OZEMPIC) 1 mg/dose (4 mg/3 mL) PnIj inject 1 mg under the skin weekly. 05/31/23 Caroline Almaguer AGPCNPamLODIPine 10 mg tablet TAKE 1 TABLET BY MOUTH EVERY DAY FOR 90 DAYS. 11/06/22 Doctor Unassigned, No Namelosartan 100 mg tablet TAKE 1 TABLET BY MOUTH EVERY DAY FOR 90 DAYS. 11/06/22 Doctor Unassigned, No Namecarvedilol (COREG) 25 mg tablet Take 1 tablet by mouth 2 (two) times daily with meals. Doctor Unassigned, No NamehydralAZINE (APRESOLINE) 50 mg tablet Take 2 tablets by mouth 2 (two) times daily. Doctor Unassigned, No NameAllergies/ADR:AllergiesAllergen ReactionsContrast [Iodine And Iodide Containing Products] RashGadolinium-Containing Contrast Media HivesDrug-Drug Interactions: There are no significant drug-drug interactionsThere is no immunization history on file for this patient.Vaccine history was reviewed. The patient was reminded about the importance of receiving an annual influenza vaccine as indicated.No recent A1c on fileAssessment:1. DIABETESThere is no recent A1c on file, therefore unable to assessPer daughter, patient's blood sugars are 120-220 mg/dL in the morning, depending on what she eats the night beforeElevations likely due to dietary indiscretionUnable to assess need for Tujeo, as no specific blood sugars are available at this timeDaughter will start to write down BGs for next telephone visitIn the interim, will continue to titrate Ozempic in order to control blood sugarsPatient is tolerating Ozempic well, so will increase to 1mg once patient completes 4 total weeks on 0.5mg doseMedication monitoring:[-] Metformin: eGFR <30mL/min[-] Dapagliflozin: eGFR <45 ml/min, pancreatitis, frequent UTIs, s/sx of genital infection[-] Semaglutide: pancreatitis, severe diabetic retinopathy, macular edemaPlan/Recommendations:Continue Ozempic 0.5mg weekly x 2 more weeks, then increase to 1mg weekly on 07/21/23Continue metformin 1000mg twice dailyContinue Farxiga 10mg weeklyWill follow up 2 weeks after Ozempic dose increaseFuture AppointmentsProvider Department Dept Phone09/27/2023 3:00 PM Caroline Almaguer AGPCNP [facility] Endocrinology, [facility] [phone] spent with patient/caregiver: 30 minutesTerri Guillaume, PharmD, BCACPPharmacy Clinical Waiter Waitress- Endocrinology 66905-1Tomlojufe encounter WojrDS0345-89-22H30:07:11Telephone encounter NoteTXT1.2.840.753139.1.13.104.2.7.2 .660211|[id number] for patient mmgx49634-4DqzuACZLSTRZLIXBardajedb C-CDA narrative textUT[address] Qt[id number] BSPQGSRSMFFULULTFBUDEV1479-50-50M06: 07:111.2.840.948446.1.72.3.15|1.2.84 0.380395.1.13.104.2.7.2.727879_19893 [id number] [facility]
--- NOTE | 2023-10-25 13:48 | RAD REPORT ---
EXAM DESCRIPTION: CT - Head C Spine Mpr Wo Con - 10/25/2023 1:32 pm CLINICAL HISTORY: Dizziness. Head and neck injury status post fall. Head and neck pain COMPARISON: 2021 TECHNIQUE: Computed axial tomography of the head and cervical spine was obtained. Sagittal and coronal reconstruction was performed. All CT scans are performed using dose optimization technique as appropriate and may include automated exposure control or mA/KV adjustment according to patient size. FINDINGS: An intracranial bleed is not seen. The ventricles are normal in caliber. No significant hypodensity within the brain. An extra-axial fluid collection is not noted. Fluid within the visualized sinuses and mastoids is not seen. Mild chronic left maxillary sinusitis A cervical fracture is not visualized. No dislocation is noted. IMPRESSION: No acute intracranial abnormality is seen. A cervical fracture is not visualized. If the patient continues to have symptoms to suggest intracranial /spinal cord pathology then MRI wou ld be recommended
[2023-10-25 14:08] LABS: Absolute Eosinophils 0.1 K/uL (0-0.5); Absolute Monocytes 0.6 K/uL (0.1-1.3); Basophils % 0.6 % (0-1.3); Eosinophils % 1.8 % (0-4.4); Hematocrit 47.5 % (36.0-45.0); Hemoglobin 15.9 g/dL (12.0-15.0); Lymphocytes % 29.4 % (15.3-44.8); MCH 28.7 pg (27.0-35.0); MCHC 33.4 g/dL (32.0-36.0); MPV 7.3 fL (7.6-11.3); Monocytes % 9.1 % (3.3-12.3); Neutrophils % 59.1 % (41.7-73.7); Nucleated Red Blood Cells % 0.1 % (0-0); Platelets 256 thou/uL (152-406); RBC Red Blood Cell Count 5.52 M/uL (3.86-4.86); Red Cell Distribution Width 14.3 % (12.1-15.2)
--- NOTE | 2023-10-25 14:09 | RAD REPORT ---
EXAM DESCRIPTION: [place] Single View10/25/2023 1:44 pm CLINICAL HISTORY: Chest pain COMPARISON: August 2023 FINDINGS: The lungs appear clear of acute infiltrate. The heart is normal size IMPRESSION: No acute abnormalities displayed
--- NOTE | 2023-10-25 14:10 | RAD REPORT ---
EXAM DESCRIPTION: RAD - Humerus Left - 10/25/2023 1:46 pm CLINICAL HISTORY: Left arm pain status post fall FINDINGS: No fracture is seen Osteoporosis
--- NOTE | 2023-10-25 14:11 | RAD REPORT ---
EXAM DESCRIPTION: RAD - Forearm Left - 10/25/2023 1:46 pm CLINICAL HISTORY: Left forearm pain status post injury FINDINGS: No fracture is seen Osteoporosis
--- NOTE | 2023-10-25 14:11 | RAD REPORT ---
EXAM DESCRIPTION: RAD - Tib Fib Right - 10/25/2023 1:46 pm CLINICAL HISTORY: Right leg pain FINDINGS: No fracture is seen Osteoporosis
[2023-10-25 14:12] LABS: Specific Gravity 1.024 (1.005-1.030); Sqamous Epithelial <5 /HPF (None Seen); Urine Bacteria <20 /HPF (<20); Urine Bilirubin NEGATIVE (Negative); Urine Blood Negative (Negative); Urine Clarity Clear (Clear); Urine Color Light-Yellow (Yellow); Urine Culture Reflex Order NOT NEEDED; Urine Glucose 4+ (Over) (Negative); Urine Ketones NEGATIVE (Negative); Urine Microscopic Reflex YN ORDER UMIC; Urine Nitrite NEGATIVE (Negative); Urine Protein TRACE (Negative); Urine RBC <5 /HPF (None Seen); Urine Urobilinogen Normal (Normal); Urine WBC <5 /HPF (<5)
--- NOTE | 2023-10-25 14:12 | RAD REPORT ---
EXAM DESCRIPTION: RAD - Foot Right 3 View - 10/25/2023 1:44 pm CLINICAL HISTORY: Right foot pain status post injury FINDINGS: No fracture or dislocation is seen
[2023-10-25] MEDS ORDERED: ACETAMINOPHEN 500 MG TAB ONE (14:15)
[2023-10-25 14:18] LABS: PT Prothrombin Time 10.8 SECONDS (9.5-12.5); PTT, Activated Partial Thromb 32.1 SECONDS (24.3-36.9); Protime INR 0.98
[2023-10-25] MEDS ORDERED: NA CHLORIDE 0.9% 1,000 ML ONE (14:28)
[2023-10-25 14:36] LABS: Albumin 3.9 g/dL (3.4-5.0); Anion Gap 8.7 mEq/L (5.0-15.0); Bilirubin Direct 0.2 mg/dL (0-0.2); Bilirubin Indirect, Calculated 0.5 mg/dL (0.2-0.8); Bilirubin Total 0.7 mg/dL (0.2-1.0); Globulin 3.9 g/dL (2.3-3.5); Magnesium 2.3 mg/dL (1.6-2.4); Potassium 3.7 mEq/L (3.5-5.1); Protein, Total 7.8 g/dL (6.4-8.2)
--- NOTE | 2023-10-25 15:03 | ER ---
Nurse's Notes [facility] Name: Jo Hagan Age: 68 yrs Sex: Female : 1955 Arrival Date: 10/25/2023 Time: 12:00 Bed 18 Private MD: Diagnosis: Syncope;Radiculopathy, cervical region;Pain in left arm;Pain in right foot Presentation: 10/24 12:06 Coronavirus screen: At this time, the client does not indicate any symptoms associated aa5 with coronavirus-19. Ebola Screen: Patient denies travel to an Ebola-affected area in the 21 days before illness onset. Initial Sepsis Screen: Does the patient meet any 2 criteria? No. Patient's initial sepsis screen is negative. Does the patient have a suspected source of infection? No. Patient's initial sepsis screen is negative. Risk Assessment: Do you want to hurt yourself or someone else? Patient reports no desire to harm self or others. Onset of symptoms was October 24, 2023. 12:06 Acuity: OLGA 2 aa5 12:06 Method Of Arrival: Ambulatory aa5 12:06 Chief complaint: Patient states: "I fell last night, I was sitting on the couch, got aa5 up, got dizzy, and I saw everything black and I was on the floor". Pt c/o pain to left hand pain and pain to right toes. Triage Assessment: 13:22 General: Appears uncomfortable, Behavior is calm, cooperative, appropriate for age. cp4 Pain:. 13:24 Pain: Complains of pain in left hand and right toes. cp4 Historical: - Allergies: 12:06 Iodine; aa5 - PMHx: 12:06 Diabetes - IDDM; GERD; Hypertension; TIA; aa5 - PSHx: 12:06 Cholecystectomy; hernia; hysterectomy; aa5 - Immunization history:: Adult Immunizations unknown. - Infectious Disease History:: Denies. - Social history:: Smoking status: Patient denies any tobacco usage or history of. Screenin:25 [facility] ED Fall Risk Assessment (Adult) History of falling in the last 3 months, cp4 including since admission No falls in past 3 months (0 pts) Confusion or Disorientation No (0 pts) Intoxicated or Sedated No (0 pts) Impaired Gait No (0 pts) Mobility Assist Device Used No (0 pt) Altered Elimination No (0 pt) Score/Fall Risk Level 0 - 2 = Low Risk Oriented to surroundings, Maintained a safe environment, Assessed \\T\\ reinforced patient's understanding of fall precautions, Hourly rounding (assess needs \\T\\ fall precautionary measures) done. Abuse screen: Denies threats or abuse. Nutritional screening: No deficits noted. Tuberculosis screening: No symptoms or risk factors identified. Vital Signs: 12:06 BP 171 / 98; Pulse 82; Resp 18 S; Temp 97.3(TE); Pulse Ox 100% on R/A; Weight 75.75 kg aa5 (R); Height 5 ft. 3 in. (R); 14:12 BP 178 / 90 LA Supine (auto/reg); Pulse 79; cp4 14:12 BP 184 / 91 LA Sitting (auto/reg); Pulse 79; cp4 14:12 BP 144 / 87 LA Standing (auto/reg); Pulse 76; cp4 15:04 BP 176 / 86; Pulse 74; Resp 18; Pulse Ox 100% ; cp4 12:06 Body Mass Index 29.58 (75.75 kg, 160.02 cm) aa5 ED Course: 12:03 Patient arrived in ED. mg5 12:06 Arm band placed on. aa5 12:07 Triage completed. aa5 12:19 EKG completed in triage. Results shown to MD. aa5 12:39 Elana Gaytan is Primary Nurse. cp4 13:00 Olinda Coulter FNP-C [facility]. kb 13:00 Ben Barron MD is Attending Physician. kb 13:25 Bed in low position. Call light in reach. Side rails up X 1. cp4 13:25 No provider procedures requiring assistance completed. cp4 13:34 CT Head C Spine In Process Unspecified. EDMS 13:46 Chest Single View XRAY In Process Unspecified. EDMS 13:46 Foot Right 3 View XRAY In Process Unspecified. EDMS 13:46 Tib Fib Right XRAY In Process Unspecified. EDMS 13:46 Humerus Left XRAY In Process Unspecified. EDMS 13:46 Forearm Left XRAY In Process Unspecified. EDMS 14:03 Client placed on continuous cardiac and pulse oximetry monitoring. NIBP monitoring cp4 applied. pvc monitor on. 14:03 Initial lab(s) drawn, by me, sent to lab. Inserted saline lock: 20 gauge in right cp4 antecubital area, using aseptic technique. Blood collected. 15:05 Provided Education on: syncope. cp4 15:05 intact, bleeding controlled, No redness/swelling at site. Pressure dressing applied. cp4 Administered Medications: 14:17 Drug: Acetaminophen PO 1000 mg PO once Route: PO; cp4 15:07 Follow up: Response: No adverse reaction cp4 14:31 Drug: NS 0.9% IV 1000 ml IV at 1000 ml once Route: IV; Rate: 1000 ml; Site: right cp4 antecubital; 15:06 Follow up: Response: No adverse reaction; IV Status: Completed infusion cp4 Medication: 13:25 VIS not applicable for this client. cp4 Outcome: 15:02 Discharge ordered by . patricia 15:05 Discharged to home ambulatory, cp4 15:05 Condition: stable 15:05 Discharge instructions given to patient, Instructed on discharge instructions, follow up and referral plans. Demonstrated understanding of instructions, follow-up care, 15:29 Patient left the ED. cp4 Signatures: Dispatcher [employer] EDOlinda Colon, TURBOGENERATOR OPERATOR-C TURBOGENERATOR OPERATOR-Kiara Marie, RN RN Pema Bryan 5 Elana Gaytan cp4
--- NOTE | 2023-10-25 15:03 | EDPHYS ---
Physician Documentation [facility] – [place], [place] Name: Jo Hagan Age: 68 yrs Sex: Female : 1955 Arrival Date: 10/25/2023 Time: 12:00 Bed 18 Private MD: ED Physician Ben Barron HPI: 10/24 13:10 This 68 yrs old Female presents to ER via Ambulatory with complaints of Fall kb Injury, Arm Pain, Leg Pain, Syncope. 13:10 Pt is a 68 year old female who presents for fall yesterday. States she stood from a kb sitting position, got dizzy and fell. Presents today for right foot pain and left arm pain. Reports pain to left side of neck as well. States she hasn't had any episodes of dizziness since then. Reports headache . Historical: - Allergies: 12:06 Iodine; aa5 - PMHx: 12:06 Diabetes - IDDM; GERD; Hypertension; TIA; aa5 - PSHx: 12:06 Cholecystectomy; hernia; hysterectomy; aa5 - Immunization history:: Adult Immunizations unknown. - Infectious Disease History:: Denies. - Social history:: Smoking status: Patient denies any tobacco usage or history of. ROS: 13:28 Constitutional: As per HPI kb Exam: 13:28 Constitutional: This is a well developed, well nourished patient who is awake, alert, kb and in no acute distress. Head/Face: Normocephalic, atraumatic. ENT: Moist Mucous membranes Cardiovascular: Regular rate Respiratory: Respirations even and unlabored. No increased work of breathing. Talking in full sentences Abdomen/GI: Soft, non-tender. No distention Skin: Warm, dry with normal turgor. Normal color. Neuro: Awake and alert, GCS 15, oriented to person, place, time, and situation. Moves all extremities. Normal gait. 13:28 Back: pain, that is mild, of the left trapezius, ROM is normal, normal spinal alignment noted, 13:28 Musculoskeletal/extremity: Extremities: grossly normal except: noted in the right foot and left arm: pain, tenderness, ROM: intact in all extremities, Circulation is intact in all extremities. Sensation intact. 15:03 Neck: External neck: tenderness, that is mild, of the left mid cervical area and left kb trapezius, with radiation down left arm, Vital Signs: 12:06 BP 171 / 98; Pulse 82; Resp 18 S; Temp 97.3(TE); Pulse Ox 100% on R/A; Weight 75.75 kg aa5 (R); Height 5 ft. 3 in. (R); 14:12 BP 178 / 90 LA Supine (auto/reg); Pulse 79; cp4 14:12 BP 184 / 91 LA Sitting (auto/reg); Pulse 79; cp4 14:12 BP 144 / 87 LA Standing (auto/reg); Pulse 76; cp4 15:04 BP 176 / 86; Pulse 74; Resp 18; Pulse Ox 100% ; cp4 12:06 Body Mass Index 29.58 (75.75 kg, 160.02 cm) aa5 MDM: 13:01 Patient medically screened. kb 13:30 Differential diagnosis: closed head injury, contusion, fracture, sprain, strain, kb dehydration, arrhythmia, abnormal electrolytes. Data reviewed: vital signs, nurses notes. 15:01 Historians other than the Patient: Parent: daughter. Counseling: I had a detailed kb discussion with the patient and/or guardian regarding the historical points, exam findings, and any diagnostic results supporting the discharge/admit diagnosis, lab results, radiology results, the need for outpatient follow up, a family practitioner, to return to the emergency department if symptoms worsen or persist or if there are any questions or concerns that arise at home. 15:04 Consideration of Admission/Observation Escalation of care including kb admission/observation considered. admission considered, but labs reassuring and pt has not had any dizziness or syncopal/near syncopal episodes since yesterday. Pt and daughter in agreement with outpatient treatment and follow up, will return for any concerns. . ED course: At bedside to reassess patient. Patient remains awake, alert and at baseline mentation. Patient appears stable. Patient exhibits no visible signs of distress. Patient respirations even and unlabored. I discussed patient's diagnosis, differential diagnosis, expected course of illness, at home recommendations and strict return precautions. I advised patient to follow-up with PCP in 2 to 3 days. I explained all diagnostic results with the patient and answered all questions that patient had regarding the most likely diagnosis. I emphasized the need for close outpatient follow-up and care from primary care provider/specialist and went through careful and detailed return precautions with patient. Patient expressed full understanding of such and agrees with plan for discharge today. Feel patient is stable and appropriate for discharge and ongoing management of condition at home at this time.. 10/24 13:15 Order name: Basic Metabolic Panel; Complete Time: 14:50 kb 10/24 13:15 Order name: CBC with Diff; Complete Time: 14:50 kb 10/24 13:15 Order name: Hepatic Function; Complete Time: 14:50 kb 10/24 13:15 Order name: Magnesium; Complete Time: 14:50 kb 10/24 13:15 Order name: Protime (+inr); Complete Time: 14:21 kb 10/24 13:15 Order name: Ptt, Activated; Complete Time: 14:21 kb 10/24 13:15 Order name: Troponin High Sensitivity; Complete Time: 14:50 kb 10/24 13:15 Order name: Urinalysis w/ reflexes; Complete Time: 14:14 kb 10/24 13:15 Order name: CT Head C Spine; Complete Time: 13:49 kb 10/24 13:15 Order name: Chest Single View XRAY; Complete Time: 14:14 kb 10/24 13:17 Order name: Foot Right 3 View XRAY; Complete Time: 14:14 kb 10/24 13:17 Order name: Tib Fib Right XRAY; Complete Time: 14:14 kb 10/24 13:17 Order name: Humerus Left XRAY; Complete Time: 14:14 kb 10/24 13:17 Order name: Forearm Left XRAY; Complete Time: 14:14 kb 10/24 12:20 Order name: EKG - Nurse/Tech; Complete Time: 12:20 aa5 10/24 13:15 Order name: Cardiac monitoring; Complete Time: 13:37 kb 10/24 13:15 Order name: IV Saline Lock; Complete Time: 14:02 kb 10/24 13:15 Order name: Labs collected and sent; Complete Time: 14:02 kb 10/24 13:15 Order name: NPO; Complete Time: 13:37 kb 10/24 13:15 Order name: O2 Per Protocol; Complete Time: 13:37 kb 10/24 13:15 Order name: O2 Sat Monitoring; Complete Time: 13:37 kb 10/24 13:15 Order name: Orthostatics; Complete Time: 14:13 kb Administered Medications: 14:17 Drug: Acetaminophen PO 1000 mg PO once Route: PO; cp4 15:07 Follow up: Response: No adverse reaction cp4 14:31 Drug: NS 0.9% IV 1000 ml IV at 1000 ml once Route: IV; Rate: 1000 ml; Site: right cp4 antecubital; 15:06 Follow up: Response: No adverse reaction; IV Status: Completed infusion cp4 Disposition Summary: 10/25/23 15:02 Discharge Ordered Notes: Location: Home kb Condition: Stable kb Diagnosis - Syncope kb - Radiculopathy, cervical region kb - Pain in left arm kb - Pain in right foot kb Followup: kb - With: Emergency Department - When: As needed - Reason: Worsening of condition Followup: kb - With: Private Physician - When: 2 - 3 days - Reason: Recheck today's complaints, Continuance of care, Re-evaluation by your physician Discharge Instructions: - Discharge Summary Sheet kb - Musculoskeletal Pain kb - Syncope, [id number] kb - Dehydration, Adult, [id number] kb - Cervical Radiculopathy, [id number] kb Forms: - Medication Reconciliation Form kb - Antibiotic Education kb - Prescription Opioid Use kb - Patient Portal Instructions kb - Leadership Thank You Letter kb Prescriptions: - orphenadrine citrate 100 mg Oral Tablet Sustained Release - take 1 tablet ORAL route 2 times per day As needed; 20 tablet; Refills: 0, kb Product Selection Permitted Signatures: Dispatcher [employer] EDMS Olinda Coulter, PIPEFITTER HELPER-C PIPEFITTER HELPER-Kiara Marie RN RN aa5 Elana Gaytan cp4 Corrections: (The following items were deleted from the chart) 13:16 13:16 Head C Spine MPR Wo Con+CT.RAD.BRZ ordered. EDMS EDMS 13:16 13:16 Chest Single View+RAD.RAD.BRZ ordered. EDMS EDMS 13:17 13:17 Tib Fib Right+RAD.RAD.BRZ ordered. EDMS EDMS 13:17 13:17 Humerus Left+RAD.RAD.BRZ ordered. EDMS EDMS 13:18 13:18 Forearm Left+RAD.RAD.BRZ ordered. EDMS EDMS 13:28 13:10 Pt is a 68 year old female who presents for fall yesterday. States she stood from a sitting position, got dizzy and fell. Presents today for right foot pain and left arm pain. Reports pain to left side of neck as well. States she hasn't had any episodes of dizziness since then. . kb
[2023-10-25 15:51] VITALS: BP 176/86; TEMP 97.3; O2SAT 100
--- NOTE | 2023-10-28 13:04 | EKG ---
Test Date: 2023-10-25 Test Time: 12:18:51 Precision Honer: KENNY MEASUREMENT RESULTS: Intervals: Rate: 80 [place]: 164 QRSD: 76 QT: 402 QTc: 463 [place]: P: 62 [place]: 164 QRS: 25 T: 13 INTERPRETIVE STATEMENTS: Normal sinus rhythm Possible Left atrial enlargement Low voltage QRS Septal infarct, age undetermined Abnormal ECG Compared to ECG 08/13/2023 13:13:26 Low QRS voltage now present Myocardial infarct finding now present T-wave abnormality no longer present Electronically Signed On 10-28-23 12:57:36 CDT by Bandar Johnson
== END 2023-10-25 15:29 | disposition home or self-care (01) ==
LOC: ER 12:00
DX: R55 Syncope and collapse (principal); M54.12 Radiculopathy, cervical region; M79.602 Pain in left arm; M79.671 Pain in right foot; E11.9 Type 2 diabetes mellitus without complications; I10 Essential (primary) hypertension; Z91.048 Other nonmedicinal substance allergy status
CPT/HCPCS: 93005; 85025; 81001; 80048; 36415; 83735; 85610; 80076; 85730; 84484; 70450; 72125; 71045; 73630; 73090; 73060; 73590; J7030

== ENCOUNTER 2024-09-24 07:11 | Day surgery (SDC) | payer OTHER ==
[2024-09-22 12:11] LABS: Absolute Eosinophils 0.1 K/uL (0-0.5); Absolute Lymphocytes (CBC) 1.9 K/uL (0.7-4.9); Absolute Monocytes 0.6 K/uL (0.1-1.3); Absolute Neutrophil 3.9 K/uL (1.8-8.0); Basophils % 0.6 % (0-1.3); Eosinophils % 1.8 % (0-4.4); Hematocrit 39.5 % (36.0-45.0); Hemoglobin 13.7 g/dL (12.0-15.0); Lymphocytes % 29.1 % (15.3-44.8); MCH 30.2 pg (27.0-35.0); MCHC 34.8 g/dL (32.0-36.0); MCV 86.7 fL (80-100); MPV 7.4 fL (7.6-11.3); Monocytes % 9.3 % (3.3-12.3); Neutrophils % 59.2 % (41.7-73.7); Platelets 250 thou/uL (152-406); RBC Red Blood Cell Count 4.55 M/uL (3.86-4.86); Red Cell Distribution Width 15.1 % (12.1-15.2)
[2024-09-22 12:21] LABS: Anion Gap 10.7 mEq/L (5.0-15.0); PT Prothrombin Time 10.7 SECONDS (10-13.0); PTT, Activated Partial Thromb 29.5 SECONDS (27.2-37.4); Potassium 3.7 mEq/L (3.5-5.1); Protime INR 0.94
--- NOTE | 2024-09-22 14:23 | RAD REPORT ---
EXAMINATION: TWO VIEW CHEST XR CLINICAL INDICATION: Female, 69 years old. [facility] Pre-op pending abdominal angiogram. Hypertension TECHNIQUE: 2 view radiographs of the chest were performed. COMPARISON: 10/25/2023 FINDINGS: The lungs are well inflated and clear. No pneumothorax or sizable effusion. The heart is normal in si ze. Mediastinal contours are unremarkable. IMPRESSION: No acute or significant abnormalities.
[~2024-09-24 07:11] MED LIST: NA CHLORIDE 0.9% 500 ML ONE
[2024-09-24] MEDS ORDERED: HEPA 1000U/500MLS 2,000 UNIT/1,000 ML BAG IV ONE (07:21)
[2024-09-24] MEDS ORDERED: HEPARIN 10,000 UNIT/10 ML VIAL IV ONE (07:21)
[2024-09-24] MEDS ORDERED: LIDOCAINE 1% 20 ML MDV ONE (07:21)
[2024-09-24] MEDS ORDERED: VERAPAMIL HCL 10 MG/4 ML VIAL IV ONE (07:21)
[2024-09-24] MEDS ORDERED: ATROPINE SULF 1 MG/10 ML SYR IV ONE (07:22)
[2024-09-24] MEDS ORDERED: MIDAZOLAM HCL 2 MG/2 ML INJ ONE (07:22)
[2024-09-24] MEDS ORDERED: HEPARIN 5000 UNIT/ML 1 ML VIAL ONE (07:22)
[2024-09-24] MEDS ORDERED: FENTANYL CITR 100 MCG/2 ML ONE (07:22)
[2024-09-24] MEDS ORDERED: DIPHENHYDRAMINE 50 MG/ML VIAL ONE (07:30)
[2024-09-24] MEDS ORDERED: METHYLPREDNISOLONE 125 MG INJ ONE (07:30)
[2024-09-24] MEDS ORDERED: HYDRALAZINE HCL 20 MG/ML VIAL ONE (07:41)
--- NOTE | 2024-09-24 08:44 | EKG ---
Test Date: 2024-09-22 Test Time: 11:15:48 Mash Preparatory Operator: DENNIS MEASUREMENT RESULTS: Intervals: Rate: 82 [place]: 166 QRSD: 84 QT: 374 QTc: 436 [place]: P: 56 [place]: 166 QRS: 37 T: 91 INTERPRETIVE STATEMENTS: Normal sinus rhythm Nonspecific T wave abnormality Abnormal ECG Compared to ECG 10/25/2023 12:18:51 T-wave abnormality now present Myocardial infarct finding no longer present Electronically Signed On 09-24-24 08:38:34 CDT by Blake Holt
[2024-09-24 09:45] VITALS: O2SAT 100
[2024-09-24 10:36] VITALS: BP 158/78
--- NOTE | 2024-09-24 13:15 | OP ---
Date of Procedure: 09/24/2024 Surgeon: LUIS MADRID Procedure Performed: Peripheral angiogram with runoff. Indication: Peripheral vascular disease. Access: Right radial artery 6-[place], closed with TR band. Complications: None. Bleeding: Less than 50 mL. Anesthesia: Total sedation time was 1 hour, used fentanyl and Versed. Description Of Procedure: After risks, benefits, and alternatives were explained, the patient to agr eed procedure and signed informed consent. The patient is allergic to iodine, so she was premedicate d with prednisone and Benadryl and IV Solu-Medrol before the procedure. Then, after the patient was prepped and draped in usual sterile fashion, I accessed right radial artery using pediatric micropunc ture kit and ultrasound guidance, and placed a 6-[place] Slender sheath and took a long 4-[place] pigta il catheter, placed in distal aorta, performed distal aortogram and runoff, and then removed the cath eter and the sheath and placed TR band with good hemostasis. Findings: 1. Distal aorta is widely patent. 2. Right lower extremity: Right common iliac and external iliac widely patent. The common femoral i s patent. Profunda is patent and the SFA has proximal 50%, proximal to mid 50% to 60%, distal 70% st enosis. Popliteal is patent. Anterior tibial is occluded, 90% to 99% stenosis. Tibial trunk is pat ent and posterior tibial is occluded 100% and the peroneal is with diffuse disease that is about 40% to 50%. 3. Left lower extremity: The common iliac, external iliac, and common femoral are patent. The profu nda has severe disease and the SFA on the left has proximal 90% stenosis, heavily calcified, and ther e is multiple tandem lesions ranging from 60% to 70%. Popliteal artery appears to be patent. Anteri or tibial is occluded. Posterior tibial is occluded and peroneal is open all the way with diffuse di sease. Conclusions: Severe bilateral peripheral vascular disease. Recommendation: Intervention on the left lower extremity starting with the SFA and below the knee an d then the right lower extremity at a later time at [place]. SR/MODL Voice ID: [id number] Report ID: [id number]
== END 2024-09-24 10:38 | disposition home or self-care (01) ==
LOC: CCL 07:11
PROVIDERS: ADMIT Internal Medicine; ATTEND Internal Medicine
PROC: B41D1ZZ Fluoroscopy of Aorta and Bilateral Lower Extremity Arteries using Low Osmolar Contrast (ICD-10-PCS; principal; 2024-09-24)
DX: I70.223 Atherosclerosis of native arteries of extremities with rest pain, bilateral legs (principal); I70.92 Chronic total occlusion of artery of the extremities; I25.10 Atherosclerotic heart disease of native coronary artery without angina pectoris; I10 Essential (primary) hypertension; E78.2 Mixed hyperlipidemia; E11.9 Type 2 diabetes mellitus without complications; Z79.82 Long term (current) use of aspirin; Z79.84 Long term (current) use of oral hypoglycemic drugs; Z79.85 Long-term (current) use of injectable non-insulin antidiabetic drugs; Z79.01 Long term (current) use of anticoagulants; Z79.899 Other long term (current) drug therapy; Z88.8 Allergy status to other drugs, medicaments and biological substances; Z82.49 Family history of ischemic heart disease and other diseases of the circulatory system
CPT/HCPCS: 36200; 93005; 85025; 80048; 36415; 85610; 82947; 85730; 71046; 75630; 76937; C1893; J1644; J0360; J2003; J1200; J2250; J3010; J2919; J7040; 99152; 99153; J0461

== ENCOUNTER 2024-11-12 15:35 | Day surgery (SDC) | payer OTHER ==
[2024-11-10 14:11] LABS: Absolute Eosinophils 0.1 K/uL (0-0.5); Absolute Lymphocytes (CBC) 1.6 K/uL (0.7-4.9); Absolute Monocytes 0.5 K/uL (0.1-1.3); Absolute Neutrophil 3.8 K/uL (1.8-8.0); Basophils % 0.7 % (0-1.3); Eosinophils % 1.9 % (0-4.4); Hematocrit 42.2 % (36.0-45.0); Hemoglobin 14.7 g/dL (12.0-15.0); Lymphocytes % 26.5 % (15.3-44.8); MCH 30.5 pg (27.0-35.0); MCHC 34.9 g/dL (32.0-36.0); MCV 87.5 fL (80-100); MPV 7.4 fL (7.6-11.3); Monocytes % 8.3 % (3.3-12.3); Neutrophils % 62.6 % (41.7-73.7); Platelets 244 thou/uL (152-406); RBC Red Blood Cell Count 4.82 M/uL (3.86-4.86)
[2024-11-10 14:20] LABS: PT Prothrombin Time 10.9 SECONDS (10-13.0); PTT, Activated Partial Thromb 31.3 SECONDS (27.2-37.4); Protime INR 0.95
[2024-11-10 14:28] LABS: Anion Gap 10.2 mEq/L (5.0-15.0); Potassium 4.2 mEq/L (3.5-5.1)
--- NOTE | 2024-11-11 12:20 | EKG ---
Test Date: 2024-11-10 Test Time: 14:02:10 Dump Attendant: MARGARETTE MEASUREMENT RESULTS: Intervals: Rate: 81 [place]: 164 QRSD: 80 QT: 380 QTc: 441 [place]: P: 55 [place]: 164 QRS: 34 T: 83 INTERPRETIVE STATEMENTS: Normal sinus rhythm Nonspecific T wave abnormality Abnormal ECG Compared to ECG 09/22/2024 11:15:48 No significant changes Electronically Signed On 11-11-24 12:19:22 CDT by Blake Holt
[2024-11-12] MEDS ORDERED: NA CHLORIDE 0.9% 500 ML ONE (15:45)
[2024-11-12] MEDS ORDERED: HEPA 1000U/500MLS 2,000 UNIT/1,000 ML BAG IV ONE (16:48)
[2024-11-12] MEDS ORDERED: FENTANYL CITR 100 MCG/2 ML ONE (16:48)
[2024-11-12] MEDS ORDERED: MIDAZOLAM HCL 2 MG/2 ML INJ ONE (16:48)
[2024-11-12] MEDS ORDERED: HEPARIN 10,000 UNIT/10 ML VIAL IV ONE (16:48)
[2024-11-12] MEDS ORDERED: LIDOCAINE 1% 20 ML MDV ONE (16:48)
[2024-11-12] MEDS ORDERED: TICAGRELOR 90 MG TABLET PO ONE (16:49)
[2024-11-12] MEDS ORDERED: CLOPIDOGREL 75 MG TABLET ONE (16:49)
[2024-11-12] MEDS ORDERED: NALOXONE 0.4 MG/ML VIAL ONE (16:50)
[2024-11-12] MEDS ORDERED: FLUMAZENIL 0.1 MG/ML (5 mL VIAL) IV ONE (16:50)
[2024-11-12] MEDS ORDERED: ASPIRIN 325 MG TAB ONE (16:50)
[2024-11-12] MEDS ORDERED: DIPHENHYDRAMINE 50 MG/ML VIAL ONE (16:58)
[2024-11-12] MEDS ORDERED: METHYLPREDNISOLONE 125 MG INJ ONE (16:58)
[2024-11-12] MEDS ORDERED: HYDRALAZINE HCL 20 MG/ML VIAL ONE (17:08)
[2024-11-12 19:37] VITALS: BP 167/73; O2SAT 97
--- NOTE | 2024-11-13 00:09 | OP ---
Date of Procedure: 11/12/2024 Surgeon: LUIS MADRID Procedures Performed: 1. Peripheral angiogram of the left lower extremity. 2. Failed attempt balloon angioplasty of severe proximal ostial left SFA stenosis. Access: Right common femoral artery 6-Omani, closed with 6-Omani Mynx closure device. Complications: None. Bleeding: Less than 50 mL. Total Sedation Time: 1 hour, used fentanyl and Versed. Description Of Procedure: After risks, benefits, and alternatives were explained, the patient agreed to procedure and signed informed consent. The patient was brought into cardiac catheterization [facility], prepped and draped in sterile fashion. Then, I accessed the right common femoral artery usin g micropuncture kit, ultrasound guidance, fluoroscopy, placed 6-[place] sheath, and took a Om ni Flush with [place] Advantage in distal aorta, and across to the other side and exchanged the 6-Frenc h for the 6-O[place]i destination sheath 45 cm, placed in the common iliac, performed angiogram with run off and then gave heparin to assure ACT level above 250 throughout the procedure and took a [place] Adv antage wire with NaviCross microcatheter and trying to cross the stenosis, however, could not get suki k in the lumen. There was dissection behind the lesion and could not get back in the lumen and the c oncern that there was only 1 vessel runoff, so I had to abort the procedure and then repeated angiogr am and the SFA flow was jeopardized ostially, however, it is getting good collateral blood flow from the profunda where it reconstitutes above the knee and runoff is still present. The patient has zero symptoms. I decided to abort the procedure at this point to avoid further complications and then re moved the sheath and placed a 6-[place]mani Mynx closure device with good hemostasis. Findings: 1. The left common femoral artery is patent. 2. The left SFA has ostial and proximal 99% stenosis, status post failed balloon angioplasty and inte rvention. The SFA is heavily diseased ranging between 40% and 50%, and anterior tibial is occluded a nd peroneal is occluded and there is only 1 vessel runoff that is also diseased diffusely about 40% t o 50%. Conclusion: Severe left lower extremity peripheral vascular disease, failed balloon angioplasty atte mpt of the ostial SFA on the left; however, there is reconstitution of the SFA above the knee. The p atient has zero symptoms. Recommendation: We will transfer to higher level care facility for vascular surgery evaluation, poss ible doing endarterectomy of the focal lesion in the SFA. SR/ERINL Voice ID: [id number] Report ID: [id number]
== END 2024-11-12 19:57 | disposition short-term general hospital (02) ==
LOC: CCL 15:35
PROVIDERS: ATTEND Internal Medicine
DX: I70.202 Unspecified atherosclerosis of native arteries of extremities, left leg (principal); I70.92 Chronic total occlusion of artery of the extremities; I25.10 Atherosclerotic heart disease of native coronary artery without angina pectoris; I48.91 Unspecified atrial fibrillation; E11.9 Type 2 diabetes mellitus without complications; I10 Essential (primary) hypertension; E78.2 Mixed hyperlipidemia; Z79.01 Long term (current) use of anticoagulants; Z79.82 Long term (current) use of aspirin; Z79.84 Long term (current) use of oral hypoglycemic drugs; Z79.899 Other long term (current) drug therapy; Z88.8 Allergy status to other drugs, medicaments and biological substances
CPT/HCPCS: 93005; 85025; 80048; 36415; 85610; 82947; 85347; 85730; 75710; 37224; 76937; C1893; C1769; J0360; J2003; J1200; J2250; J3010; J2919; J1644; J7040; C1760; 99152; J2310